=== PATIENT | female | born 1955 | race Caucasian/White ===

== ENCOUNTER 2020-01-12 11:56 | Outpatient (CLI) | payer MEDICARE, SELFPAY ==
--- NOTE | ~2020-01-12 | CT_ITS ---
CORRECTED REPORT ORDER CHANGE TITLE CHANGE 01/13/2020 [facility] – [place] EXAMINATION: CT LUNG SCREENING EXAM DATE: 01/12/2020 12:32 INDICATION: Personal history of nicotine dependence. TECHNIQUE: Spiral low dose CT of the chest without contrast. Axial, coronal and sagittal images were reviewed. The dose-length product (DLP) for this examination was 158.03 mGy-cm. The exposure was tailored according to patient size (auto mA exposure control), and iterative reconstruction (ASIR) was used as additional dose reduction technique. Comparison is made to prior examination from 11/23/2018. FINDINGS: There is moderate hyperinflation and mild emphysema. There is 4 mm right lower lobe nodule medially on image 60, noncalcified granuloma unchanged. No new or suspicious pulmonary nodules. Tracheobronchial tree is patent. There is no mediastinal, hilar or axillary lymphadenopathy. There are no pleural or pericardial effusions. There is no pneumothorax. Heart normal in size. There is mild coronary arterial calcification, arterial sclerosis. Surgical changes from right-sided mastectomy. Upper abdomen is unremarkable. There is mild thoracic spondylosis without osteoblastic or osteolytic lesions identified. IMPRESSION: Lung-RADS category 2, benign appearance or behavior (<1% chance of malignancy); recommend continued LDCT screening in 1 year. Reviewed, dictated and finalized at location B. MTDD
--- NOTE | ~2020-01-12 | MM_ITS ---
CORRECTED REPORT ORDER CHANGE TITLE CHANGE 01/12/2020 [facility] – [place] EXAMINATION: MM screening mammo LT WITH LORA HISTORY: Screening mammogram TECHNIQUE: Craniocaudal and mediolateral oblique 3-D tomosynthesis images were obtained and synthetic 2-D images were generated. CAD analysis was submitted and interpreted. COMPARISON: 11/23/2018, 10/29/2016, 10/24/2015 mammogram examinations BREAST PARENCHYMAL COMPOSITION: There is heterogeneously dense stroma, which may obscure small masses. FINDINGS: A small spiculated mass is suggested in the central left breast (craniocaudal Tomosynthesis image 30/60; MLO Tomosynthesis image 27/62). Diagnostic left mammogram and left breast ultrasound examination are recommended. Otherwise there is no evidence of suspicious mass, calcification, or architectural distortion to suggest malignancy. There has been no other suspicious interval change. IMPRESSION: 1. New small spiculated mass is suggested in the central left breast 2. Diagnostic left mammogram and left breast ultrasound examination are recommended. BI-RADS Category 0: Incomplete: Needs additional imaging evaluation. Reviewed, dictated and finalized at location A. MTDD IMPRESSION: 1. New small spiculated mass is suggested in the central left breast 2. Diagnostic left mammogram and left breast ultrasound examination are recomme nded. BI-RADS Category 0: Incomplete: Needs additional imaging evaluation.
== END 2020-01-12 11:57 | disposition home or self-care (01) ==
LOC: CHSIMG 12:01
PROVIDERS: PCP Internal Medicine; Visit Provider Internal Medicine
DX: Z12.31 Encounter for screening mammogram for malignant neoplasm of breast (principal); Z12.2 Encounter for screening for malignant neoplasm of respiratory organs; Z87.891 Personal history of nicotine dependence
CPT/HCPCS: 71250; 77063; 77067; G0297

== ENCOUNTER 2020-01-19 09:32 | Outpatient (CLI) | payer MEDICARE, SELFPAY ==
--- NOTE | ~2020-01-19 | MMUS_ITS ---
EXAMINATION: MM diagnostic amado LT w chanelle, US breast LT complete HISTORY: Possible new left breast mass TECHNIQUE: Additional 3-D tomosynthesis images of the left breast were performed and synthetic 2-D im ages were generated. CAD analysis was submitted and interpreted. High resolution left breast ultrasou nd was performed. COMPARISON: 11/23/2018 FINDINGS: MAMMOGRAPHIC FINDINGS: The breasts are heterogenously dense, which may obscure small masses. There are no suspicious masses, calcifications or architectural distortion in the left breast to suggest malignancy. ULTRASOUND: Left breast ultrasound: 2 mm cyst at 11:00, 4 cm from the nipple. No suspicious masses, calcification s or architectural distortion to suggest malignancy. IMPRESSION: 1. No mammographic or sonographic evidence for malignancy in the left breast. 2. Routine yearly screening mammogram and regular clinical breast examination are recommended. BI-RADS Category 2: Benign finding(s). Reviewed, dictated and finalized at location A. IMPRESSION: 1. No mammographic or sonographic evidence for malignancy in the left breast. 2. Routine yearly screening mammogram and regular clinical breast examination a re recommended. BI-RADS Category 2: Benign finding(s).
== END 2020-01-19 09:33 | disposition home or self-care (01) ==
PROVIDERS: PCP Internal Medicine; Visit Provider Internal Medicine
DX: R92.8 Other abnormal and inconclusive findings on diagnostic imaging of breast (principal)
CPT/HCPCS: 76641; 77061; 77065; G0279

== ENCOUNTER 2020-06-13 08:56 | Outpatient (CLI) | payer MEDICARE, SELFPAY ==
[2020-06-13 10:40] LABS: SARS-CoV-2 Ag Negative (Negative)
== END 2020-06-13 08:57 | disposition home or self-care (01) ==
LOC: CHSLAB 08:58
PROVIDERS: PCP Internal Medicine; Visit Provider Internal Medicine
DX: Z20.828 Contact with and (suspected) exposure to other viral communicable diseases (principal)
CPT/HCPCS: 87426

== ENCOUNTER 2020-06-27 10:39 | Outpatient (CLI) | payer MEDICARE, SELFPAY ==
--- NOTE | ~2020-06-27 | MR_ITS ---
EXAMINATION: MR brain/brain stem wo con DATE: 06/27/2020 11:51 INDICATION: Transient ischemic attack. Dizziness. Confusion. TECHNIQUE: Magnetic resonance imaging (MRI) of the brain and brainstem was performed without intraven ous contrast. Sequences included sagittal and axial T1-weighted FSE, axial diffusion-weighted FS EPI, axial T2*-weighted GRE, axial T2-weighted FLAIR Propeller, and axial T2-weighted Propeller. Apparent diffusion coefficient (ADC) maps were created. COMPARISON: Brain MRI 03/11/2017 FINDINGS: There are scattered areas of nonspecific increased T2-weighted signal intensity in the cere bral white matter and ligia. There is no intracranial hemorrhage, acute infarction, or abnormal intrac ranial mass lesion. The ventricles are normal in size. There is mild mucosal thickening in the parana aimee sinuses. The orbits are normal. The mastoid air cells are normal. IMPRESSION: 1. Stable mild nonspecific cerebral white matter disease and pontine disease, which likely represents chronic small vessel ischemic disease. Reviewed, dictated and finalized at location B. 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 Stable mild nonspecific cerebral white matter disease and pontine disease, w hich likely represents chronic small vessel ischemic disease.
== END 2020-06-27 10:40 | disposition home or self-care (01) ==
LOC: CHSIMG 10:41
PROVIDERS: PCP Internal Medicine; Visit Provider Internal Medicine
DX: G45.9 Transient cerebral ischemic attack, unspecified (principal); R42 Dizziness and giddiness
CPT/HCPCS: 70551

== ENCOUNTER 2020-06-28 09:34 | Outpatient (CLI) | payer MEDICARE, SELFPAY ==
--- NOTE | ~2020-06-28 | US_ITS ---
EXAMINATION: US carotid duplex BI DATE: 06/28/2020 11:43 INDICATION: Transient ischemic attack. TECHNIQUE: Grayscale, color Doppler, and pulsed Doppler images of the cervical carotid arteries were obtained. The degree of vessel stenosis is placed in one of the following categories: normal, <50%, 5 0-69%, >=70% but less than near-occlusion, near-occlusion, or total occlusion. Note that percent sten osis relative to normal distal artery lumen diameter is indirectly measured from velocity measurement s as described by Obdulio, et al. Radiology 2003; 229:340-346. COMPARISON: None. FINDINGS: RIGHT: The right common carotid artery (CCA) peak systolic velocity (PSV) is 64 cm/s. The right internal car otid artery (ICA) PSV is 103 cm/s. The right ICA end-diastolic velocity (EDV) is 27 cm/s. The right I CA/CCA PSV ratio is 1.6. Grayscale and color Doppler images yield an estimate of <50% diameter reduct ion from plaque in the ICA. There is antegrade flow in the right vertebral artery. LEFT: The left CCA PSV is 83 cm/s. The left ICA PSV is 115 cm/s. The left ICA EDV is 37 cm/s. The left ICA/ CCA PSV ratio is 1.4. Grayscale and color Doppler images yield an estimate of <50% diameter reduction from plaque in the ICA. There is antegrade flow in the left vertebral artery. IMPRESSION: 1. <50% stenosis in the right internal carotid artery. 2. <50% stenosis in the left internal carotid artery. Reviewed, dictated and finalized at location B. 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
== END 2020-06-28 09:35 | disposition home or self-care (01) ==
LOC: CHSIMG 09:35
PROVIDERS: PCP Internal Medicine; Visit Provider Internal Medicine
DX: G45.9 Transient cerebral ischemic attack, unspecified (principal); R42 Dizziness and giddiness
CPT/HCPCS: 93306; 93880

== ENCOUNTER 2020-07-30 07:49 | Outpatient (CLI) | payer MEDICARE, SELFPAY ==
--- NOTE | 2020-07-30 09:30 | EST_ITS ---
Patient Info Name: Beba Hernandez Age: 65 years : 1955 Gender: Female Ht: 63 in Wt: 180 lbs BSA: 1.94 m2 HR: 71 bpm BP: 159 / 98 mmHg Heart Rhythm: Sinus Rhythm Exam Date: 07/30/2020 9:12 AM Exam Location: [facility] Patient Status: Outpatient Admit Date: 07/30/2020 Staff Ordering Physician: Denice, Suly Chen APRN Attending Provider: Rayna, Suly Chen APRN Exercise Technologist: Charlotte Villalta CRT Exercise Physician: Emily Kuo CEP Exam Type: CA stress ruby w NM Study Info Indications AbnormalEKG - A pharmacological stress test was performed. History/Risk Factors Hypertension: Yes Dyslipidemia: Yes Congenital Heart Disease (CHD): No Peripheral Arterial Disease (PAD): No Myocardial Infarction (OR): No Chronic Lung Disease: Yes Obesity: Yes Renal Disease: No Coronary Artery Disease (CAD) No Congestive Heart Failure (CHF): No Cardiomyopathy/LV Systolic Dysfunction: No Date of Last Tobacco Use: 06/28/2020 Diabetes Mellitus: Yes Tobacco Use: Current - Every Day If Any Current, Tobacco Type: Cigarettes Cerebrovascular Disease: TIA Family History: Diabetes Mellitus, Coronary Artery Disease Deep Vein Thrombosis (DVT): None Dialysis: None History/Risk Factors HTN. DIabetes. Smoker. Lung Disease. Frailty Scale (CSHA): 2: Well Cardiac Arrest: No Summary 1. 1. Negative Lexiscan stress test for ischemic ST changes by ECG criteria. 2. 2. Baseline hypertension. 3. 3. Nuclear scan to follow and will be reported separately. Please correlate with it. Protocol: LEXISCAN Stress ECG Details Stage: REST Duration (min): 2 min : 49 sec HR (bpm): 71 SBP (mmHg): 159 DBP (mmHg): 96 Stage: REST Duration (min): 4 min : 45 sec HR (bpm): 70 SBP (mmHg): 159 DBP (mmHg): 96 Stage: STAGE 1 Duration (min): 0 min : 9 sec HR (bpm): 72 SBP (mmHg): 159 DBP (mmHg): 96 Stage: RECOVERY Duration (min): 0 min : 50 sec HR (bpm): 96 SBP (mmHg): 159 DBP (mmHg): 96 Stage: RECOVERY Duration (min): 1 min : 50 sec HR (bpm): 100 SBP (mmHg): 171 DBP (mmHg): 93 Stage: RECOVERY Duration (min): 2 min : 50 sec HR (bpm): 97 SBP (mmHg): 176 DBP (mmHg): 91 Stage: RECOVERY Duration (min): 3 min : 50 sec HR (bpm): 95 SBP (mmHg): 185 DBP (mmHg): 88 Stage: RECOVERY Duration (min): 4 min : 50 sec HR (bpm): 93 SBP (mmHg): 163 DBP (mmHg): 88 Stage: RECOVERY Duration (min): 5 min : 50 sec HR (bpm): 87 SBP (mmHg): 169 DBP (mmHg): 86 Stage: RECOVERY Duration (min): 6 min : 8 sec HR (bpm): 86 SBP (mmHg): 169 DBP (mmHg): 86 Rest HR: 70 bpm Peak HR: 101 bpm Rest Sys BP: 159 mmHg Peak Sys BP: 185 mmHg Max Pred HR: 153 bpm % Max Pred HR: 66 % Target HR: 130 bpm Max RPP: 18,685 bpm*mmHg Termination Reason: Completion of Protocol Cardiac Symptoms: Headache, Dyspnea Total Time: 0 min : 9 sec
== END 2020-07-30 07:50 | disposition home or self-care (01) ==
PROVIDERS: PCP Internal Medicine; Visit Provider Internal Medicine Cardiovascular Disease
DX: R94.31 Abnormal electrocardiogram [ECG] [EKG] (principal); I49.3 Ventricular premature depolarization; R06.02 Shortness of breath; R55 Syncope and collapse
CPT/HCPCS: 78452; 93017; A9502; J2785

== ENCOUNTER 2021-03-04 12:38 | Outpatient (CLI) | payer MEDICARE, SELFPAY ==
--- NOTE | ~2021-03-04 | CT_ITS ---
EXAMINATION: CT abdomen pelvis w con DATE: 03/04/2021 13:56 INDICATION: Generalized abdominal pain and diarrhea. Nausea and vomiting. TECHNIQUE: Computed tomography (CT) of the abdomen and pelvis was performed with 100 mL Omnipaque-350 intravenous contrast. Automated exposure control and iterative reconstruction technique were employe d. The dose-length product was 678.83 mGy-cm. COMPARISON: 03/19/2018 FINDINGS: Lung bases are clear. Heart size is normal. Lipomatous hypertrophy of the atrial septum. No pericardi al or pleural effusion. Unchanged 1 cm cyst in the left hepatic lobe and the left kidney. Couple smal l splenic calcific lesions consistent with old granulomatous disease. Gallbladder, pancreas, bilatera l adrenal glands and right kidney are normal. Normal appendix. Fluid throughout the otherwise normal small bowel and colon consistent with diarrhea. Decompressed bladder is unremarkable. The uterus is n ot identified and has likely been surgically resected. No free intraperitoneal gas or fluid. Ectatic abdominal aorta measuring up to 3.3 cm in maximal diameter. There is calcified atherosclerosis of the aorta and many of the other arteries. No pathologically enlarged abdominal or pelvic lymphadenopathy . Moderate thoracolumbar spondylosis. IMPRESSION: 1. 2 throughout normal appearing small bowel and colon consistent with diarrhea and would correlate c linically for gastroenteritis. Reviewed, dictated and finalized at location A. IMPRESSION: 1. 2 throughout normal appearing small bowel and colon consistent with diarrhea and would correlate clinically for gastroenteritis.
[2021-03-04 13:05] LABS: Basophils Absolute Auto 0.15 K/mm3 (0.00-0.10); Basophils Percent Auto 0.9 % (0.0-1.0); Eosinophils Absolute Auto 0.17 K/mm3 (0.02-0.50); Eosinophils Percent Auto 1.1 % (1.0-6.0); Hematocrit 45.5 % (35.0-42.0); Hemoglobin 15.7 g/dL (11.7-13.8); Immature Granulocyte Percent A 1.9 % (0.0-0.0); Lymphocytes Absolute Auto 3.05 K/mm3 (1.10-4.50); Lymphocytes Percent Auto 19.3 % (18.0-42.0); Mean Corpuscular HGB Conc 34.5 g/dL (32.0-36.0); Mean Corpuscular Hemoglobin 30.7 pg (27.0-31.0); Mean Corpuscular Volume 88.9 fL (78.0-102.0); Mean Platelet Volume 9.7 fl (9.2-11.8); Monocytes Absolute Auto 0.75 K/mm3 (0.10-0.90); Monocytes Percent Auto 4.7 % (2.0-11.0); Neutrophils Absolute Auto 11.4 K/mm3 (1.7-7.2); Neutrophils Percent Auto 72.1 % (50.0-70.0); Platelet Count Result 448 K/mm3 (150-420); Red Blood Count 5.12 M/mm3 (4.20-5.40); Red Cell Distribution Width 12.3 % (11.6-14.4); White Blood Count 15.8 K/mm3 (4.8-10.8)
[2021-03-04 13:28] LABS: Alanine Aminotransferase 32 U/L (14-59); Albumin Level 3.9 g/dL (3.4-5.0); Alkaline Phosphatase 91 U/L (46-116); Amylase 52 U/L (25-115); Anion Gap 15 mmol/L (8-16); Aspartate Amino Transferase 22 U/L (15-37); Bilirubin,Total 0.3 mg/dL (0.00-1.00); Blood Urea Nitrogen 13 mg/dL (7-18); Calcium 9.6 mg/dL (8.5-10.1); Carbon Dioxide 24 mmol/L (21-32); Chloride 102 mmol/L (98-108); Estimated Glomerular Filt Rate 57; Glucose 150 mg/dL (70-99); Lipase 135 U/L (73-393); Osmolality Calculated 295 mOsm/kg (285-295); Potassium 3.3 mmol/L (3.5-5.1); Sodium 141 mmol/L (136-145); Total Protein 8.3 g/dL (6.4-8.2)
[2021-03-09 20:22] LABS: Calprotectin, Stool <5 mcg/g
== END 2021-03-04 12:39 | disposition home or self-care (01) ==
PROVIDERS: PCP Internal Medicine; Visit Provider Internal Medicine
DX: K52.9 Noninfective gastroenteritis and colitis, unspecified (principal); R10.9 Unspecified abdominal pain
CPT/HCPCS: 36415; 74177; 80053; 82150; 83690; 83993; 85025; 87045; 87046; 87269; 87324; 87427; Q9967

== ENCOUNTER 2021-03-09 13:30 | Emergency (ER) | payer MEDICARE, SELFPAY ==
[2021-03-09 13:52] VITALS: BP 150/93; PULSE 94; RESP 20; TEMP 36.8; O2SAT 96
[2021-03-09 14:20] LABS: Appearance Urine Clear (Clear); Basophils Absolute Auto 0.12 K/mm3 (0.00-0.10); Basophils Percent Auto 0.9 % (0.0-1.0); Bilirubin Urine 1+ (Negative); Blood Urine 2+ (Negative); Eosinophils Absolute Auto 0.08 K/mm3 (0.02-0.50); Eosinophils Percent Auto 0.6 % (1.0-6.0); Glucose Urine UA Negative (Negative); Hematocrit 47.7 % (35.0-42.0); Hemoglobin 15.9 g/dL (11.7-13.8); Immature Granulocyte Absolute 0.08 K/mm3 (0.00-0.00); Immature Granulocyte Percent A 0.6 % (0.0-0.0); Ketones Urine Trace (Negative); Leukocyte Esterase Ur Negative (Negative); Lymphocytes Absolute Auto 2.45 K/mm3 (1.10-4.50); Lymphocytes Percent Auto 18.3 % (18.0-42.0); Mean Corpuscular HGB Conc 33.3 g/dL (32.0-36.0); Mean Corpuscular Hemoglobin 29.6 pg (27.0-31.0); Mean Corpuscular Volume 88.7 fL (78.0-102.0); Mean Platelet Volume 10.2 fl (9.2-11.8); Monocytes Absolute Auto 0.79 K/mm3 (0.10-0.90); Monocytes Percent Auto 5.9 % (2.0-11.0); Neutrophils Absolute Auto 9.9 K/mm3 (1.7-7.2); Neutrophils Percent Auto 73.7 % (50.0-70.0); Nitrate Urine Negative (Negative); Platelet Count Result 396 K/mm3 (150-420); Protein Urine 1+ (Negative); Red Blood Count 5.38 M/mm3 (4.20-5.40); Specific Grav Ur >= 1.030 (1.010-1.020); Urobilinogen Urine 0.2 mg/dL (0.2-1.0); White Blood Count 13.4 K/mm3 (4.8-10.8)
[2021-03-09] MEDS: ONDANSETRON INJ 4 MG/2 ML VIAL IV PUSH (14:22)
[2021-03-09] MEDS: SODIUM CHLORIDE 0.9% IV 2,000 ML 999 ML IV CONT (14:23)
[2021-03-09 14:26] LABS: Add Urine Microscopic? YES; Bacteria Urine Trace /hpf; Color Urine Dark Orange (Yellow); RBC Urine 0-2 /hpf (0-2); Squamous Epithelial Cell Urine Few /hpf (Few); WBC Urine 0-3 /hpf (0-3)
[2021-03-09 14:38] LABS: Alanine Aminotransferase 31 U/L (14-59); Albumin Level 4.1 g/dL (3.4-5.0); Alkaline Phosphatase 88 U/L (46-116); Anion Gap 18 mmol/L (8-16); Aspartate Amino Transferase 21 U/L (15-37); Bilirubin,Total 0.5 mg/dL (0.00-1.00); Blood Urea Nitrogen 49 mg/dL (7-18); Calcium 9.1 mg/dL (8.5-10.1); Carbon Dioxide 19 mmol/L (21-32); Chloride 100 mmol/L (98-108); Estimated CRCL calculation 35 ml/min; Estimated Glomerular Filt Rate 39; Glucose 143 mg/dL (70-99); Lipase 169 U/L (73-393); Osmolality Calculated 299 mOsm/kg (285-295); Potassium 3.7 mmol/L (3.5-5.1); Sodium 137 mmol/L (136-145); Troponin I 4.3 ng/L (0.00-60.4)
[2021-03-09 14:40] LABS: Lactic Acid Reflex 1.3 mmol/L (0.4-2.0)
--- NOTE | 2021-03-09 15:03 | ED.NAVMDI ---
HPI - Nausea/Vomiting/Diarrhea General Chief complaint: Nausea/Vomiting/Diarrhea Stated complaint: weak vomiting Source: patient History of Present Illness HPI Narrative: this is a 66-year-old female with some recent being diagnosed with diverticulitis and started on Flagyl along with Cipro by her primary care physician, had a CT scan of her abdomen performed approximately 3 to 4 days ago which was normal, also had blood work that was reviewed. Currently the patient has continued diarrhea with nausea with weakness. Currently no fever chills no flank pain no dysuria. MD elicited complaint: nausea, vomiting and diarrhea Onset (ago): day(s) Description of vomiting: watery Description of diarrhea: semi-solid Associated abdominal pain: Yes Location of pain: diffuse Severity: mild Quality: cramping Exacerbating factors: none Related Data Home Medications Medication Instructions Recorded Confirmed alprazolam 0.25 mg PO QID PRN 03/09/21 03/09/21 atorvastatin 10 mg PO DAILY 03/09/21 03/09/21 ciprofloxacin HCl 500 mg PO BID 03/09/21 03/09/21 fenofibrate micronized 67 mg PO DAILY 03/09/21 03/09/21 glimepiride 0.5 mg PO DAILY 03/09/21 03/09/21 losartan 100 mg PO DAILY 03/09/21 03/09/21 metronidazole 500 mg PO Q6H 03/09/21 03/09/21 omeprazole 40 mg PO DAILY 03/09/21 03/09/21 potassium chloride 20 meq PO DAILY 03/09/21 03/09/21 Allergies Allergy/AdvReac Type Severity Reaction Status Date / Time No Known Allergies Allergy Verified 03/09/21 14:23 Review of Systems Review of Systems: All systems reviewed & are unremarkable except as noted in HPI and below PMFSH Social History Social History Gender identity (if verbalized by the patient): Female Exam Const: General: no acute distress Orientation/consciousness: patient oriented x3 HENMT: Head: normal to inspection Eyes: Pupils: Equal, round and reactive pupils present EOM: EOMs intact bilaterally Neck: Neck: normal visual inspection and no lymphadenopathy Chest: Chest palpation & inspection: normal inspection of the chest Resp: Effort & Inspection: normal respiratory effort Auscultation: clear to auscultation bilaterally Cardio: Rate: regular rate GI: GI Palp: Yes Soft to palpation Percussion: Yes normal to percussion Urinary Catheter: Urinary Catheter: patent and draining Skin: General skin exam: normal color Rashes: no rashes Extrem: General: normal to inspection Psych: Appearance: grossly normal Mental Status: mental status grossly normal Affect: normal affect Course Course Emergency Course: Patient after reassessment has improved with IV fluids and with Zofran, reviewed finding some from her lab work and advised to take Zofran as prescribed continue her antibiotics and follow-up with her primary care physician within the next 2 to 3 days further evaluation. Vital Signs Vital signs: Vital Signs Temperature 36.8 C 03/09/21 13:52 Pulse Rate 94 03/09/21 13:52 Respiratory Rate 20 03/09/21 13:52 Blood Pressure 150/93 H 03/09/21 13:52 Pulse Oximetry 96 03/09/21 13:52 Temperature 36.8 C 03/09/21 13:52 Pulse Rate 94 03/09/21 13:52 Respiratory Rate 20 03/09/21 13:52 Blood Pressure 150/93 H 03/09/21 13:52 Pulse Oximetry 96 03/09/21 13:52 MDM - Nausea/Vomiting/Diarrhea Lab Data Result diagrams: 03/09/21 14:13 03/09/21 14:13 Labs: Lab Results 03/09/21 03/09/21 03/09/21 Range/Units 14:13 14:13 14:13 WBC 13.4 H (4.8-10.8) K/mm3 RBC 5.38 (4.20-5.40) M/mm3 Hgb 15.9 H (11.7-13.8) g/dL Hct 47.7 H (35.0-42.0) % MCV 88.7 (78.0-102.0) fL MCH 29.6 (27.0-31.0) pg MCHC 33.3 (32.0-36.0) g/dL RDW 13.0 (11.6-14.4) % Plt Count 396 (150-420) K/mm3 MPV 10.2 (9.2-11.8) fl Immature Gran % (Auto) 0.6 H (0.0-0.0) % Neut % (Auto) 73.7 H (50.0-70.0) % Lymph % (Auto) 18.3 (18.0-42.0) % [place] % (Auto) 5.9 (2.0-11.0) % Eos % (A
[2021-03-09 15:18] VITALS: BP 127/86; PULSE 94; RESP 20; TEMP 36.4; O2SAT 100
== END 2021-03-09 15:39 | disposition home or self-care (01) ==
PROVIDERS: Emergency Provider Emergency Medicine; PCP Internal Medicine
DX: K57.92 Diverticulitis of intestine, part unspecified, without perforation or abscess without bleeding (principal); R11.2 Nausea with vomiting, unspecified
CPT/HCPCS: 36415; 80053; 81001; 83605; 83690; 84484; 85025; 96361; 96374; 99283; 99284; J2405; J7030

== ENCOUNTER 2021-04-12 13:25 | Outpatient (CLI) | payer MEDICARE, SELFPAY ==
--- NOTE | ~2021-04-12 | MM_ITS ---
EXAMINATION: MM screening amado LT w chanelle HISTORY: Screening mammogram; status post right mastectomy for breast cancer TECHNIQUE: Craniocaudal and mediolateral oblique 3-D tomosynthesis images were obtained and synthetic 2-D images were generated. CAD analysis was submitted and interpreted. COMPARISON: 01/19/2020 diagnostic left mammogram and complete left breast ultrasound 01/12/2020 and 11/23/2018 left screening mammogram examinations BREAST PARENCHYMAL COMPOSITION: The breasts are heterogeneously dense, which may obscure small masses . FINDINGS: There is no evidence of suspicious mass, calcification, or architectural distortion to sugg est malignancy in either breast. There has been no suspicious interval change. IMPRESSION: 1. No mammographic evidence of malignancy. 2. Recommend routine screening mammography in one year. BI-RADS Category 1: Negative Reviewed, dictated and finalized at location A.
--- NOTE | ~2021-04-12 | CT_ITS ---
EXAMINATION: CT lung screening DATE: 04/12/2021 14:33 INDICATION: Personal history of tobacco dependence TECHNIQUE: Computed tomography (CT) of the chest was performed without intravenous contrast. The dose -length product was 113.08 mGy-cm. Automated exposure control and iterative reconstruction technique were employed. COMPARISON: CT dated 01/12/2020 and 11/23/2018 FINDINGS: No thoracic lymphadenopathy. There is atherosclerosis. Heart size is normal. No significant pleural or pericardial effusion. Mild emphysema. 4 mm right lower lobe nodule unchanged. There is left upper lobe atelectasis/scarring unchanged. There is a tiny subpleural nodule in the rig ht upper lobe measuring 1-2 mm, unchanged. A few additional small nodules are present measuring 2 mm or less. No endobronchial lesions. No pneumothorax. No focal parenchymal consolidation. Mild thoracic spondylosis. IMPRESSION: 1. Lung-RADS category 2: Benign appearance or behavior. Continue annual screening with noncontrast lo w-dose chest CT in 12 months. Reviewed, dictated and finalized at location A. IMPRESSION: 1. Lung-RADS category 2: Benign appearance or behavior. Continue annual screeni ng with noncontrast low-dose chest CT in 12 months.
--- NOTE | ~2021-04-12 | DEXA_ITS ---
Bone Density Report Name: Beba Hernandez Age: 66 Sex: Female Ethnicity: White Date of : 1955 Indication: postmenopausal; screening for osteoporosis; height loss; hysterectomy; Referring Provider: Pasquale Pro Study: Bone densitometry was performed. Exam Date: April 12, 2021 Accession number: [id number] Bone Density: Region BMD T-score Z-score Classification AP Spine(L1-L4) 0.862 -1.7 0.3 Osteopenia Femoral Neck (Left) 0.725 -1.1 0.6 Osteopenia Total Hip (Left) 0.763 -1.5 -0.1 Osteopenia Femoral Neck (Right) 0.745 -0.9 0.8 Normal Total Hip (Right) 0.800 -1.2 0.2 Osteopenia Femoral Neck Mean 0.735 -1.0 0.7 Normal Total Hip Mean 0.782 -1.3 0.1 Osteopenia World Health Organization criteria for BMD impression classify patients as: Normal (T-score at or above -1.0), Osteopenia (T-score between -1.0 and -2.5), or Osteoporosis (T-score at or below -2.5). 10-year Fracture Risk(1): Major Osteoporotic Fracture 7.2% Hip Fracture 1.0% Reported Risk Factors: [place] (), Neck BMD=0.725, BMI=47.8, smoking (1) FRAX(R) Version 3.08. Fracture probability calculated for an untreated patient. Fracture probability may be lower if the patient has received treatment. Previous Exams: Region Exam Age BMD T-score BMD Change BMD Change Date g/cm2 vs Baseline vs Previous AP Spine (L1-L4) 04/12/2021 66 0.862 -1.7 -0.133 (-13.3% -0.133 (-13.3% 11/30/2018 63 0.995 -0.5 Total Hip(Left) 04/12/2021 66 0.763 -1.5 -0.105 (-12.1% -0.105 (-12.1% 11/30/2018 63 0.868 -0.6 Total Hip(Right) 04/12/2021 66 0.800 -1.2 -0.040 (-4.8%) -0.040 (-4.8%) 11/30/2018 63 0.841 -0.8 *Denotes significance at 95% confidence level, LSC for AP Spine = 0.022 g/cm2, LSC for Total Hip = 0.027 g/cm2 # Denotes dissimilar scan types or analysis methods Clinical Information Provided by Patient: Smokes Has used the following medications: Vitamin D, Calcium Has the following medical conditions: Hysterectomy Patient maximum height was 66 Menopause Age: 48 No regular weight bearing exercise Drinks caffeinated beverages Onset of menses at age 7 Number of children 2 Impression: The patient has low bone mass, based on the Total Spine T-score. The patient has risk factors, including: smoking. No significant bone loss was observed. Discussion: BONE DENSITY IS LOW AT ONE OR MORE SKELETAL SITES. This patient's lowest
== END 2021-04-12 13:26 | disposition home or self-care (01) ==
LOC: CHSIMG 13:27
PROVIDERS: PCP Internal Medicine; Visit Provider Internal Medicine
DX: Z12.2 Encounter for screening for malignant neoplasm of respiratory organs (principal); Z87.891 Personal history of nicotine dependence; M81.0 Age-related osteoporosis without current pathological fracture; Z12.31 Encounter for screening mammogram for malignant neoplasm of breast
CPT/HCPCS: 71271; 77063; 77067; 77080

== ENCOUNTER 2022-01-31 14:13 | Emergency (ER) | payer MEDICARE, SELFPAY ==
[2022-01-31] VITALS (8 sets, daily range): BP systolic 101–138; BP diastolic 52–94; PULSE 64–98; RESP 14–19; TEMP 36.4–36.8; O2SAT 97–100
[2022-01-31 14:28] LABS: Glucose Point of Care 168 mg/dl (65-105)
--- NOTE | 2022-01-31 14:43 | ECG_ITS ---
Measurements Intervals [place] Rate: 77 P: 51 NE: 183 QRS: 38 QRSD: 143 T: -5 QT: 425 QTc: 482 Interpretive Statements SINUS RHYTHM FREQUENT VENTRICULAR PREMATURE COMPLEXES RIGHT BUNDLE BRANCH BLOCK ST-T WAVE ABNORMALITY IN INFERIOR LEADS- CONSIDER ISCHEMIA ABNORMAL ECG Electronically Signed On 01-31-2022 18:46:21 CDT by Camilo Foster D.O.
--- NOTE | 2022-01-31 14:44 | ED.GENADULT ---
HPI - General Adult General Chief complaint: Weakness Stated complaint: blurry vision,broke out in sweat,weak,dizzy History of Present Illness HPI narrative: Beba is a very pleasant 67F with a PMH of HTN, HLD presented to the ER after an episode of lightheadedness. For the past 2 days she has had countless episodes of watery diarrhea that resolved today so she went to work. At work she became lightheaded. She all of a sudden became lightheaded, flushed, and her limbs felt very heavy. There was no CP, SOB, vertigo and she never lost consciousness. 5 coworkers have covid. Related Data Home Medications Medication Instructions Recorded Confirmed alprazolam 0.25 mg tablet 0.25 mg PO QID PRN ANXIETY 03/09/21 01/31/22 atorvastatin 10 mg tablet 10 mg PO DAILY 03/09/21 01/31/22 ciprofloxacin HCl 500 mg tablet 500 mg PO BID 03/09/21 01/31/22 fenofibrate micronized 67 mg 67 mg PO DAILY 03/09/21 01/31/22 capsule glimepiride 1 mg tablet 0.5 mg PO DAILY 03/09/21 01/31/22 losartan 100 mg tablet 100 mg PO DAILY 03/09/21 01/31/22 metronidazole 500 mg tablet 500 mg PO Q6H 03/09/21 01/31/22 omeprazole 40 mg capsule,delayed 40 mg PO DAILY 03/09/21 01/31/22 release potassium chloride 20 mEq 20 meq PO DAILY 03/09/21 01/31/22 tablet,extended release(part/cryst) Allergies Allergy/AdvReac Type Severity Reaction Status Date / Time No Known Allergies Allergy Verified 01/31/22 14:43 Review of Systems Constitutional: Constitutional: Reports as per HPI Eyes: Comments: blurry vision during the incident ENT: Reports system reviewed and no additional complaints, except as documented Cardiovascular: Cardiovascular: Reports as per HPI Respiratory: Respiratory: Reports as per HPI Gastrointestinal: Gastrointestinal: Reports as per HPI Genitourinary: Genitourinary: Reports no additional female genitourinary complaints Musculoskeletal: Musculoskeletal: Reports no additional musculoskeletal complaints Integumentary/Breasts: Skin/Breast: Reports system reviewed and no additional complaints, except as docu Neurologic: Reports system reviewed and no additional complaints, except as documented Psychiatric: Psychiatric: Reports no additional psychiatric complaints Endocrine: Endocrine: Reports no additional endocrine complaints Hematologic/Lymphatic: Hematologic/Lymphatic: Reports no additional hematologic/lymphatic complaints Allergic/Immunologic: Allergic/Immunologic: Reports no additional allergic/immunologic complaints [facility] Social History Social History Gender identity (if verbalized by the patient): Female Exam Const: General: healthy appearing, no acute distress and alert HENMT: Head: normal to inspection Ears: external ears normal General nose exam: Normal external nose present Face and sinus: normal facial exam Mouth: Yes Normal oral and palatal mucosa present Eyes: Conjunctivae: conjunctivae normal Pupils: Equal, round and reactive pupils present Neck: Neck: normal visual inspection Chest: Chest palpation & inspection: normal inspection of the chest Resp: Effort & Inspection: normal respiratory effort Auscultation: clear to auscultation bilaterally Cardio: Rate: regular rate Rhythm: regular rhythm GI: Inspection: non-distended GI Palp: Yes Soft to palpation, No Tenderness to palpation present (GI) and No Guarding due to palpation present (GI) Auscultation: normal bowel sounds Skin: General skin exam: normal color Neuro: General: patient oriented x3 and moves all extremities Cranial nerves: Yes Nystagmus not present Other: CNII-XII intact as tested, normal finger to nose Extrem: General: normal to inspection Psych: Mental Status: mental status grossly normal Affect: normal affect Course Course Emergency Course: Labs showed an SEAN with a creatinine of 2.76. Ordered IV fluids. EKG showed NSR with a rate of 77, frequent PVC, normal axis, and no ST elevation After 2L of fluids the Cr
[2022-01-31 15:13] LABS: Basophils Absolute Auto 0.08 K/mm3 (0.00-0.10); Basophils Percent Auto 0.6 % (0.0-1.0); Eosinophils Absolute Auto 0.04 K/mm3 (0.02-0.50); Eosinophils Percent Auto 0.3 % (1.0-6.0); Hematocrit 44.1 % (35.0-42.0); Hemoglobin 14.6 g/dL (11.7-13.8); Immature Granulocyte Absolute 0.08 K/mm3 (0.00-0.00); Immature Granulocyte Percent A 0.6 % (0.0-0.0); Lymphocytes Absolute Auto 1.55 K/mm3 (1.10-4.50); Lymphocytes Percent Auto 12.3 % (18.0-42.0); Mean Corpuscular HGB Conc 33.1 g/dL (32.0-36.0); Mean Corpuscular Hemoglobin 29.9 pg (27.0-31.0); Mean Corpuscular Volume 90.4 fL (78.0-102.0); Mean Platelet Volume 11.1 fl (9.2-11.8); Monocytes Percent Auto 6.3 % (2.0-11.0); Neutrophils Absolute Auto 10.1 K/mm3 (1.7-7.2); Neutrophils Percent Auto 79.9 % (50.0-70.0); Platelet Count Result 264 K/mm3 (150-420); Red Blood Count 4.88 M/mm3 (4.20-5.40); White Blood Count 12.6 K/mm3 (4.8-10.8)
[2022-01-31 15:30] LABS: Alanine Aminotransferase 21 U/L (14-59); Albumin Level 3.9 g/dL (3.4-5.0); Alkaline Phosphatase 107 U/L (46-116); Anion Gap 13 mmol/L (8-16); Aspartate Amino Transferase 12 U/L (15-37); Bilirubin,Total 0.3 mg/dL (0.00-1.00); Blood Urea Nitrogen 59 mg/dL (7-18); Carbon Dioxide 22 mmol/L (21-32); Chloride 102 mmol/L (98-108); Estimated CRCL calculation 18 ml/min; Estimated Glomerular Filt Rate 17; Glucose 144 mg/dL (70-99); Osmolality Calculated 303 mOsm/kg (285-295); Potassium 3.4 mmol/L (3.5-5.1); Sodium 137 mmol/L (136-145); Total Protein 7.3 g/dL (6.4-8.2)
[2022-01-31 15:51] LABS: SARS-CoV-2 RNA PCR Negative (Negative)
[2022-01-31] MEDS: SODIUM CHLORIDE 0.9% IV 1,000 ML 999 ML IV CONT ×3 (16:30→18:16)
[2022-01-31 17:44] LABS: Anion Gap 9 mmol/L (8-16); Blood Urea Nitrogen 56 mg/dL (7-18); Calcium 7.8 mg/dL (8.5-10.1); Carbon Dioxide 23 mmol/L (21-32); Chloride 106 mmol/L (98-108); Estimated CRCL calculation 24 ml/min; Estimated Glomerular Filt Rate 24; Glucose 111 mg/dL (70-99); Osmolality Calculated 302 mOsm/kg (285-295); Potassium 3.5 mmol/L (3.5-5.1); Sodium 138 mmol/L (136-145)
== END 2022-01-31 19:28 | disposition home or self-care (01) ==
PROVIDERS: Emergency Provider Family Medicine; PCP Internal Medicine
DX: N17.9 Acute kidney failure, unspecified (principal); I10 Essential (primary) hypertension; E78.5 Hyperlipidemia, unspecified; Z20.822 Contact with and (suspected) exposure to COVID-19
CPT/HCPCS: 36415; 80048; 80053; 82948; 85025; 93005; 96360; 96361; 99283; C9803; J7030; U0003; U0005

== ENCOUNTER 2022-02-03 12:31 | Outpatient (CLI) | payer MEDICARE, SELFPAY ==
[2022-02-03 12:44] LABS: Basophils Absolute Auto 0.04 K/mm3 (0.00-0.10); Basophils Percent Auto 0.6 % (0.0-1.0); Eosinophils Absolute Auto 0.13 K/mm3 (0.02-0.50); Eosinophils Percent Auto 2.1 % (1.0-6.0); Hematocrit 39.3 % (35.0-42.0); Hemoglobin 12.8 g/dL (11.7-13.8); Immature Granulocyte Absolute 0.01 K/mm3 (0.00-0.00); Immature Granulocyte Percent A 0.2 % (0.0-0.0); Lymphocytes Absolute Auto 2.15 K/mm3 (1.10-4.50); Lymphocytes Percent Auto 34.6 % (18.0-42.0); Mean Corpuscular HGB Conc 32.6 g/dL (32.0-36.0); Mean Corpuscular Hemoglobin 30.1 pg (27.0-31.0); Mean Corpuscular Volume 92.5 fL (78.0-102.0); Mean Platelet Volume 10.8 fl (9.2-11.8); Monocytes Absolute Auto 0.28 K/mm3 (0.10-0.90); Monocytes Percent Auto 4.5 % (2.0-11.0); Neutrophils Absolute Auto 3.6 K/mm3 (1.7-7.2); Platelet Count Result 220 K/mm3 (150-420); Red Blood Count 4.25 M/mm3 (4.20-5.40); Red Cell Distribution Width 12.8 % (11.6-14.4); White Blood Count 6.2 K/mm3 (4.8-10.8)
[2022-02-03 13:20] LABS: Alanine Aminotransferase 28 U/L (14-59); Albumin Level 3.3 g/dL (3.4-5.0); Alkaline Phosphatase 104 U/L (46-116); Anion Gap 6 mmol/L (8-16); Aspartate Amino Transferase 13 U/L (15-37); Bilirubin,Total 0.3 mg/dL (0.00-1.00); Blood Urea Nitrogen 17 mg/dL (7-18); Calcium 8.8 mg/dL (8.5-10.1); Carbon Dioxide 28 mmol/L (21-32); Chloride 106 mmol/L (98-108); Estimated Glomerular Filt Rate > 60; Glucose 155 mg/dL (70-99); Osmolality Calculated 294 mOsm/kg (285-295); Sodium 140 mmol/L (136-145)
== END 2022-02-03 12:32 | disposition home or self-care (01) ==
LOC: CHSLAB 12:33
PROVIDERS: PCP Internal Medicine; Visit Provider Internal Medicine
DX: R19.7 Diarrhea, unspecified (principal)
CPT/HCPCS: 36415; 80053; 85025

== ENCOUNTER 2022-02-04 10:27 | Outpatient (NON) | payer MEDICARE, SELFPAY | END 2022-02-04 10:28 | disposition home or self-care (01) | LOC: CHSLAB 10:28 | PROVIDERS: PCP Internal Medicine; Visit Provider Internal Medicine | DX: R19.7 Diarrhea, unspecified (principal) | CPT/HCPCS: 87045; 87324; 87427 ==

== ENCOUNTER 2022-08-01 13:29 | Outpatient (CLI) | payer MEDICARE, SELFPAY ==
--- NOTE | ~2022-08-01 | CT_ITS ---
EXAMINATION: CT lung screening DATE: 08/01/2022 13:41 INDICATION: PERSONAL HX OF NICOTINE DEPENDENCE TECHNIQUE: Computed tomography (CT) of the chest was performed without intravenous contrast. Addition al 3D reconstructions utilizing coronal maximum intensity projection (MIP) were performed. Automated exposure control and iterative reconstruction technique were employed. The dose-length product was 10 4.99 mGy-cm. COMPARISON: 04/12/2021 FINDINGS: Mild emphysema. 4 mm right lower lobe nodule and 1-2 mm right upper lobe nodule, both unchanged since the prior study. 2 mm left upper lobe calcified nodule and calcified left hilar lymph node consisten t with old granulomatous disease. Unchanged 1-2 mm flat intrafissural lymph node along the left major fissure. No new or enlarging pulmonary nodules. No pneumonia, pulmonary edema or pleural effusion. H eart size is normal. Atherosclerotic coronary artery calcification. No pericardial effusion. Thoracic aorta is normal in caliber. No pathologically enlarged thoracic lymphadenopathy. Couple likely benig n subcentimeter coarsely calcified right thyroid nodules. Postoperative change of prior right mastect marcos. Splenic calcific lesion also consistent with old granulomatous disease. Mild thoracic dextrocurv ature with moderate spondylosis. IMPRESSION: 1. Lung-RADS category 2: Benign appearance or behavior. Continue annual screening with noncontrast lo w-dose chest CT in 12 months. Reviewed, dictated and finalized at location A. SON OPERATOR IMPRESSION: 1. Lung-RADS category 2: Benign appearance or behavior. Continue annual screeni ng with noncontrast low-dose chest CT in 12 months.
== END 2022-08-01 13:30 | disposition home or self-care (01) ==
LOC: CHSIMG 13:31
PROVIDERS: PCP Internal Medicine; Visit Provider Internal Medicine
DX: Z12.2 Encounter for screening for malignant neoplasm of respiratory organs (principal); Z87.891 Personal history of nicotine dependence
CPT/HCPCS: 71271

== ENCOUNTER 2022-08-21 22:16 | Emergency (ER) | payer MEDICARE, SELFPAY ==
--- NOTE | ~2022-08-21 | CT_ITS ---
Non-contrast CT scan of the Abdomen and Pelvis Clinical indication: Abdominal pain Technique: 5 mm axial scans were obtained through the abdomen and pelvis without intravenous or oral contrast. Dose reduction technique was used on this scan by utilizing automated exposure control and iterative reconstruction technique. The dose-length product (DLP) was 599.58 mGy-cm. COMPARISON: 03/04/2021 Findings: Images through the lung bases reveal no abnormalities. The liver, spleen, pancreas, gallbladder, kidneys, and adrenals appear normal. There is mild aneurysm al dilatation of the infrarenal abdominal aorta to 3.3 cm in diameter. Stomach and proximal duodenum are markedly distended, with abrupt tapering of the duodenal caliber wh ere it passes between the aorta and SMA. Probable scattered areas of small bowel wall thickening in t he abdomen. There are multiple small bubbles of pneumoperitoneum, predominantly in the left upper nii drant region. Images through the pelvis were performed. Urinary bladder unremarkable. Patient is post hysterectomy. Small amount of pelvic ascites present. Impression: Small amount of pneumoperitoneum, predominantly in the left upper quadrant. This is consistent with b owel perforation, though precise etiology/site is unclear. Correlate with any relevant history/sympto matology. Distended stomach and proximal duodenum, with abrupt tapering as the duodenum passes between the asce nding aorta. 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 Scattered areas of small bowel wall thickening, which suggests nonspecific infectious/inflammatory en teritis. Small amount of pelvic ascites. Infrarenal abdominal aortic aneurysm measures 3.3 cm in diameter. Reviewed, dictated and finalized at location . MAKER Impression: Small amount of pneumoperitoneum, predominantly in the left upper quadrant. Thi s is consistent with bowel perforation, though precise etiology/site is unclear . Correlate with any relevant history/symptomatology. Distended stomach and proximal duodenum, with abrupt tapering as the duodenum p asses between the ascending aorta. Findings raise the possibility of SMA syndro me. Scattered areas of small bowel wall thickening, which suggests nonspecific infe ctious/inflammatory enteritis. Small amount of pelvic ascites. Infrarenal abdominal aortic aneurysm measures 3.3 cm in diameter.
[2022-08-21 22:26] VITALS: BP 91/56; PULSE 105; RESP 18; TEMP 35.3; O2SAT 95
--- NOTE | 2022-08-21 22:35 | ECG_ITS ---
Measurements Intervals [place] Rate: 95 P: 55 DE: 162 QRS: 52 QRSD: 133 T: 48 QT: 408 QTc: 515 Interpretive Statements NORMAL SINUS RHYTHM RIGHT BUNDLE BRANCH BLOCK NONSPECIFIC ST AND T ABNORMALITY ABNORMAL ECG COMPARED TO ECG 01/31/2022 15:05:06 NO SIGNIFICANT CHANGES Electronically Signed On 08-22-2022 14:22:10 DIRECTOR by Bennett Barlow M.D.
--- NOTE | 2022-08-21 22:43 | ED.ABDPAIN ---
HPI - Abdominal Pain General Chief Complaint: Abdominal Pain Stated Complaint: stomach pain Time Seen by Provider: 08/21/22 22:29 Source: patient and family Mode of arrival: ambulatory Limitations: no limitations History of Present Illness HPI narrative: this 67-year-old female with history of diabetes hypertension has a history diverticulitis presents with severe pain that started earlier today it is diffuse with some earlier having episodes of nausea with currently having nausea with no vomiting, with episodes of diarrhea. The patient denies alcohol use has a history of tobacco use, denies chest pain, no shortness of breath no dysuria or hematuria no flank pain. Patient has a history of peptic ulcer disease with perforation surgery. Currently no headache no blurry vision no fever chills. MD elicited complaint: abdominal pain Pertinent past history: diverticulitis Onset (ago): hour(s) Pain Consistency: constant Location: diffuse Severity: severe Pain scale (0-10): 10 Quality: aching Related Data Home Medications Medication Instructions Recorded Confirmed alprazolam 0.25 mg tablet 0.25 mg PO QID PRN ANXIETY 03/09/21 08/21/22 atorvastatin 10 mg tablet 10 mg PO DAILY 03/09/21 08/21/22 ciprofloxacin HCl 500 mg tablet 500 mg PO BID 03/09/21 08/21/22 fenofibrate micronized 67 mg 67 mg PO DAILY 03/09/21 08/21/22 capsule glimepiride 1 mg tablet 0.5 mg PO DAILY 03/09/21 08/21/22 losartan 100 mg tablet 100 mg PO DAILY 03/09/21 08/21/22 metronidazole 500 mg tablet 500 mg PO Q6H 03/09/21 08/21/22 omeprazole 40 mg capsule,delayed 40 mg PO DAILY 03/09/21 08/21/22 release potassium chloride 20 mEq 20 meq PO DAILY 03/09/21 08/21/22 tablet,extended release(part/cryst) Allergies Allergy/AdvReac Type Severity Reaction Status Date / Time No Known Allergies Allergy Verified 08/21/22 22:28 Review of Systems Review of Systems: All systems reviewed & are unremarkable except as noted in HPI and below PMFSH Past Medical History Medical History Diabetes mellitus HTN (hypertension) Social History Social History Gender identity (if verbalized by the patient): Female Exam Const: General: no acute distress Nutritional Appearance: well nourished Orientation/consciousness: patient oriented x3 Limitations: no limitations HENMT: Head: normal to inspection Face/Nose/Sinus: Normal external nose present Face and sinus: normal facial exam Mouth: Yes Normal oral and palatal mucosa present Eyes: Conjunctivae: conjunctivae normal Pupils: Equal, round and reactive pupils present EOM: EOMs intact bilaterally Direct Ophthalmoscopy: no photophobia Neck: Neck: normal visual inspection Chest: Chest palpation & inspection: normal inspection of the chest Resp: Effort & Inspection: normal respiratory effort Auscultation: clear to auscultation bilaterally Cardio: Rate: regular rate Rhythm: regular rhythm GI: GI Palp: Yes Soft to palpation, Yes Tenderness to palpation present (GI) and Yes Guarding due to palpation present (GI) Auscultation: normal bowel sounds Urinary Catheter: Urinary Catheter: patent and draining Back/Spine/Pelvis: Back: no CVA tenderness Skin: General skin exam: normal color Rashes: no rashes Neuro: General: patient oriented x3 and moves all extremities Cranial nerves: Yes Nystagmus not present Speech: normal speech Gait exam (Neuro): Normal gait present Extrem: General: normal to inspection Psych: Mental Status: mental status grossly normal Affect: normal affect Course Course Emergency Course: patient currently has blood pressure of 91/56 and IV fluids were started with normal saline the patient received 4mg of IV morphine for pain and EKG and labs were performed as well as CT of abdomen with contrast reviewed which shows findings concerning for perforated duodenal ulcer with small
[2022-08-21] MEDS: SODIUM CHLORIDE 0.9% IV 1,000 ML 999 ML IV CONT ×2 (22:50→23:21)
[2022-08-21] MEDS: MORPHINE SULFATE (*CRX) 4 MG/ML INJ IV PUSH (22:51)
[2022-08-21] MEDS: ONDANSETRON INJ 4 MG/2 ML VIAL IV PUSH (22:52)
--- NOTE | 2022-08-21 22:57 | PC.NURSE ---
Lab at bedside
[2022-08-21 23:00] VITALS: PULSE 99; RESP 20; O2SAT 96
[2022-08-21 23:03] LABS: Hematocrit 46.2 % (35.0-42.0); Hemoglobin 15.1 g/dL (11.7-13.8); Mean Corpuscular HGB Conc 32.7 g/dL (32.0-36.0); Mean Corpuscular Hemoglobin 29.4 pg (27.0-31.0); Mean Corpuscular Volume 89.9 fL (78.0-102.0); Mean Platelet Volume 10.6 fl (9.2-11.8); Platelet Count Result 455 K/mm3 (150-420); Red Blood Count 5.14 M/mm3 (4.20-5.40); Red Cell Distribution Width 12.8 % (11.6-14.4)
[2022-08-21 23:12] LABS: White Blood Count 22.4 K/mm3 (4.8-10.8)
[2022-08-21 23:15] LABS: Band Neutrophils Percent 0 % (0-6); Basophils Percent Manual 0 % (0-1); Eosinophils Percent Manual 0 % (1-6); Lymphocytes Absolute Manual 2.91 K/mm3 (1.1-4.5); Lymphocytes Percent Manual 13 % (18-44); Monocytes Absolute Manual 0.67 K/mm3 (0.1-0.90); Monocytes Percent Manual 3 % (3-9); Neutrophils Absolute Manual 18.81 K/mm3 (1.7-7.2); Neutrophils Percent Manual 84 % (46-73); Platelet Estimate Adequate (Adequate)
[2022-08-21 23:18] VITALS: BP 88/74; PULSE 94; RESP 18; O2SAT 97
[2022-08-21 23:18] LABS: INR 1.1; Partial Thromboplastin Time 26.6 SEC (23.90-30.70); Prothrombin Time 12.1 Seconds (9.50-12.10)
[2022-08-21 23:25] LABS: Lactic Acid Reflex 3.5 mmol/L (0.4-2.0)
[2022-08-21 23:27] LABS: Alanine Aminotransferase 14 U/L (14-59); Albumin Level 3.8 g/dL (3.4-5.0); Alkaline Phosphatase 91 U/L (46-116); Anion Gap 15 mmol/L (8-16); Aspartate Amino Transferase 10 U/L (15-37); Bilirubin,Total 0.4 mg/dL (0.00-1.00); Blood Urea Nitrogen 53 mg/dL (7-18); Calcium 8.8 mg/dL (8.5-10.1); Carbon Dioxide 26 mmol/L (21-32); Chloride 96 mmol/L (98-108); Estimated CRCL calculation 19 ml/min; Estimated Glomerular Filt Rate 19; Glucose 240 mg/dL (70-99); Lipase 24 U/L (16-77); NT Pro B Type Natriuretic Pept 418 pg/mL (0-125); Osmolality Calculated 306 mOsm/kg (285-295); Potassium 3.2 mmol/L (3.5-5.1); Sodium 137 mmol/L (136-145); Total Protein 7.5 g/dL (6.4-8.2)
[2022-08-21 23:31] VITALS: BP 101/68; O2SAT 97
[2022-08-22] MEDS: MORPHINE SULFATE (*CRX) 2 MG/ML INJ IV PUSH (00:18)
[2022-08-22 00:19] VITALS: BP 118/76; PULSE 101; RESP 18; O2SAT 92
[2022-08-22 00:31] VITALS: BP 131/93; PULSE 102; RESP 18; O2SAT 92
[2022-08-22] MEDS: PANTOPRAZOLE SODIUM IV 40 MG VIAL 80 MG IV PUSH (00:43)
[2022-08-22 01:02] VITALS: BP 128/68; O2SAT 92
[2022-08-22] MEDS: metroNIDAZOLE 500 MG/ISO 100ML 500 MG/100 ML BAG 100 MG IVPB (01:20)
[2022-08-22] MEDS: HYDROmorphone HCL INJ (*CRX) 2 MG/ML VIAL 0.5 MG IV PUSH (01:21)
[2022-08-22 01:33] VITALS: BP 93/80; PULSE 105; RESP 18; O2SAT 92
[2022-08-22 01:45] VITALS: O2SAT 90
[2022-08-22 02:00] VITALS: BP 107/73; PULSE 104; RESP 18; TEMP 35.8; O2SAT 92
[2022-08-22 02:02] LABS: Reflex Lactic Acid Yes or No Add Lactic
== END 2022-08-22 02:12 | disposition short-term general hospital (02) ==
PROVIDERS: Emergency Provider Emergency Medicine; PCP Internal Medicine
DX: K26.5 Chronic or unspecified duodenal ulcer with perforation (principal); I10 Essential (primary) hypertension; E11.9 Type 2 diabetes mellitus without complications; Z79.2 Long term (current) use of antibiotics
CPT/HCPCS: 36415; 74176; 80053; 83605; 83690; 83880; 84484; 85025; 85610; 85730; 93005; 96361; 96365; 96367; 96375; 96376; 99285; C9113; J0696; J1170; J2270; J2405; J7030

== ENCOUNTER 2022-10-07 12:48 | Outpatient (CLI) | payer MEDICARE, SELFPAY ==
--- NOTE | ~2022-10-07 | CT_ITS ---
CT of the Abdomen and Pelvis: Indication: Postoperative for duodenal ulcer Technique: 2.5 mm axial scans were obtained through the abdomen and pelvis following intravenous adm inistration of 100 cc of Omnipaque 350. Dose reduction technique was used on this scan by utilizing a utomated exposure control and iterative reconstruction technique. The dose-length product (DLP) was 4 27.51 mGy-cm. COMPARISON: 08/21/2022 Findings: Scans through the lung bases are unremarkable. The liver, spleen, pancreas, gallbladder, adrenals and kidneys are within normal limits. There is ext ensive atherosclerotic calcification of the aorta. Infrarenal abdominal aorta is dilated to 3.3 cm in maximum diameter. No lymphadenopathy. No bowel obstruction or bowel wall thickening. There is no evidence to suggest acute appendicitis. Pr obable area of fat necrosis in the left upper quadrant mesentery (axial image 60). There is a small a bscess along the left upper abdomen, measuring approximately 2.2 x 1.4 x 3.7 cm in maximum extent (ax ial images 51-60). There is a fluid in the anterior subcutaneous soft tissues along the anterior midl ine wound, with fluid collection measuring up to 2.7 x 1.8 cm x 6.5 (axial image 54, sagittal image 8 3 for example). Images through the pelvis were performed. Urinary bladder unremarkable. Patient is post hysterectomy. No pelvic mass identified. Impression: Small abscess in the left upper quadrant, as detailed above. Small area of adjacent fat necrosis in the left upper quadrant mesentery. Fluid in the anterior subcutaneous soft tissues along the anterior midline wound measuring 2.7 x 1.8 x 6.5 cm. Correlate for additional abscess versus developing postoperative seroma. 3.3 cm infrarenal abdominal aortic aneurysm. Reviewed, dictated and finalized at location . Impression: Small abscess in the left upper quadrant, as detailed above. Small area of adjacent fat necrosis in the left upper quadrant mesentery. Fluid in the anterior subcutaneous soft tissues along the anterior midline woun d measuring 2.7 x 1.8 x 6.5 cm. Correlate for additional abscess versus develop ing postoperative seroma. 3.3 cm infrarenal abdominal aortic aneurysm.
[2022-10-07 13:13] LABS: Estimated Glomerular Filt Rate > 60
== END 2022-10-07 12:49 | disposition home or self-care (01) ==
LOC: CHSIMG 12:51
PROVIDERS: PCP Internal Medicine
DX: T81.49XA Infection following a procedure, other surgical site, initial encounter (principal); K65.4 Sclerosing mesenteritis; I71.43 Infrarenal abdominal aortic aneurysm, without rupture
CPT/HCPCS: 74177; Q9967

== ENCOUNTER 2022-11-20 13:53 | Outpatient (CLI) | payer MEDICARE, SELFPAY ==
--- NOTE | ~2022-11-20 | XR_ITS ---
EXAM: XR abdomen obstructive series DATE: 11/20/2022 14:32 HISTORY: nausea/vomiting/ abd pain . COMPARISON: CT abdomen pelvis 10/07/2022. FINDINGS: Clear lung bases. Normal bowel gas pattern. Hepatic enlargement. Atherosclerotic vascular calcifications. Surgical clip overlying the pelvic ring. Left mid abdominal bowel anastomosis. Degene rative lumbar disc disease. IMPRESSION: No radiographic evidence of obstruction or ileus. Hepatomegaly. Reviewed, dictated and finalized at location K.
[2022-11-20 14:19] LABS: Appearance Urine Clear (Clear); Bilirubin Urine Negative (Negative); Blood Urine Trace-Intact (Negative); Color Urine Light Yellow (Yellow); Glucose Urine UA Negative (Negative); Ketones Urine Trace (Negative); Leukocyte Esterase Ur 3+ (Negative); Nitrate Urine Negative (Negative); Protein Urine Trace (Negative); Urobilinogen Urine 0.2 mg/dL (0.2-1.0); pH Urine 5.5 (5.0-8.0)
[2022-11-20 14:25] LABS: Add Urine Microscopic? YES; RBC Urine 0-2 /hpf (0-2)
[2022-11-20 14:26] LABS: Bacteria Urine 1+ /hpf; Squamous Epithelial Cell Urine Few /hpf (Few); WBC Urine 16-20 /hpf (0-3)
[2022-11-20 14:46] LABS: Alanine Aminotransferase 20 U/L (14-59); Albumin Level 2.9 g/dL (3.4-5.0); Alkaline Phosphatase 86 U/L (46-116); Amylase 48 U/L (25-115); Anion Gap 10 mmol/L (8-16); Aspartate Amino Transferase 23 U/L (15-37); Bilirubin,Total 0.3 mg/dL (0.00-1.00); Blood Urea Nitrogen 47 mg/dL (7-18); Calcium 8.5 mg/dL (8.5-10.1); Carbon Dioxide 29 mmol/L (21-32); Chloride 99 mmol/L (98-108); Estimated Glomerular Filt Rate 32; Glucose 147 mg/dL (70-99); Lipase 61 U/L (16-77); Osmolality Calculated 301 mOsm/kg (285-295); Potassium 3.6 mmol/L (3.5-5.1); Sodium 138 mmol/L (136-145); Total Protein 6.3 g/dL (6.4-8.2)
[2022-11-20 16:01] LABS: Basophils Absolute Auto 0.12 K/mm3 (0.00-0.10); Basophils Percent Auto 0.7 % (0.0-1.0); Eosinophils Absolute Auto 0.19 K/mm3 (0.02-0.50); Eosinophils Percent Auto 1.2 % (1.0-6.0); Hematocrit 36.9 % (35.0-42.0); Hemoglobin 11.2 g/dL (11.7-13.8); Immature Granulocyte Absolute 0.28 K/mm3 (0.00-0.00); Immature Granulocyte Percent A 1.7 % (0.0-0.0); Lymphocytes Absolute Auto 3.47 K/mm3 (1.10-4.50); Lymphocytes Percent Auto 21.1 % (18.0-42.0); Mean Corpuscular HGB Conc 30.4 g/dL (32.0-36.0); Mean Corpuscular Hemoglobin 27.1 pg (27.0-31.0); Mean Corpuscular Volume 89.3 fL (78.0-102.0); Mean Platelet Volume 10.7 fl (9.2-11.8); Monocytes Absolute Auto 0.86 K/mm3 (0.10-0.90); Monocytes Percent Auto 5.2 % (2.0-11.0); Neutrophils Absolute Auto 11.5 K/mm3 (1.7-7.2); Neutrophils Percent Auto 70.1 % (50.0-70.0); Platelet Count Result 457 K/mm3 (150-420); Red Blood Count 4.13 M/mm3 (4.20-5.40); Red Cell Distribution Width 15.9 % (11.6-14.4); White Blood Count 16.4 K/mm3 (4.8-10.8)
== END 2022-11-20 13:54 | disposition home or self-care (01) ==
LOC: CHSIMG 13:56
PROVIDERS: PCP Internal Medicine; Visit Provider Internal Medicine
DX: R10.9 Unspecified abdominal pain (principal); R11.2 Nausea with vomiting, unspecified; R16.0 Hepatomegaly, not elsewhere classified
CPT/HCPCS: 36415; 74019; 80053; 81001; 82150; 83690; 85025; 87077; 87086; 87088; 87186

== ENCOUNTER 2022-11-20 17:06 | Observation (INO) | payer MEDICARE, SELFPAY ==
[2022-11-20] VITALS (8 sets, daily range): BP systolic 90–113; BP diastolic 49–78; PULSE 74–84; RESP 17–20; TEMP 36.6–36.9; O2SAT 96–98; BMI 26.3
--- NOTE | ~2022-11-20 | XR_ITS ---
EXAMINATION: XR chest 1V portable Exam Date/Time: 11/20/2022 17:48 CDT HISTORY: DYSPNEA W/ CHRONIC SOB; CURRENT SMOKER, HX COPD. Comparison: 03/18/2018. RESULT: Lines, tubes, and devices: None. Lungs and pleura: Mild diffuse reticulonodular opacities. No focal consolidation Cardiomediastinal silhouette: Stable. Other: No acute osseous or upper abdominal finding. IMPRESSION: Pulmonary opacities may represent bronchiolitis, as can be seen with atypical infection, asthma, aspi ration, and small airways disease. Reviewed, dictated and finalized at location K. IMPRESSION: Pulmonary opacities may represent bronchiolitis, as can be seen with atypical i nfection, asthma, aspiration, and small airways disease.
[2022-11-20 17:54] LABS: Lactic Acid Reflex 2.2 mmol/L (0.4-2.0)
[2022-11-20 17:56] LABS: NT Pro B Type Natriuretic Pept 629 pg/mL (0-125)
[2022-11-20 17:59] LABS: CRP 1.4 mg/dL (0.0-0.9)
[2022-11-20] MEDS: SODIUM CHLORIDE 0.9% IV 1,000 ML 999 ML IV CONT ×2 (18:01→18:03)
--- NOTE | 2022-11-20 18:09 | ED.WEAKNESS ---
HPI - Weakness General Chief complaint: Weakness Stated complaint: sent by dr salas Time Seen by Provider: 11/20/22 17:07 Source: patient and family Mode of arrival: ambulatory Limitations: no limitations History of Present Illness HPI Narrative: this is a 58-year-old female with a history of diabetes and hypertension was seen earlier today at her primary care doctor's office for increasing weakness and according to family member some mild confusion and primary performed blood work including a UA, urinalysis shows that there is 16 to 20 white blood cells with 3+ leukocytes, [place] [address] and presents to the emergency department her baseline creatinine is 0.6 and blood work performed by primary her creatinine is 1.59. The patient appears comfortable but states that she has been having some weakness for the last week or so with some no shortness of breath no chest pain no abdominal pain has been having episodes of diarrhea but currently no nausea or vomiting or diarrhea no abdominal pain no flank pain. The patient is afebrile, vitals are stable blood pressure was on the lower side with systolic of 90. Patient had a history of duodenal ulcer perforation and repair approximately 2 months ago otherwise is being treated for diabetes, hypertension hyperlipidemia. MD Complaint: generalized weakness Onset (ago): day(s) Duration: constant Location: generalized Severity: moderate Relieving factors: none Exacerbating factors: none Related Data Home Medications Medication Instructions Recorded Confirmed alprazolam 0.25 mg tablet 0.25 mg PO QID PRN ANXIETY 03/09/21 11/20/22 atorvastatin 10 mg tablet 10 mg PO DAILY 03/09/21 11/20/22 fenofibrate micronized 67 mg 67 mg PO DAILY 03/09/21 11/20/22 capsule glimepiride 1 mg tablet 1 mg PO DAILY 03/09/21 11/20/22 amlodipine 10 mg tablet 10 mg PO DAILY 11/20/22 11/20/22 aspirin 81 mg tablet,delayed 81 mg PO DAILY 11/20/22 11/20/22 release carvedilol 12.5 mg tablet 12.5 mg PO BID 11/20/22 11/20/22 cyanocobalamin (vitamin B-12) 2,500 mcg sublingual DAILY 11/20/22 11/20/22 2,500 mcg sublingual tablet ergocalciferol (vitamin D2) 1,250 1,250 mcg PO WEEKLY 11/20/22 11/20/22 mcg (50,000 unit) capsule (Vitamin D2) ferrous sulfate 325 mg (65 mg 325 mg PO TID 11/20/22 11/20/22 iron) tablet gabapentin 100 mg capsule 100 mg PO TID 11/20/22 11/20/22 ipratropium 0.5 mg-albuterol 3 mg 3 ml inhalation QID 11/20/22 11/20/22 (2.5 mg base)/3 mL nebulization soln pantoprazole 40 mg tablet,delayed 40 mg PO BID 11/20/22 11/20/22 release prochlorperazine maleate 10 mg 10 mg PO Q8H PRN Nausea 11/20/22 11/20/22 tablet Allergies Allergy/AdvReac Type Severity Reaction Status Date / Time No Known Allergies Allergy Verified 11/20/22 17:18 Review of Systems Review of Systems: All systems reviewed & are unremarkable except as noted in HPI and below PMFSH Past Medical History Medical History Diabetes mellitus HTN (hypertension) Social History Social History Gender identity (if verbalized by the patient): Female Exam Const: General: ill appearing Limitations: no limitations HENMT: Head: normal to inspection Face/Nose/Sinus: Normal external nose present Face and sinus: normal facial exam Eyes: Conjunctivae: conjunctivae normal EOM: EOMs intact bilaterally Neck: Neck: normal visual inspection Chest: Chest palpation & inspection: normal inspection of the chest Resp: Effort & Inspection: normal respiratory effort Auscultation: clear to auscultation bilaterally Cardio: Rate: regular rate Rhythm: regular rhythm GI: GI Palp: Yes Soft to palpation Auscultation: normal bowel sounds : General: Yes bladder normal to palpation Urinary Catheter: Urinary Catheter: patent and draining Back/Spine/Pelvis: Back: no CVA tenderness Skin: Gene
[2022-11-20] MEDS: SODIUM CHLORIDE 0.9% IV 1,000 ML 150 ML IV CONT (19:42)
[2022-11-20 20:10] LABS: Reflex Lactic Acid Yes or No Add Lactic
[2022-11-20] MEDS: GABAPENTIN 100 MG CAPSULE PO (20:22)
[2022-11-20] MEDS: PANTOPRAZOLE SODIUM IV 40 MG VIAL IV PUSH (20:23)
[2022-11-20] MEDS: IPRATROPIUM 0.5 MG/ALBUTEROL SULFATE 2.5 MG AMPUL.NEB 3 ML INHALATION (20:52)
--- NOTE | 2022-11-20 21:18 | PC.NURSE ---
Status update given to Raymond Bishop, SOCIAL SECURITY BENEFITS INTERVIEWER/Hospitalist.
[2022-11-20] MEDS: NICOTINE (*PBKC) 21 MG PATCH 1 PATCH TRANSDERM (23:52)
[2022-11-20 23:54] LABS: Glucose Point of Care 122 mg/dl (65-105)
[2022-11-21] VITALS (9 sets, daily range): BP systolic 101–114; BP diastolic 47–61; PULSE 63–92; RESP 14–22; TEMP 36.5–37; O2SAT 91–98
--- NOTE | 2022-11-21 01:00 | PC.NURSE ---
Pt ambulates per self steadily from bed to BSC to urinate and then back to bed, she is requesting food to eat, light snacks given per request. Call dumas at pt. side.
--- NOTE | 2022-11-21 01:30 | ADMGEN ---
This patient, Beba Hernandez, was admitted to 2nd Floor Room 226-2. Patient/family oriented to hospital policies and general routines including ID bracelet, bed and alarms, visiting hours, pain management, procedures, bathroom and other care routines, personal items, smoking policy, room service/diet, and visiting hours. Information on how to activate the Rapid Response Team has been discussed. Patient/Family are encouraged to report perceived risks to care and to ask questions if they do not understand what they are told or what they should do.
[2022-11-21] MEDS: SODIUM CHLORIDE 0.9% IV 1,000 ML 150 ML IV CONT (03:47)
--- NOTE | 2022-11-21 05:30 | PC.NURSE ---
Pt up and ambulated to BS s difficulty. She requests breakfast, advised pt breakfast is served around 8 am. Pt back to bed, watching TV, call dumas at side.
[2022-11-21 05:31] LABS: Hemoglobin 9.6 g/dL (11.7-13.8); Mean Corpuscular Hemoglobin 27.6 pg (27.0-31.0); Mean Corpuscular Volume 89.1 fL (78.0-102.0); Mean Platelet Volume 9.6 fl (9.2-11.8); Platelet Count Result 355 K/mm3 (150-420); Red Blood Count 3.48 M/mm3 (4.20-5.40); White Blood Count 15.2 K/mm3 (4.8-10.8)
[2022-11-21 05:53] LABS: Lactic Acid 1.5 mmol/L (0.4-2.0)
[2022-11-21 05:59] LABS: Alanine Aminotransferase 15 U/L (14-59); Albumin Level 2.2 g/dL (3.4-5.0); Alkaline Phosphatase 69 U/L (46-116); Anion Gap 9 mmol/L (8-16); Aspartate Amino Transferase 13 U/L (15-37); Bilirubin,Total 0.2 mg/dL (0.00-1.00); Blood Urea Nitrogen 35 mg/dL (7-18); Calcium 7.1 mg/dL (8.5-10.1); Carbon Dioxide 27 mmol/L (21-32); Chloride 107 mmol/L (98-108); Estimated CRCL calculation 34 ml/min; Estimated Glomerular Filt Rate 46; Glucose 72 mg/dL (70-99); Osmolality Calculated 303 mOsm/kg (285-295); Potassium 4.2 mmol/L (3.5-5.1); Sodium 143 mmol/L (136-145); Total Protein 5.6 g/dL (6.4-8.2)
[2022-11-21] MEDS: IPRATROPIUM 0.5 MG/ALBUTEROL SULFATE 2.5 MG AMPUL.NEB 3 ML INHALATION ×3 (06:15→18:45)
[2022-11-21 07:36] LABS: Glucose Point of Care 234 mg/dl (65-105)
[2022-11-21] MEDS: INSULIN HUMAN LISPRO (*BKC) 1,000 UNITS/10 ML VIAL SUB-Q (08:42)
[2022-11-21] MEDS: cefTRIAXone 2 GM/NS 100 ML 2 GM/100 ML BAG IVPB (08:43)
[2022-11-21] MEDS: ASPIRIN 81 MG ENTERIC TABLET PO (08:44)
[2022-11-21] MEDS: GABAPENTIN 100 MG CAPSULE PO ×3 (08:44→16:44)
[2022-11-21] MEDS: GLIMEPIRIDE 1 MG TABLET PO (08:44)
[2022-11-21] MEDS: FERROUS SULFATE 324 MG TABLET PO ×3 (08:44→16:44)
[2022-11-21] MEDS: ATORVASTATIN 10 MG TABLET PO (08:45)
[2022-11-21] MEDS: PANTOPRAZOLE SODIUM IV 40 MG VIAL IV PUSH ×2 (08:47→16:44)
[2022-11-21] MEDS: NICOTINE (*PBKC) 21 MG PATCH 1 PATCH TRANSDERM ×2 (08:47→20:14)
--- NOTE | 2022-11-21 09:58 | PM.IMHP ---
H&P: HPI History of Present Illness Date/Time: 11/21/22 09:58 Chief Complaint: confusion and weakness Review of Systems Review of Systems: All systems reviewed & are unremarkable except as noted in HPI and below PMFSH Past Medical History Medical History Diabetes mellitus HTN (hypertension) Social History Social History Smoking packs per day: 1 Smoking cigarettes per day: 20.0 Years smoked: 46 Smoking pack-years: 46.00 Smoking status: Current every day smoker Smokeless tobacco user: chewing tobacco Alcohol intake: never Substance use: never Lack of Transportation: No Lack of Food: Never True Current Housing: I Have Housing Concerned About Future Housing: No Difficulty Paying Gas/Electric Bills: No Difficulty Paying for Meds: No Currently Unemployed: No Education: Associate Degree Difficulty w/ Childcare or Family Care: No Gender identity (if verbalized by the patient): Female Spiritual care concerns: No Meds Home Medications and Allergies Home Medications Medication Instructions Recorded Confirmed Type alprazolam 0.25 mg tablet 0.25 mg PO QID PRN ANXIETY 03/09/21 11/20/22 History atorvastatin 10 mg tablet 10 mg PO DAILY 03/09/21 11/20/22 History fenofibrate micronized 67 mg 67 mg PO DAILY 03/09/21 11/20/22 History capsule glimepiride 1 mg tablet 1 mg PO DAILY 03/09/21 11/20/22 History amlodipine 10 mg tablet 10 mg PO DAILY 11/20/22 11/20/22 History aspirin 81 mg tablet,delayed 81 mg PO DAILY 11/20/22 11/20/22 History release carvedilol 12.5 mg tablet 12.5 mg PO BID 11/20/22 11/20/22 History cyanocobalamin (vitamin B-12) 2,500 mcg sublingual DAILY 11/20/22 11/20/22 History 2,500 mcg sublingual tablet ergocalciferol (vitamin D2) 1,250 1,250 mcg PO WEEKLY 11/20/22 11/20/22 History mcg (50,000 unit) capsule (Vitamin D2) ferrous sulfate 325 mg (65 mg 325 mg PO TID 11/20/22 11/20/22 History iron) tablet gabapentin 100 mg capsule 100 mg PO TID 11/20/22 11/20/22 History ipratropium 0.5 mg-albuterol 3 mg 3 ml inhalation QID 11/20/22 11/20/22 History (2.5 mg base)/3 mL nebulization soln pantoprazole 40 mg tablet,delayed 40 mg PO BID 11/20/22 11/20/22 History release prochlorperazine maleate 10 mg 10 mg PO Q8H PRN Nausea 11/20/22 11/20/22 History tablet Allergies Allergy/AdvReac Type Severity Reaction Status Date / Time No Known Allergies Allergy Verified 11/20/22 17:18 Vital Signs Vital Signs - 24 hr 11/20/22 18:06 11/20/22 19:22 11/20/22 19:59 Temperature 36.7 C 36.9 C 36.9 C Pulse Rate 84 81 81 Respiratory Rate 20 18 18 Blood Pressure 90/51 L 91/78 L 91/78 L Pulse Oximetry 98 97 97 Oxygen Delivery Room Air 11/20/22 20:52 11/20/22 21:03 11/20/22 23:41 Temperature 36.8 C Pulse Rate 80 80 74 Respiratory Rate 18 18 18 Blood Pressure 104/49 L Pulse Oximetry 97 96 96 Oxygen Delivery Room Air 11/20/22 20:15 11/20/22 20:30 11/21/22 06:17 Temperature 36.6 C Pulse Rate 80 80 82 Respiratory Rate 18 17 18 Blood Pressure 113/63 Pulse Oximetry 96 97 91 Oxygen Delivery Room Air Room Air 11/21/22 06:27 Temperature Pulse Rate 73 Respiratory Rate 20 Blood Pressure Pulse Oximetry Oxygen Delivery Exam Narrative: GENERAL: This is a well-nourished, well-developed patient, in no apparent distress. HEAD: normocephalic, atraumatic. EYES: PERRL. Sclera clear/white. Vision is grossly intact. EARS: External ears normal, auditory canals clear and without drainage, TMs normal without perforation. Hearing grossly intact. NOSE: External nose normal with no obvious nasal discharge, nares without redness, no rhinorrhea. THROAT: Mucous membranes moist, posterior pharynx clear. NECK: Neck supple, non-tender without lymphadenopathy, masses or thyromegaly. CARDIOVASCULAR: Regular rate and rhythm w
[2022-11-21 11:41] LABS: Glucose Point of Care 193 mg/dl (65-105)
--- NOTE | 2022-11-21 15:59 | PC.NURSE ---
Pt in bed and watching TV, she reports no s&s of discomfort, RR even and nonlabored, VSS, call dumas at pt side.
[2022-11-21 16:50] LABS: Glucose Point of Care 116 mg/dl (65-105)
[2022-11-21 20:18] LABS: Glucose Point of Care 174 mg/dl (65-105)
[2022-11-22] MEDS: IPRATROPIUM 0.5 MG/ALBUTEROL SULFATE 2.5 MG AMPUL.NEB 3 ML INHALATION ×2 (00:31→09:06)
[2022-11-22 00:33] VITALS: PULSE 92; RESP 14; O2SAT 98
[2022-11-22 00:40] VITALS: PULSE 90; RESP 15; O2SAT 98
[2022-11-22 05:34] LABS: Hematocrit 29.3 % (35.0-42.0); Hemoglobin 8.9 g/dL (11.7-13.8); Mean Corpuscular HGB Conc 30.4 g/dL (32.0-36.0); Mean Corpuscular Hemoglobin 27.2 pg (27.0-31.0); Mean Corpuscular Volume 89.6 fL (78.0-102.0); Mean Platelet Volume 9.7 fl (9.2-11.8); Platelet Count Result 297 K/mm3 (150-420); Red Blood Count 3.27 M/mm3 (4.20-5.40)
[2022-11-22 05:51] LABS: Alanine Aminotransferase 14 U/L (14-59); Albumin Level 1.9 g/dL (3.4-5.0); Alkaline Phosphatase 80 U/L (46-116); Anion Gap 10 mmol/L (8-16); Aspartate Amino Transferase 10 U/L (15-37); Bilirubin,Total 0.1 mg/dL (0.00-1.00); Blood Urea Nitrogen 18 mg/dL (7-18); Calcium 6.6 mg/dL (8.5-10.1); Carbon Dioxide 25 mmol/L (21-32); Chloride 111 mmol/L (98-108); Estimated CRCL calculation 47 ml/min; Estimated Glomerular Filt Rate > 60; Glucose 109 mg/dL (70-99); Osmolality Calculated 304 mOsm/kg (285-295); Potassium 3.6 mmol/L (3.5-5.1); Sodium 146 mmol/L (136-145); Total Protein 5.2 g/dL (6.4-8.2)
[2022-11-22 08:00] VITALS: BP 145/84; PULSE 97; RESP 16; TEMP 36.6; O2SAT 98
--- NOTE | 2022-11-22 08:09 | PM.DS ---
DS: Admitting Diagnosis Discharge Date 11/22/2022 Admitting Diagnosis uti and pna DS: Discharge Diagnosis Discharge Diagnosis (1) Acute dehydration: Code(s): E86.0 - Dehydration Status: Acute Assessment and Plan: resolved Secondary to dehydration and possibly an infection patient received IV fluid (2) Acute UTI: Code(s): N39.0 - Urinary tract infection, site not specified Status: Acute Assessment and Plan: > wbc's 22.4 >16.4.> 15.2>13.0 UA positive protein blood, leukocyte Estrace and bacteria urine culture pending received Rocephin as inpatient will discharge with cefdinir (3) Pneumonia: Qualifiers: Laterality: unspecified laterality Lung location: unspecified part of lung Pneumonia type: due to unspecified organism Qualified Code(s): J18.9 - Pneumonia, unspecified organism Code(s): J18.9 - Pneumonia, unspecified organism Status: Acute Assessment and Plan: chest x-ray indicate atypical infection received Rocephin as an patient will discharge with cefdinir blood culture pending patient afebrile WBCs trending down (4) HTN (hypertension): Code(s): I10 - Essential (primary) hypertension Status: Acute Assessment and Plan: blood pressure soft blood pressure medication on hold for now will resume when appropriate (5) Diabetes mellitus: Code(s): E11.9 - Type 2 diabetes mellitus without complications Status: Acute Assessment and Plan: continue home medication continue Accu-Chek with sliding scale and hypoglycemic protocol DS: Summary Hospital Course Reason for hospitalization: weakness Hospital Course: this is a 58-year-old female that presented to our emergency department after being referred by her primary care physician for increase weakness. Patient has a past medical history of diabetes hypertension. Patient is being admitted for possible pneumonia and UTI. patient lactic acid 2.2 CRP 1.4 BNP 629, WBC 22.4 hemoglobin 15.1, hematocrit 46.2, platelets 455, sodium 137, potassium 3.2, BNP 49 creatinine 1.35 will cause 143 UA positive for ketones protein blood and leukocyte Estrace. Patient being treated with Rocephin while inpatient white count trending down patient will discharge home with cefdinir for a treatment of a UTI in pneumonia. Patient agrees that she is ready for discharge she remains alert and orientated x4. The patient denies SOB, CP, palpitation, extremity numbness, lightheadedness, dizziness, constipation, diarrhea, chills, or fever. Time Spent with Patient Time attestation: Total time spent providing and/or coordinating discharge services: Exam Narrative: GENERAL: This is a well-nourished, well-developed patient, in no apparent distress. HEAD: normocephalic, atraumatic. EYES: PERRL. Sclera clear/white. Vision is grossly intact. EARS: External ears normal, auditory canals clear and without drainage, TMs normal without perforation. Hearing grossly intact. NOSE: External nose normal with no obvious nasal discharge, nares without redness, no rhinorrhea. THROAT: Mucous membranes moist, posterior pharynx clear. NECK: Neck supple, non-tender without lymphadenopathy, masses or thyromegaly. CARDIOVASCULAR: Regular rate and rhythm without murmurs, gallops, or rubs. RESPIRATORY: Clear to auscultation. Breath sounds equal bilaterally. No wheezes, rales, or rhonchi. GASTROINTESTINAL: Abdomen soft, non-tender, nondistended. Bowel sounds are active. No hepato-splenomegaly, or palpable masses. No guarding. SKIN: warm, intact with no suspicious lesions or rash, good texture and turgor. NEURO: awake, alert, and oriented to person, place and time. There were no obvious focal neurologic abnormalities. EXTREMITIES: Normal range of motion. No edema. No calf tenderness. DS: Data Data Completed and Pending Labs on day of discharge: Labs from last 24 hours 05/0
[2022-11-22 09:05] VITALS: O2SAT 98
[2022-11-22] MEDS: FERROUS SULFATE 324 MG TABLET PO (09:06)
[2022-11-22] MEDS: GABAPENTIN 100 MG CAPSULE PO (09:06)
[2022-11-22] MEDS: ASPIRIN 81 MG ENTERIC TABLET PO (09:06)
[2022-11-22] MEDS: GLIMEPIRIDE 1 MG TABLET PO (09:06)
[2022-11-22] MEDS: ATORVASTATIN 10 MG TABLET PO (09:06)
[2022-11-22] MEDS: PANTOPRAZOLE SODIUM IV 40 MG VIAL IV PUSH (09:10)
[2022-11-22 09:15] VITALS: O2SAT 100
--- NOTE | 2022-11-22 10:26 | PC.NURSE ---
Discharg instructions reviewed with patient. All questions answered. Pt sitting at bedside awaiting ride.
--- NOTE | 2022-11-24 11:47 | PC.NURSE ---
Pt states she received and understood her discharge instructions. Pt also states you all are very nice .
--- NOTE | 2022-11-25 11:05 | P.PNCROSS_ITS ---
Event Note Event Note Event Note: clindamycin 300 mg q.8 hours x7 days call to pharmacist left message with anno ent's to call to our hospital
--- NOTE | 2022-11-25 11:05 | PM.EVENT ---
Event Note Event Note Event Note: clindamycin 300 mg q.8 hours x7 days call to pharmacist left message with patient's to call to our hospital
== END 2022-11-22 10:50 | disposition home health service (06) ==
LOC: CHSED 19:17 → CHS2ND 19:32
PROVIDERS: Nurse Practitioner; Admitting Provider Internal Medicine; Emergency Provider Emergency Medicine; PCP Internal Medicine; Visit Provider Internal Medicine
DX: N39.0 Urinary tract infection, site not specified (principal); J18.9 Pneumonia, unspecified organism; E86.0 Dehydration; E11.9 Type 2 diabetes mellitus without complications; I10 Essential (primary) hypertension; F17.210 Nicotine dependence, cigarettes, uncomplicated; Z79.82 Long term (current) use of aspirin
CPT/HCPCS: 36415; 71045; 80053; 82948; 83605; 83880; 85027; 86140; 87040; 87147; 87186; 94640; 96361; 96365; 96366; 96367; 96375; 96376; 97161; 99285; A9270; C9113; G0378; J0456; J0696; J1815; J7030

== ENCOUNTER 2022-11-27 13:59 | Outpatient (CLI) | payer MEDICARE, SELFPAY ==
--- NOTE | ~2022-11-27 | US_ITS ---
EXAMINATION: US venous doppler [facility] DATE: 11/27/2022 14:32 INDICATION: Bilateral lower limb swelling TECHNIQUE: Grayscale ultrasound images without and with compression and Doppler ultrasound images of the bilateral lower extremity veins were obtained. COMPARISON: None. FINDINGS: The visualized portions of right common femoral vein, profunda (deep) femoral vein, femoral vein, pop liteal vein, posterior tibial veins, peroneal veins, gastrocnemius vein and greater saphenous vein ou tflow are patent. The visualized portions of left common femoral vein, profunda femoral vein, femoral vein, popliteal v ein, posterior tibial veins, peroneal veins, gastrocnemius vein and greater saphenous vein outflow ar e patent. IMPRESSION: 1. No deep venous thrombosis in either lower limb. Reviewed, dictated and finalized at location A.
== END 2022-11-27 14:00 | disposition home or self-care (01) ==
PROVIDERS: PCP Internal Medicine; Visit Provider Internal Medicine
DX: R60.0 Localized edema (principal)
CPT/HCPCS: 93970

== ENCOUNTER 2023-03-11 01:25 | Day surgery (SDC) | payer MEDICARE, SELFPAY ==
[2023-02-26 08:34] VITALS: BMI 27.6
--- NOTE | 2023-03-10 14:05 | WPDANESEPPF ---
Anes - Initial Pre Proc Eval Procedure: Operation Date: 03/11/23 09:30 Proposed Procedures p Esophagogastroduodenoscopy & Colonoscopy - Gilberto Bauer MD Date/Time: 03/10/23 14:05 Surgeon: Gilberto Bauer MD Pre Op Diagnosis: GERD,Diarrhea,Iron Deficiency Anemia Patient Data Age: 68 Gender: F Height: 1.63 m Weight: 73 kg Allergies Allergy/AdvReac Type Severity Reaction Status Date / Time No Known Allergies Allergy Verified 03/11/23 08:18 Home Medications Medication Instructions Recorded Confirmed Type atorvastatin 10 mg tablet 10 mg PO DAILY 03/09/21 03/11/23 History fenofibrate micronized 67 mg 67 mg PO DAILY 03/09/21 03/11/23 History capsule glimepiride 1 mg tablet 1 mg PO DAILY 03/09/21 03/11/23 History amlodipine 10 mg tablet 10 mg PO DAILY 11/20/22 03/11/23 History aspirin 81 mg tablet,delayed 81 mg PO DAILY 11/20/22 03/11/23 History release carvedilol 12.5 mg tablet 12.5 mg PO BID 11/20/22 03/11/23 History cyanocobalamin (vitamin B-12) 2,500 mcg sublingual DAILY 11/20/22 03/11/23 History 2,500 mcg sublingual tablet ergocalciferol (vitamin D2) 1,250 1,250 mcg PO WEEKLY 11/20/22 03/11/23 History mcg (50,000 unit) capsule (Vitamin D2) ferrous sulfate 325 mg (65 mg 325 mg PO TID 11/20/22 03/11/23 History iron) tablet gabapentin 100 mg capsule 100 mg PO TID 11/20/22 03/11/23 History ipratropium 0.5 mg-albuterol 3 mg 3 ml inhalation QID 11/20/22 03/11/23 History (2.5 mg base)/3 mL nebulization soln pantoprazole 40 mg tablet,delayed 40 mg PO BID 11/20/22 03/11/23 History release prochlorperazine maleate 10 mg 10 mg PO Q8H PRN Nausea 11/20/22 03/11/23 History tablet albuterol sulfate 90 mcg/actuation 2 puff inhalation QID PRN 11/22/22 03/11/23 Rx aerosol inhaler shortness of breath or wheezing #6.7 grams sulfasalazine 500 mg tablet 1 g PO TID 02/05/23 03/11/23 History Patient hx anesthesia problems: none Family hx anesthesia problems: none Results Review: All pre-operative results and documents have been reviewed as part of the pre-operative evaluation. PMFSH Past Medical History Medical History Breast cancer COPD (chronic obstructive pulmonary disease) Diabetes mellitus Diarrhea Fatty liver GERD (gastroesophageal reflux disease) HTN (hypertension) YRIS (iron deficiency anemia) Infrarenal abdominal aortic aneurysm (AAA) without rupture Tobacco use Surgical History Surgical History (Updated 02/05/23 @ 13:33 by Hilary Gonzalez CMA) Hx of hysterectomy Hx of mastectomy Hx of tubal ligation Family History Family History Father Hypertension Mother Hypertension Heart disease Social History Social History (Updated 02/05/23 @ 13:34 by Hilary Gonzalez CMA) Smoking packs per day: 1 Smoking cigarettes per day: 20.0 Years smoked: 40 Smoking pack-years: 40.00 Smoking status: Current every day smoker Tobacco type: cigarettes Smokeless tobacco user: chewing tobacco Alcohol intake: never Substance use: current Substance use type: marijuana Lack of Transportation: No Lack of Food: Never True Current Housing: I Have Housing Concerned About Future Housing: No Difficulty Paying Gas/Electric Bills: No Difficulty Paying for Meds: No Currently Unemployed: No Education: Associate Degree Difficulty w/ Childcare or Family Care: No Living arrangements: with family Gender identity (if verbalized by the patient): Female Spiritual care concerns: No Anes - Eval Final PreProcedure Day of Procedure 03/10/23 14:05 Patient weight: overweight Heart: regular rate and rhythm Lungs: clear to auscultation Airway: Mallampati scale class III Neurological: alert and oriented Last oral intake: >/= 8 hours ASA classification: III Emergent: no Anesthetic plan: proceed Anesthesia type and monitoring: general GIVS an
[2023-03-11 08:22] VITALS: BP 140/87; PULSE 96; RESP 16; TEMP 36.5; O2SAT 98; BMI 10.4
[2023-03-11] MEDS: LACTATED RINGERS 1,000 ML 150 ML IV CONT (08:37)
[2023-03-11 08:38] LABS: Glucose Point of Care 145 mg/dl (65-105)
--- NOTE | 2023-03-11 08:56 | PM.HPGS ---
History of Present Illness History of Present Illness Consent: Risks, benefits, and alternatives have been discussed and questions answered. Patient agrees to proceed with procedure. Chief complaint: GERD,Diarrhea,Iron Deficiency Anemia Narrative: Beba Hernandez is a 68 year old female with yris, had perforated duodenal ulcer that required surgery 08/2022 in [place], now on ppi, also had diarrhea but better since her primary started her empirically on sulfasalazine. Review of Systems Constitutional: Constitutional: Denies headache(s) and Denies weakness Eyes: Eyes: Denies blurry vision ENT: Reports Normal hearing present, Denies headache(s) and Denies neck pain Cardiovascular: Cardiovascular: Denies chest pain and Denies dyspnea Respiratory: Respiratory: Denies dyspnea Gastrointestinal: Gastrointestinal: Reports no additional gastrointestinal complaints Genitourinary: Genitourinary: Denies dysuria Musculoskeletal: Musculoskeletal: Denies neck pain Integumentary/Breasts: Skin/Breast: Denies dry skin Neurologic: Reports Normal hearing present, Denies headache(s) and Denies weakness Psychiatric: Psychiatric: Denies anxiety Endocrine: Endocrine: Denies change in body appearance Hematologic/Lymphatic: Hematologic/Lymphatic: Denies easy bleeding Allergic/Immunologic: Allergic/Immunologic: Denies urticaria PMFSH Past Medical History Medical History Breast cancer COPD (chronic obstructive pulmonary disease) Diabetes mellitus Diarrhea Fatty liver GERD (gastroesophageal reflux disease) HTN (hypertension) YRIS (iron deficiency anemia) Infrarenal abdominal aortic aneurysm (AAA) without rupture Tobacco use Surgical History Surgical History (Updated 02/05/23 @ 13:33 by Hilary Gonzalez CMA) Hx of hysterectomy Hx of mastectomy Hx of tubal ligation Family History Family History Father Hypertension Mother Hypertension Heart disease Social History Social History (Updated 02/05/23 @ 13:34 by Hilary Gonzalez CMA) Smoking packs per day: 1 Smoking cigarettes per day: 20.0 Years smoked: 40 Smoking pack-years: 40.00 Smoking status: Current every day smoker Tobacco type: cigarettes Smokeless tobacco user: chewing tobacco Alcohol intake: never Substance use: current Substance use type: marijuana Lack of Transportation: No Lack of Food: Never True Current Housing: I Have Housing Concerned About Future Housing: No Difficulty Paying Gas/Electric Bills: No Difficulty Paying for Meds: No Currently Unemployed: No Education: Associate Degree Difficulty w/ Childcare or Family Care: No Living arrangements: with family Gender identity (if verbalized by the patient): Female Spiritual care concerns: No Meds Home Medications and Allergies Home Medications Medication Instructions Recorded Confirmed Type atorvastatin 10 mg tablet 10 mg PO DAILY 03/09/21 03/11/23 History fenofibrate micronized 67 mg 67 mg PO DAILY 03/09/21 03/11/23 History capsule glimepiride 1 mg tablet 1 mg PO DAILY 03/09/21 03/11/23 History amlodipine 10 mg tablet 10 mg PO DAILY 11/20/22 03/11/23 History aspirin 81 mg tablet,delayed 81 mg PO DAILY 11/20/22 03/11/23 History release carvedilol 12.5 mg tablet 12.5 mg PO BID 11/20/22 03/11/23 History cyanocobalamin (vitamin B-12) 2,500 mcg sublingual DAILY 11/20/22 03/11/23 History 2,500 mcg sublingual tablet ergocalciferol (vitamin D2) 1,250 1,250 mcg PO WEEKLY 11/20/22 03/11/23 History mcg (50,000 unit) capsule (Vitamin D2) ferrous sulfate 325 mg (65 mg 325 mg PO TID 11/20/22 03/11/23 History iron) tablet gabapentin 100 mg capsule 100 mg PO TID 11/20/22 03/11/23 History ipratropium 0.5 mg-albuterol 3 mg 3 ml inhalation QID 11/20/22 03/11/23 History (2.5 mg base)/3 mL nebulization soln pantoprazole 40 mg tablet,delayed 40 mg PO BID 11/20/22
--- NOTE | 2023-03-11 09:15 | SUR.OPER ---
EGD: [id number] COLON: Start 917
[2023-03-11 09:38] VITALS: BP 114/92; PULSE 89; RESP 20; O2SAT 95
[2023-03-11 09:48] VITALS: BP 113/66; PULSE 83; RESP 19; O2SAT 97
[2023-03-11 09:58] VITALS: BP 131/77; PULSE 76; RESP 20; O2SAT 95
== END 2023-03-11 10:13 | disposition home or self-care (01) ==
PROVIDERS: PCP Internal Medicine; Visit Provider Internal Medicine Gastroenterology
PROC: 0DJ08ZZ Inspection of Upper Intestinal Tract, Via Natural or Artificial Opening Endoscopic (ICD-10-PCS; CPT 43235; principal; 2023-03-11 09:30)
DX: D50.9 Iron deficiency anemia, unspecified (principal); D12.5 Benign neoplasm of sigmoid colon; D12.8 Benign neoplasm of rectum; K63.5 Polyp of colon; R19.7 Diarrhea, unspecified; K64.8 Other hemorrhoids; K21.9 Gastro-esophageal reflux disease without esophagitis; Z87.11 Personal history of peptic ulcer disease; J44.9 Chronic obstructive pulmonary disease, unspecified; E11.9 Type 2 diabetes mellitus without complications; I10 Essential (primary) hypertension; I71.43 Infrarenal abdominal aortic aneurysm, without rupture; K76.0 Fatty (change of) liver, not elsewhere classified; Z85.3 Personal history of malignant neoplasm of breast; Z79.84 Long term (current) use of oral hypoglycemic drugs; Z79.82 Long term (current) use of aspirin; Z79.51 Long term (current) use of inhaled steroids; F17.210 Nicotine dependence, cigarettes, uncomplicated; F17.220 Nicotine dependence, chewing tobacco, uncomplicated; F12.90 Cannabis use, unspecified, uncomplicated
CPT/HCPCS: 45385; 45380; 43239; 82948; 88305; J2704; J7120

== ENCOUNTER 2023-10-13 13:05 | Outpatient (CLI) | payer MEDICARE, SELFPAY ==
--- NOTE | ~2023-10-13 | CT_ITS ---
EXAMINATION: CT lung screening DATE: 10/13/2023 14:14 INDICATION: History of nicotine dependence TECHNIQUE: Computed tomography (CT) of the chest was performed without intravenous contrast. The dose -length product was 84.74 mGy-cm. Automated exposure control and iterative reconstruction technique w ere employed. COMPARISON: CT dated 08/01/2019 FINDINGS: No significant pleural or pericardial effusion. No thoracic lymphadenopathy. Heart size nor mal. Upper abdomen is unremarkable. There is atherosclerosis of the aorta and coronary arteries. Ther e is emphysema. Stable small bilateral pulmonary nodules, largest in the right lower lobe measuring 4 mm. No new pulmonary nodules or masses. There are calcified granulomas in the left lung, consistent with chronic granulomatous disease. No endobronchial lesions. No focal airspace consolidation. IMPRESSION: 1. Lung-RADS category 2: Benign appearance or behavior. Continue annual screening with noncontrast lo w-dose chest CT in 12 months. Reviewed, dictated and finalized at location L. IMPRESSION: 1. Lung-RADS category 2: Benign appearance or behavior. Continue annual screeni ng with noncontrast low-dose chest CT in 12 months.
--- NOTE | ~2023-10-13 | DEXA_ITS ---
Bone Density Report Name: TNOY FITZGERALD Age: 68 Sex: Female Ethnicity: White Date of : 1955 Indication: postmenopausal; screening for osteoporosis; height loss; inflammatory bowel disease; cancer; hysterectomy; Referring Provider: PAOLA ANNA Study: Bone densitometry was performed. Exam Date: October 13, 2023 Accession number: [id number] Bone Density: Region BMD T-score Z-score Classification AP Spine(L1-L4) 0.839 -1.9 0.3 Osteopenia Femoral Neck (Left) 0.608 -2.2 -0.3 Osteopenia Total Hip (Left) 0.688 -2.1 -0.5 Osteopenia Femoral Neck (Right) 0.633 -1.9 -0.1 Osteopenia Total Hip (Right) 0.742 -1.6 -0.1 Osteopenia Femoral Neck Mean 0.621 -2.1 -0.2 Osteopenia Total Hip Mean 0.715 -1.9 -0.3 Osteopenia World Health Organization criteria for BMD impression classify patients as: Normal (T-score at or above -1.0), Osteopenia (T-score between -1.0 and -2.5), or Osteoporosis (T-score at or below -2.5). 10-year Fracture Risk(1): Major Osteoporotic Fracture 13% Hip Fracture 4.3% Reported Risk Factors: [place] (), Neck BMD=0.608, BMI=29.2, smoking (1) FRAX(R) Version 3.08. Fracture probability calculated for an untreated patient. Fracture probability may be lower if the patient has received treatment. Clinical Information Provided by Patient: Smokes Has used the following medications: Vitamin D Has the following medical conditions: Cancer, Inflammatory bowel diseases, Hysterectomy Patient maximum height was 66 Menopause Age: 48 No regular weight bearing exercise Drinks caffeinated beverages Onset of menses at age 7 Number of children 2 Impression: The patient has low bone mass, based on the Left Femoral Neck T-score. The patient has risk factors, including: smoking. Discussion: BONE DENSITY IS LOW AT ONE OR MORE SKELETAL SITES. This patient's lowest T-score is low at one or more skeletal sites. It meets the World Health Organization's (WHO) criteria for ?low bone mass? (T-score between -1.0 and -2.5). The patient's 10-year risk of fracture as calculated by FRAX is less than the threshold where pharmacological therapy is recommended by the National Osteoporosis Foundation (NOF). However, all treatment decisions require clinical judgment and consideration of individual patient factors, including patient preferences, comorbidities, previous drug use, risk factors not captured in the FRAX model (e.g., frailty, falls, vitamin D deficiency, increased bone turnover, interval significant decline in bone density) and possible under or overestimation of fracture risk by FRAX. The patient should follow a healthful lifestyle (good nutrition with adequate calcium and vitamin D, and appropriate weight-bearing exercise). Follow-Up: Consider repeating this study
--- NOTE | ~2023-10-13 | MM_ITS ---
EXAMINATION: MM screening amado LT w chanelle HISTORY: Screening mammogram status post left mastectomy for breast cancer TECHNIQUE: Craniocaudal and mediolateral oblique 3-D tomosynthesis images were obtained and synthetic 2-D images were generated. CAD analysis was submitted and interpreted. COMPARISON: 04/08/2021 left screening mammogram BREAST PARENCHYMAL COMPOSITION: The breasts are heterogeneously dense, which may obscure small masses . FINDINGS: There is no evidence of suspicious mass, calcification, or architectural distortion to sugg est malignancy in either breast. There has been no suspicious interval change. IMPRESSION: 1. Status post right mastectomy for breast cancer. No mammographic evidence of malignancy. 2. Recommend routine screening mammography in one year. BI-RADS Category 1: Negative Reviewed, dictated and finalized at location A.
--- NOTE | ~2023-10-13 | US_ITS ---
EXAMINATION: US carotid duplex BI DATE: 10/13/2023 14:08 INDICATION: Carotid stenosis TECHNIQUE: Grayscale, color Doppler, and pulsed Doppler images of the cervical carotid arteries were obtained. The degree of vessel stenosis is placed in one of the following categories: normal, <50%, 5 0-69%, >=70% but less than near-occlusion, near-occlusion, or total occlusion. Note that percent sten osis relative to normal distal artery lumen diameter is indirectly measured from velocity measurement s as described by Obdulio, et al. Radiology 2003; 229:340-346. Notes: Normal: Peak systolic velocity <125 centimeters/sec and no plaque <50%. Peak systolic velocity <125 ( EDV <40; ICA/CCA PSV ratio <2.0; used these factors only a tandem lesions or low cardiac output or co ntralateral disease) 50-69 %: PSV 125-230 (EDV 40-100; ratio 2-4) >= 70% but less than near occlusion: PSV greater than 230 (EDV > 100; ratio> 4.0) Near Occlusion: PSV that is variable; markedly narrowed lumen Occlusion: Absent flow on color/spectral Doppler and no lumen on doan scale. COMPARISON: None. FINDINGS: RIGHT: The right common carotid artery (CCA) peak systolic velocity (PSV) is 55 cm/s. The right internal car otid artery (ICA) PSV is 110 cm/s. The right ICA end-diastolic velocity (EDV) is 39 cm/s. The right I CA/CCA PSV ratio is 2.0. The external carotid artery (ECA) PSV is 110 cm/s. There is antegrade flow i n the right vertebral artery. LEFT: The left CCA PSV is 76 cm/s. The left ICA PSV is 118 cm/s. The left ICA EDV is 37 cm/s. The left ICA/ CCA PSV ratio is 1.5. The ECA PSV is 1:30 cm/s. There is antegrade flow in the left vertebral artery . IMPRESSION: 1. Less than 50% stenosis in the right internal carotid artery by sonographic criteria. 2. Less than 50% stenosis in the left internal carotid artery by sonographic criteria. Reviewed, dictated and finalized at location L. IMPRESSION: 1. Less than 50% stenosis in the right internal carotid artery by sonographic constantino pierre. 2. Less than 50% stenosis in the left internal carotid artery by sonographic ami jack.
== END 2023-10-13 13:06 | disposition home or self-care (01) ==
LOC: CHSIMG 13:08
PROVIDERS: PCP Internal Medicine; Visit Provider Internal Medicine
DX: Z12.31 Encounter for screening mammogram for malignant neoplasm of breast (principal); Z78.0 Asymptomatic menopausal state; I65.23 Occlusion and stenosis of bilateral carotid arteries; Z12.2 Encounter for screening for malignant neoplasm of respiratory organs; Z87.891 Personal history of nicotine dependence; M85.89 Other specified disorders of bone density and structure, multiple sites
CPT/HCPCS: 71271; 77063; 77067; 77080; 93880

== ENCOUNTER 2023-10-27 12:49 | Outpatient (CLI) | payer MEDICARE, SELFPAY ==
[2023-10-27 13:03] VITALS: BP 139/80; PULSE 60; RESP 16; TEMP 36.2; O2SAT 96
[2023-10-27] MEDS: ZOLEDRONIC ACID 5 MG/100 ML 100 ML 400 MG IVPB (13:25)
[2023-10-27 14:01] VITALS: BP 123/55; PULSE 62; RESP 16; TEMP 36.4; O2SAT 95
--- NOTE | 2023-10-27 14:03 | PC.NURSE ---
1300 Patient to floor ambulating without difficulty. 1400 Patient tolerated infusion well. Removed IV intact and patient ambulated to elevator without difficulty.
== END 2023-10-27 12:50 | disposition home or self-care (01) ==
PROVIDERS: PCP Internal Medicine; Visit Provider Internal Medicine
DX: M81.0 Age-related osteoporosis without current pathological fracture (principal)
CPT/HCPCS: 96365; J3489

== ENCOUNTER 2024-01-12 08:21 | Outpatient (CLI) | payer MEDICARE, SELFPAY ==
--- NOTE | ~2024-01-12 | US_ITS ---
EXAMINATION: US aorta DATE: 01/12/2024 08:49 INDICATION: Abdominal aortic aneurysm TECHNIQUE: Grayscale, color Doppler, and pulsed Doppler images of the aorta and common iliac arteries were obtained. COMPARISON: CT abdomen and pelvis dated 10/07/2022 FINDINGS: The proximal aorta measures 2.2 cm. Fusiform aneurysm in the mid aorta measuring up to 3.8 cm. The di stal aorta measures 2.3 cm. The right common iliac artery measures 1.1 cm. The left common iliac berenice ry measures 0.9 cm. IMPRESSION: 1. 3.8 cm fusiform aneurysm in the mid abdominal aorta. Reviewed, dictated and finalized at location B.
== END 2024-01-12 08:22 | disposition home or self-care (01) ==
LOC: CHSIMG 08:22
PROVIDERS: PCP Internal Medicine; Visit Provider Internal Medicine
DX: I71.40 Abdominal aortic aneurysm, without rupture, unspecified (principal)
CPT/HCPCS: 76775

== ENCOUNTER 2025-02-15 07:22 | Outpatient (CLI) | payer MEDICARE, SELFPAY ==
--- OUTSIDE RECORDS SUMMARY | 2025-02-15 07:27 | XMS_ITS | Encounter Summary ---
Author Organization [facility] Address [address] [place] [id number] Care Team Providers Care Whitewasher Name Role Phone Pasquale Pro MD Primary Care Provider [phone] Roland Tatum MD Unavailable [phone] Suly Galdamez APRN, NP-C Unavailable Encounter Details Date Type Department Care Team (Late st Contact Info) Description 09/22/2022 Hospital Follow-up Call [facility] Surgical [address] [place] [address] Christopher Farnsworth MD [address] [address] Social History Tobacco Use Types Packs/Day Years Used Date Smoking Tobacco: Every Day Cigarettes Smokeless Tobacco: Never Alcohol Use Standard Drinks/Week Comments No 0 (1 standard drink = 0.6 oz pur e alcohol) Humiliation, Afraid, Rape, and Kick questionnair e Answer Date Recorded Within the last year, have y ou been afraid of your partner or ex-partner? No 08/22/2022 Within the last year, have y ou been humiliated or emotionally abused in other ways by your partner or ex-partner? No Within the last year, have y ou been kicked, hit, slapped, or otherwise physically hurt by your partner or ex-partner? No 08/22/2022 Within the last year, have y ou been raped or forced to have any kind of sexual activity by your partner or ex-partner? No 08/22/2022 Social Connection and Isolat ion Panel [NHANES] Answer Date Recorded In a typical week, how many times do you talk on the phone with family, friends, or neighbors? More than three times a week 08/22/2022 How often do you get togethe r with friends or relatives? More than three times a week 08/22/2022 How often do you attend chur ch or bahai services? More than 4 times per year 08/22/2022 Do you belong to any clubs o r organizations such as yarsanism groups, unions, fraternal or athletic groups, or school groups? Yes 08/22/2022 How often do you attend meet ings of the clubs or organizations you belong to? More than 4 times per year 08/22/2022 Are you , , di vorced, , never , or living with a partner? 08/22/2022 AUDIT-C Answer Date Recorded Q1: How often do you have a drink containing alcohol? Never 08/22/2022 Q2: How many drinks containi ng alcohol do you have on a typical day when you are drinking? Patient does not drink Q3: How often do you have si x or more drinks on one occasion? Never 08/22/2022 Overall Financial Resource Strain (CARDIA) Answe r Date Recorded How hard is it for you to pa y for the very basics like food, housing, medical care, and heating? Not hard at all 08/22/2022 [facility] - Occupational Stress Questionnaire Answer Date Recorded Do you feel stress - tense, restless, nervous, or anxious, or unable to sleep at night because your mind is troubled all the time - these days? Not at all 08/22/2022 Hunger Vital Sign Answer Date Recorded Within the past 12 months, y ou worried that your food would run out before you got the money to buy more. Never true 08/22/19 23 Within the past 12 months, t he food you bought just didn't last and you didn't have money to get more. Never true 08/22/2022 PRAPARE - Transportation Answer Date Re corded In the past 12 months, has l ack of transportation kept you from medical appointments or from getting medications? No 09/2022 In the past 12 months, has l ack of transportation kept you from meetings, work, or from getting things needed for daily living? No 08/22/2022 Housing Stability Vital Sign Answer Terence e Recorded In the last 12 months, was t here a time when you were not able to pay the mortgage or rent on time? No 08/22/2022 In the last 12 months, how many places have you lived? 1 08/22/2022 In the last 12 months, was t here a time when you did not have a steady place to sleep or slept in a nursing home (including now)? No 08/22/2022 Comments No Sex and Gender Information Value Date Recorded Sex Assigned at Not on file Legal Sex Female 6:07 PM CDT Gender Identity Not on file Sexual Orientation Not on file Occupation Industry Job Start Date Job End Date Not on file Not on file Not on file Not on file COVID-19 Exposure Response Date Recorded In the last 10 days, have yo u been in contact with someone who was confirmed or suspected to have Coronavirus/COVID-19? No / Unsure 09/22/2022 1:55 PM DUMPSTER OPERATOR documented as of this encounter Functional Status * RETIRED Are you deaf or do you have serious difficulty hearing Answer Date of Assessment Author Status No 08/22/2022 3:00 AM DUMPSTER OPERATOR Acti ve * RETIRED Are you blind or do you have serious difficulty seeing, even when wearing glasses? Answer Date of Assessment Author Status No 08/22/2022 3:00 AM DUMPSTER OPERATOR Activ e * Do you have serious difficulty walking or climbing stairs? Answer Date of Assessment Author Status No 08/22/2022 3:00 AM DUMPSTER OPERATOR Sampson Hartmann RN Active * Do you have difficulty dressing or bathing? Answer Date of Assessment Author Status No 08/22/2022 3:00 AM DUMPSTER OPERATOR Sampson Hartmann RN Active * Because of a physical, mental, or emotional condition, do you have difficulty doing errands alone such as visiting a doctor's office or shopping? Answer Date of Assessment Author Status No 08/22/2022 3:00 AM Sampson Mccabe RN Active documented as of this encounter Mental Status * Because of a physical, mental, or emotional condition, do you have serious difficulty concentrating, remembering, or making decisions? Answer Entry Date Author Status No 08/22/2022 3:00 AM Sampson Mccabe RN Active documented in this encounter Plan of Treatment Not on file documented as of this encounter Goals Goal Patient Goal Type Associated Problems Recent Progress Patient-Stated? Author Safety Patient/family will have appropriate support at home upon discharge Lifestyle No Alda Hernandez RN documented as of this encounter Visit Diagnoses Diagnosis Postoperative wound infection- Primary Other postoperative infection documented in this encounter Care Teams Whitewasher Relationship Specialty Start Date End Date Pasquale Pro MD [address] [place] [phone] PCP - General INTERNAL MEDICINE 03/19/18 Roland Tatum MD [address] [place] [address] Consulting Physician CARDIOVASCULAR DISEASE 06/22/20 Suly Galdamez APRN, SEWER REPAIRER-C [address] [place] [address] [address] [place] [address] NURSE PRACTITIONER 06/22/20 documented as of this encounter
--- OUTSIDE RECORDS SUMMARY | 2025-02-15 07:27 | XMS_ITS | Clinical Summary ---
Author Organization [facility] Address [address] [place] [address] Care Team Providers Care Rn Production Name Role Phone Pasquale Pro MD Primary Care Provider [phone] Roland Tatum MD Unavailable [phone] Sluy Galdamez APRN, NP-C Unavailable Allergies Active Allergy Reactions Criticality Noted Date Comments Hydrocodone Vomiting 03/19/2018 Metoprolol Hives 03/19/2018 Medications ALPRAZolam 0.25 MG tabletIndications:A nxiety Take 1 tablet (0.25 mg total) by mouth every 6 (six) hours as needed for Anxiety. Indications: Feeling Anxious 02/13/20 18 Active fenofibrate micronized 67 MG Cap capsuleIndications: Hyperlipidemia Take 1 capsule (67 mg total) by mouth daily. Indications: High Amount of Fats in the Blood 09/25/19 23 Active atorvastatin 10 MG tabletIndications:H yperlipidemia Take 1 tablet (10 mg total) by mouth daily. Indications: High Amount of Fats in the Blood 06/21/20 20 Active glimepiride 1 MG tabletIndications:D iabetes Mellitus Take 1 tablet (1 mg total) by mouth daily. Indications: Diabetes 06/21/20 Active prochlorperazine 10 MG tabletIndications:N ausea Take 1 tablet (10 mg total) by mouth 3 (three) times daily as needed. Indications: Nausea 06/21/20 Active aspirin EC (ECOTRIN) 81 MG tabletIndications:A spirin Therapy Take 1 tablet (81 mg total) by mouth daily. Indications: Treatment with Aspirin 09/25/19 Active Multiple Vitamins-Minerals (CENTRUM ADULTS OR)Indications:supp lement Take 1 tablet by mouth daily. Indications: supplement 09/25/19 Active amLODIPine (NORVASC) 10 MG tabletIndications:H ypertension Take 1 tablet (10 mg total) by mouth daily. 30 tablet 3 09/09/19 Active gabapentin (NEURONTIN) 100 MG capsuleIndications: Neuropathic Pain Take 1 capsule (100 mg total) by mouth 3 (three) times daily. 270 capsule 09/08/19 Active carvedilol (COREG) 12.5 MG tabletIndications:H ypertension Take 1 tablet (12.5 mg total) by mouth 2 (two) times daily. 60 tablet 3 09/08/19 Active pantoprazole EC (PROTONIX) 40 MG tabletIndications:N onerosive Gastroesophagel Reflux Disease Take 1 tablet (40 mg total) by mouth 2 (two) times daily before meals. 30 tablet 3 09/08/19 Active ferrous sulfate, 65 mg elemental, 325 (65 FE) MG tabletIndications:I calli Deficiency Take 1 tablet (325 mg total) by mouth 3 (three) times daily with meals. Indications: Iron Deficiency off bottle 2 10/07/19 Active sulfaSALAzine (AZULFIDINE) 500 MG tabletIndications:D iarrhea Take 1,000 mg by mouth 3 (three) times daily. Indications: Diarrhea 12/12/19 Active vitamin D3, cholecalciferol, 1.25 mg capsuleIndications: supplement Take 1.25 mg by mouth once a week. Indications: supplement 12/26/19 Active Active Problems Problem Noted Date Diagnosed Date SEAN (acute kidney injury) 12/02/2022 Respiratory failure with hypoxia ([facility]) 09/01/2022 Acute blood loss anemia ([facility]) 09/01/2022 Small bowel perforation ([facility]) 2022 Abnormal EKG 07/09/2020 PVC's (premature ventricular contractions) 07/09 Hypertension 07/09/2020 Hyperlipidemia 07/09/2020 Current smoker 07/09/2020 Diabetes ([facility]) 03/24/2018 Acute duodenal ulcer with perforation ([facility]) 03/19/2018 Resolved Problems Problem Noted Date Diagnosed Date Resolved Date Acute respiratory failure wi th hypoxia ([facility]) 03/24/2018 04/05/2018 Hypernatremia 03/24/2018 04/05/2018 Family History Medical History Relation Comments Heart Attack Mother Coronary artery disease Sister Relation Status Comments Father Mother (Age 74) Sister Alive Social History Tobacco Use Types Packs/Day Years Used Date Smoking Tobacco: Every Day Cigarettes Smokeless Tobacco: Never Tobacco Cessation:Ready to Q uit: Not Asked; Counseling Given: Not Answered Alcohol Use Standard Drinks/Week Comments No 0 (1 standard drink = 0.6 oz pur e alcohol) OASIS D0700: Social Isolation Answer Da te Recorded Frequency of experiencing loneliness or isolatio n Never 01/01/2023 OASIS A1250: Transportation Answer Date Recorded Lack of Transportation (Medical) No 01/01/2023 Lack of Transportation (Non-Medical) No 01/01/2023 Patient Unable or Declines to Respond No 01/01/2023 OASIS B1300: Health Literacy Answer Terence e Recorded Frequency of needing help to read materials from doctor or pharmacy Never 01/01/2023 Humiliation, Afraid, Rape, and Kick questionnair e Answer Date Recorded Within the last year, have y ou been afraid of your partner or ex-partner? No 12/02/2022 Within the last year, have y ou been humiliated or emotionally abused in other ways by your partner or ex-partner? No Within the last year, have y ou been kicked, hit, slapped, or otherwise physically hurt by your partner or ex-partner? No 12/02/2022 Within the last year, have y ou been raped or forced to have any kind of sexual activity by your partner or ex-partner? No 12/02/2022 Social Connection and Isolat ion Panel [NHANES] Answer Date Recorded In a typical week, how many times do you talk on the phone with family, friends, or neighbors? More than three times a week 12/02/2022 How often do you get togethe r with friends or relatives? More than three times a week 12/02/2022 How often do you attend chur ch or restorationism services? More than 4 times per year 12/02/2022 Do you belong to any clubs o r organizations such as spiritism groups, unions, fraternal or athletic groups, or school groups? Yes 12/02/2022 How often do you attend meet ings of the clubs or organizations you belong to? More than 4 times per year 12/02/2022 Are you , , di vorced, , never , or living with a partner? 12/02/2022 AUDIT-C Answer Date Recorded Q1: How often do you have a drink containing alcohol? Never 12/02/2022 Q2: How many drinks containi ng alcohol do you have on a typical day when you are drinking? Patient does not drink Q3: How often do you have si x or more drinks on one occasion? Never 12/02/2022 Overall Financial Resource Strain (CARDIA) Answe r Date Recorded How hard is it for you to pa y for the very basics like food, housing, medical care, and heating? Not hard at all 12/02/2022 [facility] - Occupational Stress Questionnaire Answer Date Recorded Do you feel stress - tense, restless, nervous, or anxious, or unable to sleep at night because your mind is troubled all the time - these days? Not at all 12/02/2022 Hunger Vital Sign Answer Date Recorded Within the past 12 months, y ou worried that your food would run out before you got the money to buy more. Never true 12/03/19 23 Within the past 12 months, t he food you bought just didn't last and you didn't have money to get more. Never true 12/02/2022 PRAPARE - Transportation Answer Date Re corded In the past 12 months, has l ack of transportation kept you from medical appointments or from getting medications? No 11/17 In the past 12 months, has l ack of transportation kept you from meetings, work, or from getting things needed for daily living? No 12/02/2022 Housing Stability Vital Sign Answer Terence e Recorded In the last 12 months, was t here a time when you were not able to pay the mortgage or rent on time? No 12/02/2022 In the last 12 months, how many places have you lived? 1 12/02/2022 In the last 12 months, was t here a time when you did not have a steady place to sleep or slept in a fci (including now)? No 12/02/2022 Comments No Sex and Gender Information Value Date Recorded Sex Assigned at Not on file Legal Sex Female 6:07 PM CDT Gender Identity Not on file Sexual Orientation Not on file Occupation Industry Job Start Date Job End Date Not on file Not on file Not on file Not on file Last Filed Vital Signs Vital Sign Reading Time Taken Comments Blood Pressure 161/87 01/01/2023 2:56 PM CDT Pulse 80 01/01/2023 2:56 PM CDT Temperature 37 C (98.6 F) 01/01/2023 2:56 PM CDT Respiratory Rate 18 01/01/2023 2:56 PM CDT Oxygen Saturation 96% 01/01/2023 2:56 PM CDT Inhaled Oxygen Concentration - - Weight 70.3 kg (154 lb 15.7 oz) 12/03/2022 5:00 AM CDT Height 157.5 cm (5' 2) 12/02/2022 1:05 AM CDT Body Mass Index 28.35 12/02/2022 1:05 AM CDT Plan of Treatment Health Maintenance Due Date Last Done Comments Colorectal Cancer Screening Colonoscopy (10 Years) 1953 Kidney Health Evaluation 1953 Lipid Panel 1953 Diabetes: Retinopathy Eye Exam 1971 Hepatitis C 1971 DTaP, Tdap and Td Vaccines ( 1 - Tdap) 01/24/1972 Mammogram Screening 1993 Zoster Vaccines (1 of 2) 2003 Annual Medicare Wellness Visit 2018 Dexa Scan (General) 2018 Pneumococcal Vaccine: 50+ Years (3 of 3 - PCV20 or PCV21) 09/10/2022 09/10/2017, 05/24/2014 Hemoglobin A1C 06/04/2023 12/02/2022, 08/22/2022 COVID-19 Vaccine (3 - 2023-2 5 season) 2024 12/21/2020, 11/27/2020 RSV Immunization or 60+ Years (1 - 1-dose 75+ series) 01/24/2028 Meningococcal B Vaccine Aged Out No l onger eligible based on patient's age to complete this topic Meningococcal Vaccine Aged Out No esau lai eligible based on patient's age to complete this topic RSV Immunizations Under 20 Months Aged Out No longer eligible b ased on patient's age to complete this topic Goals Goal Patient Goal Type Associated Problems Recent Progress Patient-Stated? Author Safety Patient/family will have appropriate support at home upon discharge Lifestyle No Alda Hernandez, GAEL Safety Patient/family will have appropriate support at home upon discharge Lifestyle No Isabella Malhotra RN Medical Devices Implanted Type [employer] Director Device Identifier Shelf Expiration Date Model / Serial / Lot Iol Tecnis Simplicity Dcb00 - [id number] Implanted:Qty: 1 on 04/09/2022 by Tamera Lawson MD at [facility] Lens Right: Eye [employer] 08/12/2024 DCB00 / / [id number] [employer]ol [employer] Simplicity Dcb00 - [id number] Implanted:Qty: 1 on 06/04/2022 by Tamera Lawson MD at [facility] Lens Left: Eye [employer] 05/05/2025 DCB00 / / [id number] Procedures Procedure Name Priority Date/Time Associated Diagnosis Comments HEMOGLOBIN, GLYCOSYLATED Routine 12/02/2022 2:30 AM CDT from Last 3 Months or Most Recently Relevant to Health Maintenance Results * (ABNORMAL) HEMOGLOBIN, GLYCOSYLATED (12/02/2022 2:30 AM CDT) HGB A1C 5.7(H) <5.7 % 12/02/2022 3:58 AM CDT [facility] ESTIMATED AVG GLUCOSE 117(H) 74 - 114 MG/DL 12/02/2022 3:58 AM CDT [facility] 12/02/2022 2:30 AM CDT Dyan Mccabe MD LABORATORY Final Result [facility] [address] [place] [address], [id number] from Last 3 Months or Most Recently Relevant to Health Maintenance Insurance [facility] MEDICAID Advance Directives Documents on File Type Date Recorded 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 Power of Fountain Waitress/Waiter 07/09/2020 * Full Code (Latest Code Status on File) Date Activated Date Inactivated Comments 12/26/2022 4:14 PM * Full Code Date Activated Date Inactivated Comments 12/02/2022 1:54 AM 12/05/2022 6:06 PM * Full Code Date Activated Date Inactivated Comments 11/30/2022 8:08 PM 12/01/2022 4:54 PM * Full Code Date Activated Date Inactivated Comments 09/24/2022 10:24 AM 11/30/2022 8:08 PM * Full Code Date Activated Date Inactivated Comments 08/22/2022 5:50 AM 09/08/2022 6:25 PM Care Teams Rn Production Relationship Specialty Start Date End Date Pasquale Pro MD [address] [place] [phone] PCP - General INTERNAL MEDICINE 03/19/18 Roland Tatum MD [address] [place] [phone] Consulting Physician CARDIOVASCULAR DISEASE 06/22/20 Suly Galdamez APRN, MANAGER BUSINESS INFORMATION-C [address] [facility] [address] [place] [phone] NURSE PRACTITIONER 06/22/20
[2025-02-15 07:38] LABS: Hematocrit 51.0 % (35.0-42.0); Hemoglobin 17.4 g/dL (11.7-13.8); Immature Granulocyte Percent A 0.6 % (0.0-0.0); Lymphocytes Absolute Auto 2.59 K/mm3 (1.10-4.50); Mean Corpuscular HGB Conc 34.1 g/dL (32-36); Mean Corpuscular Hemoglobin 30.9 pg (27.0-31.0); Mean Corpuscular Volume 90.6 fL (78.0-102.0); Nucleated Red Blood Cells Absolute Auto 0.00 K/mm3 (0.00-0.00); Nucleated Red Blood Cells Perc 0.0 % (0-0.0); Platelet Count Result 363 K/mm3 (150-420); Red Blood Count 5.63 M/mm3 (4.20-5.40); White Blood Count 17.7 K/mm3 (4.8-10.8)
[2025-02-15 07:52] LABS: Alanine Aminotransferase 21 U/L (6-35); Albumin Level 4.5 g/dL (3.5-5.1); Alkaline Phosphatase 62 U/L (38-126); Amylase 57 U/L (30-110); Anion Gap 18 mmol/L (4-12); Aspartate Amino Transferase 29 U/L (14-36); Bilirubin,Total 0.8 mg/dL (0.2-1.3); Blood Urea Nitrogen 99 mg/dL (7-17); Calcium 7.5 mg/dL (8.4-10.2); Carbon Dioxide 19 mmol/L (22-30); Chloride 93 mmol/L (98-107); Estimated Glomerular Filt Rate 10; Glucose 182 mg/dL (65-110); Lipase 71 U/L (23-300); Osmolality Calculated 305 mOsm/kg (285-295); Potassium 3.8 mmol/L (3.4-5.0); Sodium 130 mmol/L (137-145); Total Protein 7.6 g/dL (6.3-8.2)
== END 2025-02-15 07:23 | disposition home or self-care (01) ==
LOC: CHSLAB 07:24
PROVIDERS: PCP Internal Medicine; Visit Provider Internal Medicine
DX: R11.10 Vomiting, unspecified (principal); R19.7 Diarrhea, unspecified
CPT/HCPCS: 36415; 80053; 82150; 83605; 83690; 85025

== ENCOUNTER 2025-02-15 08:40 | Observation (INO) | payer MEDICARE, SELFPAY ==
[2025-02-15 08:43] VITALS: BP 133/69; PULSE 110; RESP 16; TEMP 36.6; O2SAT 94
--- NOTE | 2025-02-15 08:48 | ED_ITS ---
HPI - Nausea/Vomiting/Diarrhea General Chief complaint: Nausea/Vomiting/Diarrhea Stated complaint: Dr. guzman pt./diarrhea Time Seen by Provider: 02/15/25 08:47 Source: patient Mode of arrival: ambulatory Limitations: no limitations History of Present Illness HPI Narrative: 70-year-old female , smoker with a history of diabetes mellitus, COPD, AAA, GERD, chronic diarrhea is unremarkable biopsies, tubular adenomatous polyps, history of GI bleeding status post surgery for perforated duodenal ulcer, presents to the ED with a 5 day history of -- nausea with multiple episodes of vomiting. She had 2 episodes of vomiting this morning. -- watery stools. She had 2 episodes of diarrhea this morning. No blood or mucus noted. She has intermittent episodes of chronic diarrhea. -- Noted to have hemoconcentration with acute renal failure with a BUN/creatinine of 99/4.5 and metabolic acidosis with a bicarbonate of 19. The patient was sent from Dr. Pro's office for further management. -- Elevated blood sugars of 182. No fever or chills. No abdominal pain MD elicited complaint: nausea, vomiting and diarrhea Pertinent past history: abdominal surgery Onset (ago): day(s) ( 5 days) Description of vomiting: watery Description of diarrhea: watery Associated nausea: No Associated abdominal pain: No Location of pain: none Exacerbating factors: none Relieving factors: none Associated symptoms: denies other symptoms Related Data Home Medications ?Medication ?Instructions ?Recorded ?Confirmed ?Last Taken ?Type atorvastatin 10 mg tablet 10 mg PO DAILY 03/09/21 10/27/23 03/10/23 09:00 History fenofibrate micronized 67 mg 67 mg PO DAILY 03/09/21 10/27/23 03/10/23 09:00 History capsule glimepiride 1 mg tablet 1 mg PO DAILY 03/09/21 10/27/23 03/10/23 09:00 History amlodipine 10 mg tablet 10 mg PO DAILY 11/20/22 10/27/23 03/10/23 09:00 History aspirin 81 mg tablet,delayed 81 mg PO DAILY 11/20/22 10/27/23 03/10/23 09:00 History release carvedilol 12.5 mg tablet 12.5 mg PO BID 11/20/22 10/27/23 03/10/23 18:00 History gabapentin 100 mg capsule 100 mg PO TID 11/20/22 10/27/23 Unknown History pantoprazole 40 mg tablet,delayed 40 mg PO BID 11/20/22 10/27/23 03/10/23 18:00 History release sulfasalazine 500 mg tablet 1 g PO TID 02/05/23 10/27/23 Unknown History Allergies Allergy/AdvReac Type Severity Reaction Status Date / Time No Known Allergies Allergy Verified 03/11/23 08:18 Review of Systems Review of Systems: All systems reviewed & are unremarkable except as noted in HPI and below Constitutional: Constitutional: Reports as per HPI and Reports no additional constitutional complaints Eyes: Eyes: Reports as per HPI and Reports no additional eye complaints ENT: Reports system reviewed and no additional complaints, except as documented and Reports as per HPI Cardiovascular: Cardiovascular: Reports as per HPI and Reports no additional cardiovascular complaints Respiratory: Respiratory: Reports as per HPI and Reports no additional respiratory complaints Gastrointestinal: Gastrointestinal: Reports as per HPI, Reports no additional gastrointestinal complaints, Reports diarrhea, Reports nausea and Reports vomiting Genitourinary: Genitourinary: Reports no additional female genitourinary complaints and Reports as per HPI Musculoskeletal: Musculoskeletal: Reports no additional musculoskeletal complaints and Reports as per HPI Integumentary/Breasts: Skin/Breast: Reports system reviewed and no additional complaints, except as docu and Reports as per HPI Neurologic: Reports system reviewed and no additional complaints, except as documented and Reports as per HPI Psychiatric: Psychiatric: Reports no additional psychiatric complaints and Reports as per HPI Endocrine: Endocrine: Reports no additional endocrine complaints and Reports as per HPI Hematologic/Lymphatic: Hematologic/Lymphatic: Reports no additional hematologic/lymphatic complaints and Reports as per HPI Allergic/Immunologic: Allergic/Immunologic: Reports no additional allergic/immunologic complaints and Reports as per HPI [facility] Past Medical History Medical History Infrarenal abdominal aortic aneurysm (AAA) without rupture COPD (chronic obstructive pulmonary disease) Tobacco use Breast cancer Fatty liver GERD (gastroesophageal reflux disease) Diarrhea YRIS (iron deficiency anemia) HTN (hypertension) Diabetes mellitus Surgical History Surgical History Hx of tubal ligation Hx of hysterectomy Hx of mastectomy Family History Family History Father Hypertension Mother Hypertension Heart disease Social History Social History Smoking packs per day: 1 Smoking cigarettes per day: 20.0 Years smoked: 40 Smoking pack-years: 40.00 Smoking status: Current every day smoker Tobacco type: cigarettes Smokeless tobacco user: chewing tobacco Alcohol intake: never Substance use: current Substance use type: marijuana Lack of Transportation: No Lack of Food: Never True Current Housing: I Have Housing Concerned About Future Housing: No Difficulty Paying Gas/Electric Bills: No Difficulty Paying for Meds: No Currently Unemployed: No Education: Associate Degree Difficulty w/ Childcare or Family Care: No Living arrangements: with family Gender identity (if verbalized by the patient): Female Spiritual care concerns: No Exam Narrative: pulse 110. Blood pressure 133/67. Afebrile Const: General: no acute distress Orientation/consciousness: patient oriented x3 Limitations: no limitations HENMT: Head: normal to inspection Ears: external ears normal Face/Nose/Sinus: Normal external nose present Face and sinus: normal facial exam Mouth: Yes dry mucous membranes Throat: posterior oropharynx normal Eyes: Conjunctivae: conjunctivae normal Cornea: corneas normal Pupils: Equal, round and reactive pupils present EOM: EOMs intact bilaterally Direct Ophthalmoscopy: no photophobia Neck: Neck: normal visual inspection, no lymphadenopathy and no meningeal signs Chest: Chest palpation & inspection: normal inspection of the chest Resp: Effort & Inspection: normal respiratory effort Auscultation: diminished lung sounds Cardio: Rate: regular rate Rhythm: regular rhythm GI: GI Palp: Yes Soft to palpation Auscultation: normal bowel sounds Other: no tenderness/rigidity /rebound : General: Yes no CVA tenderness Back/Spine/Pelvis: Back: no CVA tenderness Skin: General skin exam: normal color Rashes: no rashes Wounds: no wounds Neuro: General: patient oriented x3, moves all extremities, no meningeal signs, no focal motor deficits and CN's II-XI intact bilaterally Speech: normal speech Extrem: General: normal to inspection and no clubbing, cyanosis or edema Psych: Mental Status: mental status grossly normal Affect: normal affect Course Course Emergency Course: gastroenteritis dehydration acute renal failure-- appears prerenal secondary to massive fluid losses from vomiting and diarrhea. Discussed with hospitalist Lore who is willing to admit the patient. Vital Signs Vital signs: Vital Signs Temperature 36.6 C 02/15/25 08:43 Pulse Rate 110 H 02/15/25 08:43 Respiratory Rate 16 02/15/25 08:43 Blood Pressure 133/69 02/15/25 08:43 Pulse Oximetry 94 02/15/25 08:43 Oxygen Delivery Room Air 02/15/25 08:43 Temperature 36.6 C 02/15/25 08:43 Pulse Rate 110 H 02/15/25 08:43 Respiratory Rate 16 02/15/25 08:43 Blood Pressure 133/69 02/15/25 08:43 Pulse Oximetry 94 02/15/25 08:43 Oxygen Delivery Room Air 02/15/25 08:43 MDM - Nausea/Vomiting/Diarrhea MDM Narrative Medical decision making narrative: Gastroenteritis acute renal failure Differential Diagnosis Differential diagnosis: Likely gastroenteritis Medical Records Attestation: I reviewed the patient's medical records. Lab Data Attestation: I reviewed the patient's lab results. Discharge Plan Discharge Clinical Impression: Acute dehydration, Gastroenteritis Acute renal failure Qualifiers: Acute renal failure type: unspecified Qualified Code(s): N17.9 - Acute kidney failure, unspecified Patient Disposition: [facility] Condition: Stable Additional Instructions: will admit the patient for further management Patient Language: Citizen Of [place] Prescriptions: No Action atorvastatin 10 mg tablet 10 mg PO DAILY fenofibrate micronized 67 mg capsule 67 mg PO DAILY glimepiride 1 mg tablet 1 mg PO DAILY carvedilol 12.5 mg tablet 12.5 mg PO BID aspirin 81 mg Tablet,Delayed Release (Dr/Ec) 81 mg PO DAILY amlodipine 10 mg tablet 10 mg PO DAILY pantoprazole 40 mg tablet,delayed release (DR/EC) 40 mg PO BID gabapentin 100 mg capsule 100 mg PO TID albuterol sulfate 90 mcg/actuation HFA aerosol inhaler 2 puff inhalation QID PRN (Reason: shortness of breath or wheezing) Qty: 6.7 0RF sulfasalazine 500 mg tablet 1 g PO TID Rx Instructions: give with food (meal/snack) Follow-up/Referrals: Pasquale Pro MD [Primary Care Provider] - Time of Disposition: 09:19
--- OUTSIDE RECORDS SUMMARY | 2025-02-15 08:52 | XMS_ITS | Clinical Summary ---
Author Organization [facility] Address [address] [place] [address] Care Team Providers Care Glaucoma Specialist Name Role Phone Pasquale Pro MD Primary Care Provider [phone] Roland Tatum MD Unavailable [phone] Suly Galdamez APRN, NP-C Unavailable Allergies Active Allergy [...] kidney injury) 12/02/2022 Respiratory failure with hypoxia ([facility]/ C) 09/01/2022 Acute blood loss anemia (ABLA) 09/01/2022 Small bowel perforation ([facility]) 2022 Abnormal EKG 07/09/2020 PVC's (premature ventricular contractions) 07/09 Hypertension 07/09/2020 Hyperlipidemia 07/09/2020 Current smoker 07/09/2020 Diabetes ([facility]) 03/24/2018 Acute duodenal ulcer with perforation ([facility]) 03/19/2018 Resolved Problems Problem Noted Date Diagnosed Date Resolved Date Acute respiratory failure wi th hypoxia ([facility]) 03/24/2018 04/05/2018 Hypernatremia 03/24/2018 04/05/2018 Family History [...] often do you attend chur ch or christianity services? More than 4 times per year 12/02/2022 Do you belong to any clubs o r organizations such as adventism groups, unions, fraternal or athletic groups, or [...] and heating? Not hard at all 12/02/2022 [facility] - [...] place to sleep or slept in a detention (including now)? No 12/02/2022 Comments No Sex [...] Malhotra RN Medical Devices Implanted Type Area Instructor Industrial Design Device Identifier Shelf Expiration Date Model / Serial / Lot Iol Tecnis Simplicity Dcb00 - [id number] Implanted:Qty: 1 on 04/09/2022 by Tamera Lawson MD at [facility] Lens Right: Eye [employer] 08/12/2024 DCB00 / / [id number] Iol Tecnis Simplicity Dcb00 - [id number] Implanted:Qty: 1 on 06/04/2022 by Tamera Lawson MD at [facility] Lens Left: Eye [employer] 05/05/2025 DCB00 / / [id number] Procedures Procedure Name Priority Date/Time Associated Diagnosis Comments HEMOGLOBIN, GLYCOSYLATED Routine 12/02/2022 2:30 AM CDT from Last 3 Months or Most Recently Relevant to Health Maintenance Results * (ABNORMAL) HEMOGLOBIN, GLYCOSYLATED (12/02/2022 2:30 AM CDT) HGB A1C 5.7(H) <5.7 % 12/02/2022 3:58 AM CDT [facility] ESTIMATED AVG GLUCOSE 117(H) 74 - 114 MG/DL 12/02/2022 3:58 AM CDT [facility] 12/02/2022 2:30 AM CDT Dyan Mccabe MD LABORATORY Final Result [facility] [address] [place] [address], [id number] from Last 3 Months or Most Recently Relevant to Health Maintenance Insurance [facility] [place] [address] MEDICAID Advance Directives Documents on File Type Date Recorded Patient Agronomy Research Manager Expl anation Power of Ip Litigation Associate 07/09/2020 * Full Code (Latest Code Status [...] 5:50 AM 09/08/2022 6:25 PM Care Teams Glaucoma Specialist Relationship Specialty Start Date End Date Pasquale Pro MD [address] [place] [phone] PCP - General INTERNAL MEDICINE 03/19/18 Roland Tatum MD [address] [place] [phone] Consulting Physician CARDIOVASCULAR DISEASE 06/22/20 Suly Galdamez APRN, CLOSED CIRCUIT SCREEN WATCHER-C [address] [facility] [address] [place] [phone] NURSE PRACTITIONER 06/22/20
--- OUTSIDE RECORDS SUMMARY | 2025-02-15 08:52 | XMS_ITS | Encounter Summary ---
Author Organization [facility] Address [address] [place] [address] Care Team Providers Care Inventory Planner Name Role Phone Pasquale Pro MD Primary Care Provider [phone] Roland Tatum MD Unavailable [phone] Suly Galdamez APRN, NP-C Unavailable [phone] Encounter Details Date Type Department Care Team (Late st Contact Info) Description 09/22/2022 Hospital Follow-up Call [facility] [address] [place] [address] Christopher Farnsworth MD [address] [address] Social History Tobacco Use Types [...] often do you attend chur ch or restoration services? More than 4 times per year 08/22/2022 Do you belong to any clubs o r organizations such as latter-day groups, unions, fraternal or athletic groups, or [...] and heating? Not hard at all 08/22/2022 [facility] - Occupational Stress [...] place to sleep or slept in a retirement (including now)? No 08/22/2022 Comments No Sex [...] Coronavirus/COVID-19? No / Unsure 09/22/2022 1:55 PM CENTER HUMAN RESOURCES MANAGER documented as of this encounter Functional Status * RETIRED Are you deaf or do you have serious difficulty hearing Answer Date of Assessment Author Status No 08/22/2022 3:00 AM CENTER HUMAN RESOURCES MANAGER Acti ve * RETIRED Are you blind or do you have serious difficulty seeing, even when wearing glasses? Answer Date of Assessment Author Status No 08/22/2022 3:00 AM CENTER HUMAN RESOURCES MANAGER Activ e * Do you have serious difficulty walking or climbing stairs? Answer Date of Assessment Author Status No 08/22/2022 3:00 AM CENTER HUMAN RESOURCES MANAGER Sampson Hartmann RN Active * Do you have difficulty dressing or bathing? Answer Date of Assessment Author Status No 08/22/2022 3:00 AM CENTER HUMAN RESOURCES MANAGER Sampson Hartmann RN Active * Because of [...] infection documented in this encounter Care Teams Inventory Planner Relationship Specialty Start Date End Date Pasquale Pro MD [address] [place] [phone] PCP - General INTERNAL MEDICINE 03/19/18 Roland Tatum MD [address] [place] [address] Consulting Physician CARDIOVASCULAR DISEASE 06/22/20 Suly Galdamez APRN, WELDING MANAGER-C [address] [place] [address] [address] [place] [address] NURSE PRACTITIONER 06/22/20 documented as of this encounter
--- OUTSIDE RECORDS SUMMARY | 2025-02-15 09:29 | XMS_ITS | Encounter Summary ---
Author Organization [facility] Address [address] [place] [address] Care Team Providers Care Conduit Helper Name Role Phone Pasquale Pro MD Primary Care Provider [phone] Roland Tatum MD Unavailable [phone] Suly Galdamez APRN, NP-C Unavailable [phone] Encounter Details Date Type Department Care Team (Late st Contact Info) Description 09/22/2022 Hospital Follow-up Call [facility] [address] [place] [address] Christopher Farnsworth MD [address] [address] Social History Tobacco Use Types [...] often do you attend chur ch or mu-ism services? More than 4 times per year 08/22/2022 Do you belong to any clubs o r organizations such as quaker groups, unions, fraternal or athletic groups, or [...] and heating? Not hard at all 08/22/2022 [facility] - Occupational [...] place to sleep or slept in a senior living (including now)? No 08/22/2022 Comments No Sex [...] Coronavirus/COVID-19? No / Unsure 09/22/2022 1:55 PM FACILITIES OPERATIONS TECHNICIAN documented as of this encounter Functional Status * RETIRED Are you deaf or do you have serious difficulty hearing Answer Date of Assessment Author Status No 08/22/2022 3:00 AM FACILITIES OPERATIONS TECHNICIAN Acti ve * RETIRED Are you blind or do you have serious difficulty seeing, even when wearing glasses? Answer Date of Assessment Author Status No 08/22/2022 3:00 AM FACILITIES OPERATIONS TECHNICIAN Activ e * Do you have serious difficulty walking or climbing stairs? Answer Date of Assessment Author Status No 08/22/2022 3:00 AM FACILITIES OPERATIONS TECHNICIAN Sampson Hartmann RN Active * Do you have difficulty dressing or bathing? Answer Date of Assessment Author Status No 08/22/2022 3:00 AM FACILITIES OPERATIONS TECHNICIAN Sampson Hartmann RN Active * Because of [...] infection documented in this encounter Care Teams Conduit Helper Relationship Specialty Start Date End Date Pasquale Pro MD [address] [place] [phone] PCP - General INTERNAL MEDICINE 03/19/18 Roland Tatum MD [address] [place] [address] Consulting Physician CARDIOVASCULAR DISEASE 06/22/20 Suly Galdamez APRN, QUARRY PLANT CRUSHER OPERATOR-C [address] [place] [address] [address] [place] [address] NURSE PRACTITIONER 06/22/20 documented as of this encounter
--- OUTSIDE RECORDS SUMMARY | 2025-02-15 09:29 | XMS_ITS | Clinical Summary ---
Author Organization [facility] Address [address] [place] [address] Care Team Providers Care Concrete Block Plant Supervisor Name Role Phone Pasquale Pro MD Primary Care Provider [phone] Roland Tatum MD Unavailable [phone] Suly Galdamez APRN, NP-C Unavailable Allergies Active [...] kidney injury) 12/02/2022 Respiratory failure with hypoxia ([facility]) 09/01/2022 Acute blood loss anemia (ABLA) 09/01/2022 Small bowel perforation ([facility]) 2022 Abnormal EKG 07/09/2020 PVC's (premature ventricular contractions) 07/09 Hypertension 07/09/2020 Hyperlipidemia 07/09/2020 Current smoker 07/09/2020 Diabetes ([facility]) 03/24/2018 Acute duodenal ulcer with perforation ([facility]) 03/19/2018 Resolved Problems Problem Noted Date Diagnosed Date Resolved Date Acute respiratory failure wi th hypoxia ([facility]) 03/24/2018 04/05/2018 Hypernatremia 03/24/2018 04/05/2018 Family [...] often do you attend chur ch or pentecostal services? More than 4 times per year 12/02/2022 Do you belong to any clubs o r organizations such as restorationist groups, unions, fraternal or athletic groups, or [...] and heating? Not hard at all 12/02/2022 [facility] Occupat ional [facility] - [...] place to sleep or slept in a snf (including now)? No 12/02/2022 Comments No Sex [...] Malhotra RN Medical Devices Implanted Type Area Shredded Filler Cutter Operator Device Identifier Shelf Expiration Date Model / Serial / Lot Iol Tecnis Simplicity Dcb00 - [id number] Implanted:Qty: 1 on 04/09/2022 by Tamera Lawson MD at [facility] Lens Right: Eye [employer] 08/12/2024 DCB00 / / [id number] Iol Tecnis Simplicity Dcb00 - [id number] Implanted:Qty: 1 on 06/04/2022 by Tamera Lawson MD at [facility] Lens Left: Eye [employer] 05/05/2025 DCB00 / / [id number] Procedures Procedure Name Priority Date/Time Associated Diagnosis Comments HEMOGLOBIN, GLYCOSYLATED Routine 12/02/2022 2:30 AM CDT from Last 3 Months or Most Recently Relevant to Health Maintenance Results * (ABNORMAL) HEMOGLOBIN, GLYCOSYLATED (12/02/2022 2:30 AM CDT) HGB A1C 5.7(H) <5.7 % 12/02/2022 3:58 AM CDT [facility] ESTIMATED AVG GLUCOSE 117(H) 74 - 114 MG/DL 12/02/2022 3:58 AM CDT [facility] 12/02/2022 2:30 AM CDT Dyan Mccabe MD LABORATORY Final Result [facility] [address] [place] [address], [id number] from Last 3 Months or Most Recently Relevant to Health Maintenance Insurance [facility] MEDICAID Advance Directives Documents on File Type Date Recorded Patient Register Repairer Expl anation Power of Sports Apparel Internship 07/09/2020 * Full Code (Latest Code Status [...] 5:50 AM 09/08/2022 6:25 PM Care Teams Concrete Block Plant Supervisor Relationship Specialty Start Date End Date Pasquale Pro MD [address] [place] [phone] PCP - General INTERNAL MEDICINE 03/19/18 Roland Tatum MD [address] [place] [phone] Consulting Physician CARDIOVASCULAR DISEASE 06/22/20 Suly Galdamez APRN, DISBURSING AGENT-C [address] [facility] [address] [place] [phone] NURSE PRACTITIONER 06/22/20
[2025-02-15 09:33] LABS: Add Urine Microscopic? YES; Appearance Urine Clear (Clear); Glucose Urine UA Negative (Negative); Leukocyte Esterase Ur 1+ LEU/UL (Negative); Nitrate Urine Negative (Negative); Specific Grav Ur >= 1.030 (1.010-1.020)
[2025-02-15] MEDS: SODIUM CHLORIDE 0.9% IV 1,000 ML 999 ML IV CONT (09:50)
[2025-02-15 10:22] VITALS: BP 123/74; PULSE 98; RESP 18; O2SAT 95
--- NOTE | 2025-02-15 10:28 | PC.NURSE ---
1017 call from ibrahima charge nurse 2nd floor, states room 208 is now clean, pt can transfer to floor. asked if any question regarding pt admission . ed paul will call if any questions.
[2025-02-15 10:35] VITALS: BMI 26.8
--- NOTE | 2025-02-15 10:40 | PC.NURSE ---
update report to ed wise rn.
[2025-02-15 10:41] VITALS: PULSE 78; RESP 20; O2SAT 97
--- NOTE | 2025-02-15 10:55 | P.HP_ITS ---
H&P: HPI History of Present Illness Date/Time: 02/15/25 10:55 Chief Complaint: N/V/D/ Abnormal labs Narrative: Patient is a 70-year-old female who was sent to the emergency department by her primary care physician after abnormal labs of hemoglobin 17.4, leukocytosis 17.7, hyponatremic at 1:30 a.m., creatinine of 4.5/ BUN 99. patient reported for the last 5 days prior to her follow-up with her primary she has had nausea vomiting and diarrhea and unable to tolerate any oral intake. Patient denied any abdominal pain, chest pain, shortness a breath fever chills, blood in stool reports she is has previous episodes like this in the past. patient reports past medical history of diabetes, AAA, GERD, and duodenal ulcerations with perforation. In the ED: labs reviewed in the emergency department showing severe dehydration, hemo concentration, metabolic acidosis, leukocytosis 17.7, and acute kidney injury Cr 4.5/BUN 99. patient was admitted to the medical unit for aggressive IV fluids, antiemetics ordered C diff and stool cultures. Review of Systems Review of Systems: All systems reviewed & are unremarkable except as noted in HPI and below PMFSH Past Medical History Medical History Infrarenal abdominal aortic aneurysm (AAA) without rupture COPD (chronic obstructive pulmonary disease) Tobacco use Breast cancer Fatty liver GERD (gastroesophageal reflux disease) Diarrhea YRIS (iron deficiency anemia) HTN (hypertension) Diabetes mellitus Surgical History Surgical History Hx of tubal ligation Hx of hysterectomy Hx of mastectomy Family History Family History Father Hypertension Mother Hypertension Heart disease Social History Social History Smoking packs per day: 1 Smoking cigarettes per day: 20.0 Years smoked: 40 Smoking pack-years: 40.00 Smoking status: Current every day smoker Tobacco type: cigarettes Smokeless tobacco user: chewing tobacco Alcohol intake: never Substance use: current Substance use type: marijuana Lack of Transportation: No Lack of Food: Never True Current Housing: I Have Housing Concerned About Future Housing: No Difficulty Paying Gas/Electric Bills: No Difficulty Paying for Meds: No Currently Unemployed: No Education: Associate Degree Difficulty w/ Childcare or Family Care: No Living arrangements: with family Gender identity (if verbalized by the patient): Female Spiritual care concerns: No Meds Home Medications and Allergies Home Medications ?Medication ?Instructions ?Recorded ?Confirmed ?Type atorvastatin 10 mg tablet 10 mg PO DAILY 03/09/21 02/15/25 History fenofibrate micronized 67 mg 67 mg PO DAILY 03/09/21 02/15/25 History capsule glimepiride 1 mg tablet 1 mg PO DAILY 03/09/21 02/15/25 History amlodipine 10 mg tablet 10 mg PO DAILY 11/20/22 02/15/25 History aspirin 81 mg tablet,delayed 81 mg PO DAILY 11/20/22 02/15/25 History release carvedilol 12.5 mg tablet 12.5 mg PO BID 11/20/22 02/15/25 History gabapentin 100 mg capsule 100 mg PO TID 11/20/22 02/15/25 History pantoprazole 40 mg tablet,delayed 40 mg PO BID 11/20/22 02/15/25 History release albuterol sulfate 90 mcg/actuation 2 puff inhalation QID PRN 11/22/22 02/15/25 Rx aerosol inhaler shortness of breath or wheezing #6.7 grams sulfasalazine 500 mg tablet 1 g PO TID 02/05/23 02/15/25 History carvedilol 25 mg tablet 12.5 mg PO Q12H 02/15/25 02/15/25 History ergocalciferol (vitamin D2) 1,250 1,250 mcg PO WEEKLY 02/15/25 02/15/25 History mcg (50,000 unit) capsule (Vitamin D2) losartan 100 mg tablet 100 mg PO DAILY 02/15/25 02/15/25 History Allergies Allergy/AdvReac Type Severity Reaction Status Date / Time hydrocodone Allergy Intermediate Hives Verified 02/15/25 11:09 Vital Signs Vital Signs - 24 hr 02/15/25 08:43 02/15/25 10:22 Temperature 97.9 F Pulse Rate 110 H 98 Respiratory Rate 16 18 Blood Pressure 133/69 123/74 Pulse Oximetry 94 95 Oxygen Delivery Room Air Room Air Exam Const: General: comfortable and no acute distress HENMT: Face/Nose/Sinus: Normal nares present Mouth: Yes dry mucous membranes Eyes: General: appearance normal, both eyes and all related structures Sclera: sclerae normal Pupils: Equal, round and reactive pupils present Neck: Neck: supple and no JVD Resp: Effort & Inspection: normal respiratory effort Auscultation: clear to auscultation bilaterally Cardio: Rate: regular rate Rhythm: regular rhythm GI: GI Palp: Yes Soft to palpation Auscultation: normal bowel sounds : General: Yes bladder normal to palpation Skin: General skin exam: normal color and no rashes or lesions noted Wounds: no wounds Neuro: General: gait normal Speech: normal speech Motor exam (neuro): 5/5 motor strength present throughout Sensory Exam: normal sensation Extrem: General: normal to inspection Psych: Mental Status: mental status grossly normal Affect: normal affect H&P: Results Labs Labs: Urine 02/15/25 Range/Units 09:19 Urine Color Yellow (Yellow) Urine Appearance Clear (Clear) Urine pH 5.5 (5.0-8.0) Ur Specific [place] >= 1.030 H (1.010-1.020) Urine Protein 1+ H (Negative) Urine Glucose (UA) Negative (Negative) Assessment and Plan Assessment and plan (1) Acute renal failure: Qualifiers: Acute renal failure type: unspecified Qualified Code(s): N17.9 - Acute kidney failure, unspecified Code(s): N17.9 - Acute kidney failure, unspecified Status: Acute Assessment and Plan: acute kidney injury creatinine 4.5 BUN 99 patient has had severe nausea vomiting diarrhea for the last 5 days likely secondary to dehydration * Aggressive IV hydration. * Avoid nephrotoxic drugs. * Monitor antihypertensive drug therapy. * Avoid NSAIDs. * Trend renal function * Monitor electrolytes especially potassium. (2) Gastroenteritis: Code(s): K52.9 - Noninfective gastroenteritis and colitis, unspecified Status: Acute Assessment and Plan: patient with 5 days nausea vomiting diarrhea reports previous history * antiemetics * IV fluids * advance diet as tolerated * monitor electrolytes * continue patient's sulfasalazine * continued PPI BID (3) Diarrhea: Code(s): R19.7 - Diarrhea, unspecified Status: Acute Assessment and Plan: * C diff pending * stool culture pending (4) Acute dehydration: Code(s): E86.0 - Dehydration Status: Acute Assessment and Plan: severe dehydration secondary to N/ V/D patient hemoconcentrated hemoglobin 17.7 usually anemic * aggressive IV fluids * encourage oral intake and p.o. hydration (5) GERD (gastroesophageal reflux disease): Code(s): K21.9 - Gastro-esophageal reflux disease without esophagitis Status: Acute Assessment and Plan: * Added PPI BID (6) Acute UTI: Code(s): N39.0 - Urinary tract infection, site not specified Status: Acute Assessment and Plan: UA with suspicion of UTI * IV Rocephin pending culture and sensitivities (7) Tobacco use: Code(s): Z72.0 - Tobacco use Status: Acute Assessment and Plan: * nicotine patch p.r.n. * remove patch at night * encouraged smoking cessation (8) Diabetes mellitus: Code(s): E11.9 - Type 2 diabetes mellitus without complications Status: Acute Assessment and Plan: * holding patient's glimepiride * low-dose SSI * diabetic diet * Accu-Cheks a.c. HS * hypoglycemic protocol (9) HTN (hypertension): Code(s): I10 - Essential (primary) hypertension Status: Acute Assessment and Plan: * continued amlodipine and carvedilol Plan Code status: Full code per patient DVT prophylaxis: Lovenox Stress ulcer prophylaxis: Protonix 40 BID PT/OT notes: ambulatory Disposition: patient was admitted to the medical unit under observation for further evaluation of acute kidney injury secondary to N/ V/D stool cultures pending will continue with aggressive IV hydration and trend renal function. UA suspicious for urinary tract infection will continue with IV Rocephin pending cultures patient is ambulatory on own plan for discharge home when medically stable. Quality VTE Prophylaxis VTE prophylaxis: pharmacologic ordered -Patient's previous records reviewed on admission -ER notes reviewed in detail on admission -discussed all findings and current treatment plan with patient/Family/POA -Consultations reviewed for recommendations -Patient's disposition for safe discharge discussed with corrections caseworker Dictation performed by [employer] direct speech recognition software, therefore dye operator variants and typographical errors may occur. Hospitalist MIPS Advance Care Plan I have confirmed that the patient's Advanced Care Plan is present, code status is documented, or surrogate decision maker is listed in patient medical record.: Yes Medication Reconciliation I have utilized all available resources to obtain, update and review the patients current medications (includes all prescriptions, OTC, herbals, cannabis, and nutritional supplements).: Yes The patient is not eligible for med reconciliation; the patient is in a emergent medical situation where delaying treatment would jeopardize the patients health.: No
[2025-02-15 11:11] VITALS: BP 146/64; PULSE 78; RESP 18; TEMP 36.1; O2SAT 97
--- NOTE | 2025-02-15 11:53 | ADMGEN ---
1030 This patient, Beba Hernandez, was admitted to 2nd Floor Room 208-2. here for loose stools and unable to keep anything down for the last 5 days. Patient/family oriented to hospital policies and general routines including ID bracelet, bed and alarms, visiting hours, pain management, procedures, bathroom and other care routines, personal items, smoking policy, room service/diet, and visiting hours. Information on how to activate the Rapid Response Team has been discussed. Patient/Family are encouraged to report perceived risks to care and to ask questions if they do not understand what they are told or what they should do.
[2025-02-15] MEDS: SODIUM CHLORIDE 0.9% IV 1,000 ML 125 ML IV CONT ×2 (12:15→20:54)
[2025-02-15] MEDS: cefTRIAXone 1 GM in SODIUM CHLORIDE 0.9% IV 50 ML 100 ML IVPB (12:15)
[2025-02-15 12:45] LABS: Toxigenic C. Diff POSITIVE (NEGATIVE)
[2025-02-15 14:00] VITALS: BP 136/74; PULSE 86; RESP 20; TEMP 36.6; O2SAT 97
[2025-02-15] MEDS: NICOTINE (*PBKC) 21 MG PATCH 1 PATCH TRANSDERM (14:05)
[2025-02-15 17:04] VITALS: PULSE 89
[2025-02-15] MEDS: GABAPENTIN 100 MG CAPSULE PO (17:04)
[2025-02-15] MEDS: VANCOMYCIN HCL 125 MG ORAL CAPSULE PO (17:05)
[2025-02-15] MEDS: PANTOPRAZOLE 40 MG TABLET PO (17:05)
[2025-02-16] VITALS: BP 107/61; PULSE 74; RESP 16; TEMP 36.2; O2SAT 92
[2025-02-16] MEDS: VANCOMYCIN HCL 125 MG ORAL CAPSULE PO ×3 (00:18→12:59)
[2025-02-16] MEDS: ONDANSETRON INJ 4 MG/2 ML VIAL IV PUSH (05:09)
[2025-02-16] MEDS: SODIUM CHLORIDE 0.9% IV 1,000 ML 125 ML IV CONT (05:10)
[2025-02-16 05:24] LABS: Hematocrit 38.2 % (35.0-42.0); Hemoglobin 12.6 g/dL (11.7-13.8); Immature Granulocyte Percent A 0.6 % (0.0-0.0); Lymphocytes Absolute Auto 2.33 K/mm3 (1.10-4.50); Mean Corpuscular HGB Conc 33.0 g/dL (32-36); Mean Corpuscular Hemoglobin 30.8 pg (27.0-31.0); Mean Corpuscular Volume 93.4 fL (78.0-102.0); Nucleated Red Blood Cells Absolute Auto 0.00 K/mm3 (0.00-0.00); Nucleated Red Blood Cells Perc 0.0 % (0-0.0); Platelet Count Result 233 K/mm3 (150-420); Red Blood Count 4.09 M/mm3 (4.20-5.40); White Blood Count 9.9 K/mm3 (4.8-10.8)
[2025-02-16 05:34] LABS: Alanine Aminotransferase 13 U/L (6-35); Albumin Level 3.2 g/dL (3.5-5.1); Alkaline Phosphatase 37 U/L (38-126); Anion Gap 8 mmol/L (4-12); Aspartate Amino Transferase 24 U/L (14-36); Bilirubin,Total 0.5 mg/dL (0.2-1.3); Blood Urea Nitrogen 76 mg/dL (7-17); Calcium 6.0 mg/dL (8.4-10.2); Carbon Dioxide 20 mmol/L (22-30); Chloride 103 mmol/L (98-107); Estimated CRCL calculation 25 ml/min; Estimated Glomerular Filt Rate 31; Glucose 98 mg/dL (65-110); Magnesium 1.0 mg/dL (1.6-2.3); Osmolality Calculated 294 mOsm/kg (285-295); Potassium 3.5 mmol/L (3.4-5.0); Sodium 131 mmol/L (137-145); Total Protein 5.4 g/dL (6.3-8.2)
[2025-02-16] MEDS: MAGNESIUM SULF 4 GM/WATER100ML 4 GM/100 ML BAG IVPB (09:05)
[2025-02-16] MEDS: POTASSIUM CHLORIDE 20 MEQ ER TABLET 40 MEQ PO (09:20)
[2025-02-16] MEDS: GABAPENTIN 100 MG CAPSULE PO ×2 (09:21→12:59)
[2025-02-16 09:22] VITALS: PULSE 59
[2025-02-16] MEDS: ATORVASTATIN 10 MG TABLET PO (09:22)
[2025-02-16] MEDS: PANTOPRAZOLE 40 MG TABLET PO (09:22)
[2025-02-16] MEDS: ASPIRIN 81 MG ENTERIC TABLET PO (09:22)
[2025-02-16] MEDS: NICOTINE (*PBKC) 21 MG PATCH 1 PATCH TRANSDERM (09:23)
--- NOTE | 2025-02-16 09:56 | P.DS_ITS ---
DS: Admitting Diagnosis Discharge Date 02/16/2025 Admitting Diagnosis acute renal failure/N/V/D/ gastroenteritis/ dehydration/ UTI DS: Discharge Diagnosis Discharge Diagnosis (1) Acute renal failure: Qualifiers: Acute renal failure type: unspecified Qualified Code(s): N17.9 - Acute kidney failure, unspecified Code(s): N17.9 - Acute kidney failure, unspecified Status: Acute (2) Gastroenteritis: Code(s): K52.9 - Noninfective gastroenteritis and colitis, unspecified Status: Acute (3) Diarrhea: Code(s): R19.7 - Diarrhea, unspecified Status: Acute (4) Acute dehydration: Code(s): E86.0 - Dehydration Status: Acute (5) GERD (gastroesophageal reflux disease): Code(s): K21.9 - Gastro-esophageal reflux disease without esophagitis Status: Acute (6) Acute UTI: Code(s): N39.0 - Urinary tract infection, site not specified Status: Acute (7) Tobacco use: Code(s): Z72.0 - Tobacco use Status: Acute (8) Diabetes mellitus: Code(s): E11.9 - Type 2 diabetes mellitus without complications Status: Acute (9) HTN (hypertension): Code(s): I10 - Essential (primary) hypertension Status: Acute (10) C. difficile colitis: Code(s): A04.72 - Enterocolitis due to Clostridium difficile, not specified as recurrent Status: Acute DS: Summary Hospital Course Reason for hospitalization: c-diff/acute renal failure/N/V/D/ gastroenteritis/ dehydration/ UTI Hospital Course: Admission: Patient was a 70-year-old female who was sent to the emergency department by her primary care physician after abnormal labs of hemoglobin 17.4, leukocytosis 17.7, hyponatremic at 1:30 a.m., creatinine of 4.5/ BUN 99. patient reported for the last 5 days prior to her follow-up with her primary she has had nausea vomiting and diarrhea and unable to tolerate any oral intake. Patient denied any abdominal pain, chest pain, shortness a breath fever chills, blood in stool reports she is has previous episodes like this in the past. patient reports past medical history of diabetes, AAA, GERD, and duodenal ulcerations with perforation. In the ED: labs reviewed in the emergency department showing severe dehydration, hemo concentration, metabolic acidosis, leukocytosis 17.7, and acute kidney injury Cr 4.5/BUN 99. patient was admitted to the medical unit for aggressive IV fluids, antiemetics ordered C diff and stool cultures. Hospital Course: patient was admitted to the medical unit and initiated on aggressive IV fluid hydration. I did order C diff sample and stool cultures which came back positive for C diff infection initiated patient on oral vancomycin. patient reported overall improvement all symptoms denied any further diarrhea overnight and was able to tolerate oral intake without nausea or vomiting. Patient had renal recovery with IV fluids and returning back to her baseline. Follow up labs in the a.m. did show a magnesium of 1.0 at which time she was transfused 4 g of magnesium I also gave 40 mEq of potassium. patient at this time stable for discharge requesting to return home with no complaints. Patient was discharged home on oral vancomycin x9 more days instructed not to use Imodium during the infectious process she was also advised to seek medical attention if symptoms worsen or she develops abdominal pain with fever or chills. Patient remained afebrile overnight and leukocytosis resolved back to 9.9. patient ambulatory on own and discharged home can follow up with primary care physician in 2 weeks. Status at Discharge Functional status at discharge: independent ambulation Overall status at discharge: patient is back to baseline Time Spent with Patient Time attestation: Total time spent providing and/or coordinating discharge services: Time spent: Greater than 30 minutes Exam Const: General: comfortable and no acute distress HENMT: Face/Nose/Sinus: Normal nares present Mouth: Yes dry mucous membranes Eyes: General: appearance normal, both eyes and all related structures Sclera: sclerae normal Pupils: Equal, round and reactive pupils present Neck: Neck: supple and no JVD Resp: Effort & Inspection: normal respiratory effort Auscultation: clear to auscultation bilaterally Cardio: Rate: regular rate Rhythm: regular rhythm GI: Auscultation: normal bowel sounds Skin: General skin exam: normal color and no rashes or lesions noted Wounds: no wounds Neuro: General: gait normal Motor exam (neuro): 5/5 motor strength present throughout Sensory Exam: normal sensation Extrem: General: normal to inspection Psych: Mental Status: mental status grossly normal Affect: normal affect DS: Data Data Completed and Pending Labs on day of discharge: Labs from last 24 hours 02/16/25 02/15/2525 05:16 20:50 17:04 WBC 9.9 RBC 4.09 L Hgb 12.6 Hct 38.2 MCV 93.4 MCH 30.8 MCHC 33.0 RDW 12.0 Plt Count 233 MPV 10.6 Immature Gran % (Auto) 0.6 H Neut % (Auto) 67.4 Lymph % (Auto) 23.5 [place] % (Auto) 7.8 Eos % (Auto) 0.3 L Baso % (Auto) 0.4 Lymph # (Auto) 2.33 [place] # (Auto) 0.77 Eos # (Auto) 0.03 Baso # (Auto) 0.04 Abs Immat Gran (auto) 0.06 H Absolute Neuts (auto) 6.67 Absolute Nucleated RBC 0.00 Nucleated RBC % 0.0 Sodium 131 L Potassium 3.5 Chloride 103 Carbon Dioxide 20 L Anion Gap 8 BUN 76 H D Creatinine 1.62 H Estim Creat Clear Calc 25 Estimated GFR 31 L Glucose 98 POC Capillary Glucose 127 H 128 H Calculated Osmolality 294 Calcium 6.0 L Magnesium 1.0 L Total Bilirubin 0.5 AST 24 ALT 13 Alkaline Phosphatase 37 L Total Protein 5.4 L Albumin 3.2 L C. difficile (PCR) 02/15/25 02/15/25 12:20 11:50 WBC RBC Hgb Hct MCV MCH MCHC RDW Plt Count MPV Immature Gran % (Auto) Neut % (Auto) Lymph % (Auto) [place] % (Auto) Eos % (Auto) Baso % (Auto) Lymph # (Auto) [place] # (Auto) Eos # (Auto) Baso # (Auto) Abs Immat Gran (auto) Absolute Neuts (auto) Absolute Nucleated RBC Nucleated RBC % Sodium Potassium Chloride Carbon Dioxide Anion Gap BUN Creatinine Estim Creat Clear Calc Estimated GFR Glucose POC Capillary Glucose 115 H Calculated Osmolality Calcium Magnesium Total Bilirubin AST ALT Alkaline Phosphatase Total Protein Albumin C. difficile (PCR) Positive A* Discharge Plan Discharge Attending physician on discharge: Pardeep Draper Consulting providers: Lore Collazo Discharging Clinician: Lore Collazo Anticipated Discharge Date/Time: 02/16/25 09:49 Patient Disposition: Home Activity: may shower Diet: as tolerated Discharge Instructions: 1). C-diff infection Colitis * I have prescribed oral vancomycin please take as indicated incomplete even if feeling better * Encourage hydration * do not use Imodium * if symptoms worsen you have absent bowel movements or gas, abdominal pain, fever, chills or overall feeling sick please seek medical attention * do not share toilets disinfect with bleach * follow-up with primary care physician in 1-2 weeks How can you care for yourself at home? ? Keep track of any new symptoms or changes in your symptoms. ? Rest until you feel better. ? Be safe with medicines. Take your medicines exactly as prescribed. Call your doctor if you think you are having a problem with your medicine. ? Do not drive after taking a prescription pain medicine. ? Ensure to follow-up with primary care physician as indicated and provide updated medication list provided to you at discharge. When should you call for help? Call 911 anytime you think you may need emergency care. For example, call if: ? You passed out (lost consciousness). Call your doctor now or seek immediate medical care if: ? You have new symptoms like fever, difficulty breathing, Chest pain, vomiting, or rash. ? You have new or different pain. ? You are confused and are having trouble thinking clearly. ? Your symptoms are getting worse. Watch closely for changes in your health, and be sure to contact your doctor if: ? You do not get better as expected. Patient Instructions: Antibiotic Form, Vancomycin (By mouth), Dehydration (DC), Fall Prevention for Older Adults (DC), C. Diff (Clostridioides Difficile) Infection (DC), C. Diff (Clostridioides Difficile) Infection (GEN) Patient Language: Panamanian Stand Alone Forms: General Discharge Information Follow-up/Referrals: Pasquale Pro MD [Primary Care Provider] - 2 weeks Discharge Medications: New vancomycin 125 mg Capsule 125 mg PO Q6HR Qty: 36 0RF Continued atorvastatin 10 mg tablet 10 mg PO DAILY fenofibrate micronized 67 mg capsule 67 mg PO DAILY glimepiride 1 mg tablet 1 mg PO DAILY carvedilol 12.5 mg tablet 12.5 mg PO BID aspirin 81 mg Tablet,Delayed Release (Dr/Ec) 81 mg PO DAILY amlodipine 10 mg tablet 10 mg PO DAILY pantoprazole 40 mg tablet,delayed release (DR/EC) 40 mg PO BID gabapentin 100 mg capsule 100 mg PO TID albuterol sulfate 90 mcg/actuation HFA aerosol inhaler 2 puff inhalation QID PRN (Reason: shortness of breath or wheezing) Qty: 6.7 0RF ergocalciferol (vitamin D2) [Vitamin D2] 1,250 mcg (50,000 unit) capsule 1,250 mcg PO WEEKLY losartan 100 mg tablet 100 mg PO DAILY sulfasalazine 500 mg tablet 1 g PO TID Rx Instructions: give with food (meal/snack) Discontinued carvedilol 25 mg tablet 12.5 mg PO Q12H Date of admission: 02/15/25 09:19 Primary Care Provider: Pasquale Pro Admitting Provider: Pardeep Draper Attending physician on admission: Pardeep Draper Condition: Stable Quality VTE Prophylaxis VTE prophylaxis: pharmacologic ordered -Patient's previous records reviewed on admission -ER notes reviewed in detail on admission -discussed all findings and current treatment plan with patient/Family/POA -Consultations reviewed for recommendations -Patient's disposition for safe discharge discussed with medical case manager Dictation performed by [employer] direct speech recognition software, therefore fire marshal refinery variants and typographical errors may occur. Hospitalist MIPS Heart Failure (Exclusion) Patient has history of Heart Transplant or Left Ventricular Assistive Device?: No IF YES, STOP HERE Heart Failure (Qualifier) Patient has current or prior documentation of LVEF less than or equal to 40%, or mod/servere depressed LVSF?: No IF NO, STOP HERE
[2025-02-16] MEDS: cefTRIAXone 1 GM in SODIUM CHLORIDE 0.9% IV 50 ML 100 ML IVPB (13:00)
--- NOTE | 2025-02-16 14:15 | PC.NURSE ---
Discharge isntructions reviewed with pt. All questions answered. Pt transported in wheelchair and assisted by family into private vehicle.
--- NOTE | 2025-02-20 09:22 | PC.NURSE ---
Discharge call back made, spoke with Beba at this time. Beba stated, I don't have any question on discharge instruction or education journalists and other writers asks Was you informed of side effects of medications or did the nurse ask if you had any question about side effect. Beba informs, yes she asked and I did not need any information on that at that time. She also informs she will be calling Dr Lua office for a hospital discharge appointment.
== END 2025-02-16 14:15 | disposition home or self-care (01) ==
LOC: CHSED 09:17 → CHS2ND 09:39
PROVIDERS: Nurse Practitioner Family; Admitting Provider Internal Medicine; Emergency Provider Internal Medicine Critical Care Medicine; PCP Internal Medicine; Visit Provider Internal Medicine
DX: N17.9 Acute kidney failure, unspecified (principal); K52.9 Noninfective gastroenteritis and colitis, unspecified; E86.0 Dehydration; N39.0 Urinary tract infection, site not specified; A04.72 Enterocolitis due to Clostridium difficile, not specified as recurrent; E11.9 Type 2 diabetes mellitus without complications; J44.9 Chronic obstructive pulmonary disease, unspecified; K21.9 Gastro-esophageal reflux disease without esophagitis; Z85.3 Personal history of malignant neoplasm of breast; I10 Essential (primary) hypertension; F17.210 Nicotine dependence, cigarettes, uncomplicated; Z90.10 Acquired absence of unspecified breast and nipple; Z90.710 Acquired absence of both cervix and uterus
CPT/HCPCS: 36415; 80053; 81001; 82948; 83735; 85025; 87045; 87046; 87086; 87427; 87493; 96361; 96374; 99285; A9270; G0378; J0696; J2405; J3475; J7030

== ENCOUNTER 2025-02-22 15:13 | Emergency (ER) | payer MEDICARE, SELFPAY ==
[2025-02-22 15:14] VITALS: BP 115/74; PULSE 50; RESP 16; TEMP 36.6; O2SAT 95
--- NOTE | 2025-02-22 15:15 | ED.NAVMDI ---
HPI - Nausea/Vomiting/Diarrhea General Chief complaint: Nausea/Vomiting/Diarrhea Stated complaint: diarrhea Time Seen by Provider: 02/22/25 15:15 Source: patient Mode of arrival: ambulatory Limitations: no limitations History of Present Illness HPI Narrative: 70-year-old female, smoker with a history of diabetes mellitus, COPD, AAA, GERD, chronic diarrhea, history of GI bleed/bleeding duodenal ulcer presented to the ED on 02/15/2025 for gastroenteritis. Stool tested positive for C diff. The patient was also noted to have acute renal failure with a BUN/creatinine of 99/ 4.5. The patient was started on vancomycin and discharged home on 02/16/2025. On discharge her BUN/ creatinine was noted to be 76/1.6. the patient's diarrhea improved. The patient presents with a 1 day history of -- ongoing loose stools. She has had 6-7 loose stools. No blood or mucus. The patient has a history of chronic diarrhea. -- Ongoing vomiting. She has 5 episodes of vomiting. No fever or chills. No abdominal pain. She has been making fair amount of urine. MD elicited complaint: nausea, vomiting and diarrhea Pertinent past history: anorexia Onset (ago): day(s) Description of vomiting: watery Description of diarrhea: watery Associated nausea: Yes Associated abdominal pain: No Location of pain: none Exacerbating factors: none Relieving factors: none Associated symptoms: denies other symptoms, loss of appetite and nausea/vomiting Treatment prior to arrival: other ( Oral vancomycin) Related Data Home Medications ?Medication ?Instructions ?Recorded ?Confirmed ?Last Taken ?Type atorvastatin 10 mg tablet 10 mg PO DAILY 03/09/21 02/15/25 03/10/23 09:00 History fenofibrate micronized 67 mg 67 mg PO DAILY 03/09/21 02/15/25 03/10/23 09:00 History capsule glimepiride 1 mg tablet 1 mg PO DAILY 03/09/21 02/15/25 03/10/23 09:00 History amlodipine 10 mg tablet 10 mg PO DAILY 11/20/22 02/15/25 03/10/23 09:00 History aspirin 81 mg tablet,delayed 81 mg PO DAILY 11/20/22 02/15/25 03/10/23 09:00 History release carvedilol 12.5 mg tablet 12.5 mg PO BID 11/20/22 02/15/25 03/10/23 18:00 History gabapentin 100 mg capsule 100 mg PO TID 11/20/22 02/15/25 Unknown History pantoprazole 40 mg tablet,delayed 40 mg PO BID 11/20/22 02/15/25 03/10/23 18:00 History release sulfasalazine 500 mg tablet 1 g PO TID 02/05/23 02/15/25 Unknown History ergocalciferol (vitamin D2) 1,250 1,250 mcg PO WEEKLY 02/15/25 02/15/25 02/10/25 06:06 History mcg (50,000 unit) capsule (Vitamin D2) losartan 100 mg tablet 100 mg PO DAILY 02/15/25 02/15/25 Unknown History Allergies Allergy/AdvReac Type Severity Reaction Status Date / Time hydrocodone Allergy Intermediate Vomiting Verified 02/22/25 15:25 Review of Systems Review of Systems: All systems reviewed & are unremarkable except as noted in HPI and below Constitutional: Constitutional: Reports as per HPI, Reports no additional constitutional complaints and Reports weakness Eyes: Eyes: Reports as per HPI and Reports no additional eye complaints ENT: Reports system reviewed and no additional complaints, except as documented and Reports as per HPI Cardiovascular: Cardiovascular: Reports as per HPI and Reports no additional cardiovascular complaints Respiratory: Respiratory: Reports as per HPI and Reports no additional respiratory complaints Gastrointestinal: Gastrointestinal: Reports as per HPI, Reports no additional gastrointestinal complaints, Reports diarrhea, Reports nausea and Reports vomiting Genitourinary: Genitourinary: Reports no additional female genitourinary complaints Musculoskeletal: Musculoskeletal: Reports no additional musculoskeletal complaints and Reports as per HPI Integumentary/Breasts: Skin/Breast: Reports system reviewed and no additional complaints, except as docu and Reports as per HPI Neurologic: Reports system reviewed and no additional complaints, except as documented and Reports as per HPI Psychiatric: Psychiatric: Reports no additional psychiatric complaints and Reports as per HPI Endocrine: Endocrine: Reports no additional endocrine complaints and Reports as per HPI Hematologic/Lymphatic: Hematologic/Lymphatic: Reports no additional hematologic/lymphatic complaints and Reports as per HPI Allergic/Immunologic: Allergic/Immunologic: Reports no additional allergic/immunologic complaints and Reports as per HPI [facility]LY [facility], [facility] Past Medical History Medical History Infrarenal abdominal aortic aneurysm (AAA) without rupture COPD (chronic obstructive pulmonary disease) Tobacco use Breast cancer Fatty liver GERD (gastroesophageal reflux disease) Diarrhea YRIS (iron deficiency anemia) HTN (hypertension) Diabetes mellitus Surgical History Surgical History Hx of tubal ligation Hx of hysterectomy Hx of mastectomy Family History Family History Father Hypertension Mother Hypertension Heart disease Social History Social History Smoking packs per day: 1 Smoking cigarettes per day: 20.0 Years smoked: 40 Smoking pack-years: 40.00 Smoking status: Current every day smoker Tobacco type: cigarettes and e-cigarettes/vaping Smokeless tobacco user: chewing tobacco Second hand tobacco smoke exposure: Yes Alcohol intake: never Substance use: current Substance use type: marijuana Lack of Transportation: No Lack of Food: Never True Current Housing: I Have Housing Concerned About Future Housing: No Difficulty Paying Gas/Electric Bills: No Difficulty Paying for Meds: No Currently Unemployed: No Education: Bachelor's Degree Difficulty w/ Childcare or Family Care: No Living arrangements: with family Gender identity (if verbalized by the patient): Female Spiritual care concerns: No Exam Narrative: blood pressure is 115/74. Pulse rate of 50. Const: General: no acute distress Orientation/consciousness: patient oriented x3 HENMT: Head: normal to inspection Ears: external ears normal Face/Nose/Sinus: Normal external nose present Face and sinus: normal facial exam Mouth: Yes Normal oral and palatal mucosa present Throat: posterior oropharynx normal Eyes: Conjunctivae: conjunctivae normal Cornea: corneas normal Pupils: Equal, round and reactive pupils present EOM: EOMs intact bilaterally Direct Ophthalmoscopy: no photophobia Neck: Neck: normal visual inspection, no lymphadenopathy and no meningeal signs Chest: Chest palpation & inspection: normal inspection of the chest Resp: Effort & Inspection: normal respiratory effort Auscultation: rhonchi and diminished lung sounds Cardio: Rate: bradycardic Rhythm: regular rhythm GI: GI Palp: Yes Soft to palpation Auscultation: normal bowel sounds Other: No tenderness/ rigidity / rebound. : General: Yes no CVA tenderness Back/Spine/Pelvis: Back: no CVA tenderness Skin: General skin exam: normal color Rashes: no rashes Wounds: no wounds Neuro: General: patient oriented x3, moves all extremities, no meningeal signs, no focal motor deficits and CN's II-XI intact bilaterally Cranial nerves: Yes Nystagmus not present Speech: normal speech Extrem: General: normal to inspection and no clubbing, cyanosis or edema Psych: Mental Status: mental status grossly normal Affect: normal affect Attitude: cooperative Course Course Emergency Course: C diff colitis-- patient is on oral vancomycin. Advised her to follow up with the primary care physician to see for dose can be tapered. UTI-- patient is on amoxicillin. She has completed her course of antibiotics. The patient does not have any urinary symptoms nausea and vomiting-- Will give p.r.n. Zofran renal insufficiency-- renal insufficiency has resolved. Her current BUN / creatinine is noted to be 16/0,74 Vital Signs Vital signs: Vital Signs Temperature 36.6 C 02/22/25 15:14 Pulse Rate 50 L 02/22/25 15:14 Respiratory Rate 16 02/22/25 15:14 Blood Pressure 115/74 02/22/25 15:14 Pulse Oximetry 95 02/22/25 15:14 Oxygen Delivery Room Air 02/22/25 15:14 Temperature 36.6 C 02/22/25 15:14 Pulse Rate 50 L 02/22/25 15:14 Respiratory Rate 16 02/22/25 15:14 Blood Pressure 115/74 02/22/25 15:14 Pulse Oximetry 95 02/22/25 15:14 Oxygen Delivery Room Air 02/22/25 15:14 MDM - Nausea/Vomiting/Diarrhea MDM Narrative Medical decision making narrative: gastroenteritis C diff colitis Differential Diagnosis Differential diagnosis: Likely traveler's diarrhea Medical Records Attestation: I reviewed the patient's medical records. Lab Data Attestation: I reviewed the patient's lab results. 02/22/25 16:38 02/22/25 16:38 Labs: Lab Results 02/22/25 Range/Units 16:38 WBC 14.3 H (4.8-10.8) K/mm3 RBC 4.60 (4.20-5.40) M/mm3 Hgb 14.2 H (11.7-13.8) g/dL Hct 44.6 H (35.0-42.0) % MCV 97.0 (78.0-102.0) fL MCH 30.9 (27.0-31.0) pg MCHC 31.8 L (32-36) g/dL RDW 12.1 (11.6-14.4) % Plt Count 370 (150-420) K/mm3 MPV 9.9 (9.2-11.8) fl Immature Gran % (Auto) 0.8 H (0.0-0.0) % Neut % (Auto) 71.4 H (50.0-70.0) % Lymph % (Auto) 20.3 (18.0-42.0) % [place] % (Auto) 5.5 (2.0-11.0) % Eos % (Auto) 1.2 (1.0-6.0) % Baso % (Auto) 0.8 (0.0-1.0) % Lymph # (Auto) 2.89 (1.10-4.50) K/mm3 [place] # (Auto) 0.79 (0.10-0.90) K/mm3 Eos # (Auto) 0.17 (0.02-0.50) K/mm3 Baso # (Auto) 0.11 H (0.00-0.10) K/mm3 Abs Immat Gran (auto) 0.12 H (0.00-0.00) K/mm3 Absolute Neuts (auto) 10.19 H (1.70-7.20) K/mm3 Absolute Nucleated RBC 0.00 (0.00-0.00) K/mm3 Nucleated RBC % 0.0 (0-0.0) % Sodium 142 (137-145) mmol/L Potassium 4.1 (3.4-5.0) mmol/L Chloride 105 (98-107) mmol/L Carbon Dioxide 30 (22-30) mmol/L Anion Gap 7 (4-12) mmol/L BUN 16 D (7-17) mg/dL Creatinine 0.74 (0.7-1.0) mg/dL Estim Creat Clear Calc 51 ml/min Estimated GFR > 60 (59 - ) Glucose 110 (65-110) mg/dL Calculated Osmolality 296 H (285-295) mOsm/kg Lactic Acid 0.9 (0.4-2.0) mmol/L Calcium 9.7 (8.4-10.2) mg/dL Magnesium 1.0 L (1.6-2.3) mg/dL Total Bilirubin 0.3 (0.2-1.3) mg/dL AST 23 (14-36) U/L ALT 16 (6-35) U/L Alkaline Phosphatase 62 (38-126) U/L Total Protein 7.1 (6.3-8.2) g/dL Albumin 4.1 (3.5-5.1) g/dL Discharge Plan Discharge Clinical Impression: Clostridium difficile infection, Gastroenteritis Patient Disposition: Home Condition: Stable Instructions: Antibiotic Form, Gastroenteritis (ED), C. Diff (Clostridioides Difficile) Infection (ED) Additional Instructions: advised to stop Protonix till C diff has resolved. Patient Language: Georgian Prescriptions: New ondansetron HCl 4 mg tablet 4 mg PO Q8H PRN (Reason: nausea and vomiting) 3 Days Qty: 20 0RF No Action atorvastatin 10 mg tablet 10 mg PO DAILY fenofibrate micronized 67 mg capsule 67 mg PO DAILY glimepiride 1 mg tablet 1 mg PO DAILY carvedilol 12.5 mg tablet 12.5 mg PO BID aspirin 81 mg Tablet,Delayed Release (Dr/Ec) 81 mg PO DAILY amlodipine 10 mg tablet 10 mg PO DAILY pantoprazole 40 mg tablet,delayed release (DR/EC) 40 mg PO BID gabapentin 100 mg capsule 100 mg PO TID albuterol sulfate 90 mcg/actuation HFA aerosol inhaler 2 puff inhalation QID PRN (Reason: shortness of breath or wheezing) Qty: 6.7 0RF ergocalciferol (vitamin D2) [Vitamin D2] 1,250 mcg (50,000 unit) capsule 1,250 mcg PO WEEKLY losartan 100 mg tablet 100 mg PO DAILY vancomycin 125 mg Capsule 125 mg PO Q6HR Qty: 36 0RF amoxicillin-pot clavulanate 875-125 mg tablet 1 tablet PO Q12H Qty: 6 0RF sulfasalazine 500 mg tablet 1 g PO TID Rx Instructions: give with food (meal/snack) Follow-up/Referrals: Pasquale Pro MD [Primary Care Provider] - Time of Disposition: 17:35
--- OUTSIDE RECORDS SUMMARY | 2025-02-22 15:19 | XMS_ITS | Clinical Summary ---
Author Organization [facility] Address [address] [place] [address] Care Team Providers Care Risk Management Professional Name Role Phone Pasquale Pro MD Primary Care Provider [phone] Roland Tatum MD Unavailable [phone] Suly Galdamez APRN, NP-C Unavailable [phone] Allergies Active Allergy Reactions Criticality Noted Date [...] total) by mouth daily. Indications: Diabetes 06/21/20 20 Active prochlorperazine 10 MG tabletIndications:N ausea Take [...] kidney injury) 12/02/2022 Respiratory failure with hypoxia ([facility]/ C) 09/01/2022 Acute blood loss anemia (ABLA) 09/01/2022 Small bowel perforation ([facility]) 2022 Abnormal EKG 07/09/2020 PVC's (premature ventricular contractions) 07/09 Hypertension 07/09/2020 Hyperlipidemia 07/09/2020 Current smoker 07/09/2020 Diabetes ([facility]) 03/24/2018 Acute duodenal ulcer with perforation ([facility]) 03/19/2018 Resolved Problems Problem Noted Date Diagnosed Date Resolved Date Acute respiratory failure wi th hypoxia ([facility]) 03/24/2018 04/05/2018 Hypernatremia 03/24/2018 04/05/2018 [...] often do you attend chur ch or anglican services? More than 4 times per year 12/02/2022 Do you belong to any clubs o r organizations such as orthodox groups, unions, fraternal or athletic groups, or [...] and heating? Not hard at all 12/02/2022 [facility] of Occupat ional Health - Occupational [...] place to sleep or slept in a alf (including now)? No 12/02/2022 Comments No Sex [...] Malhotra RN Medical Devices Implanted Type Area Pig Farmer Device Identifier Shelf Expiration Date Model / Serial / Lot Iol Tecnis Simplicity Dcb00 - [id number] Implanted:Qty: 1 on 04/09/2022 by Tamera Lawson MD at [facility] Lens Right: Eye [employer] 08/12/2024 DCB00 / / [id number] Iol Tecnis Simplicity Dcb00 - [id number] Implanted:Qty: 1 on 06/04/2022 by Tamera Lawson MD at [facility] Lens Left: Eye [employer] 05/05/2025 DCB00 / / [id number] Procedures Procedure Name Priority Date/Time Associated Diagnosis Comments HEMOGLOBIN, GLYCOSYLATED Routine 12/02/2022 2:30 AM CDT from Last 3 Months or Most Recently Relevant to Health Maintenance Results * (ABNORMAL) HEMOGLOBIN, GLYCOSYLATED (12/02/2022 2:30 AM CDT) HGB A1C 5.7(H) <5.7 % 12/02/2022 3:58 AM CDT [facility] ESTIMATED AVG GLUCOSE 117(H) 74 - 114 MG/DL 12/02/2022 3:58 AM CDT [facility] 12/02/2022 2:30 AM CDT Dyan Mccabe MD LABORATORY Final Result [facility] [address] [place] [address], [id number] from Last 3 Months or Most Recently Relevant to Health Maintenance Insurance [facility] MEDICAID Advance Directives Documents on File Type Date Recorded Patient Lead Front End Developer Expl anation Power of Instrument Repairer 07/09/2020 * Full Code (Latest Code Status [...] 5:50 AM 09/08/2022 6:25 PM Care Teams Risk Management Professional Relationship Specialty Start Date End Date Pasquale Pro MD [address] [place] [phone] PCP - General INTERNAL MEDICINE 03/19/18 Roland Tatum MD [address] [place] [phone] Consulting Physician CARDIOVASCULAR DISEASE 06/22/20 Suly Galdamez APRN, WALL WASHER-C 9 [facility] [address] [place] [phone] NURSE PRACTITIONER 06/22/20
--- OUTSIDE RECORDS SUMMARY | 2025-02-22 15:19 | XMS_ITS | Encounter Summary ---
Author Organization [facility] Address [address] [place] [address] Care Team Providers Care Stretching Press Operator Name Role Phone Pasquale Pro MD Primary Care Provider [phone] Roland Tatum MD Unavailable [phone] Suly Galdamez APRN, NP-C Unavailable Encounter Details Date Type Department Care Team (Late st Contact Info) Description 09/22/2022 Hospital Follow-up Call [facility] Surgical [address] [place] [address] Christopher Farnsworth MD [address] [address] Social History Tobacco Use Types [...] often do you attend chur ch or gnosticism services? More than 4 times per year 08/22/2022 Do you belong to any clubs o r organizations such as rastafari groups, unions, fraternal or athletic groups, or [...] and heating? Not hard at all 08/22/2022 [facility] of Occupat ional Health - Occupational Stress [...] place to sleep or slept in a chcf (including now)? No 08/22/2022 Comments No Sex [...] Coronavirus/COVID-19? No / Unsure 09/22/2022 1:55 PM SHOE PACKER documented as of this encounter Functional Status * RETIRED Are you deaf or do you have serious difficulty hearing Answer Date of Assessment Author Status No 08/22/2022 3:00 AM SHOE PACKER Acti ve * RETIRED Are you blind or do you have serious difficulty seeing, even when wearing glasses? Answer Date of Assessment Author Status No 08/22/2022 3:00 AM SHOE PACKER Activ e * Do you have serious difficulty walking or climbing stairs? Answer Date of Assessment Author Status No 08/22/2022 3:00 AM SHOE PACKER Sampson Hartmann RN Active * Do you have difficulty dressing or bathing? Answer Date of Assessment Author Status No 08/22/2022 3:00 AM SHOE PACKER Sampson Hartmann RN Active * Because of [...] infection documented in this encounter Care Teams Stretching Press Operator Relationship Specialty Start Date End Date Pasquale Pro MD [address] [place] [phone] PCP - General INTERNAL MEDICINE 03/19/18 Roland Tatum MD [address] [place] [address] Consulting Physician CARDIOVASCULAR DISEASE 06/22/20 Suly Galdamez APRN, PUBLIC RELATIONS COORDINATOR-C [address] [place] [address] [address] [place] [address] NURSE PRACTITIONER 06/22/20 documented as of this encounter
--- OUTSIDE RECORDS SUMMARY | 2025-02-22 15:39 | XMS_ITS | Clinical Summary ---
Author Organization [facility] Address [address] [place] [address] Care Team Providers Care Kaiako Kura [place] Maori Name Role Phone Pasquale Pro MD Primary Care Provider [phone] Roland Tatum MD Unavailable [phone] Suly Galdamez APRN, NP-C Unavailable Allergies Active [...] kidney injury) 12/02/2022 Respiratory failure with hypoxia ([facility] C) 09/01/2022 Acute blood loss anemia (ABLA) 09/01/2022 Small bowel perforation ([facility] 2022 Abnormal EKG 07/09/2020 PVC's (premature ventricular contractions) 07/09 Hypertension 07/09/2020 Hyperlipidemia 07/09/2020 Current smoker 07/09/2020 Diabetes ([facility]) 03/24/2018 Acute duodenal ulcer with perforation ([facility]) 03/19/2018 Resolved Problems Problem Noted Date Diagnosed Date Resolved Date Acute respiratory failure wi th hypoxia ([facility]) 03/24/2018 04/05/2018 Hypernatremia 03/24/2018 04/05/2018 Family [...] often do you attend chur ch or sabianist services? More than 4 times per year 12/02/2022 Do you belong to any clubs o r organizations such as jain groups, unions, fraternal or athletic groups, or [...] and heating? Not hard at all 12/02/2022 [facility] of Occupat ional Health - [...] place to sleep or slept in a jail (including now)? No 12/02/2022 Comments No Sex [...] Malhotra RN Medical Devices Implanted Type Area Communication Equipment Repairer Device Identifier Shelf Expiration Date Model / Serial / Lot Iol Tecnis Simplicity Dcb00 - [id number] Implanted:Qty: 1 on 04/09/2022 by Tamera Lawson MD at [facility] Lens Right: Eye [employer] 08/12/2024 DCB00 / / [id number] Iol Tecnis Simplicity Dcb00 - [id number] Implanted:Qty: 1 on 06/04/2022 by Tamera Lawson MD at [facility] Lens Left: Eye [employer] 05/05/2025 DCB00 / / [id number] Procedures Procedure Name Priority Date/Time Associated Diagnosis Comments HEMOGLOBIN, GLYCOSYLATED Routine 12/02/2022 2:30 AM CDT from Last 3 Months or Most Recently Relevant to Health Maintenance Results * (ABNORMAL) HEMOGLOBIN, GLYCOSYLATED (12/02/2022 2:30 AM CDT) HGB A1C 5.7(H) <5.7 % 12/02/2022 3:58 AM CDT [facility] ESTIMATED AVG GLUCOSE 117(H) 74 - 114 MG/DL 12/02/2022 3:58 AM CDT [facility] 12/02/2022 2:30 AM CDT Dyan Mccabe MD LABORATORY Final Result [facility] [address] [place] [address], [id number] from Last 3 Months or Most Recently Relevant to Health Maintenance Insurance [facility] MEDICAID Advance Directives Documents on File Type Date Recorded Patient Compliance Review Officer Expl anation Power of Steamer Operator 07/09/2020 * Full Code (Latest Code Status [...] 5:50 AM 09/08/2022 6:25 PM Care Teams Kaiako Kura [place] Maori Relationship Specialty Start Date End Date Pasquale Pro MD [address] [place] [phone] PCP - General INTERNAL MEDICINE 03/19/18 Roland Tatum MD [address] [place] [phone] Consulting Physician CARDIOVASCULAR DISEASE 06/22/20 Suly Galdamez APRN, HAIR BALER-C [address] [facility] [address] [place] [phone] NURSE PRACTITIONER 06/22/20
--- OUTSIDE RECORDS SUMMARY | 2025-02-22 15:39 | XMS_ITS | Encounter Summary ---
Author Organization [facility] Address [address] [place] [address] Care Team Providers Care Family Preservation Worker Name Role Phone Pasquale Pro MD Primary Care Provider [phone] Roland Tatum MD Unavailable [phone] Suly Galdamez APRN, NP-C Unavailable Encounter Details Date Type Department Care Team (Late st Contact Info) Description 09/22/2022 Hospital Follow-up Call [facility] Surgical [address] [place] [address] Christopher Farnsworth MD [address] [address] Social History Tobacco Use Types [...] often do you attend chur ch or confucianist services? More than 4 times per year [...] and heating? Not hard at all 08/22/2022 [facility] of Occupat ional Health - Occupational [...] place to sleep or slept in a half-way (including now)? No 08/22/2022 Comments No Sex [...] Coronavirus/COVID-19? No / Unsure 09/22/2022 1:55 PM DIRECT CARE STAFFER documented as of this encounter Functional Status * RETIRED Are you deaf or do you have serious difficulty hearing Answer Date of Assessment Author Status No 08/22/2022 3:00 AM DIRECT CARE STAFFER Acti ve * RETIRED Are you blind or do you have serious difficulty seeing, even when wearing glasses? Answer Date of Assessment Author Status No 08/22/2022 3:00 AM DIRECT CARE STAFFER Activ e * Do you have serious difficulty walking or climbing stairs? Answer Date of Assessment Author Status No 08/22/2022 3:00 AM DIRECT CARE STAFFER Sampson Hartmann RN Active * Do you have difficulty dressing or bathing? Answer Date of Assessment Author Status No 08/22/2022 3:00 AM DIRECT CARE STAFFER Sampson Hartmann RN Active * Because of [...] infection documented in this encounter Care Teams Family Preservation Worker Relationship Specialty Start Date End Date Pasquael Pro MD [address] [place] [phone] PCP - General INTERNAL MEDICINE 03/19/18 Roland Tatum MD [address] [place] [address] Consulting Physician CARDIOVASCULAR DISEASE 06/22/20 Suly Galdamez APRN, LADIES SUIT OPERATOR-C [address] [place] [address] [address] [place] [address] NURSE PRACTITIONER 06/22/20 documented as of this encounter
[2025-02-22] MEDS: LACTATED RINGERS 1,000 ML 999 ML IV CONT (15:42)
[2025-02-22] MEDS: ONDANSETRON INJ 4 MG/2 ML VIAL IV PUSH (15:43)
[2025-02-22] MEDS: SODIUM CHLORIDE 0.9% IV 1,000 ML 999 ML IV CONT (16:27)
[2025-02-22 16:43] LABS: Hematocrit 44.6 % (35.0-42.0); Hemoglobin 14.2 g/dL (11.7-13.8); Immature Granulocyte Percent A 0.8 % (0.0-0.0); Lymphocytes Absolute Auto 2.89 K/mm3 (1.10-4.50); Mean Corpuscular HGB Conc 31.8 g/dL (32-36); Mean Corpuscular Hemoglobin 30.9 pg (27.0-31.0); Mean Corpuscular Volume 97.0 fL (78.0-102.0); Nucleated Red Blood Cells Absolute Auto 0.00 K/mm3 (0.00-0.00); Nucleated Red Blood Cells Perc 0.0 % (0-0.0); Platelet Count Result 370 K/mm3 (150-420); Red Blood Count 4.60 M/mm3 (4.20-5.40); White Blood Count 14.3 K/mm3 (4.8-10.8)
[2025-02-22 16:56] LABS: Alanine Aminotransferase 16 U/L (6-35); Albumin Level 4.1 g/dL (3.5-5.1); Alkaline Phosphatase 62 U/L (38-126); Anion Gap 7 mmol/L (4-12); Aspartate Amino Transferase 23 U/L (14-36); Bilirubin,Total 0.3 mg/dL (0.2-1.3); Blood Urea Nitrogen 16 mg/dL (7-17); Calcium 9.7 mg/dL (8.4-10.2); Carbon Dioxide 30 mmol/L (22-30); Chloride 105 mmol/L (98-107); Estimated CRCL calculation 51 ml/min; Estimated Glomerular Filt Rate > 60; Glucose 110 mg/dL (65-110); Magnesium 1.0 mg/dL (1.6-2.3); Osmolality Calculated 296 mOsm/kg (285-295); Potassium 4.1 mmol/L (3.4-5.0); Sodium 142 mmol/L (137-145); Total Protein 7.1 g/dL (6.3-8.2)
[2025-02-22 17:49] VITALS: BP 157/88; PULSE 77; RESP 20; TEMP 36.7; O2SAT 96
== END 2025-02-22 17:52 | disposition home or self-care (01) ==
PROVIDERS: Emergency Provider Internal Medicine Critical Care Medicine; PCP Internal Medicine
DX: A04.72 Enterocolitis due to Clostridium difficile, not specified as recurrent (principal); E11.9 Type 2 diabetes mellitus without complications; J44.9 Chronic obstructive pulmonary disease, unspecified; I10 Essential (primary) hypertension; F17.210 Nicotine dependence, cigarettes, uncomplicated; Z85.3 Personal history of malignant neoplasm of breast
CPT/HCPCS: 36415; 80053; 83605; 83735; 85025; 96361; 96374; 99284; J2405; J7030; J7120

== ENCOUNTER 2025-02-28 07:27 | Emergency (ER) | payer MEDICARE, SELFPAY ==
[2025-02-28] VITALS (49 sets, daily range): BP systolic 74–154; BP diastolic 46–103; PULSE 62–101; RESP 13–27; TEMP 36.4; O2SAT 87–97
--- NOTE | ~2025-02-28 | CT_ITS ---
EXAMINATION: CT abdomen pelvis wo con DATE: 02/28/2025 08:49 INDICATION: Abdominal pain. History of C. Difficile infection. TECHNIQUE: Computed tomography (CT) of the abdomen and pelvis was performed without intravenous contr ast. The dose-length product was 424.69 mGy-cm. Automated exposure control and iterative reconstructi on technique were employed. COMPARISON: CT dated 10/07/2022. FINDINGS: Lung bases unremarkable. Heart size normal. No significant pleural or pericardial effusion. There is gastric distention with air-fluid levels. There is transition to normal caliber small bowel in the stomach third segment of the duodenum adjacent to the aorta. There is a 3.5 cm infrarenal abd ominal aortic aneurysm. Spleen is atrophic. Pancreas, adrenal glands and kidneys are unremarkable. Ga llbladder is present. There remainder of the small bowel and colon are relatively decompressed. There is atherosclerosis of the aorta. No lymphadenopathy. No free air or free fluid. Moderate lumbar spon dylosis. IMPRESSION: 1. Dilated stomach and duodenum with transition in the third segment of the duodenum, consistent with obstruction, possibly secondary to adhesions. 2: Infrarenal abdominal aortic aneurysm measuring 3.5 cm. Reviewed, dictated and finalized at location A. IMPRESSION: 1. Dilated stomach and duodenum with transition in the third segment of the duo denum, consistent with obstruction, possibly secondary to adhesions. 2: Infrarenal abdominal aortic aneurysm measuring 3.5 cm.
--- NOTE | ~2025-02-28 | XR_ITS ---
EXAMINATION: XR chest 1V portable 02/28/2025 08:49 INDICATION: Hypoxia PROCEDURE: AP portable chest COMPARISON: Comparison to multiple prior studies sequentially, with oldest reviewed study dated 09/30. FINDINGS: The lungs are clear. The cardiomediastinal silhouette is within normal limits. There are no pleural effusions. There is no pneumothorax suspected. IMPRESSION: 1: NO ACUTE CARDIOPULMONARY DISEASE. Reviewed, dictated and finalized at location A.
--- NOTE | ~2025-02-28 | XR_ITS ---
Exam: Abdomen 1V HISTORY: NG TUBE PLACEMENT COMPARISON: None. TECHNIQUE: Supine images of the lower chest and upper abdomen FINDINGS: Nasogastric tube tip projects over the proximal to mid esophagus. The nasogastric tube extends to the gastroesophageal junction prior to extending cranially, and proje cting over the terrence. Withdrawal of greater than 14 cm is recommended prior to advancement. IMPRESSION: The genu of the nasogastric tube is at the level of the gastroesophageal junction with its tip projec ting over the level of the terrence. Reviewed, dictated and finalized at location A. IMPRESSION: The genu of the nasogastric tube is at the level of the gastroesophageal juncti on with its tip projecting over the level of the terrence.
--- OUTSIDE RECORDS SUMMARY | 2025-02-28 07:41 | XMS_ITS | Encounter Summary ---
Author Organization [facility] Address [address] [place] [address] Care Team Providers Care Plant Nursery Worker Name Role Phone Pasquale Pro MD Primary Care Provider [phone] Roland Tatum MD Unavailable [phone] Suly Galdamez APRN, NP-C Unavailable [phone] Encounter Details Date Type Department Care Team (Late st Contact Info) Description 09/22/2022 Hospital Follow-up Call [facility] Surgical [address] [place] [address] Christopher Farnsworth MD [address] [address] Social History Tobacco Use Types [...] often do you attend chur ch or moravian services? More than 4 times per year 08/22/2022 Do you belong to any clubs o r organizations such as hoahaoism groups, unions, fraternal or athletic groups, or [...] and heating? Not hard at all 08/22/2022 [facility] of Occupat ional Health - Occupational Stress [...] place to sleep or slept in a fpc (including now)? No 08/22/2022 Comments No Sex [...] Coronavirus/COVID-19? No / Unsure 09/22/2022 1:55 PM DYE TUB OPERATOR documented as of this encounter Functional Status * RETIRED Are you deaf or do you have serious difficulty hearing Answer Date of Assessment Author Status No 08/22/2022 3:00 AM DYE TUB OPERATOR Acti ve * RETIRED Are you blind or do you have serious difficulty seeing, even when wearing glasses? Answer Date of Assessment Author Status No 08/22/2022 3:00 AM DYE TUB OPERATOR Activ e * Do you have serious difficulty walking or climbing stairs? Answer Date of Assessment Author Status No 08/22/2022 3:00 AM DYE TUB OPERATOR Sampson Hartmann RN Active * Do you have difficulty dressing or bathing? Answer Date of Assessment Author Status No 08/22/2022 3:00 AM DYE TUB OPERATOR Sampson Hartmann RN Active * Because [...] infection documented in this encounter Care Teams Plant Nursery Worker Relationship Specialty Start Date End Date Pasquale Pro MD [address] [place] [phone] PCP - General INTERNAL MEDICINE 03/19/18 Roland Tatum MD [address] [place] [address] Consulting Physician CARDIOVASCULAR DISEASE 06/22/20 Suly Galdamez APRN, HOME HEALTH SPECIALIST-C [address] [place] [address] [address] [place] [address] NURSE PRACTITIONER 06/22/20 documented as of this encounter
--- OUTSIDE RECORDS SUMMARY | 2025-02-28 07:41 | XMS_ITS | Clinical Summary ---
Author Organization [facility] Address [facility] [place] [address] Care Team Providers Care Biologics Specialist Name Role Phone Pasquale Pro MD Primary Care Provider [phone] Roland Tatum MD Unavailable [phone] Suly Galdamez APRN, NP-C Unavailable Allergies Active [...] injury) 12/02/2022 Respiratory failure with hypoxia ([facility]/ C) 09/01/2022 Acute blood loss anemia (ABLA) 09/01/2022 Small bowel perforation ([facility]) 2022 Abnormal EKG 07/09/2020 PVC's (premature ventricular contractions) 07/09 Hypertension 07/09/2020 Hyperlipidemia 07/09/2020 Current smoker 07/09/2020 Diabetes ([facility]) 03/24/2018 Acute duodenal ulcer with perforation ([facility]) 03/19/2018 Resolved Problems Problem Noted Date Diagnosed Date Resolved Date Acute respiratory failure wi th hypoxia ([facility]) 03/24/2018 [...] often do you attend chur ch or sabianism services? More than 4 times per year 12/02/2022 Do you belong to any clubs o r organizations such as alevism groups, unions, fraternal or athletic groups, or [...] and heating? Not hard at all 12/02/2022 [facility] of Occupat ional Health - Occupational Stress [...] place to sleep or slept in a halfway (including now)? No 12/02/2022 Comments No Sex [...] Malhotra RN Medical Devices Implanted Type Area Entertainer & Comic Device Identifier Shelf Expiration Date Model / Serial / Lot Iol Tecnis Simplicity Dcb00 - [id number] Implanted:Qty: 1 on 04/09/2022 by Tamera Lawson MD at [facility] Lens Right: Eye [employer] 08/12/2024 DCB00 / / [id number] Iol Tecnis Simplicity Dcb00 - [id number] Implanted:Qty: 1 on 06/04/2022 by Tamera Lawson MD at [facility] Lens Left: Eye [employer] 05/05/2025 DCB00 / / [id number] Procedures Procedure Name Priority Date/Time Associated Diagnosis Comments HEMOGLOBIN, GLYCOSYLATED Routine 12/02/2022 2:30 AM CDT from Last 3 Months or Most Recently Relevant to Health Maintenance Results * (ABNORMAL) HEMOGLOBIN, GLYCOSYLATED (12/02/2022 2:30 AM CDT) HGB A1C 5.7(H) <5.7 % 12/02/2022 3:58 AM CDT [facility] ESTIMATED AVG GLUCOSE 117(H) 74 - 114 MG/DL 12/02/2022 3:58 AM CDT [facility] 12/02/2022 2:30 AM CDT Dyan Mccabe MD LABORATORY Final Result [facility] [address] [place] [address], [id number] from Last 3 Months or Most Recently Relevant to Health Maintenance Insurance [facility] MEDICAID Advance Directives Documents on File Type Date Recorded Patient Sound Engineering Technician Expl anation Power of Flash Oven Operator 07/09/2020 * Full Code (Latest Code [...] 5:50 AM 09/08/2022 6:25 PM Care Teams Biologics Specialist Relationship Specialty Start Date End Date Pasquale Pro MD [address] [place] [phone] PCP - General INTERNAL MEDICINE 03/19/18 Roland Tatum MD [address] [place] [phone] Consulting Physician CARDIOVASCULAR DISEASE 06/22/20 Suly Galdamez APRN, SENIOR INVESTMENT ANALYST-C [address] [facility] [address] [place] [phone] NURSE PRACTITIONER 06/22/20
--- NOTE | 2025-02-28 07:52 | PC.NURSE ---
Pt SPO2 is 87% on RA. Placed placed on 2L NC per verbal order by MD Hemalatha.
--- NOTE | 2025-02-28 07:52 | ED_ITS ---
HPI - Nausea/Vomiting/Diarrhea General Chief complaint: Nausea/Vomiting/Diarrhea Stated complaint: vomiting and diarrhea Time Seen by Provider: 02/28/25 07:52 Source: patient Mode of arrival: ambulatory Limitations: no limitations History of Present Illness HPI Narrative: Patient is a 70-year-old female with C diff colitis found 2 weeks ago and was admitted to the hospital for treatment. Patient is here with similar symptoms but more so having nausea and vomiting and continued diarrhea after finishing vancomycin 2 days ago. Patient has been in the hospital ER twice over this past 2 weeks. She was admitted once. no chest pain or shortness of breath. patient had prior GI surgery. MD elicited complaint: nausea, vomiting and diarrhea Pertinent past history: other ( C diff colitis this month , hypertension, hyper lipids) Onset (ago): week(s) ( 2) Description of vomiting: watery Description of diarrhea: watery Associated nausea: Yes Associated abdominal pain: Yes Location of pain: diffuse Radiation: does not radiate Pain consistency: intermittent Severity: mild Pain scale (0-10): 1 Quality: cramping Exacerbating factors: none Relieving factors: none Context: other ( patient has a history of C diff and treatment with vancomycin which ended 2 days ago and now having nausea vomiting with dehydration) Associated symptoms: loss of appetite, malaise, nausea/vomiting, weakness and decreased urine output Treatment prior to arrival: none Related Data Home Medications ?Medication ?Instructions ?Recorded ?Confirmed ?Last Taken ?Type atorvastatin 10 mg tablet 10 mg PO DAILY 03/09/21 02/28/25 03/10/23 09:00 History fenofibrate micronized 67 mg 67 mg PO DAILY 03/09/21 02/28/25 03/10/23 09:00 History capsule glimepiride 1 mg tablet 1 mg PO DAILY 03/09/21 02/28/25 03/10/23 09:00 History amlodipine 10 mg tablet 10 mg PO DAILY 11/20/22 02/28/25 03/10/23 09:00 History aspirin 81 mg tablet,delayed 81 mg PO DAILY 11/20/22 02/28/25 03/10/23 09:00 History release carvedilol 12.5 mg tablet 12.5 mg PO BID 11/20/22 02/28/25 03/10/23 18:00 History gabapentin 100 mg capsule 100 mg PO TID 11/20/22 02/28/25 Unknown History pantoprazole 40 mg tablet,delayed 40 mg PO BID 11/20/22 02/28/25 03/10/23 18:00 History release sulfasalazine 500 mg tablet 1 g PO TID 02/05/23 02/28/25 Unknown History ergocalciferol (vitamin D2) 1,250 1,250 mcg PO WEEKLY 02/15/25 02/28/25 02/10/25 06:06 History mcg (50,000 unit) capsule (Vitamin D2) losartan 100 mg tablet 100 mg PO DAILY 02/15/25 02/28/25 Unknown History Allergies Allergy/AdvReac Type Severity Reaction Status Date / Time hydrocodone Allergy Intermediate Vomiting Verified 02/28/25 07:42 Review of Systems 2 Review of Systems: All systems reviewed & are unremarkable except as noted in HPI and below Constitutional: Constitutional: Reports no additional constitutional complaints Eyes: Eyes: Reports no additional eye complaints ENT: Reports system reviewed and no additional complaints, except as documented Cardiovascular: Cardiovascular: Reports no additional cardiovascular complaints Respiratory: Respiratory: Reports no additional respiratory complaints Gastrointestinal: Gastrointestinal: Reports no additional gastrointestinal complaints Genitourinary: Genitourinary: Reports no additional female genitourinary complaints Musculoskeletal: Musculoskeletal: Reports no additional musculoskeletal complaints Integumentary/Breasts: Skin/Breast: Reports system reviewed and no additional complaints, except as docu Neurologic: Reports system reviewed and no additional complaints, except as documented Psychiatric: Psychiatric: Reports no additional psychiatric complaints Endocrine: Endocrine: Reports no additional endocrine complaints Hematologic/Lymphatic: Hematologic/Lymphatic: Reports no additional hematologic/lymphatic complaints Allergic/Immunologic: Allergic/Immunologic: Reports no additional allergic/immunologic complaints PMFSH Past Medical History Medical History Infrarenal abdominal aortic aneurysm (AAA) without rupture COPD (chronic obstructive pulmonary disease) Tobacco use Breast cancer Fatty liver GERD (gastroesophageal reflux disease) Diarrhea YRIS (iron deficiency anemia) HTN (hypertension) Diabetes mellitus Surgical History Surgical History Hx of tubal ligation Hx of hysterectomy Hx of mastectomy Family History Family History Father Hypertension Mother Hypertension Heart disease Social History Social History Smoking packs per day: 1 Smoking cigarettes per day: 20.0 Years smoked: 40 Smoking pack-years: 40.00 Smoking status: Current every day smoker Tobacco type: cigarettes and e-cigarettes/vaping Smokeless tobacco user: chewing tobacco Second hand tobacco smoke exposure: Yes Alcohol intake: never Substance use: current Substance use type: marijuana Lack of Transportation: No Lack of Food: Never True Current Housing: I Have Housing Concerned About Future Housing: No Difficulty Paying Gas/Electric Bills: No Difficulty Paying for Meds: No Currently Unemployed: No Education: Bachelor's Degree Difficulty w/ Childcare or Family Care: No Living arrangements: with family Gender identity (if verbalized by the patient): Female Spiritual care concerns: No Exam 2 Const: General: no acute distress and ill appearing Nutritional Appearance: well nourished Orientation/consciousness: patient oriented x3 Limitations: no limitations HENMT: Head: normal to inspection Ears: external ears normal F willow/Nose/Sinus: Normal external nose present Eyes: Conjunctivae: conjunctivae normal Cornea: corneas normal Pupils: E qual, round and reactive pupils present Neck: Neck: normal visual inspection Chest: Chest palpation & inspection: normal inspection of the chest Resp: Effort & Inspection: normal respiratory effort and not labored A uscultation: clear to auscultation bilaterally and no crackles Cardio: Rate: regular rate Rhythm: regular rhythm Heart sounds: no murmurs GI: Inspection: non-distended GI Palp: Yes Soft to palpation, Yes Tenderness to palpation present (GI) ( diffuse), No Guarding due to palpation present (GI), No Rigid due to palpation, No Hernia present, No Palpable mass present and No Rebound tenderness present Auscultation: normal bowel sounds and Hypoactive bowel sounds present : General: Yes bladder normal to palpation Back/Spine/Pelvis: Back: no CVA tenderness Skin: General skin exam: normal color Rashes: no rashes Wounds: no wounds Neuro: General: patient oriented x3, moves all extremities and no meningeal signs Cranial nerves: Yes Nystagmus not present Speech: normal speech Extrem: General: normal to inspection Psych: Mental Status: mental status grossly normal Affect: normal affect Attitude: cooperative Course Vital Signs Vital signs: Vital Signs Temperature 36.4 C L 02/28/25 07:27 Pulse Rate 101 H 02/28/25 07:27 Respiratory Rate 18 02/28/25 07:27 Blood Pressure 74/46 L 02/28/25 07:27 Pulse Oximetry 92 02/28/25 07:27 Oxygen Delivery Room Air 02/28/25 07:27 Temperature 36.4 C L 02/28/25 07:27 Pulse Rate 101 H 02/28/25 07:27 Respiratory Rate 18 02/28/25 07:27 Blood Pressure 74/46 L 02/28/25 07:27 Pulse Oximetry 87 L 02/28/25 08:04 Oxygen Delivery Room Air 02/28/25 08:04 MDM - Nausea/Vomiting/Diarrhea MDM Narrative Medical decision making narrative: patient is 70-year-old female with C diff 2 weeks ago and having recurrent symptoms to include nausea and vomiting. We will do a GI workup at this time. Contact precautions. IV fluids. Start vancomycin p.o.. Likely admit to this facility for treatment. She did get somewhat hypotensive and we are giving her IV fluids for dehydration. Further she became hypoxic for unclear reasoning and she is on nasal cannula oxygen at this time. We will get a chest x-ray. Patient's workup shows a bowel obstruction. We will transfer for her for higher level medical care. Lab Data Attestation: I reviewed the patient's lab results. 02/28/25 08:35 02/28/25 08:35 Labs: Lab Results 02/28/25 Range/Units 08:35 WBC 19.0 H (4.8-10.8) K/mm3 RBC 5.61 H (4.20-5.40) M/mm3 Hgb 17.4 H (11.7-13.8) g/dL Hct 52.3 H (35.0-42.0) % MCV 93.2 (78.0-102.0) fL MCH 31.0 (27.0-31.0) pg MCHC 33.3 (32-36) g/dL RDW 12.3 (11.6-14.4) % Plt Count 481 H (150-420) K/mm3 MPV 10.0 (9.2-11.8) fl Immature Gran % (Auto) 0.7 H (0.0-0.0) % Neut % (Auto) 87.6 H (50.0-70.0) % Lymph % (Auto) 8.5 L (18.0-42.0) % [place] % (Auto) 2.8 (2.0-11.0) % Eos % (Auto) 0.0 L (1.0-6.0) % Baso % (Auto) 0.4 (0.0-1.0) % Lymph # (Auto) 1.62 (1.10-4.50) K/mm3 [place] # (Auto) 0.54 (0.10-0.90) K/mm3 Eos # (Auto) 0.00 L (0.02-0.50) K/mm3 Baso # (Auto) 0.08 (0.00-0.10) K/mm3 Abs Immat Gran (auto) 0.13 H (0.00-0.00) K/mm3 Absolute Neuts (auto) 16.61 H (1.70-7.20) K/mm3 Absolute Nucleated RBC 0.00 (0.00-0.00) K/mm3 Nucleated RBC % 0.0 (0-0.0) % PT 12.0 (9.50-12.1) Seconds INR 1.1 APTT 25.3 (23.9-30.70) Sec Sodium 141 (137-145) mmol/L Potassium 3.8 (3.4-5.0) mmol/L Chloride 93 L (98-107) mmol/L Carbon Dioxide 29 (22-30) mmol/L Anion Gap 19 H (4-12) mmol/L BUN 30 H D (7-17) mg/dL Creatinine 3.49 H (0.7-1.0) mg/dL Estim Creat Clear Calc 11 ml/min Estimated GFR 13 L (59 - ) Glucose 255 H (65-110) mg/dL Calculated Osmolality 307 H (285-295) mOsm/kg Lactic Acid 3.1 H (0.4-2.0) mmol/L Calcium 10.8 H (8.4-10.2) mg/dL Magnesium 1.0 L (1.6-2.3) mg/dL Total Bilirubin 0.6 (0.2-1.3) mg/dL AST 30 (14-36) U/L ALT 25 (6-35) U/L Alkaline Phosphatase 77 (38-126) U/L Troponin I < 0.012 (0.000-0.034) ng/mL C-Reactive Protein 1.0 (<1.0) mg/dL Total Protein 9.4 H (6.3-8.2) g/dL Albumin 5.3 H (3.5-5.1) g/dL Imaging Data Attestation: I personally reviewed and interpreted this imaging study as follows: Radiologist's impression: chest x-ray is negative for acute process CT scan of the abdomen and pelvis shows IMPRESSION: 1. Dilated stomach and duodenum with transition in the third segment of the duodenum, consistent with obstruction, possibly secondary to adhesions. 2: Infrarenal abdominal aortic aneurysm measuring 3.5 cm. ECG Data EKG #1: Attestation: I personally reviewed and interpreted this ECG as follows: ECG completion date: 02/28/25 ECG completion time: 08:24 EKG Interpretation: normal rate, sinus rhythm, PVCs, non-specific ST changes, normal QRS, widened QRS, RBBB, normal QT and NL axis Discharge Plan Discharge Clinical Impression: SBO (small bowel obstruction), C. difficile diarrhea, Dehydration, SEAN (acute kidney injury), Hypomagnesemia, Hypoxia Hypotension Qualifiers: Hypotension type: orthostatic hypotension Qualified Code(s): I95.1 - Orthostatic hypotension Patient Disposition: Acute Care Hospital Condition: Stable Patient Language: Mohawk Prescriptions: No Action atorvastatin 10 mg tablet 10 mg PO DAILY fenofibrate micronized 67 mg capsule 67 mg PO DAILY glimepiride 1 mg tablet 1 mg PO DAILY carvedilol 12.5 mg tablet 12.5 mg PO BID aspirin 81 mg Tablet,Delayed Release (Dr/Ec) 81 mg PO DAILY amlodipine 10 mg tablet 10 mg PO DAILY pantoprazole 40 mg tablet,delayed release (DR/EC) 40 mg PO BID gabapentin 100 mg capsule 100 mg PO TID albuterol sulfate 90 mcg/actuation HFA aerosol inhaler 2 puff inhalation QID PRN (Reason: shortness of breath or wheezing) Qty: 6.7 0RF ergocalciferol (vitamin D2) [Vitamin D2] 1,250 mcg (50,000 unit) capsule 1,250 mcg PO WEEKLY losartan 100 mg tablet 100 mg PO DAILY ondansetron HCl 4 mg tablet 4 mg PO Q8H PRN (Reason: nausea and vomiting) 3 Days Qty: 20 0RF sulfasalazine 500 mg tablet 1 g PO TID Rx Instructions: give with food (meal/snack) Follow-up/Referrals: Pasquale Pro MD [Primary Care Provider] - Time of Disposition: 09:23
--- NOTE | 2025-02-28 08:04 | ECG_ITS ---
Test Date: 2025-02-28 08:07:45 Measurements Intervals [place] Rate: 94 P: 60 DE: 156 QRS: 54 QRSD: 134 T: 36 QT: 446 QTc: 559 Interpretive Statements SINUS RHYTHM WITH VENTRICULAR TRIGEMINY POSSIBLE LEFT ATRIAL ENLARGEMENT RIGHT BUNDLE BRANCH BLOCK ST-T WAVE ABNORMALITY IN ANTEROLAT/INF LEADS- CONSIDER ISCHEMIA BASELINE ARTIFACT- II, III, AVF, V1-V3 ABNORMAL ECG No previous ECG available for comparison Electronically Signed On 02-28-2025 09:40:58 CDT by Camilo Foster D.O.
--- OUTSIDE RECORDS SUMMARY | 2025-02-28 08:17 | XMS_ITS | Encounter Summary ---
Author Organization [facility] Address [address] [place] [address] Care Team Providers Care Piped Pocket Machine Operator Name Role Phone Pasquale Pro MD Primary Care Provider [phone] Roland Tatum MD Unavailable [phone] Suly Galdamez APRN, NP-C Unavailable Encounter Details Date Type Department Care Team (Late st Contact Info) Description 09/22/2022 Hospital Follow-up Call [facility] [address] [place] [address] Christopher Farnsworth MD [address] [address] Social History Tobacco Use Types [...] often do you attend chur ch or hindu services? More than 4 times per year 08/22/2022 Do you belong to any clubs o r organizations such as faith groups, unions, fraternal or athletic groups, or [...] and heating? Not hard at all 08/22/2022 [facility] of Occupat ional Health - Occupational [...] place to sleep or slept in a residential (including now)? No 08/22/2022 Comments No Sex [...] Coronavirus/COVID-19? No / Unsure 09/22/2022 1:55 PM HEEL SHAVER documented as of this encounter Functional Status * RETIRED Are you deaf or do you have serious difficulty hearing Answer Date of Assessment Author Status No 08/22/2022 3:00 AM HEEL SHAVER Acti ve * RETIRED Are you blind or do you have serious difficulty seeing, even when wearing glasses? Answer Date of Assessment Author Status No 08/22/2022 3:00 AM HEEL SHAVER Activ e * Do you have serious difficulty walking or climbing stairs? Answer Date of Assessment Author Status No 08/22/2022 3:00 AM HEEL SHAVER Sampson Hartmann RN Active * Do you have difficulty dressing or bathing? Answer Date of Assessment Author Status No 08/22/2022 3:00 AM HEEL SHAVER Sampson Hartmann RN Active * Because of [...] infection documented in this encounter Care Teams Piped Pocket Machine Operator Relationship Specialty Start Date End Date Pasquale Pro MD [address] [place] [phone] PCP - General INTERNAL MEDICINE 03/19/18 Roland Tatum MD [address] [place] [address] Consulting Physician CARDIOVASCULAR DISEASE 06/22/20 Suly Galdamez APRN, ALUMINUM SIDING APPLICATOR-C [address] [place] [address] [address] [place] [address] NURSE PRACTITIONER 06/22/20 documented as of this encounter
--- OUTSIDE RECORDS SUMMARY | 2025-02-28 08:18 | XMS_ITS | Clinical Summary ---
Author Organization [facility] Address [facility] [place] [address] Care Team Providers Care Field Advisor Name Role Phone Pasquale Pro MD Primary Care Provider [phone] Roland Tatum MD Unavailable [phone] Suly Galdamez APRN, NP-C Unavailable [phone] Allergies Active Allergy Reactions Criticality Noted Date [...] kidney injury) 12/02/2022 Respiratory failure with hypoxia ([facility]) 09/01/2022 Acute blood loss anemia (ABLA) 09/01/2022 Small bowel perforation ([facility]) 2022 Abnormal EKG 07/09/2020 PVC's (premature ventricular contractions) 07/09 Hypertension 07/09/2020 Hyperlipidemia 07/09/2020 Current smoker 07/09/2020 Diabetes ([facility]) 03/24/2018 Acute duodenal ulcer with perforation ([facility]) 03/19/2018 Resolved Problems Problem Noted Date Diagnosed Date Resolved Date Acute respiratory failure wi th hypoxia ([facility]) 03/24/2018 04/05/2018 Hypernatremia 03/24/2018 04/05/2018 Family [...] any clubs o r organizations such as religious groups, unions, fraternal or athletic groups, or [...] and heating? Not hard at all 12/02/2022 [facility] of Occupat ional Health - Occupational [...] place to sleep or slept in a care home (including now)? No 12/02/2022 Comments No Sex [...] Malhotra RN Medical Devices Implanted Type Area Trimmer Sorter Device Identifier Shelf Expiration Date Model / Serial / Lot Iol Tecnis Simplicity Dcb00 - [id number] Implanted:Qty: 1 on 04/09/2022 by Tamera Lawson MD at [facility] Lens Right: Eye [employer] 08/12/2024 DCB00 / / [id number] Iol Tecnis Simplicity Dcb00 - [id number] Implanted:Qty: 1 on 06/04/2022 by Tamera Lawson MD at [facility] Lens Left: Eye [employer] 05/05/2025 DCB00 / / [id number] Procedures Procedure Name Priority Date/Time Associated Diagnosis Comments HEMOGLOBIN, GLYCOSYLATED Routine 12/02/2022 2:30 AM CDT from Last 3 Months or Most Recently Relevant to Health Maintenance Results * (ABNORMAL) HEMOGLOBIN, GLYCOSYLATED (12/02/2022 2:30 AM CDT) HGB A1C 5.7(H) <5.7 % 12/02/2022 3:58 AM CDT [facility] ESTIMATED AVG GLUCOSE 117(H) 74 - 114 MG/DL 12/02/2022 3:58 AM CDT [facility] 12/02/2022 2:30 AM CDT yDan Mccabe MD LABORATORY Final Result [facility] [address] [place] [address], [id number] from Last 3 Months or Most Recently Relevant to Health Maintenance Insurance [facility] MEDICAID Advance Directives Documents on File Type Date Recorded Patient Abnormal Psychology Teacher Expl anation Power of Gas Main Fitter Helper 07/09/2020 * Full Code (Latest Code Status [...] 5:50 AM 09/08/2022 6:25 PM Care Teams Field Advisor Relationship Specialty Start Date End Date Pasquale Pro MD [address] [place] [phone] PCP - General INTERNAL MEDICINE 03/19/18 Roland Tatum MD [address] [place] [phone] Consulting Physician CARDIOVASCULAR DISEASE 06/22/20 Suly Galdamez APRN, BOBBIN DOFFER-C [address] [facility] [address] [place] [phone] NURSE PRACTITIONER 06/22/20
--- NOTE | 2025-02-28 08:20 | PC.NURSE ---
Episode of N/V at bedside. MD Hemalatha made aware.
[2025-02-28] MEDS: ONDANSETRON INJ 4 MG/2 ML VIAL IV PUSH (08:25)
--- NOTE | 2025-02-28 08:30 | PC.NURSE ---
Pt to CT scanner with radiology transport.
[2025-02-28 08:43] LABS: Hematocrit 52.3 % (35.0-42.0); Hemoglobin 17.4 g/dL (11.7-13.8); Immature Granulocyte Percent A 0.7 % (0.0-0.0); Lymphocytes Absolute Auto 1.62 K/mm3 (1.10-4.50); Mean Corpuscular HGB Conc 33.3 g/dL (32-36); Mean Corpuscular Hemoglobin 31.0 pg (27.0-31.0); Mean Corpuscular Volume 93.2 fL (78.0-102.0); Nucleated Red Blood Cells Absolute Auto 0.00 K/mm3 (0.00-0.00); Nucleated Red Blood Cells Perc 0.0 % (0-0.0); Platelet Count Result 481 K/mm3 (150-420); Red Blood Count 5.61 M/mm3 (4.20-5.40); White Blood Count 19.0 K/mm3 (4.8-10.8)
--- NOTE | 2025-02-28 08:52 | PC.NURSE ---
Pt continuing to have episodes of N/V. MD Hemalatha made aware. RN unable to administer PO antibiotics at this time. New orders from MD Emmanuel.
[2025-02-28] MEDS: SODIUM CHLORIDE 0.9% IV 1,000 ML 999 ML IV CONT (08:57)
[2025-02-28] MEDS: PROCHLORPERAZINE EDISYLATE 10 MG/2 ML VIAL IV PUSH (08:57)
[2025-02-28 08:58] LABS: Alanine Aminotransferase 25 U/L (6-35); Albumin Level 5.3 g/dL (3.5-5.1); Alkaline Phosphatase 77 U/L (38-126); Anion Gap 19 mmol/L (4-12); Aspartate Amino Transferase 30 U/L (14-36); Bilirubin,Total 0.6 mg/dL (0.2-1.3); Blood Urea Nitrogen 30 mg/dL (7-17); CRP 1.0 mg/dL (<1.0); Calcium 10.8 mg/dL (8.4-10.2); Carbon Dioxide 29 mmol/L (22-30); Chloride 93 mmol/L (98-107); Estimated CRCL calculation 11 ml/min; Estimated Glomerular Filt Rate 13; Glucose 255 mg/dL (65-110); INR 1.1; Magnesium 1.0 mg/dL (1.6-2.3); Osmolality Calculated 307 mOsm/kg (285-295); Partial Thromboplastin Time 25.3 Sec (23.9-30.70); Potassium 3.8 mmol/L (3.4-5.0); Prothrombin Time 12.0 Seconds (9.50-12.1); Sodium 141 mmol/L (137-145); Total Protein 9.4 g/dL (6.3-8.2)
--- NOTE | 2025-02-28 09:05 | PC.NURSE ---
RN made aware of pt bowel obstruction. MD Hemalatha places pt on NPO status.
[2025-02-28 09:07] LABS: Troponin I < 0.012 ng/mL (0.000-0.034)
[2025-02-28] MEDS: MAGNESIUM SULF 2 GM/WATER 50ML 2 GM/50 ML BAG IVPB (09:23)
[2025-02-28] MEDS: SODIUM CHLORIDE 0.9% IV 1,000 ML 150 ML IV CONT (09:58)
[2025-02-28] MEDS: metroNIDAZOLE 500 MG/ISO 100ML 500 MG/100 ML BAG 100 MG IVPB (10:00)
[2025-02-28] MEDS: LIDOCAINE 2% GEL UROJET 10 ML PKG 5 ML MUCOUS MEM (16:20)
--- NOTE | 2025-02-28 16:28 | PC.NURSE ---
GAEL Beaver attempted NG placement x 2 without success. GAEL Toney attempted NG placement x 2 without success. MD Hemalatha at bedside.
--- NOTE | 2025-03-03 12:39 | PC.NURSE ---
BLOOD CULTURE PRELIMINARY NO GROWTH IN 24 HOURS
--- NOTE | 2025-03-04 13:39 | PC.NURSE ---
Preliminary blood culture report; no growth in 48 hours.
--- NOTE | 2025-03-07 13:13 | PC.NURSE ---
final blood cultures x2 reviewed. no growth in 5 days. no change in plan of care
== END 2025-02-28 17:58 | disposition short-term general hospital (02) ==
PROVIDERS: Emergency Provider Emergency Medicine; PCP Internal Medicine
DX: K56.609 Unspecified intestinal obstruction, unspecified as to partial versus complete obstruction (principal); A04.72 Enterocolitis due to Clostridium difficile, not specified as recurrent; E86.0 Dehydration; N17.9 Acute kidney failure, unspecified; E83.42 Hypomagnesemia; I95.1 Orthostatic hypotension; R09.02 Hypoxemia; I10 Essential (primary) hypertension; J44.9 Chronic obstructive pulmonary disease, unspecified; E11.9 Type 2 diabetes mellitus without complications; F17.210 Nicotine dependence, cigarettes, uncomplicated; Z79.82 Long term (current) use of aspirin; Z85.3 Personal history of malignant neoplasm of breast; Z79.899 Other long term (current) drug therapy
CPT/HCPCS: 36415; 71045; 74176; 80053; 83605; 83735; 84484; 85025; 85610; 85730; 86140; 93005; 96365; 96367; 96375; 99285; J0780; J1836; J2405; J3475; J7030

== ENCOUNTER 2025-03-07 09:10 | Outpatient (CLI) | payer MEDICARE, SELFPAY ==
--- OUTSIDE RECORDS SUMMARY | 2025-03-07 09:32 | XMS_ITS | Clinical Summary ---
Author Organization [facility] Address [address] [place] [address] Phone Care Team Providers Care Clinical Statistics Manager Name Role Phone Pasquale Pro MD Primary Care Provider Allergies Active Allergy Reactions Criticality Noted Date Comments Hydrocodone Vomiting 02/28/2025 Medications atorvastatin (LIPITOR) 10 MG Tablet Take 10 mg by mouth daily. Active fenofibrate (LIPOFEN) 50 MG Capsule Take 67 mg by mouth daily. Active glimepiride (AMARYL) 1 MG Tablet Take 1 mg by mouth daily. Active carvedilol (COREG) 12.5 MG Tablet Take 12.5 mg by mouth 2 times daily. Active aspirin EC 81 MG Tablet Delayed Response Take 81 mg by mouth daily. Active amLODIPine (NORVASC) 10 MG Tablet Take 10 mg by mouth daily. Active pantoprazole (PROTONIX) 40 MG Tablet Delayed Response Take 40 mg by mouth 2 times daily. Active gabapentin (NEURONTIN) 100 MG Capsule Take 100 mg by mouth 3 times daily. Active albuterol 108 (90 Base) MCG/ACT Aerosol Solution take 2 Puffs by inhalation 4 times daily as needed for Wheezing. Active ergocalciferol (VITAMIN D) 12260 UNIT Capsule Take 50,000 Units by mouth once a week. Active losartan (COZAAR) 100 MG Tablet Take 100 mg by mouth daily. Active ondansetron (ZOFRAN) 4 MG Tablet Take 4 mg by mouth every 8 hours as needed for Nausea - 1st line. Active sulfaSALAzine (AZULFIDINE) 500 MG Tablet Take 1,000 mg by mouth 3 times daily. Give with food Active AQT-Xvcc-EaDrkg -MgHydr-Simeth (First-Mouthwas h BLM) Suspension 5 mL by Swish & Spit route 3 times daily (before meals). 237 mL Active fluconazole (DIFLUCAN) 200 MG TabletIndicatio ns:ENT Infection Take 1 Tablet by mouth every 48 hours for 6 days. Indications: Infection of Ears, Nose or Throat 3 Tablet 5 03/09/20 Active Active Problems Problem Noted Date Diagnosed Date Oral thrush 03/01/2025 Small bowel obstruction 02/28/2025 Acute kidney injury 02/28/2025 Hypotension 02/28/2025 Dehydration 02/28/2025 Prolonged Q-T interval on ECG 02/28/2025 Elevated lactic acid level 02/28/2025 Hypomagnesemia 02/28/2025 Type 2 diabetes mellitus 02/28/2025 Hypertension 02/28/2025 Hyperlipidemia 02/28/2025 GERD (gastroesophageal reflux disease) COPD (chronic obstructive pulmonary disease) 06/2025 Tobacco dependence 02/28/2025 Encounters Date Type Department Care Team Description 02/28/2025 7:02 PM CDT - 03/02/2025 4:15 PM CDT Hospital Encounter [facility] [address] [phone] Gino Mendoza MD Small bowel obstruction (HCC) Discharge Disposition: Discharged to home or Selfcare 02/28/2025 Travel from Last 3 Months Family History Medical History Relation Name Comments Hypertension Father Heart Disease Mother Hypertension Mother Relation Name Status Comments Father Mother Social History Tobacco Use Types Packs/Day Years Used Date Smoking Tobacco: Every Day Cigarettes 1.2 92.6 Started: 1972 Smokeless Tobacco: Never Alcohol Use Standard Drinks/Week Comments Never 0 (1 standard drink = 0.6 oz pur e alcohol) Hunger Vital Sign Answer Date Recorded Within the past 12 months, y ou worried that your food would run out before you got the money to buy more. Patient declined Within the past 12 months, t he food you bought just didn't last and you didn't have money to get more. Patient declined 06/2025 PRAPARE - Transportation Answer Date Re corded In the past 12 months, has l ack of transportation kept you from medical appointments or from getting medications? Patient declined 02/28/2025 In the past 12 months, has l ack of transportation kept you from meetings, work, or from getting things needed for daily living? Patient declined 02/28/2025 Housing Stability Vital Sign Answer Terence e Recorded In the last 12 months, was t here a time when you were not able to pay the mortgage or rent on time? Patient declined 02/29/20 25 In the past 12 months, how m any times have you moved where you were living? 0 02/28/2025 At any time in the past 12 m [facility], were you homeless or living in a residential (including now)? Patient declined 02/28/2025 [facility] Utilities Answer Date Recorded In the past 12 months has th e electric, gas, oil, or water company threatened to shut off services in your home? Patient declined 02/28/2025 Sexually Active Control Partners Comments Not Currently Comments No Sex and Gender Information Value Date Recorded Sex Assigned at Not on file Legal Sex Female 2:18 PM CDT Gender Identity Not on file Sexual Orientation Not on file Last Filed Vital Signs Vital Sign Reading Time Taken Comments Blood Pressure 141/86 03/02/2025 1:50 PM CDT Pulse 64 03/02/2025 1:50 PM CDT Temperature 36.3 C (97.4 F) 03/02/2025 1:50 PM CDT Respiratory Rate 18 03/02/2025 1:50 PM CDT Oxygen Saturation 95% 03/02/2025 1:50 PM CDT Inhaled Oxygen Concentration - - Weight 72.5 kg (159 lb 12.8 oz) 02/28/2025 7:09 PM CDT Height 162.6 cm (5' 4) 02/28/2025 7:09 PM CDT Body Mass Index 27.43 02/28/2025 7:09 PM CDT Plan of Treatment Health Maintenance Due Date Last Done Comments DEXA Bone Density 1955 Diabetes: Eye Exam 1955 Diabetes: Foot Exam 1955 Hepatitis C Virus (HCV) Screening 1955 TdaP Immunization 1955 Cologuard 1998 Colonoscopy 1998 Colorectal Cancer Screening 1998 Immunochemical Fecal Occult Blood 1998 Lung Cancer Screening 2003 Zoster Immunization (1 of 2) 2003 Respiratory Syncytial Virus (RSV) Immunization (Adult) (1 - Risk 60-74 years 1-dose series) 2013 SARS-COV-2 Immunization ( season) 2024 12/21/2020, 11/27/2020 Influenza Immunization (#1) 2025 092 10/2023, 05/27/2023, 04/29/2022, Additional history exists Diabetes: Hemoglobin A1c 08/31/2025 02/28/2025, 11/17 Diabetes: Nephropathy Screening 02/28/2026 02/28/2025 Pneumococcal Immunization (50+ years) Completed 05/27/2023, 09/10/2017, 05/24/2014 Hepatitis B Immunization Aged Out No longer eligible based on patient's age to complete this topic Human Papillomavirus (HPV) Immunization Aged Out No longer eligible based on patient's age to complete this topic Meningococcal Immunization (ACWY) Aged Out No longer eligible based on patient's age to complete this topic Rotavirus Immunization Aged Out No lo nger eligible based on patient's age to complete this topic Procedures Procedure Name Priority Date/Time Associated Diagnosis Comments POCT GLUCOSE Routine 03/02/2025 11:[address] REFERENCE IMAGES FOR IMAGE IMPORT Routine 03/02/2025 7:30 AM CDT XR REFERENCE IMAGES FOR IMAGE IMPORT Routine 03/02/2025 7:27 AM CDT XR REFERENCE IMAGES FOR IMAGE IMPORT Routine 03/02/2025 7:25 AM CDT POCT GLUCOSE Routine 03/02/2025 7:20 AM CDT CBC WITH AUTO DIFFERENTIAL Routine 03/02/2025 6:28 AM CDT COMPLETE BLOOD COUNT (CBC) WITH DIFF Routine 03/02/2025 6:28 AM CDT BASIC METABOLIC PANEL W/ CALCIUM TOTAL Routine 03/02/2025 6:28 AM CDT RHYTHM STRIP 03/02/2025 12:00 AM CDT RHYTHM STRIP 03/02/2025 12:00 AM CDT POCT GLUCOSE Routine 03/01/2025 8:18 PM CDT POCT GLUCOSE Routine 03/01/2025 5:52 PM CDT POCT GLUCOSE Routine 03/01/2025 4:07 PM CDT POCT GLUCOSE Routine 03/01/2025 12:22 PM CDT CBC WITH AUTO DIFFERENTIAL Routine 03/01/2025 7:47 AM CDT TROPONIN I, HIGH SENSITIVITY (HSTRP) Routine 03/01/2025 7:47 AM CDT COMPLETE BLOOD COUNT (CBC) WITH DIFF Routine 03/01/2025 7:47 AM CDT BASIC METABOLIC PANEL W/ CALCIUM TOTAL Routine 03/01/2025 7:47 AM CDT POCT GLUCOSE Routine 03/01/2025 6:04 AM CDT RHYTHM STRIP 03/01/2025 12:00 AM CDT RHYTHM STRIP 03/01/2025 12:00 AM CDT RHYTHM STRIP 03/01/2025 12:00 AM CDT POCT GLUCOSE Routine 02/28/2025 11:44 PM CDT EKG 12 LEAD Routine 02/28/2025 10:13 PM CDT LACTIC ACID (LACTATE) Routine 02/28/2025 9:47 PM CDT CBC WITH AUTO DIFFERENTIAL Routine 02/28/2025 8:02 PM CDT HEMOGLOBIN A1C W/ ESTIMATED GLUCOSE Routine 02/28/2025 8:02 PM CDT COMPLETE BLOOD COUNT (CBC) WITH DIFF Routine 02/28/2025 8:02 PM CDT TROPONIN I, HIGH SENSITIVITY (HSTRP) Routine 02/28/2025 8:01 PM CDT PHOSPHORUS (PO4) Routine 02/28/2025 8:01 PM CDT MAGNESIUM (MG) Routine 02/28/2025 8:01 PM CDT CMP (COMPREHENSIVE METABOLIC PANEL) Routine 02/28/2025 8:01 PM CDT RHYTHM STRIP 02/28/2025 12:00 AM CDT EKG SCAN 02/28/2025 12:00 AM CDT EKG SCAN 02/28/2025 12:00 AM CDT from Last 3 Months Results * (ABNORMAL) POCT GLUCOSE (03/02/2025 11:15 AM CDT) Only the most recent of8 resultswithin the time period is included. [facility] GLUCOSE,BEDSID E POCT 123(H) 70 - 99 mg/dL 03/02/2025 11:16 AM CDT [facility] Comment:RN Notified Blood 03/02/2025 11:1 5 AM CDT 03/02/2025 11:16 AM CDT us None Provider POINT OF CARE TESTING Final Resu lt [facility] [address] [place] [address] * CT REFERENCE IMAGES FOR IMAGE IMPORT (03/02/2025 7:30 AM CDT) us Not On File Provider IMG CT ORDERABLES Final Res ult * XR REFERENCE IMAGES FOR IMAGE IMPORT (03/02/2025 7:27 AM CDT) Only the most recent of2 resultswithin the time period is included. us Not On File Provider IMG DIAGNOSTIC ORDERABLES F inal Result * (ABNORMAL) CBC WITH AUTO DIFFERENTIAL (03/02/2025 6:28 AM CDT) Only the most recent of3 resultswithin the time period is included. WBC 9.25 4.00 - 12.00 10(3)/mcL 03/02/2025 6:51 AM CDT [facility] RBC 3.63(L) 3.80 - 5.30 10(6)/mcL 03/02/2025 6:51 AM CDT [facility] HEMOGLOBIN (HGB) 11.3(L) 12.0 - 15.8 g/dL 03/02/2025 6:51 AM CDT [facility] HEMATOCRIT (HCT) 36.0 36.0 - 47.0 % 03/02/2025 6:51 AM CDT [facility] MCV 99.2(H) 82.0 - 96.0 fL 03/02/2025 6:51 AM CDT [facility] MCH 31.1 26.0 - 34.0 pg 03/02/2025 6:51 AM CDT [facility] MCHC 31.4 31.0 - 36.0 g/dL 03/02/2025 6:51 AM CDT [facility] PLATELET COUNT 243 140 - 440 10(3)/mcL 03/02/2025 6:51 AM CDT [facility] RDW 12.2 11.8 - 15.5 % 03/02/2025 6:51 AM CDT [facility] MPV 10.2 9.7 - 12.4 fL 03/02/2025 6:51 AM CDT [facility] NEUTROPHILS 71.2 47.0 - 73.0 % 03/02/2025 6:51 AM CDT [facility] LYMPHOCYTES 20.8 18.0 - 42.0 % 03/02/2025 6:51 AM CDT [facility] MONOCYTES 5.9 4.0 - 12.0 % 03/02/2025 6:51 AM CDT [facility] EOSINOPHILS 1.0 0.0 - 5.0 % 03/02/2025 6:51 AM CDT [facility] BASOPHILS 0.8 0.0 - 1.0 % 03/02/2025 6:51 AM CDT [facility] IMMATURE GRANULOCYTE 0.3 0.0 - 0.4 % 03/02/2025 6:51 AM CDT [facility] Comment:Immature Granulocyte s includes Metamyelocytes, Myelocytes, and Promyelocytes. ABSOLUTE NEUTROPHILS 6.59 1.60 - 7.70 10(3)/mcL 03/02/2025 6:51 AM CDT [facility] ABSOLUTE LYMPHOCYTES 1.92 1.30 - 3.20 10(3)/mcL 03/02/2025 6:51 AM CDT [facility] ABSOLUTE MONOCYTES 0.55 0.20 - 1.00 10(3)/[facility] 03/02/2025 6:51 AM CDT [facility] ABSOLUTE EOSINOPHIL 0.09 0.00 - 0.40 10(3)/[facility] 03/02/2025 6:51 AM CDT [facility] ABSOLUTE BASOPHILS 0.07 0.00 - 0.10 10(3)/mcL 03/02/2025 6:51 AM CDT [facility] ABSOLUTE IMMATURE GRANULOCYTE 0.03 0.00 - 0.03 10 (3) mcL. 03/02/2025 6:51 AM CDT [facility] NRBC PER 100 WBC 0 03/02/20 6:51 AM CDT [facility] Blood Venipuncture / Unknown 03/02/2025 6:28 AM CDT 03/02/2025 6:43 AM CDT us Ramandeep Núñez BUSINESS PROJECT ANALYST, RED CROSS EXECUTIVE DIRECTOR HEMATOLOGY ORDERABLES Final Result [facility] [address] [place] [address] * (ABNORMAL) BASIC METABOLIC PANEL W/ CALCIUM TOTAL (03/02/2025 6:28 AM CDT) Only the most recent of2 resultswithin the time period is included. SODIUM 137 136 - 145 mmol/L 03/02/2025 7:26 AM CDT [facility] POTASSIUM 3.8 3.5 - 5.1 mmol/L 03/02/2025 7:26 AM CDT [facility] CHLORIDE 106 98 - 107 mmol/L 03/02/2025 7:26 AM T [facility] CO2, VENOUS 24 22 - 30 mmol/L 03/02/2025 7:26 AM T [facility] ANION GAP 10.8 <18.0 mmol/L 03/02/2025 7:26 AM CDT [facility] GLUCOSE 114(H) 70 - 99 mg/dL 03/02/2025 7:26 AM CDT [facility] BUN 30(H) 10 - 20 mg/dL 03/02/2025 7:26 AM T [facility] CREATININE, BLOOD 0.93 0.60 - 1.00 mg/dL 03/02/2025 7:26 AM T [facility] BUN/CREATININE RATIO 32(H) 12 - 20 ratio 03/02/2025 7:26 AM T [facility] CALCIUM 7.7(L) 8.7 - 10.5 mg/dL 03/02/2025 7:26 AM T [facility] GFR, ESTIMATED >60 >=60 03/02/2025 7:26 AM [facility] Comment: Creatinine Clearance is the preferred criteria for selecting drug dose adjustments in renally impaired patients. The GFR is provided as additional pertinent clinical information. GFR is reported in mL/min/1.73 sq m. Calculation based on the Chronic Kidney Disease Epidemiology Collaboration (CKD- EPI) equation refit without adjustment for race. GFR, EST. >60 >=60 025 7:26 AM CDT [facility] GFR, EST. NONAFRICAN 59(L) >=60 03/02/2025 7:26 AM CDT [facility] Blood Venipuncture / Unknown 03/02/2025 6:28 AM CDT 03/02/2025 6:43 AM CDT Ramandepe Eaton Niya BUSINESS PROJECT ANALYST, RED CROSS EXECUTIVE DIRECTOR CHEMISTRY ORDERABLES Final Result Performing Organization Address City/[facility] Co de Phone Number [facility] [address] [place] [address] * RHYTHM STRIP (03/02/2025 12:00 AM CDT) Only the most recent of6 resultswithin the time period is included. 03/02/2025 Provider Scan IMG ECG ORDERABLES Final Result Performing Organization Address [facility] de Phone Number RESULTING AGENCY * (ABNORMAL) TROPONIN I, HIGH SENSITIVITY (HSTRP) (03/01/2025 7:47 AM CDT) Only the most recent of2 resultswithin the time period is included. TROPONIN I, HIGH SENSITIVITY- [facility] 22(H) <=14 ng/L 03/01/2025 8:52 AM CDT [facility] Comment: High-sensitivity troponin I results are reported in ng/L making the result appear to be 1,000 times higher than the contemporary troponin I value which is reported in ng/ml. Results from [facility]. Blood Venipuncture / Unknown 03/01/2025 7:47 AM CDT 03/01/2025 7:52 AM CDT Ramandeep Eaton Niya LOWRY, RED CROSS EXECUTIVE DIRECTOR CHEMISTRY ORDERABLES Final Result Performing Organization Address [facility] Co de Phone Number [facility] [address] [place] [address] * EKG 12 LEAD (02/28/2025 10:13 PM CDT) Ventricular Rate 60 BPM EXTERNAL EKG Atrial Rate 60 BPM EXTERNAL EKG P-R Interval 182 ms EXTERNAL EKG QRS Duration 126 ms EXTERNAL EKG Q-T Duration 496 ms EXTERNAL EKG QTC CALCULATION 496 ms EXTERNAL EKG P [place] 69 degrees EXTERNAL EKG R [place] 46 degrees EXTERNAL EKG T [place] -38 degrees EXTERNAL EKG 02/28/2025 10:1 3 PM CDT Impressions EXTERNAL EKG - 03/02/2025 11:44 AM CDT Normal sinus rhythm Right bundle branch block T wave abnormality, consider inferior ischemia Abnormal ECG No previous ECGs available Confirmed by ODALYS NAZARIO ([id number]) on 03/02/2025 11:44:07 AM Narrative Procedure Note Odalys Nazario MD - 03/02/2025 IMPRESSION: Normal sinus rhythm Right bundle branch block T wave abnormality, consider inferior ischemia Abnormal ECG No previous ECGs available Confirmed by ODALYS NAZARIO ([id number]) on 03/02/2025 11:44:07 AM us Ramandeep Núñez APRN, CNP IMG ECG ORDERABLES Fi nal Result EXTERNAL EKG * LACTIC ACID (LACTATE) (02/28/2025 9:47 PM CDT) LACTIC ACID 1.1 0.7 - 2.0 mmol/L 02/28/2025 10:06 PM CDT [facility] Blood Venipuncture / Unknown 02/28/2025 9:47 PM CDT 02/28/2025 9:47 PM CDT Ramandeep Núñez APRN, CNP CHEMISTRY ORDERABLES Final Result Performing Organization Address City/[facility]/ZIP Co de Phone Number [facility] [address] [place] [address] * HEMOGLOBIN A1C W/ ESTIMATED GLUCOSE (02/28/2025 8:02 PM CDT) HGB-A1C 5.7 4.0 - 6.0 % 02/28/2025 8:19 PM CDT [facility] Est Average Glucose 116.9 mg/dL 02/28/2025 8:19 PM CDT [facility] Blood Venipuncture / Unknown 02/28/2025 8:02 PM CDT 02/28/2025 8:02 PM CDT Narrative [facility] - 02/28/2025 8:19 PM CDT HEMOGLOBIN A1C: DIABETIC PATIENTS: WELL-CONTROLLED: 6.2 - 7.0 INTERMEDIATE WELL-CONTROLLED: 7.0 - 9.0 POORLY-CONTROLLED: >9.0 Specimens containing greater than 5% of Hemoglobin F may result in lower than expected % HbA1C results. Ramandeep Núñez APRN, CNP CHEMISTRY ORDERABLES Final Result Performing Organization Address City/[facility]/ZIP Co de Phone Number [facility] [address] [place] [address] * (ABNORMAL) PHOSPHORUS (PO4) (02/28/2025 8:01 PM CDT) [facility] PHOSPHORUS 5.1(H) 2.5 - 4.5 mg/dL 02/28/2025 8:21 PM CDT [facility] Blood Venipuncture / Unknown 02/28/2025 8:01 PM CDT 02/28/2025 8:01 PM CDT Ramandeep Núñez APRN, CNP CHEMISTRY ORDERABLES Final Result [facility] [address] [place] [address] * MAGNESIUM (MG) (02/28/2025 8:01 PM CDT) MAGNESIUM 1.6 1.6 - 2.6 mg/dL 02/28/2025 8:21 PM CDT [facility] Blood Venipuncture / Unknown 02/28/2025 8:01 PM CDT 02/28/2025 8:01 PM CDT us Ramandeep Eaton Niya BUSINESS PROJECT ANALYST, RED CROSS EXECUTIVE DIRECTOR CHEMISTRY ORDERABLES Final Result [facility] [address] [place] [address] * (ABNORMAL) CMP (COMPREHENSIVE METABOLIC PANEL) (02/28/2025 8:01 PM CDT) SODIUM 143 136 - 145 mmol/L 02/28/2025 8:21 PM CDT [facility] POTASSIUM 3.7 3.5 - 5.1 mmol/L 02/28/2025 8:21 PM CDT [facility] CHLORIDE 100 98 - 107 mmol/L 02/28/2025 8:21 PM CDT [facility] CO2, VENOUS 26 22 - 30 mmol/L 02/28/2025 8:21 PM CDT [facility] ANION GAP 20.7(H) <18.0 mmol/L 02/28/2025 8:21 PM CDT [facility] GLUCOSE 115(H) 70 - 99 mg/dL 02/28/2025 8:21 PM CDT [facility] BUN 36(H) 10 - 20 mg/dL 02/28/2025 8:21 PM CDT [facility] CREATININE, BLOOD 3.31(H) 0.60 - 1.00 mg/dL 02/28/2025 8:21 PM CDT [facility] BUN/CREATININE RATIO 11(L) 12 - 20 ratio 02/28/2025 8:21 PM CDT [facility] TOTAL PROTEIN 7.1 6.0 - 8.0 g/dL 02/28/2025 8:21 PM CDT [facility] ALBUMIN 4.1 3.5 - 5.0 g/dL 02/28/2025 8:21 PM CDT [facility] A/G RATIO 1.4 1.0 - 2.2 02/28/2025 8:21 PM CDT [facility] CALCIUM 8.4(L) 8.7 - 10.5 mg/dL 02/28/2025 8:21 PM CDT [facility] T BILI 0.3 0.2 - 1.2 mg/dL 02/28/2025 8:21 PM CDT [facility] SGOT (AST) 18 <43 U/L 02/28/2025 8:21 PM CDT [facility] SGPT (ALT) 13 <56 U/L 02/28/2025 8:21 PM CDT [facility] ALKALINE PHOSPHATASE 54 40 - 150 U/L 02/28/2025 8:21 PM CDT [facility] GFR, ESTIMATED 14(L) >=60 02/28/2025 8:21 PM CDT [facility] Comment: Creatinine Clearance is the preferred criteria for selecting drug dose adjustments in renally impaired patients. The GFR is provided as additional pertinent clinical information. GFR is reported in mL/min/1.73 sq m. Calculation based on the Chronic Kidney Disease Epidemiology Collaboration (CKD- EPI) equation refit without adjustment for race. GFR, EST. 17(L) >=60 025 8:21 PM CDT [facility] GFR, EST. NONAFRICAN 14(L) >=60 02/28/2025 8:21 PM CDT [facility] Blood Venipuncture / Unknown 02/28/2025 8:01 PM CDT 02/28/2025 8:01 PM CDT us Ramandeep Núñez APRN, MARINA CHEMISTRY ORDERABLES Final Result [facility] [address] [place] [address] * EKG SCAN (02/28/2025 12:00 AM CDT) Only the most recent of2 resultswithin the time period is included. 02/28/2025 us Provider Scan IMG ECG ORDERABLES Final Result RESULTING AGENCY from Last 3 Months Insurance MEDICARE C INXPO Advance Directives * Full Code (Latest Code Status on File) Date Activated Date Inactivated Comments 02/28/2025 9:30 PM CPR-Full Treat ment: FULL ARREST: Attempt Resuscitation/CPR wit intubation and mechanical ventilation. PRE-ARREST: Use entire range of life support measures to stabilize the patient. Care Teams Clinical Statistics Manager Relationship Specialty Start Date End Date Pasquale Pro MD [address] [place] [address] PCP - General Internal Medicine 03/02/25
--- OUTSIDE RECORDS SUMMARY | 2025-03-07 09:32 | XMS_ITS ---
Author Organization [facility] Address [address] [place] [address] Phone Care Team Providers Care Digital Account Coordinator Name Role Phone Pasquale Pro MD Primary Care Provider [phone] [facility] Remote Patient Monitoring Status:Identified (Enrolling) Start date:03/06/2025 Enrollment reason:Identified using referral data Related social drivers of health:Tobacco Use, Depression, Physical Activity, Food Insecurity, Transportation Needs, Housing Stability, Utilities Continued Care and Services Coordination
[2025-03-07 09:37] LABS: Hematocrit 40.6 % (35.0-42.0); Hemoglobin 13.2 g/dL (11.7-13.8); Immature Granulocyte Percent A 0.5 % (0.0-0.0); Lymphocytes Absolute Auto 2.61 K/mm3 (1.10-4.50); Mean Corpuscular HGB Conc 32.5 g/dL (32-36); Mean Corpuscular Hemoglobin 31.1 pg (27.0-31.0); Mean Corpuscular Volume 95.5 fL (78.0-102.0); Nucleated Red Blood Cells Absolute Auto 0.00 K/mm3 (0.00-0.00); Nucleated Red Blood Cells Perc 0.0 % (0-0.0); Platelet Count Result 317 K/mm3 (150-420); Red Blood Count 4.25 M/mm3 (4.20-5.40); White Blood Count 8.4 K/mm3 (4.8-10.8)
[2025-03-07 10:34] LABS: Alanine Aminotransferase 15 U/L (6-35); Albumin Level 3.7 g/dL (3.5-5.1); Alkaline Phosphatase 57 U/L (38-126); Anion Gap 7 mmol/L (4-12); Aspartate Amino Transferase 20 U/L (14-36); Bilirubin,Total 0.5 mg/dL (0.2-1.3); Blood Urea Nitrogen 14 mg/dL (7-17); Calcium 9.6 mg/dL (8.4-10.2); Carbon Dioxide 27 mmol/L (22-30); Chloride 106 mmol/L (98-107); Estimated Glomerular Filt Rate > 60; Glucose 96 mg/dL (65-110); Magnesium 1.0 mg/dL (1.6-2.3); Osmolality Calculated 290 mOsm/kg (285-295); Potassium 4.1 mmol/L (3.4-5.0); Sodium 140 mmol/L (137-145); Total Protein 6.1 g/dL (6.3-8.2)
[2025-03-08 09:14] LABS: CRP < 0.5 mg/dL (<1.0)
== END 2025-03-07 09:11 | disposition home or self-care (01) ==
LOC: CHSLAB 09:12
PROVIDERS: PCP Internal Medicine; Visit Provider Internal Medicine
DX: K50.90 Crohn's disease, unspecified, without complications (principal); K52.89 Other specified noninfective gastroenteritis and colitis
CPT/HCPCS: 36415; 80053; 83605; 83735; 85025; 85652; 86140

== ENCOUNTER 2025-03-09 10:59 | Outpatient (CLI) | payer MEDICARE, SELFPAY ==
--- OUTSIDE RECORDS SUMMARY | 2025-03-09 11:45 | XMS_ITS | Clinical Summary ---
Author Organization [facility] Address [address] [place] [address] Phone Care Team Providers Care Groundman Name Role Phone Pasquale Pro MD Primary Care Provider [phone] Allergies Active Allergy Reactions Criticality Noted Date [...] needed for Wheezing. Active ergocalciferol (VITAMIN D) 43639 UNIT Capsule Take 50,000 Units by mouth once a week. Active losartan (COZAAR) 100 MG Tablet Take 100 mg by mouth daily. Active ondansetron (ZOFRAN) 4 MG Tablet Take 4 mg by mouth every 8 hours as needed for Nausea - 1st line. Active sulfaSALAzine (AZULFIDINE) 500 MG Tablet Take 1,000 mg by mouth 3 times daily. Give with food Active SQH-Gwoi-JoGuyh -MgHydr-Simeth (First-Mouthwas h BLM) Suspension 5 mL [...] 4:15 PM CDT Hospital Encounter [facility] [address] [phone] Gino Mendoza MD Small bowel obstruction (HCC) [...] any time in the past [facility], were you homeless or living in a fpc (including now)? Patient declined [facility]/28/[facility] Utilities Answer Date Recorded In the [...] Last 3 Months Results * (ABNORMAL) POCT Glucose (03/02/2025 11:15 AM CDT) Only the most recent of8 resultswithin the time period is included. [facility] GLUCOSE,BEDSID E POCT 123(H) 70 - 99 mg/dL 03/02/2025 11:16 AM CDT [facility] Comment:RN Notified Blood 03/02/2025 11:1 5 AM CDT 03/02/2025 11:16 AM CDT us None Provider POINT OF CARE TESTING Final Resu lt [facility] [address] [place] [address] * CT REFERENCE IMAGES FOR IMAGE IMPORT (03/02/2025 7:30 AM CDT) us Not On File Provider IMG CT ORDERABLES Final Res ult * XR REFERENCE IMAGES FOR IMAGE IMPORT (03/02/2025 7:27 AM CDT) Only the most recent of2 resultswithin the time period is included. us Not On File Provider IMG DIAGNOSTIC ORDERABLES F inal Result * (ABNORMAL) CBC with Auto Differential (03/02/2025 6:28 AM CDT) Only the most recent of3 resultswithin the time period is included. WBC 9.25 4.00 - 12.00 10(3)/mcL 03/02/2025 6:51 AM CDT [facility] RBC 3.63(L) 3.80 - 5.30 10(6)/mcL 03/02/2025 6:51 AM CDT [facility] HEMOGLOBIN (HGB) 11.3(L) 12.0 - 15.8 g/dL 03/02/2025 6:51 AM CDT [facility] HEMATOCRIT (HCT) 36.0 36.0 - 47.0 % 03/02/2025 6:51 AM CDT [facility] MCV 99.2(H) 82.0 - 96.0 fL 03/02/2025 6:51 AM CDT [facility] MCH 31.1 26.0 - 34.0 pg 03/02/2025 6:51 AM CDT [facility] MCHC 31.4 31.0 - 36.0 g/dL 03/02/2025 6:51 AM CDT [facility] PLATELET COUNT 243 140 - 440 10(3)/mcL 03/02/2025 6:51 AM CDT [facility] RDW 12.2 11.8 - 15.5 % 03/02/2025 6:51 AM CDT [facility] MPV 10.2 9.7 - 12.4 fL 03/02/2025 6:51 AM CDT [facility] NEUTROPHILS 71.2 47.0 - 73.0 % 03/02/2025 6:51 AM CDT [facility] LYMPHOCYTES 20.8 18.0 - 42.0 % 03/02/2025 6:51 AM CDT [facility] MONOCYTES 5.9 4.0 - 12.0 % 03/02/2025 6:51 AM CDT [facility] EOSINOPHILS 1.0 0.0 - 5.0 % 03/02/2025 6:51 AM CDT [facility] BASOPHILS 0.8 0.0 - 1.0 % 03/02/2025 6:51 AM CDT [facility] IMMATURE GRANULOCYTE 0.3 0.0 - 0.4 % 03/02/2025 6:51 AM CDT [facility] Comment:Immature Granulocyte s includes Metamyelocytes, Myelocytes, and Promyelocytes. ABSOLUTE NEUTROPHILS 6.59 1.60 - 7.70 10(3)/mcL 03/02/2025 6:51 AM CDT [facility] ABSOLUTE LYMPHOCYTES 1.92 1.30 - 3.20 10(3)/mcL 03/02/2025 6:51 AM CDT [facility] ABSOLUTE MONOCYTES 0.55 0.20 - 1.00 10(3)/[facility] 03/02/2025 6:51 AM CDT [facility] ABSOLUTE EOSINOPHIL 0.09 0.00 - 0.40 10(3)/[facility] 03/02/2025 6:51 AM CDT [facility] ABSOLUTE BASOPHILS 0.07 0.00 - 0.10 10(3)/mcL 03/02/2025 6:51 AM CDT [facility] ABSOLUTE IMMATURE GRANULOCYTE 0.03 0.00 - 0.03 10 (3) mcL. 03/02/2025 6:51 AM CDT [facility] NRBC PER 100 WBC 0 03/02/20 6:51 AM CDT [facility] Blood Venipuncture / Unknown 03/02/2025 6:28 AM CDT 03/02/2025 6:43 AM CDT us Ramandeep Núñez SEAT COVERER, RETAIL DEPARTMENT MANAGER HEMATOLOGY ORDERABLES Final Result [facility] [address] [place] [address] * (ABNORMAL) BMP with Ca, Total (03/02/2025 6:28 AM CDT) Only the most recent of2 resultswithin the time period is included. SODIUM 137 136 - 145 mmol/L 03/02/2025 7:26 AM CDT [facility] POTASSIUM 3.8 3.5 - 5.1 mmol/L 03/02/2025 7:26 AM CDT [facility] CHLORIDE 106 98 - 107 mmol/L 03/02/2025 7:26 AM T [facility] CO2, VENOUS 24 22 - 30 mmol/L 03/02/2025 7:26 AM CDT [facility] ANION GAP 10.8 <18.0 mmol/L 03/02/2025 7:26 AM CDT [facility] GLUCOSE 114(H) 70 - 99 mg/dL 03/02/2025 7:26 AM CDT [facility] BUN 30(H) 10 - 20 mg/dL 03/02/2025 7:26 AM T [facility] CREATININE, BLOOD 0.93 0.60 - 1.00 mg/dL 03/02/2025 7:26 AM T [facility] BUN/CREATININE RATIO 32(H) 12 - 20 ratio 03/02/2025 7:26 AM T [facility] CALCIUM 7.7(L) 8.7 - 10.5 mg/dL 03/02/2025 7:26 AM T [facility] GFR, ESTIMATED >60 >=60 03/02/2025 7:26 AM [facility] Comment: Creatinine Clearance is the preferred criteria for selecting drug dose adjustments in renally impaired patients. The GFR is provided as additional pertinent clinical information. GFR is reported in mL/min/1.73 sq m. Calculation based on the Chronic Kidney Disease Epidemiology Collaboration (CKD- EPI) equation refit without adjustment for race. GFR, EST. >60 >=60 025 7:26 AM CDT [facility] GFR, EST. NONAFRICAN 59(L) >=60 03/02/2025 7:26 AM CDT [facility] Blood Venipuncture / Unknown 03/02/2025 6:28 AM CDT 03/02/2025 6:43 AM CDT Ramandeep Eaton Niya LOWRY, RETAIL DEPARTMENT MANAGER CHEMISTRY ORDERABLES Final Result Performing Organization Address City/[facility] Co de Phone Number [facility] [address] [place] [address] * RHYTHM STRIP (03/02/2025 12:00 AM CDT) Only the most recent of6 resultswithin the time period is included. 03/02/2025 Provider Scan IMG ECG ORDERABLES Final Result Performing Organization Address [facility] de Phone Number RESULTING AGENCY * (ABNORMAL) TROPONIN I, HIGH SENSITIVITY (HSTRP) (03/01/2025 7:47 AM CDT) Only the most recent of2 resultswithin the time period is included. TROPONIN I, HIGH SENSITIVITY- RECIO 22(H) <=14 ng/L 03/01/2025 8:52 AM CDT [facility] Comment: High-sensitivity troponin I results are reported in ng/L making the result appear to be 1,000 times higher than the contemporary troponin I value which is reported in ng/ml. Results from Recio. Blood Venipuncture / Unknown 03/01/2025 7:47 AM CDT 03/01/2025 7:52 AM CDT Ramandeep Eaton Niya LOWRY, RETAIL DEPARTMENT MANAGER CHEMISTRY ORDERABLES Final Result Performing Organization Address [facility] de Phone Number [facility] [address] [place] [address] * EKG 12 LEAD (02/28/2025 10:13 PM CDT) Ventricular Rate 60 BPM EXTERNAL EKG Atrial Rate 60 BPM EXTERNAL EKG P-R Interval 182 ms EXTERNAL EKG QRS Duration 126 ms EXTERNAL EKG Q-T Duration 496 ms EXTERNAL EKG QTC CALCULATION 496 ms EXTERNAL EKG P [place] 69 degrees EXTERNAL EKG R [place] 46 degrees EXTERNAL EKG T [place] -38 degrees EXTERNAL EKG 02/28/2025 10:1 3 PM CDT Impressions EXTERNAL EKG - 03/02/2025 11:44 AM CDT Normal sinus rhythm Right bundle branch block T wave abnormality, consider inferior ischemia Abnormal ECG No previous ECGs available Confirmed by ODALYS NAZARIO ([id number]) on 03/02/2025 11:44:07 AM Narrative Procedure Note Odalys Nazario MD - 03/02/2025 IMPRESSION: Normal sinus rhythm Right bundle branch block T wave abnormality, consider inferior ischemia Abnormal ECG No previous ECGs available Confirmed by ODALYS NAZARIO ([id number]) on 03/02/2025 11:44:07 AM Ramandeep Núñez APRN, CNP IMG ECG ORDERABLES Fi nal Result EXTERNAL EKG * Lactic Acid (Lactate) (02/28/2025 9:47 PM CDT) LACTIC ACID 1.1 0.7 - 2.0 mmol/L 02/28/2025 10:06 PM CDT [facility] Blood Venipuncture / Unknown 02/28/2025 9:47 PM CDT 02/28/2025 9:47 PM CDT Ramandeep Núñez APRN, CNP CHEMISTRY ORDERABLES Final Result Performing Organization Address City/[facility]/ZIP Co de Phone Number [facility] [address] [place] [address] * Hemoglobin A1C w/ Estimated Glucose (02/28/2025 8:02 PM CDT) HGB-A1C 5.7 4.0 - 6.0 % 02/28/2025 8:19 PM CDT [facility] Est Average Glucose 116.9 mg/dL 02/28/2025 8:19 PM CDT [facility] Blood Venipuncture / Unknown 02/28/2025 8:02 PM CDT 02/28/2025 8:02 PM CDT Narrative [facility] - 02/28/2025 8:19 PM CDT HEMOGLOBIN A1C: DIABETIC PATIENTS: WELL-CONTROLLED: 6.2 - 7.0 INTERMEDIATE WELL-CONTROLLED: 7.0 - 9.0 POORLY-CONTROLLED: >9.0 Specimens containing greater than 5% of Hemoglobin F may result in lower than expected % HbA1C results. Ramandeep Núñez APRN, CNP CHEMISTRY ORDERABLES Final Result Performing Organization Address City/[facility]/ZIP Co de Phone Number [facility] [address] [place] [address] * (ABNORMAL) PHOSPHORUS (PO4) (02/28/2025 8:01 PM CDT) Pathologist [facility] PHOSPHORUS 5.1(H) 2.5 - 4.5 mg/dL 02/28/2025 8:21 PM CDT [facility] Blood Venipuncture / Unknown 02/28/2025 8:01 PM CDT 02/28/2025 8:01 PM CDT Ramandeep Núñez APRN, RETAIL DEPARTMENT MANAGER CHEMISTRY ORDERABLES Final Result [facility] [address] [place] [address] * MAGNESIUM (MG) (02/28/2025 8:01 PM CDT) MAGNESIUM 1.6 1.6 - 2.6 mg/dL 02/28/2025 8:21 PM CDT [facility] Blood Venipuncture / Unknown 02/28/2025 8:01 PM CDT 02/28/2025 8:01 PM CDT us Ramandeep Eaton Niya SEAT COVERER, RETAIL DEPARTMENT MANAGER CHEMISTRY ORDERABLES Final Result [facility] [address] [place] [address] * (ABNORMAL) CMP (Comprehensive Metabolic Panel) (02/28/2025 8:01 PM CDT) SODIUM 143 136 - 145 mmol/L 02/28/2025 8:21 PM CDT [facility] POTASSIUM 3.7 3.5 - 5.1 mmol/L 02/28/2025 8:21 PM CDT [facility] CHLORIDE 100 98 - 107 mmol/L 02/28/2025 8:21 PM CDT [facility] CO2, VENOUS 26 22 - 30 mmol/L 02/28/2025 8:21 PM CDT [facility] ANION GAP 20.7(H) <18.0 mmol/L 02/28/2025 8:21 PM CDT [facility] GLUCOSE 115(H) 70 - 99 mg/dL 02/28/2025 8:21 PM CDT [facility] BUN 36(H) 10 - 20 mg/dL 02/28/2025 8:21 PM CDT [facility] CREATININE, BLOOD 3.31(H) 0.60 - 1.00 mg/dL 02/28/2025 8:21 PM CDT [facility] BUN/CREATININE RATIO 11(L) 12 - 20 ratio 02/28/2025 8:21 PM CDT [facility] TOTAL PROTEIN 7.1 6.0 - 8.0 g/dL 02/28/2025 8:21 PM CDT [facility] ALBUMIN 4.1 3.5 - 5.0 g/dL 02/28/2025 8:21 PM CDT [facility] A/G RATIO 1.4 1.0 - 2.2 02/28/2025 8:21 PM CDT [facility] CALCIUM 8.4(L) 8.7 - 10.5 mg/dL 02/28/2025 8:21 PM CDT [facility] T BILI 0.3 0.2 - 1.2 mg/dL 02/28/2025 8:21 PM CDT [facility] SGOT (AST) 18 <43 U/L 02/28/2025 8:21 PM CDT [facility] SGPT (ALT) 13 <56 U/L 02/28/2025 8:21 PM CDT [facility] ALKALINE PHOSPHATASE 54 40 - 150 U/L 02/28/2025 8:21 PM CDT [facility] GFR, ESTIMATED 14(L) >=60 02/28/2025 8:21 PM CDT [facility] Comment: Creatinine Clearance is the preferred criteria for selecting drug dose adjustments in renally impaired patients. The GFR is provided as additional pertinent clinical information. GFR is reported in mL/min/1.73 sq m. Calculation based on the Chronic Kidney Disease Epidemiology Collaboration (CKD- EPI) equation refit without adjustment for race. GFR, EST. 17(L) >=60 025 8:21 PM CDT [facility] GFR, EST. NONAFRICAN 14(L) >=60 02/28/2025 8:21 PM CDT [facility] Blood Venipuncture / Unknown 02/28/2025 8:01 PM CDT 02/28/2025 8:01 PM CDT us Ramandeep Núñez APRN, MARINA CHEMISTRY ORDERABLES Final Result [facility] [address] [place] [address] * EKG SCAN (02/28/2025 12:00 AM CDT) Only the most recent of2 resultswithin the time period is included. 02/28/2025 us Provider Scan IMG ECG ORDERABLES Final Result RESULTING AGENCY from Last 3 Months Insurance MEDICARE C TDX Advance Directives * Full Code (Latest Code Status on File) Date Activated Date Inactivated Comments 02/28/2025 9:30 PM CPR-Full Treat ment: FULL ARREST: Attempt Resuscitation/CPR wit intubation and mechanical ventilation. PRE-ARREST: Use entire range of life support measures to stabilize the patient. Care Teams Groundman Relationship Specialty Start Date End Date Pasquale Pro MD [address] [place] [address] PCP - General Internal Medicine 03/02/25
--- OUTSIDE RECORDS SUMMARY | 2025-03-09 11:45 | XMS_ITS | Clinical Summary ---
Author Organization [facility] Address [address] [place] [address] Care Team Providers Care Drafter Refrigeration Name Role Phone Pasquale Pro MD Primary Care Provider [phone] Roland Tatum MD Unavailable [phone] Suly Galdamez APRN MEDICAL ART THERAPISTDannyC Unavailable Allergies Active Allergy Reactions Criticality Noted [...] kidney injury) 12/02/2022 Respiratory failure with hypoxia ([facility] C) 09/01/2022 Acute blood loss anemia ([facility]) 09/01/2022 Small bowel perforation ([facility]) 2022 Abnormal EKG 07/09/2020 PVC's (premature ventricular contractions) 07/09 Hypertension 07/09/2020 Hyperlipidemia 07/09/2020 Current smoker 07/09/2020 Diabetes ([facility]) 03/24/2018 Acute duodenal ulcer with perforation ([facility]) 03/19/2018 Resolved Problems Problem Noted Date Diagnosed Date Resolved Date Acute respiratory failure wi th hypoxia ([facility]) 03/24/2018 04/05/2018 Hypernatremia 03/24/2018 04/05/2018 Family [...] often do you attend chur ch or mormonism services? More than 4 times per year 12/02/2022 Do you belong to any clubs o r organizations such as anabaptist groups, unions, fraternal or athletic groups, or [...] and heating? Not hard at all 12/02/2022 [facility] [...] place to sleep or slept in a mcfp (including now)? No 12/02/2022 Comments No Sex [...] Malhotra RN Medical Devices Implanted Type Area Assistant Chief Train Dispatcher Device Identifier Shelf Expiration Date Model / Serial / Lot Iol Tecnis Simplicity Dcb00 - [id number] Implanted:Qty: 1 on 04/09/2022 by Tamera Lawson MD at [facility] Lens Right: Eye [employer] 08/12/2024 DCB00 / / [id number] Iol [employer] Simplicity Dcb00 - [id number] Implanted:Qty: 1 on 06/04/2022 by Tamera Lawson MD at [facility] Lens Left: Eye [employer] 05/05/2025 DCB00 / / [id number] Procedures Procedure Name Priority Date/Time Associated Diagnosis Comments HEMOGLOBIN, GLYCOSYLATED Routine 12/02/2022 2:30 AM CDT from Last 3 Months or Most Recently Relevant to Health Maintenance Results * (ABNORMAL) HEMOGLOBIN, GLYCOSYLATED (12/02/2022 2:30 AM CDT) HGB A1C 5.7(H) <5.7 % 12/02/2022 3:58 AM CDT [facility] ESTIMATED AVG GLUCOSE 117(H) 74 - 114 MG/DL 12/02/2022 3:58 AM CDT [facility] 12/02/2022 2:30 AM CDT Dyan Mccabe MD LABORATORY Final Result [facility] [address] [place] [address], [id number] from Last 3 Months or Most Recently Relevant to Health Maintenance Insurance [facility] MEDICAID Advance Directives Documents on File Type Date Recorded Patient Tin Assorter Expl anation Power of Grease Machine Worker 07/09/2020 * Full Code (Latest Code Status [...] 5:50 AM 09/08/2022 6:25 PM Care Teams Drafter Refrigeration Relationship Specialty Start Date End Date Pasquale Pro MD [address] [place] [phone] PCP - General INTERNAL MEDICINE 03/19/18 Roland Tatum MD [address] [place] [phone] Consulting Physician CARDIOVASCULAR DISEASE 06/22/20 Suly Galdamez APRN, MEDICAL ART THERAPIST-C [facility] [address] [place] [phone] NURSE PRACTITIONER 06/22/20
--- OUTSIDE RECORDS SUMMARY | 2025-03-09 11:45 | XMS_ITS | Encounter Summary ---
Author Organization [facility] Address [address] [place] [address] Care Team Providers Care Muleser Name Role Phone Pasquale Pro MD Primary Care Provider [phone] Roland Tatum MD Unavailable [phone] Suly Galdamez APRN, NP-C Unavailable Encounter Details Date Type Department Care Team (Late st Contact Info) Description 09/22/2022 Hospital Follow-up Call [facility] [address] [place] [address] Christopher Farnsworth MD [address] [phone] Social History Tobacco Use Types [...] often do you attend chur ch or anabaptism services? More than 4 times per year 08/22/2022 Do you belong to any clubs o r organizations such as uatsdin groups, unions, fraternal or athletic groups, or [...] and heating? Not hard at all 08/22/2022 [facility] - Occupational Stress [...] place to sleep or slept in a longterm (including now)? No 08/22/2022 Comments No Sex [...] Coronavirus/COVID-19? No / Unsure 09/22/2022 1:55 PM FUR DRY CLEANER HAND documented as of this encounter Functional Status * RETIRED Are you deaf or do you have serious difficulty hearing Answer Date of Assessment Author Status No 08/22/2022 3:00 AM FUR DRY CLEANER HAND Activ e * RETIRED Are you blind or do you have serious difficulty seeing, even when wearing glasses? Answer Date of Assessment Author Status No 08/22/2022 3:00 AM FUR DRY CLEANER HAND Activ e * Do you have serious difficulty walking or climbing stairs? Answer Date of Assessment Author Status No 08/22/2022 3:00 AM FUR DRY CLEANER HAND Sampson Hartmann RN Active * Do you have difficulty dressing or bathing? Answer Date of Assessment Author Status No 08/22/2022 3:00 AM Sampson Mccabe RN Active * Because of a physical, [...] infection documented in this encounter Care Teams Muleser Relationship Specialty Start Date End Date Pasquale Pro MD [address] [place] [phone] PCP - General INTERNAL MEDICINE 03/19/18 Roland Tatum MD [address] [place] [phone] Consulting Physician CARDIOVASCULAR DISEASE 06/22/20 Suly Galdamez APRN, INSTRUMENTATION MANAGER-C [address] [place] [address] [address] [place] [address] NURSE PRACTITIONER 06/22/20 documented as of this encounter
--- OUTSIDE RECORDS SUMMARY | 2025-03-09 11:45 | XMS_ITS ---
Author Organization [facility] Address [address] [place] [address] Phone Care Team Providers Care Paintings Conservator Name Role Phone Pasquale Pro MD Primary Care Provider [phone] [facility] Remote Patient Monitoring Status:Identified (Enrolling) Start date:03/06/2025 Enrollment reason:Identified using referral data Related social drivers of health:Tobacco Use, Depression, Physical Activity, Food Insecurity, Transportation Needs, Housing Stability, Utilities Continued Care and Services Coordination
[2025-03-09 12:12] LABS: Toxigenic C. Diff POSITIVE (NEGATIVE)
[2025-03-11 23:07] LABS: Calprotectin, Fecal 169 ug/g (0-120)
== END 2025-03-09 11:00 | disposition home or self-care (01) ==
PROVIDERS: PCP Internal Medicine; Visit Provider Internal Medicine
DX: K50.90 Crohn's disease, unspecified, without complications (principal)
CPT/HCPCS: 83993; 87493

== ENCOUNTER 2025-04-04 16:53 | Emergency (ER) | payer MEDICARE, SELFPAY ==
[2025-04-04] VITALS (42 sets, daily range): BP systolic 66–118; BP diastolic 32–94; PULSE 54–95; RESP 13–25; TEMP 36.3; O2SAT 89–100
--- NOTE | ~2025-04-04 | CT_ITS ---
CT ABDOMEN AND PELVIS WITHOUT CONTRAST Clinical History: gi bleed Comparison: CT 02/28/2025 Technique: Unenhanced axial images lung bases to symphysis pubis Coronal, sagittal reformats CT images acquired with automatic exposure control for dose reduction DLP: 746 mGy-cm Findings: Without intravenous contrast, sensitivity for detecting visceral parenchymal abnormalities decreased. Lung bases: Clear. Visualized heart and pericardium: Unremarkable. Liver: Small cyst segment 4A. Gallbladder: Unremarkable. Spleen: Unremarkable. Pancreas: Unremarkable. Adrenal glands: Unremarkable. Kidneys: Right kidney- No hydronephrosis. No renal stones. Left kidney- No hydronephrosis. No renal stones. Distal esophagus/stomach: Diffuse gastric wall thickening. Small bowel loops: Normal caliber and wall thickness. Suture line left upper quadrant. Colon: Normal caliber and wall thickness. Normal RLQ appendix. Nodes: No enlarged nodes. Peritoneum: No ascites. No free intraperitoneal air. Urinary bladder: Kennedy catheter. Uterus: Removed. Adnexa: No masses. Bones: No acute bony abnormality. Soft tissues: Unremarkable. Unopacified abdominal aorta: Fusiform infrarenal AAA, 3.5 cm. Aortoiliac atherosclerotic disease. IMPRESSION: 1. Diffuse gastric wall thickening and/or gastritis. Consider endoscopy. 2. SMA syndrome not excluded. 3. 3.5 cm infrarenal AAA. Recommend surveillance in 3 years. 4. Evaluation for GI bleed cannot be performed without intravenous contrast. Reviewed, dictated and finalized at location .
[2025-04-04] MEDS: SODIUM CHLORIDE 0.9% IV 1,000 ML 999 ML IV CONT ×2 (16:55→17:25)
--- OUTSIDE RECORDS SUMMARY | 2025-04-04 16:58 | XMS_ITS | Clinical Summary ---
Author Organization [facility] Address [facility] [place] [address] Care Team Providers Care Manager Of Internal Name Role Phone Pasquale Pro MD Primary Care Provider [phone] Roland Tatum MD Unavailable [phone] Suly Galdamez APRN, NP-C Unavailable Allergies Active [...] kidney injury) 12/02/2022 Respiratory failure with hypoxia ([facility]) 09/01/2022 Acute blood loss anemia ([facility]) 09/01/2022 Small bowel perforation ([facility]) 2022 Abnormal EKG 07/09/2020 PVC's (premature ventricular contractions) 07/09 Hypertension 07/09/2020 Hyperlipidemia 07/09/2020 Current smoker 07/09/2020 Diabetes ([facility]) 03/24/2018 Acute duodenal ulcer with perforation ([facility]) 03/19/2018 Resolved Problems Problem Noted Date Diagnosed Date Resolved Date Acute respiratory failure wi th hypoxia ([facility]) 03/24/2018 04/05/2018 Hypernatremia 03/24/2018 04/05/2018 Family History [...] any clubs o r organizations such as episcopalian groups, unions, fraternal or athletic groups, or [...] and heating? Not hard at all 12/02/2022 [facility] - Occupational [...] 06/04/2023 12/02/2022, 08/22/2022 COVID-19 Vaccine (3 - 2024-2 6 season) 2025 12/21/2020, 11/27/2020 RSV Immunization or 60+ Years [...] Malhotra RN Medical Devices Implanted Type Area Supervisor Coremaker Device Identifier Shelf Expiration Date Model / Serial / Lot Iol Tecnis Simplicity Dcb00 - [id number] Implanted:Qty: 1 on 04/09/2022 by Tamera Lawson MD at [facility] Lens Right: Eye [employer] 08/12/2024 DCB00 / / [id number] Iol [employer]ecnis Simplicity Dcb00 - [id number] Implanted:Qty: 1 on 06/04/2022 by Tamera Lawson MD at [facility] Lens Left: Eye [employer] 05/05/2025 DCB00 / / [id number] Procedures Procedure Name Priority Date/Time Associated Diagnosis Comments HEMOGLOBIN, GLYCOSYLATED Routine 12/02/2022 2:30 AM CDT from Last 3 Months or Most Recently Relevant to Health Maintenance Results * (ABNORMAL) HEMOGLOBIN, GLYCOSYLATED (12/02/2022 2:30 AM CDT) HGB A1C 5.7(H) <5.7 % 12/02/2022 3:58 AM CDT [facility] ESTIMATED AVG GLUCOSE 117(H) 74 - 114 MG/DL 12/02/2022 3:58 AM CDT [facility] 12/02/2022 2:30 AM CDT Dyan Mccabe MD LABORATORY Final Result [facility] [address] [place] [address], [id number] from Last 3 Months or Most Recently Relevant to Health Maintenance Insurance [facility] MEDICAID Advance Directives Documents on File Type Date Recorded Patient Compliance Review Specialist Expl anation Power of Tubing Machine Tender 07/09/2020 * Full Code (Latest Code Status [...] 5:50 AM 09/08/2022 6:25 PM Care Teams Manager Of Internal Relationship Specialty Start Date End Date Pasquale Pro MD [address] [place] [phone] PCP - General INTERNAL MEDICINE 03/19/18 Roland Tatum MD [address] [place] [phone] Consulting Physician CARDIOVASCULAR DISEASE 06/22/20 Suly Galdamez APRN, ROTARY PLANER SET UP OPERATOR-C [address] [facility] [address] [place] [phone] NURSE PRACTITIONER 06/22/20
--- OUTSIDE RECORDS SUMMARY | 2025-04-04 16:58 | XMS_ITS | Clinical Summary ---
Author Organization [facility] Address [address] [place] [address] Phone Care Team Providers Care Transactional Paralegal Name Role Phone Pasquale Pro MD Primary Care Provider [phone] Allergies Active Allergy Reactions Criticality Noted Date [...] needed for Wheezing. Active ergocalciferol (VITAMIN D) 95322 UNIT Capsule Take 50,000 Units by mouth once a week. Active losartan (COZAAR) 100 MG Tablet Take 100 mg by mouth daily. Active ondansetron (ZOFRAN) 4 MG Tablet Take 4 mg by mouth every 8 hours as needed for Nausea - 1st line. Active sulfaSALAzine (AZULFIDINE) 500 MG Tablet Take 1,000 mg by mouth 3 times daily. Give with food Active RZI-Woov-KjEraj -MgHydr-Simeth (First-Mouthwas h BLM) Suspension 5 mL by Swish & Spit route 3 times daily (before meals). 237 mL Active fluconazole (DIFLUCAN) 200 MG TabletIndicatio ns:ENT Infection Take 1 Tablet by mouth every 48 hours for 6 days. Indications: Infection of Ears, Nose or Throat 3 Tablet 5 03/09/20 Active Problems Problem Noted Date Diagnosed Date [...] 4:15 PM CDT Hospital Encounter [facility] [address] [phone] Gino Mendoza MD Small bowel obstruction (HCC) Discharge Disposition: Discharged to home or Selfcare 02/28/2025 Travel from Last 3 Months Family History Medical History Relation Name Comments Hypertension Father Heart Disease Mother Hypertension Mother Relation Name Status Comments Father Mother Social History Tobacco Use Types Packs/Day Years Used Date Smoking Tobacco: Every Day Cigarettes 1.2 92.7 Started: 1972 Smokeless Tobacco: Never Alcohol Use [...] any time in the past 12 m [facility], were you homeless or living in a senior living (including now)? Patient declined 02/28/2025 [facility] Utilities Answer Date Recorded In the past [...] - Risk 60-74 years 1-dose series) 2013 Influenza Immunization (#1) 2025 09/2 10/2023, 05/27/2023, 04/29/2022, Additional history exists SARS-COV-2 Immunization ( season) 2025 12/21/2020, 11/27/2020 Diabetes: Hemoglobin A1c 08/31/2025 02/28/2025, 11/17 Diabetes: [...] of8 resultswithin the time period is included. [facility] Signature GLUCOSE,BEDSID E POCT 123(H) 70 - 99 mg/dL 03/02/2025 11:16 AM CDT [facility] Comment:RN Notified Blood 03/02/2025 11:1 5 AM CDT 03/02/2025 11:16 AM CDT us None Provider POINT OF CARE TESTING Final Resu lt [facility] [address] [place] [address] * CT REFERENCE IMAGES FOR IMAGE IMPORT [...] - 12.00 10(3)/mcL 03/02/2025 6:51 AM CDT [facility] RBC 3.63(L) 3.80 - 5.30 10(6)/mcL 03/02/2025 6:51 AM CDT [facility] HEMOGLOBIN (HGB) 11.3(L) 12.0 - 15.8 g/dL 03/02/2025 6:51 AM CDT [facility] HEMATOCRIT (HCT) 36.0 36.0 - 47.0 % 03/02/2025 6:51 AM CDT [facility] MCV 99.2(H) 82.0 - 96.0 fL 03/02/2025 6:51 AM CDT [facility] MCH 31.1 26.0 - 34.0 pg 03/02/2025 6:51 AM CDT [facility] MCHC 31.4 31.0 - 36.0 g/dL 03/02/2025 6:51 AM CDT [facility] PLATELET COUNT 243 140 - 440 10(3)/mcL 03/02/2025 6:51 AM CDT [facility] RDW 12.2 11.8 - 15.5 % 03/02/2025 6:51 AM CDT [facility] MPV 10.2 9.7 - 12.4 fL 03/02/2025 6:51 AM CDT [facility] NEUTROPHILS 71.2 47.0 - 73.0 % 03/02/2025 6:51 AM CDT [facility] LYMPHOCYTES 20.8 18.0 - 42.0 % 03/02/2025 6:51 AM CDT [facility] MONOCYTES 5.9 4.0 - 12.0 % 03/02/2025 6:51 AM CDT [facility] EOSINOPHILS 1.0 0.0 - 5.0 % 03/02/2025 6:51 AM CDT [facility] BASOPHILS 0.8 0.0 - 1.0 % 03/02/2025 6:51 AM CDT [facility] IMMATURE GRANULOCYTE 0.3 0.0 - 0.4 % 03/02/2025 6:51 AM CDT [facility] Comment:Immature Granulocyte s includes Metamyelocytes, Myelocytes, and Promyelocytes. ABSOLUTE NEUTROPHILS 6.59 1.60 - 7.70 10(3)/mcL 03/02/2025 6:51 AM CDT [facility] ABSOLUTE LYMPHOCYTES 1.92 1.30 - 3.20 10(3)/mcL 03/02/2025 6:51 AM CDT [facility] ABSOLUTE MONOCYTES 0.55 0.20 - 1.00 10(3)/[facility] 03/02/2025 6:51 AM CDT [facility] ABSOLUTE EOSINOPHIL 0.09 0.00 - 0.40 10(3)/mcL 03/02/2025 6:51 AM CDT [facility] ABSOLUTE BASOPHILS 0.07 0.00 - 0.10 10(3)/mcL 03/02/2025 6:51 AM CDT [facility] ABSOLUTE IMMATURE GRANULOCYTE 0.03 0.00 - 0.03 10 (3) mcL. 03/02/2025 6:51 AM CDT [facility] NRBC PER 100 WBC 0 03/02/20 6:51 AM CDT [facility] Blood Venipuncture / Unknown 03/02/2025 6:28 AM CDT 03/02/2025 6:43 AM CDT us Ramandeep Núñez FLUE TILE PRESS OPERATOR, DOCKET CLERK HEMATOLOGY ORDERABLES Final Result [facility] [address] [place] [address] * (ABNORMAL) BMP with Ca, Total (03/02/2025 6:28 AM CDT) Only the most recent of2 resultswithin the time period is included. SODIUM 137 136 - 145 mmol/L 03/02/2025 7:26 AM CDT [facility] POTASSIUM 3.8 3.5 - 5.1 mmol/L 03/02/2025 7:26 AM CDT [facility] CHLORIDE 106 98 - 107 mmol/L 03/02/2025 7:26 AM T [facility] CO2, VENOUS 24 22 - 30 mmol/L 03/02/2025 7:26 AM T [facility] ANION GAP 10.8 <18.0 mmol/L 03/02/2025 7:26 AM CDT [facility] GLUCOSE 114(H) 70 - 99 mg/dL 03/02/2025 7:26 AM CDT [facility] BUN 30(H) 10 - 20 mg/dL 03/02/2025 7:26 AM T [facility] CREATININE, BLOOD 0.93 0.60 - 1.00 mg/dL 03/02/2025 7:26 AM T [facility] BUN/CREATININE RATIO 32(H) 12 - 20 ratio 03/02/2025 7:26 AM T [facility] CALCIUM 7.7(L) 8.7 - 10.5 mg/dL 03/02/2025 7:26 AM CDT [facility] GFR, ESTIMATED >60 >=60 03/02/2025 7:26 AM [facility] Comment: Creatinine Clearance is the preferred criteria for selecting drug dose adjustments in renally impaired patients. The GFR is provided as additional pertinent clinical information. GFR is reported in mL/min/1.73 sq m. Calculation based on the Chronic Kidney Disease Epidemiology Collaboration (CKD- EPI) equation refit without adjustment for race. GFR, EST. >60 >=60 025 7:26 AM CDT [facility] GFR, EST. NONAFRICAN 59(L) >=60 03/02/2025 7:26 AM CDT [facility] Blood Venipuncture / Unknown 03/02/2025 6:28 AM CDT 03/02/2025 6:43 AM CDT Raamndeep Eaton Niya LOWRY, DOCKET CLERK CHEMISTRY ORDERABLES Final Result Performing Organization Address City/[facility] Co de Phone Number [facility] [address] [place] [address] * RHYTHM STRIP (03/02/2025 12:00 AM CDT) Only the most recent of6 resultswithin the time period is included. 03/02/2025 Provider Scan IMG ECG ORDERABLES Final Result Performing Organization Address [facility] de Phone Number RESULTING AGENCY * (ABNORMAL) TROPONIN I, HIGH SENSITIVITY (HSTRP) (03/01/2025 7:47 AM CDT) Only the most recent of2 resultswithin the time period is included. TROPONIN I, HIGH SENSITIVITY- RECIO 22(H) <=14 ng/L 03/01/2025 8:52 AM CDT [facility] Comment: High-sensitivity troponin I results are reported in ng/L making the result appear to be 1,000 times higher than the contemporary troponin I value which is reported in ng/ml. Results from Recio. Blood Venipuncture / Unknown 03/01/2025 7:47 AM CDT 03/01/2025 7:52 AM CDT Ramandeep Eaton Niya LOWRY, DOCKET CLERK CHEMISTRY ORDERABLES Final Result Performing Organization Address [facility] Co de Phone Number [facility] [address] [place] [address] * EKG 12 LEAD (02/28/2025 10:13 PM CDT) Ventricular Rate 60 BPM EXTERNAL EKG Atrial Rate 60 BPM EXTERNAL EKG P-R Interval 182 ms EXTERNAL EKG QRS Duration 126 ms EXTERNAL EKG Q-T Duration 496 ms EXTERNAL EKG QTC CALCULATION 496 ms EXTERNAL EKG P [place] 69 degrees EXTERNAL EKG R [place] 46 degrees EXTERNAL EKG T [place] -38 degrees EXTERNAL EKG 02/28/2025 10:1 3 PM CDT Impressions EXTERNAL EKG - 03/02/2025 11:44 AM CDT Normal sinus rhythm Right bundle branch block T wave abnormality, consider inferior ischemia Abnormal ECG No previous ECGs available Confirmed by ODALYS NAZARIO ([id number]) on 03/02/2025 11:44:07 AM Narrative Procedure Note Odalys Nazario MD - 03/02/2025 IMPRESSION: Normal sinus rhythm Right bundle branch block T wave abnormality, consider inferior ischemia Abnormal ECG No previous ECGs available Confirmed by ODALYS NAZARIO ([id number]) on 03/02/2025 11:44:07 AM us Ramandeep Núñez APRN, CNP IMG ECG ORDERABLES Fi nal Result Performing Organization Address City/[facility]/ZIP Co de Phone Number EXTERNAL EKG * Lactic Acid (Lactate) (02/28/2025 9:47 PM CDT) LACTIC ACID 1.1 0.7 - 2.0 mmol/L 02/28/2025 10:06 PM CDT [facility] Blood Venipuncture / Unknown 02/28/2025 9:47 PM CDT 02/28/2025 9:47 PM CDT us Ramandeep Núñez APRN, CNP CHEMISTRY ORDERABLES Final Result Performing Organization Address City/[facility]/ZIP Co de Phone Number [facility] [address] [place] [address] * Hemoglobin A1C w/ Estimated Glucose (02/28/2025 8:02 PM CDT) HGB-A1C 5.7 4.0 - 6.0 % 02/28/2025 8:19 PM CDT [facility] Est Average Glucose 116.9 mg/dL 02/28/2025 8:19 PM CDT [facility] Blood Venipuncture / Unknown 02/28/2025 8:02 PM CDT 02/28/2025 8:02 PM CDT Narrative [facility] - 02/28/2025 8:19 PM CDT HEMOGLOBIN A1C: DIABETIC PATIENTS: WELL-CONTROLLED: 6.2 - 7.0 INTERMEDIATE WELL-CONTROLLED: 7.0 - 9.0 POORLY-CONTROLLED: >9.0 Specimens containing greater than 5% of Hemoglobin F may result in lower than expected % HbA1C results. Ramandeep Núñez APRN, CNP CHEMISTRY ORDERABLES Final Result Performing Organization Address City/[facility]/ZIP Co de Phone Number [facility] [address] [place] [address] * (ABNORMAL) PHOSPHORUS (PO4) (02/28/2025 8:01 PM CDT) Pathologist [facility] PHOSPHORUS 5.1(H) 2.5 - 4.5 mg/dL 02/28/2025 8:21 PM CDT [facility] Blood Venipuncture / Unknown 02/28/2025 8:01 PM CDT 02/28/2025 8:01 PM CDT Ramandeep Núñez APRN, CNP CHEMISTRY ORDERABLES Final Result [facility] [address] [place] [address] * MAGNESIUM (MG) (02/28/2025 8:01 PM CDT) MAGNESIUM 1.6 1.6 - 2.6 mg/dL 02/28/2025 8:21 PM [address] [facility] Blood Venipuncture / Unknown 02/28/2025 8:01 PM CDT 02/28/2025 8:01 PM CDT us Ramandeep Eaton Niya FLUE TILE PRESS OPERATOR, DOCKET CLERK CHEMISTRY ORDERABLES Final Result [facility] [address] [place] [address] * (ABNORMAL) CMP (Comprehensive Metabolic Panel) (02/28/2025 8:01 PM CDT) SODIUM 143 136 - 145 mmol/L 02/28/2025 8:21 PM [address] [facility] POTASSIUM 3.7 3.5 - 5.1 mmol/L 02/28/2025 8:21 PM CD[address] [facility] CHLORIDE 100 98 - 107 mmol/L 02/28/2025 8:21 PM CD[address] [facility] CO2, VENOUS 26 22 - 30 mmol/L 02/28/2025 8:21 PM CD[address] [facility] ANION GAP 20.7(H) <18.0 mmol/L 02/28/2025 8:21 PM CDT [facility] GLUCOSE 115(H) 70 - 99 mg/dL 02/28/2025 8:21 PM CDT [facility] BUN 36(H) 10 - 20 mg/dL 02/28/2025 8:21 PM CD[address] [facility] CREATININE, BLOOD 3.31(H) 0.60 - 1.00 mg/dL 02/28/2025 8:21 PM CD[address] [facility] BUN/CREATININE RATIO 11(L) 12 - 20 ratio 02/28/2025 8:21 PM CD[address] [facility] TOTAL PROTEIN 7.1 6.0 - 8.0 g/dL 02/28/2025 8:21 PM [address] [facility] ALBUMIN 4.1 3.5 - 5.0 g/dL 02/28/2025 8:21 PM CDT [facility] A/G RATIO 1.4 1.0 - 2.2 02/28/2025 8:21 PM CDT [facility] CALCIUM 8.4(L) 8.7 - 10.5 mg/dL 02/28/2025 8:21 PM CDT [facility] T BILI 0.3 0.2 - 1.2 mg/dL 02/28/2025 8:21 PM CDT [facility] SGOT (AST) 18 <43 U/L 02/28/2025 8:21 PM CD[address] [facility] SGPT (ALT) 13 <56 U/L 02/28/2025 8:21 PM CDT [facility] ALKALINE PHOSPHATASE 54 40 - 150 U/L 02/28/2025 8:21 PM [address] [facility] GFR, ESTIMATED 14(L) >=60 02/28/2025 8:21 PM [address] [facility] Comment: Creatinine Clearance is the preferred criteria for selecting drug dose adjustments in renally impaired patients. The GFR is provided as additional pertinent clinical information. GFR is reported in mL/min/1.73 sq m. Calculation based on the Chronic Kidney Disease Epidemiology Collaboration (CKD- EPI) equation refit without adjustment for race. GFR, EST. 17(L) >=60 025 8:21 PM [address] [facility] GFR, EST. NONAFRICAN 14(L) >=60 02/28/2025 8:21 PM [address] [facility] Blood Venipuncture / Unknown 02/28/2025 8:01 PM CDT 02/28/2025 8:01 PM CDT us Ramandeep Núñez FLUE TILE PRESS OPERATOR, DOCKET CLERK CHEMISTRY ORDERABLES Final Result [facility] [address] [place] [address] * EKG SCAN (02/28/2025 12:00 AM CDT) Only the most recent of2 resultswithin the time period is included. 02/28/2025 us Provider Scan IMG ECG ORDERABLES Final Result RESULTING AGENCY from Last 3 Months Insurance MEDICARE C [employer] Advance Directives * Full Code (Latest Code Status on File) Date Activated Date Inactivated Comments 02/28/2025 9:30 PM CPR-Full Treat ment: FULL ARREST: Attempt Resuscitation/CPR wit intubation and mechanical ventilation. PRE-ARREST: Use entire range of life support measures to stabilize the patient. Care Teams Transactional Paralegal Relationship Specialty Start Date End Date Pasquale Pro MD [address] [place] [address] PCP - General Internal Medicine 03/02/25
--- OUTSIDE RECORDS SUMMARY | 2025-04-04 16:58 | XMS_ITS | Encounter Summary ---
Author Organization [facility] Address [address] [place] [address] Care Team Providers Care Brick Grader Name Role Phone Pasquale Pro MD Primary Care Provider [phone] Roland Tatum MD Unavailable [phone] Suly Galdamez APRN, NP-C Unavailable [phone] Encounter Details Date Type Department Care Team (Late st Contact Info) Description 09/22/2022 Hospital Follow-up Call [facility] [address] [place] [address] Christopher Farnsworth MD [address] [phone] Social History Tobacco Use Types [...] any clubs o r organizations such as shinto groups, unions, fraternal or athletic groups, or [...] and heating? Not hard at all 08/22/2022 [facility] [...] place to sleep or slept in a intermediate (including now)? No 08/22/2022 Comments No Sex [...] Coronavirus/COVID-19? No / Unsure 09/22/2022 1:55 PM COSMETIC SALES CONSULTANT documented as of this encounter Functional Status * RETIRED Are you deaf or do you have serious difficulty hearing Answer Date of Assessment Author Status No 08/22/2022 3:00 AM COSMETIC SALES CONSULTANT Activ e * RETIRED Are you blind or do you have serious difficulty seeing, even when wearing glasses? Answer Date of Assessment Author Status No 08/22/2022 3:00 AM COSMETIC SALES CONSULTANT Activ e * Do you have serious difficulty walking or climbing stairs? Answer Date of Assessment Author Status No 08/22/2022 3:00 AM COSMETIC SALES CONSULTANT Sampson Hartmann RN Active * Do you [...] infection documented in this encounter Care Teams Brick Grader Relationship Specialty Start Date End Date Pasquale Pro MD [address] [place] [phone] PCP - General INTERNAL MEDICINE 03/19/18 Roland Tatum MD [address] [place] [phone] Consulting Physician CARDIOVASCULAR DISEASE 06/22/20 Suly Galdamez APRN, CLAY PROCESSING FACTORY WORKER-C [address] [place] [address] [address] [place] [address] NURSE PRACTITIONER 06/22/20 documented as of this encounter
--- NOTE | 2025-04-04 17:01 | ECG_ITS ---
Test Date: 2025-04-04 17:43:49 Measurements Intervals [place] Rate: 66 P: 82 CO: 181 QRS: 67 QRSD: 130 T: 51 QT: 492 QTc: 517 Interpretive Statements SINUS RHYTHM RIGHT BUNDLE BRANCH BLOCK [120+ ms QRS DURATION, UPRIGHT V1, 40+ ms S IN I/aVL/V4/V5/V6] MODERATE ST AND T-WAVE ABNORMALITY, CONSIDER ANTEROLATERAL ISCHEMIA [-0.1+ mV T-WAVE IN I/aVL/V5/V6] MODERATE ST AND T-WAVE ABNORMALITY, CONSIDER INFERIOR ISCHEMIA [-0.1+ mV T-WAVE IN II/aVF] ABNORMAL ECG Compared to ECG 02/28/2025 08:07:45 Ventricular premature complex(es) no longer present T-wave abnormality still present Possible ischemia still present Electronically Signed On 04-04-2025 18:15:09 CDT by Rambo Gonzales M.D.
--- NOTE | 2025-04-04 17:03 | ED.GIBLEED ---
HPI - GI Bleed General Chief complaint: Syncope Stated complaint: low b/p GI bleed Time Seen by Provider: 04/04/25 17:01 Source: patient and EMS Mode of arrival: EMS Limitations: no limitations History of Present Illness HPI Narrative: Patient is a 70-year-old female with diarrhea for the past 4 days. She got lightheaded and dizzy and near passed out prior to arrival. Patient has C diff positive and is slowly weaning off of her vancomycin p.o.. No nausea vomiting. She called EMS and they found her to be hypotensive and brought her to the ER. Initially there was a concern about dark stool suggesting blood by EMS. MD complaint: melena (Possibly) Onset (ago): day(s) (4) Pain Consistency: constant Severity: moderate Relieving factors: none Exacerbating factors: eating (Patient said she ate split ham pea soup and this started 4 days ago) Context: other (C diff currently, diabetes 2, hypertension, hyperlipidemia) Associated symptoms: denies other symptoms Treatments Prior to Arrival: none (IV fluids via EMS) Related Data Home Medications ?Medication ?Instructions ?Recorded ?Confirmed ?Last Taken ?Type atorvastatin 10 mg tablet 10 mg PO DAILY 03/09/21 02/28/25 03/10/23 09:00 History fenofibrate micronized 67 mg 67 mg PO DAILY 03/09/21 02/28/25 03/10/23 09:00 History capsule glimepiride 1 mg tablet 1 mg PO DAILY 03/09/21 02/28/25 03/10/23 09:00 History amlodipine 10 mg tablet 10 mg PO DAILY 11/20/22 02/28/25 03/10/23 09:00 History aspirin 81 mg tablet,delayed 81 mg PO DAILY 11/20/22 02/28/25 03/10/23 09:00 History release carvedilol 12.5 mg tablet 12.5 mg PO BID 11/20/22 02/28/25 03/10/23 18:00 History gabapentin 100 mg capsule 100 mg PO TID 11/20/22 02/28/25 Unknown History pantoprazole 40 mg tablet,delayed 40 mg PO BID 11/20/22 02/28/25 03/10/23 18:00 History release sulfasalazine 500 mg tablet 1 g PO TID 02/05/23 02/28/25 Unknown History ergocalciferol (vitamin D2) 1,250 1,250 mcg PO WEEKLY 02/15/25 02/28/25 02/10/25 06:06 History mcg (50,000 unit) capsule (Vitamin D2) losartan 100 mg tablet 100 mg PO DAILY 02/15/25 02/28/25 Unknown History Allergies Allergy/AdvReac Type Severity Reaction Status Date / Time hydrocodone Allergy Intermediate Vomiting Verified 02/28/25 07:42 Review of Systems Review of Systems: All systems reviewed & are unremarkable except as noted in HPI and below Constitutional: Constitutional: Reports no additional constitutional complaints Eyes: Eyes: Reports no additional eye complaints ENT: Reports system reviewed and no additional complaints, except as documented Cardiovascular: Cardiovascular: Reports no additional cardiovascular complaints Respiratory: Respiratory: Reports no additional respiratory complaints Gastrointestinal: Gastrointestinal: Reports no additional gastrointestinal complaints Genitourinary: Genitourinary: Reports no additional female genitourinary complaints Musculoskeletal: Musculoskeletal: Reports no additional musculoskeletal complaints Integumentary/Breasts: Skin/Breast: Reports system reviewed and no additional complaints, except as docu Neurologic: Reports system reviewed and no additional complaints, except as documented Psychiatric: Psychiatric: Reports no additional psychiatric complaints Endocrine: Endocrine: Reports no additional endocrine complaints Hematologic/Lymphatic: Hematologic/Lymphatic: Reports no additional hematologic/lymphatic complaints Allergic/Immunologic: Allergic/Immunologic: Reports no additional allergic/immunologic complaints PMFSH Past Medical History Medical History Infrarenal abdominal aortic aneurysm (AAA) without rupture COPD (chronic obstructive pulmonary disease) Tobacco use Breast cancer Fatty liver GERD (gastroesophageal reflux disease) Diarrhea YRIS (iron deficiency anemia) HTN (hypertension) Diabetes mellitus Surgical History Surgical History Hx of tubal ligation Hx of hysterectomy Hx of mastectomy Family History Family History Father Hypertension Mother Hypertension Heart disease Social History Social History Smoking packs per day: 1 Smoking cigarettes per day: 20.0 Years smoked: 40 Smoking pack-years: 40.00 Smoking status: Current every day smoker Tobacco type: cigarettes and e-cigarettes/vaping Smokeless tobacco user: chewing tobacco Second hand tobacco smoke exposure: Yes Alcohol intake: never Substance use: current Substance use type: marijuana Lack of Transportation: No Lack of Food: Never True Current Housing: I Have Housing Concerned About Future Housing: No Difficulty Paying Gas/Electric Bills: No Difficulty Paying for Meds: No Currently Unemployed: No Education: Bachelor's Degree Difficulty w/ Childcare or Family Care: No Living arrangements: with family Gender identity (if verbalized by the patient): Female Spiritual care concerns: No Exam Const: General: ill appearing Nutritional Appearance: well nourished Orientation/consciousness: patient oriented x3 Limitations: other limitations (Clinical scenario) HENMT: Head: normal to inspection Ears: external ears normal Face/Nose/Sinus: Normal external nose present Eyes: Conjunctivae: conjunctivae normal Pupils: Equal, round and reactive pupils present EOM: EOMs intact bilaterally Neck: Neck: normal visual inspection Chest: Chest palpation & inspection: normal inspection of the chest Resp: Effort & Inspection: normal respiratory effort and not labored Auscultation: clear to auscultation bilaterally and no crackles Cardio: Rate: regular rate Rhythm: regular rhythm Heart sounds: no murmurs GI: Inspection: non-distended GI Palp: Yes Soft to palpation and No Tenderness to palpation present (GI) Auscultation: normal bowel sounds : General: Yes bladder normal to palpation Back/Spine/Pelvis: Back: no CVA tenderness Skin: General skin exam: normal color Rashes: no rashes Wounds: no wounds Neuro: General: patient oriented x3, moves all extremities, no meningeal signs, no focal motor deficits and CN's II-XI intact bilaterally Extrem: General: normal to inspection Psych: Mental Status: mental status grossly normal Course Vital Signs Vital signs: Vital Signs Temperature 36.3 C L 04/04/25 16:53 Pulse Rate 74 04/04/25 16:53 Respiratory Rate 18 04/04/25 16:53 Blood Pressure 66/32 L 04/04/25 16:53 Pulse Oximetry 89 L 04/04/25 16:53 Oxygen Delivery Room Air 04/04/25 16:53 Temperature 36.3 C L 04/04/25 16:53 Pulse Rate 58 L 04/04/25 20:15 Respiratory Rate 15 04/04/25 20:15 Blood Pressure 98/53 L 04/04/25 20:15 Pulse Oximetry 99 04/04/25 20:15 Oxygen Delivery Room Air 04/04/25 16:53 Oxygen Flow Rate 2 04/04/25 17:31 Procedures Central Line Placement Left Femoral: Central Line Date: 04/04/25 Central Line Time: 19:08 Discussed w/ the patient/family/POA,the placement of a central venous catheter, including its clinical necessity/indication & associated potential risks, benifits and alternatives.: Yes The patient/family/POA understand(s) and acknowledge(s) the need to proceed with central venous catheter insertion as an important element of the patient's clinical management.: Yes Performed Emergently - Given emergent patient condition, temporal constraints may have precluded informed consent.: Yes Time Out Performed: Yes Patient Placed on Monitor/Pulse Ox: Yes Max. Sterile Barrier Technique: Caps, large sterile sheet and hand hygiene Central Line Prep: 2% chlorhexidine scrub and sterile drapes applied Technique: seldinger Local Anesthetic: lidocaine 1% Amount of anesthesia used (mL): 5 Ultrasound Used for Placement: No Central Line Lumen Inserted: triple Post Procedure: sutured in place, good blood return, all ports aspirated, flushed, capped and sterile dressing applied Patient Tolerated Procedure: well and no complications Complications: none MDM - GI Bleed MDM Narrative Medical decision making narrative: Patient is a 70-year-old female with hypotension and near syncopal episode secondary to diarrhea. She may have a GI bleed or she may have recurrent C diff. we will get ACLS protocol going at this time and repaired the hypotension. Further we will do labs. She will transfer for higher level medical care. Lab Data Attestation: I reviewed the patient's lab results. 04/04/25 19:46 04/04/25 17:01 Labs: Lab Results 04/04/25 04/04/25 04/04/25 Range/Units 17:01 17:02 17:05 WBC 14.9 H (4.8-10.8) K/mm3 RBC 5.51 H (4.20-5.40) M/mm3 Hgb 16.9 H (11.7-13.8) g/dL Hct 50.0 H (35.0-42.0) % MCV 90.7 (78.0-102.0) fL MCH 30.7 (27.0-31.0) pg MCHC 33.8 (32-36) g/dL RDW 12.3 (11.6-14.4) % Plt Count 394 (150-420) K/mm3 MPV 10.4 (9.2-11.8) fl Immature Gran % (Auto) 0.5 H (0.0-0.0) % Neut % (Auto) 77.4 H (50.0-70.0) % Lymph % (Auto) 15.4 L (18.0-42.0) % [place] % (Auto) 6.2 (2.0-11.0) % Eos % (Auto) 0.1 L (1.0-6.0) % Baso % (Auto) 0.4 (0.0-1.0) % Lymph # (Auto) 2.30 (1.10-4.50) K/mm3 [place] # (Auto) 0.92 H (0.10-0.90) K/mm3 Eos # (Auto) 0.01 L (0.02-0.50) K/mm3 Baso # (Auto) 0.06 (0.00-0.10) K/mm3 Abs Immat Gran (auto) 0.08 H (0.00-0.00) K/mm3 Absolute Neuts (auto) 11.53 H (1.70-7.20) K/mm3 Absolute Nucleated RBC 0.00 (0.00-0.00) K/mm3 Nucleated RBC % 0.0 (0-0.0) % PT 12.1 (9.50-12.1) Seconds INR 1.1 APTT 27.5 (23.9-30.70) Sec Sodium 131 L (137-145) mmol/L Potassium 5.0 (3.4-5.0) mmol/L Chloride 83 L (98-107) mmol/L Carbon Dioxide 18 L (22-30) mmol/L Anion Gap 30 H (4-12) mmol/L BUN 91 H D (7-17) mg/dL Creatinine 7.38 H (0.7-1.0) mg/dL Estim Creat Clear Calc 6 ml/min Estimated GFR 5 L (59 - ) Glucose 169 H (65-110) mg/dL Calculated Osmolality 304 H (285-295) mOsm/kg Lactic Acid 3.9 H (0.4-2.0) mmol/L Calcium 8.7 (8.4-10.2) mg/dL Total Bilirubin 0.9 (0.2-1.3) mg/dL AST 35 (14-36) U/L ALT 22 (6-35) U/L Alkaline Phosphatase 59 (38-126) U/L Troponin I 0.048 H* (0.000-0.034) ng/mL Total Protein 9.6 H (6.3-8.2) g/dL Albumin 4.9 (3.5-5.1) g/dL Urine Color (Yellow) Urine Appearance (Clear) Urine pH (5.0-8.0) Ur Specific [place] (1.010-1.020) Urine Protein (Negative) Urine Glucose (UA) (Negative) Urine Ketones (Negative) Ur Blood (Man) (Negative) Urine Nitrate (Negative) Urine Bilirubin (Negative) Urine Urobilinogen (0.2-1.0) mg/dL Leukocyte Esterase Rfl (Negative) FLORENCIO/UL Urine RBC (0-2) /hpf Urine WBC (0-3) /hpf Ur Squamous Epith Cells (Few) /hpf Urine Bacteria (None) /hpf Hyaline Casts (None) /lpf Stool Occult Blood (Negative) Blood Type O Negative Antibody Screen Negative Crossmatch See Detail 04/04/25 04/04/25 Range/Units 18:12 19:46 WBC (4.8-10.8) K/mm3 RBC (4.20-5.40) M/mm3 Hgb 14.0 H (11.7-13.8) g/dL Hct 41.7 (35.0-42.0) % MCV (78.0-102.0) fL MCH (27.0-31.0) pg MCHC (32-36) g/dL RDW (11.6-14.4) % Plt Count (150-420) K/mm3 MPV (9.2-11.8) fl Immature Gran % (Auto) (0.0-0.0) % Neut % (Auto) (50.0-70.0) % Lymph % (Auto) (18.0-42.0) % [place] % (Auto) (2.0-11.0) % Eos % (Auto) (1.0-6.0) % Baso % (Auto) (0.0-1.0) % Lymph # (Auto) (1.10-4.50) K/mm3 [place] # (Auto) (0.10-0.90) K/mm3 Eos # (Auto) (0.02-0.50) K/mm3 Baso # (Auto) (0.00-0.10) K/mm3 Abs Immat Gran (auto) (0.00-0.00) K/mm3 Absolute Neuts (auto) (1.70-7.20) K/mm3 Absolute Nucleated RBC (0.00-0.00) K/mm3 Nucleated RBC % (0-0.0) % PT (9.50-12.1) Seconds INR APTT (23.9-30.70) Sec Sodium (137-145) mmol/L Potassium (3.4-5.0) mmol/L Chloride (98-107) mmol/L Carbon Dioxide (22-30) mmol/L Anion Gap (4-12) mmol/L BUN (7-17) mg/dL Creatinine (0.7-1.0) mg/dL Estim Creat Clear Calc ml/min Estimated GFR (59 - ) Glucose (65-110) mg/dL Calculated Osmolality (285-295) mOsm/kg Lactic Acid 2.2 H (0.4-2.0) mmol/L Calcium (8.4-10.2) mg/dL Total Bilirubin (0.2-1.3) mg/dL AST (14-36) U/L ALT (6-35) U/L Alkaline Phosphatase (38-126) U/L Troponin I (0.000-0.034) ng/mL Total Protein (6.3-8.2) g/dL Albumin (3.5-5.1) g/dL Urine Color Yellow (Yellow) Urine Appearance Cloudy A (Clear) Urine pH 5.0 (5.0-8.0) Ur Specific [place] >= 1.030 H (1.010-1.020) Urine Protein 2+ H (Negative) Urine Glucose (UA) Trace H (Negative) Urine Ketones Trace H (Negative) Ur Blood (Man) 1+ H (Negative) Urine Nitrate Negative (Negative) Urine Bilirubin 2+ H (Negative) Urine Urobilinogen 0.2 (0.2-1.0) mg/dL Leukocyte Esterase Rfl Trace H (Negative) FLORENCIO/UL Urine RBC 0-2 (0-2) /hpf Urine WBC 16-20 H (0-3) /hpf Ur Squamous Epith Cells Few (Few) /hpf Urine Bacteria 1+ H (None) /hpf Hyaline Casts Present (None) /lpf Stool Occult Blood Positive A (Negative) Blood Type Antibody Screen Crossmatch Imaging Data Attestation: I personally reviewed and interpreted this imaging study as follows: Radiologist's impression: CT scan of the abdomen and pelvis without contrast due to renal function shows IMPRESSION: 1. Diffuse gastric wall thickening and/or gastritis. Consider endoscopy. 2. SMA syndrome not excluded. 3. 3.5 cm infrarenal AAA. Recommend surveillance in 3 years. 4. Evaluation for GI bleed cannot be performed without intravenous contrast. ECG Data EKG #1: Attestation: I personally reviewed and interpreted this ECG as follows: ECG completion date: 04/04/25 ECG completion time: 18:37 EKG Interpretation: normal rate, no ectopy, non-specific ST changes, normal QRS, RBBB, normal QT and NL axis Critical Care Time Critical Care Time Critical Care Time: Yes Total Critical Care Time: 60 Discharge Plan Discharge Clinical Impression: GI (gastrointestinal bleed), Acute hypotension, SEAN (acute kidney injury), Acute UTI, Elevated troponin Patient Disposition: Acute Care Hospital Condition: Serious Patient Language: Palestinian Prescriptions: No Action atorvastatin 10 mg tablet 10 mg PO DAILY fenofibrate micronized 67 mg capsule 67 mg PO DAILY glimepiride 1 mg tablet 1 mg PO DAILY carvedilol 12.5 mg tablet 12.5 mg PO BID aspirin 81 mg Tablet,Delayed Release (Dr/Ec) 81 mg PO DAILY amlodipine 10 mg tablet 10 mg PO DAILY pantoprazole 40 mg tablet,delayed release (DR/EC) 40 mg PO BID gabapentin 100 mg capsule 100 mg PO TID albuterol sulfate 90 mcg/actuation HFA aerosol inhaler 2 puff inhalation QID PRN (Reason: shortness of breath or wheezing) Qty: 6.7 0RF ergocalciferol (vitamin D2) [Vitamin D2] 1,250 mcg (50,000 unit) capsule 1,250 mcg PO WEEKLY losartan 100 mg tablet 100 mg PO DAILY ondansetron HCl 4 mg tablet 4 mg PO Q8H PRN (Reason: nausea and vomiting) 3 Days Qty: 20 0RF sulfasalazine 500 mg tablet 1 g PO TID Rx Instructions: give with food (meal/snack) Follow-up/Referrals: UNKNOWN,DOCTOR [Non-Staff] Time of Disposition: 20:37
[2025-04-04 17:09] LABS: Hematocrit 50.0 % (35.0-42.0); Hemoglobin 16.9 g/dL (11.7-13.8); Immature Granulocyte Percent A 0.5 % (0.0-0.0); Lymphocytes Absolute Auto 2.30 K/mm3 (1.10-4.50); Mean Corpuscular HGB Conc 33.8 g/dL (32-36); Mean Corpuscular Hemoglobin 30.7 pg (27.0-31.0); Mean Corpuscular Volume 90.7 fL (78.0-102.0); Nucleated Red Blood Cells Absolute Auto 0.00 K/mm3 (0.00-0.00); Nucleated Red Blood Cells Perc 0.0 % (0-0.0); Platelet Count Result 394 K/mm3 (150-420); Red Blood Count 5.51 M/mm3 (4.20-5.40); White Blood Count 14.9 K/mm3 (4.8-10.8)
[2025-04-04] MEDS: NOREPINEPHRINE 8 MG/D5W 250 ML 8 MG/250 ML BAG 9.38 MG IV CONT (17:17)
[2025-04-04 17:18] LABS: Alanine Aminotransferase 22 U/L (6-35); Albumin Level 4.9 g/dL (3.5-5.1); Alkaline Phosphatase 59 U/L (38-126); Anion Gap 30 mmol/L (4-12); Aspartate Amino Transferase 35 U/L (14-36); Bilirubin,Total 0.9 mg/dL (0.2-1.3); Blood Urea Nitrogen 91 mg/dL (7-17); Calcium 8.7 mg/dL (8.4-10.2); Carbon Dioxide 18 mmol/L (22-30); Chloride 83 mmol/L (98-107); Glucose 169 mg/dL (65-110); Osmolality Calculated 304 mOsm/kg (285-295); Potassium 5.0 mmol/L (3.4-5.0); Sodium 131 mmol/L (137-145); Total Protein 9.6 g/dL (6.3-8.2)
[2025-04-04 17:18] LABS: INR 1.1; Partial Thromboplastin Time 27.5 Sec (23.9-30.70); Prothrombin Time 12.1 Seconds (9.50-12.1)
[2025-04-04 17:32] LABS: Troponin I 0.048 ng/mL (0.000-0.034)
[2025-04-04 17:37] LABS: Estimated CRCL calculation 6 ml/min; Estimated Glomerular Filt Rate 5
--- OUTSIDE RECORDS SUMMARY | 2025-04-04 17:43 | XMS_ITS | Clinical Summary ---
Author Organization [facility] Address [facility] [place] [address] Care Team Providers Care Inspector Metal Can Name Role Phone Pasquale Pro MD Primary Care Provider [phone] Roland Tatum MD Unavailable [phone] Suly Galdamez APRN, NP-C Unavailable Allergies Active [...] kidney injury) 12/02/2022 Respiratory failure with hypoxia ([facility]/ C) 09/01/2022 Acute blood loss anemia ([facility]) 09/01/2022 Small bowel perforation ([facility]) 2022 Abnormal EKG 07/09/2020 PVC's (premature ventricular contractions) 07/09 Hypertension 07/09/2020 Hyperlipidemia 07/09/2020 Current smoker 07/09/2020 Diabetes ([facility]) 03/24/2018 Acute duodenal ulcer with perforation ([facility]) 03/19/2018 Resolved Problems Problem Noted Date Diagnosed Date Resolved Date Acute respiratory failure wi th hypoxia ([facility]) 03/24/2018 04/05/2018 Hypernatremia 03/24/2018 04/05/2018 Family [...] often do you attend chur ch or amish services? More than 4 times per year 12/02/2022 Do you belong to any clubs o r organizations such as gnosticist groups, unions, fraternal or athletic groups, or [...] and heating? Not hard at all 12/02/2022 [facility] - Occupational [...] in a nursing home (including now)? No 12/02/2022 Comments No [...] Malhotra RN Medical Devices Implanted Type Area Senior Recruitment Consultant Device Identifier Shelf Expiration Date Model / Serial / Lot Iol [employer]ecnis Simplicity Dcb00 - [id number] Implanted:Qty: 1 on 04/09/2022 by Tamera Lawson MD at [facility] Lens Right: Eye [employer] 08/12/2024 DCB00 / / [id number] Iol [employer] Simplicity Dcb00 - [id number] Implanted:Qty: 1 on 06/04/2022 by Tamera Lawson MD at [facility] Lens Left: Eye [employer] 05/05/2025 DCB00 / / [id number] Procedures Procedure Name Priority Date/Time Associated Diagnosis Comments HEMOGLOBIN, GLYCOSYLATED Routine 12/02/2022 2:30 AM CDT from Last 3 Months or Most Recently Relevant to Health Maintenance Results * (ABNORMAL) HEMOGLOBIN, GLYCOSYLATED (12/02/2022 2:30 AM CDT) HGB A1C 5.7(H) <5.7 % 12/02/2022 3:58 AM CDT [facility] ESTIMATED AVG GLUCOSE 117(H) 74 - 114 MG/DL 12/02/2022 3:58 AM CDT [facility] 12/02/2022 2:30 AM CDT Dyan Mccabe MD LABORATORY Final Result [facility] [address] [place] [address], [id number] from Last 3 Months or Most Recently Relevant to Health Maintenance Insurance [facility] MEDICAID Advance Directives Documents on File Type Date Recorded Patient Script Coordinator Expl anation Power of Microgrinder Operator 07/09/2020 * Full Code (Latest Code [...] 5:50 AM 09/08/2022 6:25 PM Care Teams Inspector Metal Can Relationship Specialty Start Date End Date Pasquale Pro MD [address] [place] [id number] PCP - General INTERNAL MEDICINE 03/19/18 Roland Tatum MD [address] [place] [phone] Consulting Physician CARDIOVASCULAR DISEASE 06/22/20 Suly Galdamez APRN, AIR CARGO AGENT-C [address] [facility] [address] [place] [phone] NURSE PRACTITIONER 06/22/20
--- OUTSIDE RECORDS SUMMARY | 2025-04-04 17:43 | XMS_ITS | Clinical Summary ---
Author Organization [facility] Address [address] [place] [address] Phone Care Team Providers Care Requisition Approver Name Role Phone Pasquale Pro MD Primary Care Provider [phone] Allergies Active Allergy Reactions Criticality Noted Date [...] needed for Wheezing. Active ergocalciferol (VITAMIN D) 68738 UNIT Capsule Take 50,000 Units by mouth once a week. Active losartan (COZAAR) 100 MG Tablet Take 100 mg by mouth daily. Active ondansetron (ZOFRAN) 4 MG Tablet Take 4 mg by mouth every 8 hours as needed for Nausea - 1st line. Active sulfaSALAzine (AZULFIDINE) 500 MG Tablet Take 1,000 mg by mouth 3 times daily. Give with food Active IVT-Ghlq-HnSenw -MgHydr-Simeth (First-Mouthwas h BLM) Suspension 5 mL [...] 4:15 PM CDT Hospital Encounter [facility] [address] [id number] Gino Mendoza MD Small bowel obstruction (HCC) [...] any time in the past 12 m [facility], were you homeless or living in a residential (including now)? Patient declined 02/28/2025 [facility] Utilities Answer Date Recorded In the [...] of8 resultswithin the time period is included. [facility] Signature GLUCOSE,BEDSID E POCT 123(H) 70 - 99 mg/dL 03/02/2025 11:16 AM CDT [facility] Comment:RN Notified Blood 03/02/2025 11:1 5 AM CDT 03/02/2025 11:16 AM CDT us None Provider POINT OF CARE TESTING Final Resu lt [facility] [place] [address] * CT REFERENCE IMAGES FOR IMAGE IMPORT [...] - 12.00 10(3)/mcL 03/02/2025 6:51 AM CDT [facility] RBC 3.63(L) 3.80 - 5.30 10(6)/mcL 03/02/2025 6:51 AM CDT [facility] HEMOGLOBIN (HGB) 11.3(L) 12.0 - 15.8 g/dL 03/02/2025 6:51 AM CDT [facility] HEMATOCRIT (HCT) 36.0 36.0 - 47.0 % 03/02/2025 6:51 AM CDT [facility] MCV 99.2(H) 82.0 - 96.0 fL 03/02/2025 6:51 AM CDT [facility] MCH 31.1 26.0 - 34.0 pg 03/02/2025 6:51 AM CDT [facility] MCHC 31.4 31.0 - 36.0 g/dL 03/02/2025 6:51 AM CDT [facility] PLATELET COUNT 243 140 - 440 10(3)/mcL 03/02/2025 6:51 AM CDT [facility] RDW 12.2 11.8 - 15.5 % 03/02/2025 6:51 AM CDT [facility] MPV 10.2 9.7 - 12.4 fL 03/02/2025 6:51 AM CDT [facility] NEUTROPHILS 71.2 47.0 - 73.0 % 03/02/2025 6:51 AM CDT [facility] LYMPHOCYTES 20.8 18.0 - 42.0 % 03/02/2025 6:[address] [facility] MONOCYTES 5.9 4.0 - 12.0 % 03/02/2025 6:[address] [facility] EOSINOPHILS 1.0 0.0 - 5.0 % 03/02/2025 6:[address] [facility] BASOPHILS 0.8 0.0 - 1.0 % 03/02/2025 6:[address] [facility] IMMATURE GRANULOCYTE 0.3 0.0 - 0.4 % 03/02/2025 6:51 AM CDT [facility] Comment:Immature Granulocyte s includes Metamyelocytes, Myelocytes, and Promyelocytes. ABSOLUTE NEUTROPHILS 6.59 1.60 - 7.70 10(3)/mcL 03/02/2025 6:[address] [facility] ABSOLUTE LYMPHOCYTES 1.92 1.30 - 3.20 10(3)/mcL 03/02/2025 6:[address] [facility] ABSOLUTE MONOCYTES 0.55 0.20 - 1.00 10(3)/[facility] 03/02/2025 6:[address] [facility] ABSOLUTE EOSINOPHIL 0.09 0.00 - 0.40 10(3)/mcL 03/02/2025 6:[address] [facility] ABSOLUTE BASOPHILS 0.07 0.00 - 0.10 10(3)/mcL 03/02/2025 6:[address] [facility] ABSOLUTE IMMATURE GRANULOCYTE 0.03 0.00 - 0.03 10 (3) mcL. 03/02/2025 6:[address] [facility] NRBC PER 100 WBC 0 03/02/20 6:[address] [facility] Blood Venipuncture / Unknown 03/02/2025 6:28 AM CDT 03/02/2025 6:43 AM CDT us Ramandeep Núñez [employer] SUPERVISOR, LEATHER STITCHER HEMATOLOGY ORDERABLES Final Result [facility] [address] [place] [address] * (ABNORMAL) BMP with Ca, Total (03/02/2025 6:28 AM CDT) Only the most recent of2 resultswithin the time period is included. SODIUM 137 136 - 145 mmol/L 03/02/2025 7:[address] [facility] POTASSIUM 3.8 3.5 - 5.1 mmol/L 03/02/2025 7:[address] [facility] CHLORIDE 106 98 - 107 mmol/L 03/02/2025 7:[address] [facility] CO2, VENOUS 24 22 - 30 mmol/L 03/02/2025 7:[address] [facility] ANION GAP 10.8 <18.0 mmol/L 03/02/2025 7:[address] [facility] GLUCOSE 114(H) 70 - 99 mg/dL 03/02/2025 7:[address] [facility] BUN 30(H) 10 - 20 mg/dL 03/02/2025 7:[address] [facility] CREATININE, BLOOD 0.93 0.60 - 1.00 mg/dL 03/02/2025 7:[address] [facility] BUN/CREATININE RATIO 32(H) 12 - 20 ratio 03/02/2025 7:[address] [facility] CALCIUM 7.7(L) 8.7 - 10.5 mg/dL 03/02/2025 7:[address] [facility] GFR, ESTIMATED >60 >=60 03/02/2025 7:26 AM [facility] Comment: Creatinine Clearance is the preferred criteria for selecting drug dose adjustments in renally impaired patients. The GFR is provided as additional pertinent clinical information. GFR is reported in mL/min/1.73 sq m. Calculation based on the Chronic Kidney Disease Epidemiology Collaboration (CKD- EPI) equation refit without adjustment for race. GFR, EST. >60 >=60 025 7:26 AM CDT [facility] GFR, EST. NONAFRICAN 59(L) >=60 03/02/2025 7:26 AM CDT [facility] Blood Venipuncture / Unknown 03/02/2025 6:28 AM CDT 03/02/2025 6:43 AM CDT Ramandeep Eaton Niya LOWRY, LEATHER STITCHER CHEMISTRY ORDERABLES Final Result Performing Organization Address City/[facility] Co de Phone Number [facility] [place] [address] * RHYTHM STRIP (03/02/2025 12:00 AM CDT) Only the most recent of6 resultswithin the time period is included. 03/02/2025 Provider Scan IMG ECG ORDERABLES Final Result Performing Organization Address [facility] de Phone Number RESULTING AGENCY * (ABNORMAL) TROPONIN I, HIGH SENSITIVITY (HSTRP) (03/01/2025 7:47 AM CDT) Only the most recent of2 resultswithin the time period is included. TROPONIN I, HIGH SENSITIVITY- REC[facility] 22(H) <=14 ng/L 03/01/2025 8:52 AM CDT [facility] Comment: High-sensitivity troponin I results are reported in ng/L making the result appear to be 1,000 times higher than the contemporary troponin I value which is reported in ng/ml. Results from Recio. Blood Venipuncture / Unknown 03/01/2025 7:47 AM CDT 03/01/2025 7:52 AM CDT Ramandeep Eaton Niya LOWRY, LEATHER STITCHER CHEMISTRY ORDERABLES Final Result Performing Organization Address [facility] Co de Phone Number [facility] [address] [place] [address] * EKG 12 LEAD (02/28/2025 10:13 PM CDT) Ventricular Rate 60 BPM EXTERNAL EKG Atrial Rate 60 BPM EXTERNAL EKG P-R Interval 182 ms EXTERNAL EKG QRS Duration 126 ms EXTERNAL EKG Q-T Duration 496 ms EXTERNAL EKG QTC CALCULATION 496 ms EXTERNAL EKG P Heath 69 degrees EXTERNAL EKG R Heath 46 degrees EXTERNAL EKG T Heath -38 degrees EXTERNAL EKG 02/28/2025 10:1 3 PM CDT Impressions EXTERNAL EKG - 03/02/2025 11:44 AM CDT Normal sinus rhythm Right bundle branch block T wave abnormality, consider inferior ischemia Abnormal ECG No previous ECGs available Confirmed by ODALYS NAZARIO ([id number]) on 03/02/2025 11:44:07 AM Narrative Procedure Note Odalys Nazario MD - 03/02/2025 IMPRESSION: Normal sinus rhythm Right bundle branch block T wave abnormality, consider inferior ischemia Abnormal ECG No previous ECGs available Confirmed by ODALYS NAZARIO ([id number]) on 03/02/2025 11:44:07 AM us Ramandeep Núñez APRN, CNP IMG ECG ORDERABLES Fi nal Result Performing Organization Address City/[facility]/ZIP Co de Phone Number EXTERNAL EKG * Lactic Acid (Lactate) (02/28/2025 9:47 PM CDT) LACTIC ACID 1.1 0.7 - 2.0 mmol/L 02/28/2025 10:06 PM CDT [facility] Blood Venipuncture / Unknown 02/28/2025 9:47 PM CDT 02/28/2025 9:47 PM CDT us Ramandeep Núñez APRN, CNP CHEMISTRY ORDERABLES Final Result Performing Organization Address [facility]/ZIP Co de Phone Number [facility] [address] [place] [address] * Hemoglobin A1C w/ Estimated Glucose (02/28/2025 8:02 PM CDT) HGB-A1C 5.7 4.0 - 6.0 % 02/28/2025 8:19 PM CDT [facility] Est Average Glucose 116.9 mg/dL 02/28/2025 8:19 PM CDT [facility] Blood Venipuncture / Unknown 02/28/2025 8:02 PM CDT 02/28/2025 8:02 PM CDT Narrative [facility] - 02/28/2025 8:19 PM CDT HEMOGLOBIN A1C: DIABETIC PATIENTS: WELL-CONTROLLED: 6.2 - 7.0 INTERMEDIATE WELL-CONTROLLED: 7.0 - 9.0 POORLY-CONTROLLED: >9.0 Specimens containing greater than 5% of Hemoglobin F may result in lower than expected % HbA1C results. Ramandeep Núñez APRN, CNP CHEMISTRY ORDERABLES Final Result Performing Organization Address City/[facility]/ZIP Co de Phone Number [facility] [address] [place] [address] * (ABNORMAL) PHOSPHORUS (PO4) (02/28/2025 8:01 PM CDT) Pathologist [facility] PHOSPHORUS 5.1(H) 2.5 - 4.5 mg/dL 02/28/2025 8:21 PM CDT [facility] Blood Venipuncture / Unknown 02/28/2025 8:01 PM CDT 02/28/2025 8:01 PM CDT Ramandeep Núñez APRN, CNP CHEMISTRY ORDERABLES Final Result [facility] [address] [place] [address] * MAGNESIUM (MG) (02/28/2025 8:01 PM CDT) MAGNESIUM 1.6 1.6 - 2.6 mg/dL 02/28/2025 8:[address] [facility] Blood Venipuncture / Unknown 02/28/2025 8:01 PM CDT 02/28/2025 8:01 PM CDT us Ramandeep Eaton Niya [employer]ELTING SUPERVISOR, LEATHER STITCHER CHEMISTRY ORDERABLES Final Result [facility] [address] [place] [address] * (ABNORMAL) CMP (Comprehensive Metabolic Panel) (02/28/2025 8:01 PM CDT) SODIUM 143 136 - 145 mmol/L 02/28/2025 8:[address] [facility] POTASSIUM 3.7 3.5 - 5.1 mmol/L 02/28/2025 8:[address] [facility] CHLORIDE 100 98 - 107 mmol/L 02/28/2025 8:[address] [facility] CO2, VENOUS 26 22 - 30 mmol/L 02/28/2025 8:[address] [facility] ANION GAP 20.7(H) <18.0 mmol/L 02/28/2025 8:[address] [facility] GLUCOSE 115(H) 70 - 99 mg/dL 02/28/2025 8:[address] [facility] BUN 36(H) 10 - 20 mg/dL 02/28/2025 8:[address] [facility] CREATININE, BLOOD 3.31(H) 0.60 - 1.00 mg/dL 02/28/2025 8:[address] [facility] BUN/CREATININE RATIO 11(L) 12 - 20 ratio 02/28/2025 8:[address] [facility] TOTAL PROTEIN 7.1 6.0 - 8.0 g/dL 02/28/2025 8:[address] [facility] ALBUMIN 4.1 3.5 - 5.0 g/dL 02/28/2025 8:21 PM CDT [facility] A/G RATIO 1.4 1.0 - 2.2 02/28/2025 8:21 PM CDT [facility] CALCIUM 8.4(L) 8.7 - 10.5 mg/dL 02/28/2025 8:21 PM CDT [facility] T BILI 0.3 0.2 - 1.2 mg/dL 02/28/2025 8:21 PM CDT [facility] SGOT (AST) 18 <43 U/L 02/28/2025 8:[address] [facility] SGPT (ALT) 13 <56 U/L 02/28/2025 8:21 PM CDT [facility] ALKALINE PHOSPHATASE 54 40 - 150 U/L 02/28/2025 8:[address] [facility] GFR, ESTIMATED 14(L) >=60 02/28/2025 8:[address] [facility] Comment: Creatinine Clearance is the preferred criteria for selecting drug dose adjustments in renally impaired patients. The GFR is provided as additional pertinent clinical information. GFR is reported in mL/min/1.73 sq m. Calculation based on the Chronic Kidney Disease Epidemiology Collaboration (CKD- EPI) equation refit without adjustment for race. GFR, EST. 17(L) >=60 025 8:[address] [facility] GFR, EST. NONAFRICAN 14(L) >=60 02/28/2025 8:[address] [facility] Blood Venipuncture / Unknown 02/28/2025 8:01 PM CDT 02/28/2025 8:01 PM CDT us Ramandeep Núñez [employer] SUPERVISOR, LEATHER STITCHER CHEMISTRY ORDERABLES Final Result [facility] [address] [place] [address] * EKG SCAN (02/28/2025 12:00 AM CDT) Only the most recent of2 resultswithin the time period is included. 02/28/2025 us Provider Scan IMG ECG ORDERABLES Final Result RESULTING AGENCY from Last 3 Months Insurance MEDICARE C [place] Advance Directives * Full Code (Latest Code Status on File) Date Activated Date Inactivated Comments 02/28/2025 9:30 PM CPR-Full Treat ment: FULL ARREST: Attempt Resuscitation/CPR wit intubation and mechanical ventilation. PRE-ARREST: Use entire range of life support measures to stabilize the patient. Care Teams Requisition Approver Relationship Specialty Start Date End Date Pasquale Pro MD [address] [place] [address] PCP - General Internal Medicine 03/02/25
--- NOTE | 2025-04-04 17:50 | PC.NURSE ---
EKG was delayed due to ERP placing central line and per ERP orders central line was priority.
[2025-04-04 18:29] LABS: Add Urine Microscopic? YES; Glucose Urine UA Trace (Negative); Leukocyte Esterase Ur Trace LEU/UL (Negative); Nitrate Urine Negative (Negative); Specific Grav Ur >= 1.030 (1.010-1.020)
[2025-04-04] MEDS: SODIUM CHLORIDE 0.9% IV 1,000 ML 200 ML IV CONT (18:29)
[2025-04-04 18:37] LABS: Appearance Urine Cloudy (Clear)
[2025-04-04] MEDS: PANTOPRAZOLE SODIUM IV 40 MG VIAL 80 MG IV PUSH (18:45)
--- NOTE | 2025-04-04 19:30 | PC.NURSE ---
Pt taken to CAT scan accompanied by this RN. No difficulties. Pt returned to her room.
[2025-04-04 19:52] LABS: Hematocrit 41.7 % (35.0-42.0); Hemoglobin 14.0 g/dL (11.7-13.8)
--- NOTE | 2025-04-04 20:31 | PC.NURSE ---
Please call sister, Shelbi Metcalf, with transfer information. Please text her if she doesn't answer. Her mailbox is full. , Bennett Hernandez, , doesn't hear his phone most of the time and you can't leave a message.
--- NOTE | 2025-04-04 20:52 | PC.NURSE ---
Blood not given. Blood returned to Gerry in lab
[2025-04-04] MEDS: levoFLOXacin 500 MG/D5W 100 ML 500 MG/100 ML BAG 100 MG IVPB (21:03)
--- NOTE | 2025-04-04 23:42 | PC.NURSE ---
Moved pt into a floor bed for comfort. Pt on waitlist at [facility], [facility], and [facility].
[2025-04-05] VITALS (19 sets, daily range): BP systolic 81–120; BP diastolic 37–59; PULSE 47–75; RESP 13–18; O2SAT 89–99
[2025-04-05] MEDS: SODIUM CHLORIDE 0.9% IV 1,000 ML 200 ML IV CONT (04:43)
[2025-04-05] MEDS: metroNIDAZOLE 500 MG/ISO 100ML 500 MG/100 ML BAG 100 MG IVPB (04:43)
[2025-04-05] MEDS: NOREPINEPHRINE 8 MG/D5W 250 ML 8 MG/250 ML BAG 23.44 MG IV CONT (04:49)
[2025-04-05] MEDS: VANCOMYCIN HCL 125 MG ORAL CAPSULE 250 MG PO (05:33)
--- NOTE | 2025-04-05 05:45 | PC.NURSE ---
Sister, hSelbi, notified that pt was transferred to [facility].
[2025-04-05 05:46] LABS: Hematocrit 39.3 % (35.0-42.0); Hemoglobin 13.3 g/dL (11.7-13.8); Immature Granulocyte Percent A 0.5 % (0.0-0.0); Lymphocytes Absolute Auto 3.21 K/mm3 (1.10-4.50); Mean Corpuscular HGB Conc 33.8 g/dL (32-36); Mean Corpuscular Hemoglobin 31.0 pg (27.0-31.0); Mean Corpuscular Volume 91.6 fL (78.0-102.0); Nucleated Red Blood Cells Absolute Auto 0.00 K/mm3 (0.00-0.00); Nucleated Red Blood Cells Perc 0.0 % (0-0.0); Platelet Count Result 310 K/mm3 (150-420); Red Blood Count 4.29 M/mm3 (4.20-5.40); White Blood Count 12.8 K/mm3 (4.8-10.8)
--- NOTE | 2025-04-05 05:58 | PC.NURSE ---
[facility]e and [facility] notified to remove pt from wait lists.
[2025-04-05 05:59] LABS: Alanine Aminotransferase 12 U/L (6-35); Albumin Level 3.4 g/dL (3.5-5.1); Alkaline Phosphatase 54 U/L (38-126); Anion Gap 15 mmol/L (4-12); Aspartate Amino Transferase 23 U/L (14-36); Bilirubin,Total 0.5 mg/dL (0.2-1.3); Blood Urea Nitrogen 81 mg/dL (7-17); Calcium 7.7 mg/dL (8.4-10.2); Carbon Dioxide 21 mmol/L (22-30); Chloride 96 mmol/L (98-107); Estimated CRCL calculation 7 ml/min; Estimated Glomerular Filt Rate 7; Glucose 102 mg/dL (65-110); Osmolality Calculated 298 mOsm/kg (285-295); Potassium 3.8 mmol/L (3.4-5.0); Sodium 132 mmol/L (137-145); Total Protein 5.9 g/dL (6.3-8.2)
--- NOTE | 2025-04-07 12:58 | PC.NURSE ---
PRELIMINARY BLOOD CULTURE REPORT; NO GROWTH AT THIS TIME.
--- NOTE | 2025-04-08 13:34 | PC.NURSE ---
blood culture reviewed, no growth. preliminary
--- NOTE | 2025-04-08 13:35 | PC.NURSE ---
urine culture reviewed, preliminary gram negative bacilli, awaiting final.
--- NOTE | 2025-04-09 17:18 | PC.NURSE ---
BLOOD PRELIMINARY, NO GROWTH
--- NOTE | 2025-04-09 17:34 | PC.NURSE ---
SPOKE WITH PT, STATES SHE SIGNED OUT AMA FROM [facility]. COMPLETED ANTIBIOTICS FOR C-DIFF AND UTI. DENIES NEED FOR ANTIBIOTICS AT THIS TIME. WANTS REPORT SENT TO DR SHANKAR OFFICE SHE HAS APPT THERE TOMORROW AND HE WILL TAKE CARE OF IT. EXPLAINED TO PT , ER DOCTOR CAN REVIEW AND ORDER ABT NEEDED. PT CONTINUED TO DECLINE. STATED UTI AND C-DIFF TESTS AT [facility] WERE NEGATIVE. EXPLAINED THAT THIS IS THE CULTURE RESULTS AND NOT RAPID RESULTS. PT DECLINED. CALL TO BIANKA IN LAB, WILL SEND RESULTS OF URINE CULTURE TO DR ANNA OFFICE REQUESTED PER PT.
--- NOTE | 2025-04-12 14:03 | PC.NURSE ---
final blood cultures x2 reviewed. no growth in 5 days. only 1 aerobic culture bottle received
== END 2025-04-05 05:55 | disposition short-term general hospital (02) ==
PROVIDERS: Emergency Provider Emergency Medicine; PCP Internal Medicine
DX: K92.2 Gastrointestinal hemorrhage, unspecified (principal); I95.9 Hypotension, unspecified; N17.9 Acute kidney failure, unspecified; N39.0 Urinary tract infection, site not specified; R79.89 Other specified abnormal findings of blood chemistry; E11.9 Type 2 diabetes mellitus without complications; I10 Essential (primary) hypertension; E78.5 Hyperlipidemia, unspecified; J44.9 Chronic obstructive pulmonary disease, unspecified; F17.210 Nicotine dependence, cigarettes, uncomplicated; Z85.3 Personal history of malignant neoplasm of breast
CPT/HCPCS: 36415; 36430; 36556; 74176; 80053; 81001; 82272; 83605; 84484; 85014; 85018; 85025; 85610; 85730; 86850; 86900; 86901; 86920; 87040; 87086; 87186; 93005; 96365; 96366; 96367; 96375; 99285; A9270; C1751; J1836; J1956; J2470; J7030; P9016

== ENCOUNTER 2025-04-11 05:23 | Emergency (ER) | payer MEDICARE, SELFPAY ==
[2025-04-11] VITALS (21 sets, daily range): BP systolic 94–140; BP diastolic 51–91; PULSE 76–110; RESP 16–25; TEMP 36.1; O2SAT 86–97
--- NOTE | 2025-04-11 | CONSULT_PTH ---
PATIENT: Beba Hernandez LOC: [facility] U#:[id number] AGE/SX: 70/F ROOM: RE04/11/[address]: Letha Bryson MD : [id number] BED: DIS: 04/11/2025 SPEC #: [id number] RECD: 04/11/25 08:03 STATUS: JACOBO REQ #: [id number] JAVIER: 04/11/25 00:[address]: Letha Bryson DEPT: [facility] Consult RECD BY: Meaghan Payne MLT, ([facility]) ENTERED: 04/11/25 08:04 SP TYPE: Consult OTHR DR: Pasquale Pro MD Tissues: A - Peripheral Smear Procedures: Hematology Consult
--- NOTE | ~2025-04-11 | XR_ITS ---
Examination: XR chest 1V portable Clinical History: vomiting Comparison: 02/28/2025 Technique: Portable AP Findings: Heart size normal. Lungs clear. No acute bony abnormality. IMPRESSION: 1. No acute cardiopulmonary findings given portable technique. Reviewed, dictated and finalized at location R.
--- NOTE | ~2025-04-11 | CT_ITS ---
CT ABDOMEN AND PELVIS WITHOUT CONTRAST Clinical History: ABDOMINAL PAIN, VOMITING Comparison: CT abdomen and pelvis without contrast 04/04/2025 Technique: Unenhanced axial images lung bases to symphysis pubis Coronal, sagittal reformats CT images acquired with automatic exposure control for dose reduction DLP: 353 mGy-cm Findings: Without intravenous contrast, sensitivity for detecting visceral parenchymal abnormalities decreased. Lung bases: Clear. Visualized heart and pericardium: Unremarkable. Liver: Small cyst segment 4A. Gallbladder: Unremarkable. Spleen: Unremarkable. Pancreas: Unremarkable. Adrenal glands: Unremarkable. Kidneys: Right kidney- No hydronephrosis. No renal stones. Left kidney- No hydronephrosis. No renal stones. Distal esophagus/stomach: Stomach distended. Small bowel loops: Proximal duodenal distention with severe attenuation between SMA and aorta. Left upper quadrant. Colon: Normal caliber and wall thickness. Normal RLQ appendix. Nodes: No enlarged nodes. Peritoneum: No ascites. No free intraperitoneal air. Urinary bladder: Unremarkable. Uterus: Removed. Adnexa: No masses. Bones: No acute bony abnormality. Soft tissues: Unremarkable. Unopacified abdominal aorta: 3.5 cm infrarenal AAA. Atherosclerotic disease. IMPRESSION: 1. Consistent with SMA syndrome. Namely, gastroduodenal obstruction from narrowed space between SMA and aorta. Reviewed, dictated and finalized at location R. IMPRESSION: 1. Consistent with SMA syndrome. Namely, gastroduodenal obstruction from narro wed space between SMA and aorta.
--- OUTSIDE RECORDS SUMMARY | 2025-04-11 05:32 | XMS_ITS | Clinical Summary ---
Author Organization [facility] Address [address] [place] [id number] Care Team Providers [employer] Architect Name Role Phone Pasquale Pro MD Primary Care Provider [phone] Roland Tatum MD Unavailable [phone] Suly Galdamez APRN, NP-C Unavailable Allergies Active Allergy Reactions Criticality Noted Date Comments Hydrocodone Vomiting 03/19/2018 Metoprolol Hives 03/19/2018 Medications fenofibrate micronized 67 MG Cap capsuleIndications: Hyperlipidemia Take 1 capsule (67 mg total) by mouth daily. Indications: High Amount of Fats in the Blood 09/25/19 Active atorvastatin 10 MG tabletIndications:H yperlipidemia Take 1 tablet (10 mg total) by mouth daily. Indications: High Amount of Fats in the Blood 06/21/20 20 Active glimepiride 1 MG tabletIndications:D iabetes Mellitus Take 1 tablet (1 mg total) by mouth daily. Indications: Diabetes 06/21/20 Active aspirin EC (ECOTRIN) 81 MG [...] (three) times daily. 270 capsule 09/08/19 Active sulfaSALAzine (AZULFIDINE) 500 MG tabletIndications:D iarrhea Take 2 tablets (1,000 mg total) by mouth 4 (four) times daily. Indications: Diarrhea 12/12/19 Active vitamin D3, cholecalciferol, 1.25 mg capsuleIndications: supplement Take 1 capsule (1.25 mg total) by mouth once a week. Indications: supplement 12/26/19 Active carvedilol (COREG) 25 MG tablet Take 1 tablet (25 mg total) by mouth 2 (two) times daily. 02/14/20 Active losartan (COZAAR) 100 MG tablet Take 1 tablet (100 mg total) by mouth daily. Active ondansetron (ZOFRAN) 4 MG tablet Take 1 tablet (4 mg total) by mouth every 8 (eight) hours as needed for Nausea. Active vancomycin (VANCOCIN) 125 MG capsule Take 1 capsule (125 mg total) by mouth every other day. 03/10/20 Active pantoprazole EC (PROTONIX) 40 MG tablet Take 1 tablet (40 mg total) by mouth 2 (two) times daily. Active ALPRAZolam 0.25 MG tabletIndications:A nxiety Take 1 tablet (0.25 mg total) by mouth every 6 (six) hours as needed for Anxiety. Indications: Feeling Anxious 02/13/20 18 025 Discontin ued(Error ) prochlorperazine 10 MG tabletIndications:N ausea Take 1 tablet (10 mg total) by mouth 3 (three) times daily as needed. Indications: Nausea 06/21/20 025 Discontin ued(Error ) carvedilol (COREG) 12.5 MG tabletIndications:H ypertension Take 1 tablet (12.5 mg total) by mouth 2 (two) times daily. 60 tablet 3 09/08/19 025 Discontin ued(Error ) pantoprazole EC (PROTONIX) 40 MG tabletIndications:N onerosive Gastroesophagel Reflux Disease Take 1 tablet (40 mg total) by mouth 2 (two) times daily before meals. 30 tablet 3 09/08/19 23 025 Discontin ued(Dose adjustmen t) ferrous sulfate, 65 mg elemental, 325 (65 FE) MG tabletIndications:I calli Deficiency Take 1 tablet (325 mg total) by mouth 3 (three) times daily with meals. Indications: Iron Deficiency off bottle 2 10/07/19 23 025 Discontin ued(Error ) Active Problems Problem Noted Date Diagnosed Date Shock ([facility]) 04/05/2025 Sepsis ([facility]) 04/05/2025 SEAN (acute kidney injury) 12/02/2022 Respiratory failure with hypoxia ([facility]/ C) 09/01/2022 Acute blood loss anemia ([facility]) 09/01/2022 Small bowel perforation ([facility]) 2022 Abnormal EKG 07/09/2020 PVC's (premature ventricular contractions) 07/09 Hypertension 07/09/2020 Hyperlipidemia 07/09/2020 Current smoker 07/09/2020 Diabetes ([facility]) 03/24/2018 Acute duodenal ulcer with perforation ([facility]) 03/19/2018 Resolved Problems Problem Noted Date Diagnosed Date Resolved Date Acute respiratory failure wi th hypoxia ([facility]) 03/24/2018 04/05/2018 Hypernatremia 03/24/2018 04/05/2018 Encounters Date Type Department Care Team Description 04/05/2025 7:11 AM CDT - 04/06/2025 7:32 PM T Hospital Encounter [facility] 4th Floor Medical [facility] [place] [address] Chema Avalos MD Hindi, Zakaria, MD Shahidi, Mehdi, MD Dangol, Gulshan M, MD Discharge Disposition: Home or Self Care (Routine Discharge) 04/05/2025 Travel from Last 3 Months Family History Medical History Relation Comments Heart [...] materials from doctor or pharmacy Never 01/01/2023 [facility] Utilities Answer Date Recorded In the past 12 months has e [email or web address], gas, oil, or water [employer] threatened to shut off services in your home? No 04/05/2025 Humiliation, Afraid, Rape, and Kick questionnair e Answer Date Recorded Within the last year, have y ou been afraid of your partner or ex-partner? No 04/05/2025 Within the last year, have y ou been humiliated or emotionally abused in other ways by your partner or ex-partner? No Within the last year, have y ou been kicked, hit, slapped, or otherwise physically hurt by your partner or ex-partner? No 04/05/2025 Within the last year, have y ou been raped or forced to have any kind of sexual activity by your partner or ex-partner? No 04/05/2025 Social Connection and Isolat ion Panel [NHANES] Answer Date Recorded In a typical week, how many times do you talk on the phone with family, friends, or neighbors? More than three times a week 12/02/2022 How often do you get togethe r with friends or relatives? More than three times a week 12/02/2022 How often do you attend chur ch or alevism services? More than 4 times per year 12/02/2022 Do you belong to any clubs o r organizations such as advent groups, unions, fraternal or athletic groups, or [...] care, and heating? Not hard at all 04/05/2025 [facility] [place] of Occupat ional Health - Occupational Stress [...] the money to buy more. Never true 04/05/20 25 Within the past 12 months, t he food you bought just didn't last and you didn't have money to get more. Never true 04/05/2025 PRAPARE - Transportation Answer Date Re corded In the past 12 months, has l ack of transportation kept you from medical appointments or from getting medications? No 03/20 In the past 12 months, has l ack of transportation kept you from meetings, work, or from getting things needed for daily living? No 04/05/2025 Housing Stability Vital Sign Answer Terence e [...] in a [facility] (including now)? No 12/02/2022 Housing Stability Vital Sign Answer Terence e Recorded In the last 12 months, was t here a time when you were not able to pay the mortgage or rent on time? No 04/05/2025 In the past 12 months, how m any times have you moved where you were living? 0 04/05/2025 At any time in the past 12 m [facility], were you homeless or living in a m[facility] (including now)? No 04/05/2025 Comments No Sex and Gender Information Value Date Recorded Sex Assigned at Female 04/05/2025 8:43 AM CDT Legal Sex Female 6:07 PM CDT Gender Identity Not on file Sexual Orientation Not on file Occupation Industry Job Start Date Job End Date Not on file Not on file Not on file Not on file Last Filed Vital Signs Vital Sign Reading Time Taken Comments Blood Pressure 116/46 04/06/2025 4:52 PM CDT Pulse 59 04/06/2025 4:52 PM CDT Temperature 36.7 C (98.1 F) 04/06/2025 4:52 PM CDT Respiratory Rate 19 04/06/2025 2:00 PM CDT Oxygen Saturation 94% 04/06/2025 4:52 PM CDT Inhaled Oxygen Concentration - - Weight 70.6 kg (155 lb 10.3 oz) 04/05/2025 7:23 AM CDT Height 162.6 cm (5' 4) 04/05/2025 7:23 AM CDT Body Mass Index 26.72 04/05/2025 7:23 AM CDT Plan of Treatment Health Maintenance Due Date Last Done Comments Colorectal Cancer Screening Colonoscopy (10 Years) 1955 Kidney Health Evaluation 1955 Lipid Panel 1955 Diabetes: Retinopathy Eye Exam 1971 Hepatitis C 1971 DTaP, Tdap and Td Vaccines ( 1 - Tdap) 01/24/1972 Mammogram Screening 1993 Zoster Vaccines (1 of 2) 2003 Annual Medicare Wellness Visit 2018 Dexa Scan (General) 2018 COVID-19 Vaccine (3 - 2024-2 6 season) 2025 12/21/2020, 11/27/2020 Hemoglobin A1C 08/31/2025 02/28/2025, 12/02/2022, 08/22/2022 RSV Immunization or 60+ Years (1 - 1-dose 75+ series) 01/24/2028 Pneumococcal Vaccine: 50+ Years Completed 05/27/2023, 09/10/2017, 05/24/2014 Meningococcal B Vaccine Aged Out No l [...] upon discharge Lifestyle No Alda Hernandez RN Safety Patient/family will have appropriate support at home upon discharge Lifestyle No Isabella Malhotra RN Medical Devices Implanted Type Area Certified Industrial Hygienist Device Identifier Shelf Expiration Date Model / Serial / Lot Iol Tecnis Simplicity Dcb00 - [id number] Implanted:Qty: 1 on 04/09/2022 by Tamera Lawson MD at [facility] Lens Right: Eye [employer] 08/12/2024 DCB00 / / [id number] Iol [employer] Simplicity Dcb00 - [id number] Implanted:Qty: 1 on 06/04/2022 by Tamera Lawson MD at [facility] Lens Left: Eye [employer] 05/05/2025 DCB00 / / [id number] Procedures Procedure Name Priority Date/Time Associated Diagnosis Comments POCT GLUCOSE - DOCKED DEVICE Routine 04/06/2025 1:44 PM CDT POCT GLUCOSE - DOCKED DEVICE Routine 04/06/2025 9:28 AM CDT POCT GLUCOSE - DOCKED DEVICE Routine 04/06/2025 5:09 AM CDT POCT GLUCOSE - DOCKED DEVICE Routine 04/06/2025 4:30 AM CDT CBC, AUTO, NO DIFF Routine 04/06/2025 4: 30 AM CDT MAGNESIUM Routine 04/06/2025 4:30 AM CDT RENAL FUNCTION PANEL Routine 04/06/2025 4:30 AM CDT POCT GLUCOSE - DOCKED DEVICE Routine 04/06/2025 1:08 AM CDT POCT GLUCOSE - DOCKED DEVICE Routine 04/06/2025 12:29 AM CDT GI PANEL PCR - STOOL Nurse Collected Priority 04/05/2025 9:30 PM CDT CLOSTRIDIUM DIFFICILE Nurse Collected Priority 04/05/2025 9:30 PM CDT POCT GLUCOSE - DOCKED DEVICE Routine 04/05/2025 5:20 PM CDT ECG 12-LEAD Routine 04/05/2025 3:49 PM CDT USE ECHOCARDIOGRAM Today 04/05/2025 1: 08 PM CDT USV CANDI DUPLEX LOW EXT VIELKA Today 04/05/2025 10:08 AM CDT C AURIS,PCR,AXILLA/GROI N,NARES Routine 04/05/2025 8:50 AM CDT CULTURE, BACTERIA, BLOOD TIMED 04/05/2025 8:00 AM CDT CULTURE, BACTERIA, BLOOD TIMED 04/05/2025 8:00 AM CDT HC MRSA AMP Nurse Collected Priority 04/05/2025 8:00 AM CDT TYPE & SCREEN Routine 04/05/2025 8:00 AM CDT HC URINALYSIS AUTO W/MICRO Nurse Collected Priority 04/05/2025 8:00 AM CDT CBC W/DIFF AUTOMATED Routine 04/05/2025 8:00 AM CDT PHOSPHORUS, INORGANIC PHOSPHATE Routine 04/05/2025 8:00 AM CDT LACTIC ACID Routine 04/05/2025 8:00 AM CDT MAGNESIUM Routine 04/05/2025 8:00 AM CDT TROPONIN, QUANT Routine 04/05/2025 8:00 AM CDT COMPREHENSIVE METABOLIC PANEL Routine 04/05/2025 8:00 AM CDT URINE BACTERIA CULTURE Nurse Collected Priority 04/05/2025 7:40 AM CDT XR CHEST PORTABLE STAT 04/05/2025 7:3 2 AM CDT HEMOGLOBIN, GLYCOSYLATED Routine 12/02/2022 2:30 AM CDT from Last 3 Months or Most Recently Relevant to Health Maintenance Results * POCT glucose (04/06/2025 1:44 PM CDT) Only the most recent of7 resultswithin the time period is included. Pathologist [facility] GLUCOSE POC 98 70 - 109 04/06/2025 1:51 PM CDT [facility] 04/06/2025 1:44 PM CDT us Tulio García MD POCT ORDERABLES - DEVICE Fin al Result [facility] [address] [place] [id number], [id number] * (ABNORMAL) RENAL FUNCTION PANEL (04/06/2025 4:30 AM CDT) SODIUM S/P/B 133(L) 136 - 145 MMOL/L 04/06/2025 5:58 AM CDT [facility] POTASSIUM S/P/B 3.4(L) 3.5 - 5.1 MMOL/L 04/06/2025 5:58 AM [facility] CHLORIDE S/P/B 101 97 - 115 MMOL/L 04/06/2025 5:58 AM [facility] CO2 21.9 21.0 - 32.0 MMOL/L 04/06/2025 5:58 AM [facility] GLUCOSE 60(L) 74 - 106 MG/DL 04/06/2025 5:58 AM [facility] BUN 55(H) 7 - 18 MG/DL 04/06/2025 5:58 AM [facility] CREATININE S/P/B 2.49(H) 0.55 - 1.02 MG/DL 04/06/2025 5:58 AM [facility] CALCIUM S/P/B 8.3(L) 8.5 - 10.1 MG/DL 04/06/2025 5:58 AM [facility] ALBUMIN S/P/B 2.7(L) 3.4 - 5.0 G/DL 04/06/2025 5:58 AM [facility] PHOSPHORUS 3.2 2.5 - 4.9 MG/DL 04/06/2025 5:58 AM [facility] ANION GAP 10.1(H) 2.0 - 10.0 MMOL/L 04/06/2025 5:58 AM [facility] OSMOLALITY (CALC) 289 MOSM/KG 025 5:58 AM [facility] Comment:REFERENCE RANGE NOT ESTABLISHED GFR ESTIMATE 20(L) >90 ML/MIN/1. 73 M2 04/06/2025 5:58 AM [facility] GFR NOTES GFR REFERENCE S: 04/06/2025 5:58 AM [facility] Comment: THE ESTIMATED GFR IS CALCULATED USING THE 2020 CKD-EPI EQUATION. THE FOLLOWING CATEGORIES FOR GRADING RENAL FUNCTION ARE RECOMMENDED BY THE INTERNATIONAL SOCIETY OF NEPHROLOGY (KDIGO 2012 CLINICAL PRACTICE GUIDELINE). G1,NORMAL OR HIGH: >89 ml/min/1.73 m2 G2,MILDLY DECREASED: 60-89 ml/min/1.73 m2 G3A,MILDLY TO MODERATELY DECREASED: 45-59 ml/min/1.73 m2 G3B,MODERATELY TO SEVERELY DECREASED: 30-44 ml/min/1.73 m2 G4,SEVERELY DECREASED: 15-29 ml/min/1.73 m2 G5,KIDNEY FAILURE: <15 ml/min/1.73 m2 04/06/2025 4:30 AM CDT Adrian Bautista MD LABORATORY Final Result [facility] [address] [place] [address], [id number] * (ABNORMAL) CBC, AUTO, NO DIFF (04/06/2025 4:30 AM CDT) WBC 7.62 4.00 - 10.80 x10'3/uL 04/06/2025 4:52 AM CDT [facility] RBC 3.80(L) 4.10 - 5.40 x10'6/uL 04/06/2025 4:52 AM CDT [facility] HGB 11.9(L) 12.0 - 16.0 G/DL 04/06/2025 4:52 AM CDT [facility] HCT 35.4(L) 36.0 - 47.0 % 04/06/2025 4:52 AM CDT [facility] MCV 93.2 78.0 - 100.0 FL 04/06/2025 4:52 AM CDT [facility] MCH 31.3(H) 27.0 - 31.0 PG 04/06/2025 4:52 AM CDT [facility] MCHC 33.6 33.0 - 36.0 G/DL 04/06/2025 4:52 AM CDT [facility] RDW 12.2 11.5 - 14.5 % 04/06/2025 4:52 AM CDT [facility] PLT 217 150 - 350 x10'3/uL 04/06/2025 4:52 AM CDT [facility] MPV 10.6(H) 7.4 - 10.4 FL 04/06/2025 4:52 AM CDT [facility] 04/06/2025 4:30 AM CDT us Adrian Bautista MD LABORATORY Final Result Performing Organization Address City/[facility] Co de Phone Number [facility] [address] [place] [address], [place] [phone] * MAGNESIUM (04/06/2025 4:30 AM CDT) Only the most recent of2 resultswithin the time period is included. [facility] MAGNESIUM 1.7 1.6 - 2.6 MG/DL 04/06/2025 5:58 AM CDT [facility] 04/06/2025 4:30 AM CDT us Adrian Bautista MD LABORATORY Final Result Performing Organization Address [facility] de Phone Number [facility] [address] [place] [address], [place] [phone] [id number] * GI PANEL PCR - STOOL (04/05/2025 9:30 PM CDT) [facility] CAMPYLOBACTER PCR (STOOL) NOT DETECTED NOT DETECTED 04/06/2025 1:29 PM CDT [facility] PLESIOMONAS SHIGELLOIDES PCR (STOOL) NOT DETECTED NOT DETECTED 04/06/2025 1:29 PM CDT [facility] SALMONELLA PCR (STOOL) NOT DETECTED NOT DETECTED 04/06/2025 1:29 PM CDT [facility] VIBRIO PCR (STOOL) NOT DETECTED NOT DETECTED 04/06/2025 1:29 PM CDT [facility] VIBRIO CHOLERAE PCR (STOOL) NOT DETECTED NOT DETECTED 04/06/2025 1:29 PM CDT [facility] YERSINIA ENTEROCOLITICA PCR (STOOL) NOT DETECTED NOT DETECTED 04/06/2025 1:29 PM CDT [facility] ENTEROAGGREGATIVE ECOLI PCR (STOOL) NOT DETECTED NOT DETECTED 04/06/2025 1:29 PM CDT [facility] ENTEROPATHOGENIC ECOLI PCR (STOOL) NOT DETECTED NOT DETECTED 04/06/2025 1:29 PM CDT [facility] ENTEROTOXIGENIC ECOLI PCR (STOOL) NOT DETECTED NOT DETECTED 04/06/2025 1:29 PM CDT [facility] SHIGA LIKE TOXIN ECOLI PCR (STOOL) NOT DETECTED NOT DETECTED 04/06/2025 1:29 PM CDT [facility] SHIG/ENTEROINVASIVE ECOLI PCR (STOOL) NOT DETECTED NOT DETECTED 04/06/2025 1:29 PM CDT [facility] CRYPTOSPORIDIUM PCR (STOOL) NOT DETECTED NOT DETECTED 04/06/2025 1:29 PM CDT [facility] CYCLOSPORA CAYETANENSIS PCR (STOOL) NOT DETECTED NOT DETECTED 04/06/2025 1:29 PM CDT [facility] ENTAMOEBA HISTOLYTICA PCR (STOOL) NOT DETECTED NOT DETECTED 04/06/2025 1:29 PM CDT [facility] GIARDIA LAMBLIA PCR (STOOL) NOT DETECTED NOT DETECTED 04/06/2025 1:29 PM CDT [facility] ADENOVIRUS F40/41 PCR (STOOL) NOT DETECTED NOT DETECTED 04/06/2025 1:29 PM CDT [facility] ASTROVIRUS PCR (STOOL) NOT DETECTED NOT DETECTED 04/06/2025 1:29 PM CDT [facility] NOROVIRUS GI/GII PCR (STOOL) NOT DETECTED NOT DETECTED 04/06/2025 1:29 PM CDT [facility] ROTAVIRUS A PCR (STOOL) NOT DETECTED NOT DETECTED 04/06/2025 1:29 PM CDT [facility] SAPOVIRUS PCR (STOOL) NOT DETECTED NOT DETECTED 04/06/2025 1:29 PM CDT [facility] STOOL SPECIMEN / Unknown 04/05/2025 9:30 PM CDT Keith Brower MD MICROBIOLOGY - GENERAL ORDERABLE S Final Result [facility] [address] [place] [address], * CLOSTRIDIUM DIFFICILE (04/05/2025 9:30 PM CDT) [facility] ANTIGEN NEGATIVE NEGATIVE 04/05/2025 11:05 PM CDT [facility] C DIFFICILE TOXIN A&B (STOOL) NEGATIVE NEGATIVE 04/05/2025 11:05 PM CDT [facility] COMMENT GDH NEGATIVE/TOXI N A & B NEGATIVE: NEGATIVE FOR TOXIGENIC C. DIFFICILE. GDH NEGATIVE/TOXI N A & B NEGATIVE: NEGATIVE FOR TOXIGENIC C. 04/05/2025 11:05 PM CDT [facility] STOOL SPECIMEN / Unknown 04/05/2025 9:30 PM CDT Keith Brower MD BODY FLUIDS AND STOOLS ORDERABLE S Final Result Performing Organization Address City/[facility] Co de Phone Number [facility] [address] [place] [address], [id number] * ECG 12 lead (04/05/2025 3:49 PM CDT) 04/05/2025 3:49 PM CDT Narrative [facility] - 04/06/2025 5:57 PM CDT [facility] [address] [place] [address] Test Date: 2025-04-05 Pat Name: BEBA HERNANDEZ Department: 1 Room: 448 Gender: Female Category Director: Ab : 1955 Requested By: ADRIAN BAUTISTA Order Number: [id number] Reading MD: Nya Zaptaa Measurements Intervals [place] Rate: 47 P: 71 AL: 172 QRS: 55 QRSD: 138 T: 49 QT: 527 QTc: 470 Interpretive Statements SINUS BRADYCARDIA RIGHT BUNDLE BRANCH BLOCK Procedure Note Nya Zapata MD - 04/06/2025 [facility] [address] [place] [address] Test Date: 2025-04-05 Pat Name: BEBA HERNANDEZ Department: 1 Room: 448 Gender: Female Category Director: Ab : 1955 Requested By: ADRIAN BAUTISTA Order Number: [id number] Reading MD: Nya Zapata Measurements Intervals [place] Rate: 47 P: 71 AL: 172 QRS: 55 QRSD: 138 T: 49 QT: 527 QTc: 470 Interpretive Statements SINUS BRADYCARDIA RIGHT BUNDLE BRANCH BLOCK us Adrian Bautista MD ECG ORDERABLES Final Result Performing Organization Address City/State/[facility] Co de Phone Number [facility] * USE ECHOCARDIOGRAM (04/05/2025 1:08 PM CDT) Anatomical Region Laterality Modality Cardiac Echocardiogram 04/05/2025 12:4 3 PM CDT Narrative 04/05/2025 3:00 PM CDT Echocardiography Report Pat.Name: AMILCAR BEBA KAY Pat.ID: [id number] .Date: 04/05/2025 Refer.: [id number] NONE PROVIDER EWDPROV EWDPROV Exam Time: 12:43:00 PM Study Type:ECHO WITH CARDIAC DOPPLER COMP Height: 64 in Weight: 150 lb BSA: 1.73 m2 Age: 7 1955,70Y Sex: F BP: 100/68 HR: 50 bpm Sonogrphr: CESIA Small Pat. Stat.:Inpatient Room: [facility] Reason for Study:shock Procedures: 2D, M-mode, Doppler, Color Flow Race: W ++++++++++++++++++++++++++++++++++++ SUMMARY: ++++++++++++++++++++++++++++++++++++ The left ventricular systolic function is normal. The calculated ejection fraction is 74%. Wall motion appears normal in all segments. No evidence of pericardial effusion. No evidence of significant mitral regurgitation. ++++++++++++++++++++++++++++++++++++ FINDINGS: ++++++++++++++++++++++++++++++++++++ LV: The left ventricular size is normal. The left ventricular systolic function is normal. The calculated ejection fraction is 74%. The septal E/e' is normal at < 8. The lateral E/e' is normal at <8. Left ventricular diastolic function is normal. WM: Wall motion appears normal in all segments. RV: The right ventricle size is normal. The right ventricular function is normal. IVS: Intraventricular septum is normal. LA: The left atrial volume is normal ( less than 34 ml/M2). RA: The right atrial size is normal. IAS: Atrial septum is normal. DENISE: No evidence of pericardial effusion. AO: Aorta is normal. PA: Unable to reliably quantitate pulmonary systolic pressure. SVn: Systemic veins are normal. AV: The aortic valve is trileaflet. No evidence of aortic valve stenosis. Trace aortic regurgitation. MV: No evidence of significant mitral regurgitation. No evidence of mitral stenosis. PV: Trace pulmonic regurgitation. No evidence of pulmonic valve stenosis. TV: A trace of tricuspid regurgitation. No evidence of tricuspid valve stenosis. ++++++++++++++++++++++++++++++++++++ MEASUREMENTS: ++++++++++++++++++++++++++++++++++++ DOPPLER LVOT LVOTpkPG 6.5 mmHg LVOTmnPG 2.8 mmHg LVOTpkVel 127 cm/s (70-110)* LVOT SV 90 ml LVOT TVI 24.9 cm AV Forward Flow AV TVI 31.8 cm AV pkPG 12 mmHg AV pkVel 170 cm/s (100-170) Area (TVI) 2.82 cm2 (3-5)* AV mnVel 108 cm/s Area (James) 2.69 cm2 (3-5)* AV mnPG 5.7 mmHg MV Forward Flow MV mnPG 1 mmHg MV pkE 68.9 cm/s (60-130)+ MV pkPG 3 mmHg MV pkA 68.1 cm/s MV E/A 1 PV Forward Flow PV TVI 26 cm PV mnVel 81 cm/s PV pkVel 128 cm/s (60-90)+* PV mnPG 4 mmHg PV pkPG 7 mmHg Lat E' Lat e 11 cm/s Lat E/E' Lat E/e 6.3 Med E' Med e 8.49 cm/s Med E/E' Med E/e 8.1 Aortic Valve Aortic Valve Ar 1.63 Aortic Valve Ve 0.75 AV DI Value 0.8 LYLE (VTI) Index Value 1.63 Lat MA LV Peak Vincent Ti 10.7 cm/s Left Ventricle 1 Left Ventricle Ratio of MV Pea 7.1 Mean Myocardial 9.75 cm/s LV Mass 2D Value 178 g LV Mass [id number] Value 103 g/m2 Med MA LV Peak Vincent Ti 9.46 cm/s Left Ventricle 0.9 Right Ventricle Right Ventricle 17.3 cm/s 2D Left Ventricle LVIDd 2.85 cm (3.6-5.2)* LV EF(Bi-Plane) 74.2 % (55-75) LVIDs 1.77 cm (2.3-3.9)* Relative Wall T 0.406 LVPW LVPWd 1 cm Ventricular Septum IVSd 1 cm Left Atrium LA a-p 3.1 cm (2.8-3.4) Aorta Ao Sin 3.2 cm (2.5-3.3)+ Ao Asc 1.91 cm (zsc -1.5) LVOT LVOT 2.14 cm Ratios IVS Aortic Sinotubular Junction Diameter 1.66 cm/m LV Biplane Major Schofield Erika 4.84 % Major [place] Erika 1.13 % LV Left Ventricle Mass by M-mode LV Mass 178 g Right Ventricle Right Ventricle 3.1 cm Right Ventricle 2.9 cm Major Sch[place]ield 7.4 cm MMODE TA Tricuspid Annul 2.36 cm <Electronic Signature> 04/05/2025 03:00 PM Rishi Almeida M.D. Procedure Note Rishi Almeida MD - 04/05/2025 Echocardiography Report Pat.Name: BEBA HERNANDEZ Pat.ID: [id number] .Date: 04/05/2025 Refer.: [id number] NONE PROVIDER EWDPROV EWDPROV Exam Time: 12:43:00 PM Study Type:ECHO WITH CARDIAC DOPPLER COMP Height: 64 in Weight: 150 lb BSA: 1.73 m2 Age: 7 1955,70Y Sex: F BP: 100/68 HR: 50 bpm Sonogrphr: CESIA Small Pat. Stat.:Inpatient Room: [facility] Reason for Study:shock Procedures: 2D, M-mode, Doppler, Color Flow Race: W ++++++++++++++++++++++++++++++++++++ SUMMARY: ++++++++++++++++++++++++++++++++++++ The left ventricular systolic function is normal. The calculated ejection fraction is 74%. Wall motion appears normal in all segments. No evidence of pericardial effusion. No evidence of significant mitral regurgitation. ++++++++++++++++++++++++++++++++++++ FINDINGS: ++++++++++++++++++++++++++++++++++++ LV: The left ventricular size is normal. The left ventricular systolic function is normal. The calculated ejection fraction is 74%. The septal E/e' is normal at < 8. The lateral E/e' is normal at <8. Left ventricular diastolic function is normal. WM: Wall motion appears normal in all segments. RV: The right ventricle size is normal. The right ventricular function is normal. IVS: Intraventricular septum is normal. LA: The left atrial volume is normal ( less than 34 ml/M2). RA: The right atrial size is normal. IAS: Atrial septum is normal. DENISE: No evidence of pericardial effusion. AO: Aorta is normal. PA: Unable to reliably quantitate pulmonary systolic pressure. SVn: Systemic veins are normal. AV: The aortic valve is trileaflet. No evidence of aortic valve stenosis. Trace aortic regurgitation. MV: No evidence of significant mitral regurgitation. No evidence of mitral stenosis. PV: Trace pulmonic regurgitation. No evidence of pulmonic valve stenosis. TV: A trace of tricuspid regurgitation. No evidence of tricuspid valve stenosis. ++++++++++++++++++++++++++++++++++++ MEASUREMENTS: ++++++++++++++++++++++++++++++++++++ DOPPLER LVOT LVOTpkPG 6.5 mmHg LVOTmnPG 2.8 mmHg LVOTpkVel 127 cm/s (70-110)* LVOT SV 90 ml LVOT TVI 24.9 cm AV Forward Flow AV TVI 31.8 cm AV pkPG 12 mmHg AV pkVel 170 cm/s (100-170) Area (TVI) 2.82 cm2 (3-5)* AV mnVel 108 cm/s Area (James) 2.69 cm2 (3-5)* AV mnPG 5.7 mmHg MV Forward Flow MV mnPG 1 mmHg MV pkE 68.9 cm/s (60-130)+ MV pkPG 3 mmHg MV pkA 68.1 cm/s MV E/A 1 PV Forward Flow PV TVI 26 cm PV mnVel 81 cm/s PV pkVel 128 cm/s (60-90)+* PV mnPG 4 mmHg PV pkPG 7 mmHg Lat E' Lat e 11 cm/s Lat E/E' Lat E/e 6.3 Med E' Med e 8.49 cm/s Med E/E' Med E/e 8.1 Aortic Valve Aortic Valve Ar 1.63 Aortic Valve Ve 0.75 AV DI Value 0.8 LYLE (VTI) Index Value 1.63 Lat MA LV Peak Vincent Ti 10.7 cm/s Left Ventricle 1 Left Ventricle Ratio of MV Pea 7.1 Mean Myocardial 9.75 cm/s LV Mass 2D Value 178 g LV Mass Etklv9U Value 103 g/m2 Med MA LV Peak Vincent Ti 9.46 cm/s Left Ventricle 0.9 Right Ventricle Right Ventricle 17.3 cm/s 2D Left Ventricle LVIDd 2.85 cm (3.6-5.2)* LV EF(Bi-Plane) 74.2 % (55-75) LVIDs 1.77 cm (2.3-3.9)* Relative Wall T 0.406 LVPW LVPWd 1 cm Ventricular Septum IVSd 1 cm Left Atrium LA a-p 3.1 cm (2.8-3.4) Aorta Ao Sin 3.2 cm (2.5-3.3)+ Ao Asc 1.91 cm (zsc -1.5) LVOT LVOT 2.14 cm Ratios IVS Aortic Sinotubular Junction Diameter 1.66 cm/m LV Biplane Major Schofield Erika 4.84 % Major Schofield Erika 1.13 % LV Left Ventricle Mass by M-mode LV Mass 178 g Right Ventricle Right Ventricle 3.1 cm Right Ventricle 2.9 cm Major Schofield 7.4 cm MMODE TA Tricuspid Annul 2.36 cm <Electronic Signature> 04/05/2025 03:00 PM Rishi Almeida M.D. Keith Brower MD ECHO Final Result * USV CANDI DUPLEX LOW EXT VIELKA (04/05/2025 10:08 AM CDT) Anatomical Region Laterality Modality Extremity Ultrasound 04/05/2025 9:23 AM CDT Narrative 04/05/2025 11:43 AM CDT Vascular Report Pat.Name: BEBA HERNANDEZ Pat.ID: [id number] St.Date: 04/05/2025 Refer.MD: KEITH BROWER Exam Time: 9:23:00 AM Study Type:PVI VENOUS DUPLEX SCAN-LEGS BILAT Height: 62 in Age: 7 1955,70Y Sex: F Sonogrphr: Kevin Del Real Elijah Pat. Stat.:Inpatient Room: ICU-B4 ICD - 9: R60.9 Limb Edema CPT - 4: 41268 Venous Duplex LE/UE Reason for Study:Edema Race: W Bilat: No evidence of acute or chronic thrombosis noted in the deep or superficial veins in either lower extremity. <Electronic Signature> 04/05/2025 11:43 AM Rickey Magallanes M.D. Procedure Note Rickey Magallanes MD - 04/05/2025 Vascular Report Pat.Name: BEBA HERNANDEZ Pat.ID: [id number] .Date: 04/05/2025 Refer.MD: KEITH BROWER Exam Time: 9:23:00 AM Study Type:PVI VENOUS DUPLEX SCAN-LEGS BILAT Height: 62 in Age: 7 1955,70Y Sex: F Sonogrphr: Kevin Del Real Elijah Pat. Stat.:Inpatient Room: ICU-B4 ICD - 9: R60.9 Limb Edema CPT - 4: 54932 Venous Duplex LE/UE Reason for Study:Edema Race: W Bilat: No evidence of acute or chronic thrombosis noted in the deep or superficial veins in either lower extremity. <Electronic Signature> 04/05/2025 11:43 AM Rickey Magallanes M.D. Keith Brower MD [facility] Final Result * C AURIS,PCR,AXILLA/GROIN,NARES (04/05/2025 8:50 AM CDT) Pathologist [facility] ROSLYN AURIS (CORY/GROIN) Not Detected Not Detected 04/08/2025 3:46 AM CDT Qian Xiao'er RICHY CARNES Comment: A Not Detected result indicates that Roslyn auris DNA was not present in the surveillance sample above the limit of detection of the assay. This assay is intended for screening of Roslyn auris colonization from external human body sites and should not be used for patient monitoring, therapy decisions, or as a test of cure. This test was developed and its analytical performance characteristics have been determined by [employer] [place], [place]. It has not been cleared or approved by the U.S. Food and Drug Administration. This assay has been validated pursuant to the CLIA regulations and is used for clinical purposes. Test Performed by [facility], [facility] [place], [address] [place] [address] Brayan Dennis M.D., Ph.D., Director of Laboratories , CLIA [id number] 04/05/2025 8:50 AM CDT Adrian Bautista MD LABORATORY Final Result Performing Organization Address City/[facility]/ZIP Co de Phone Number [facility] [address] , [place] [phone] * STAPH SCREENING BY PCR (04/05/2025 8:00 AM CDT) Pathologist [facility] SPECIMEN SOURCE RESPIRATORY, NOSE 04/05/2025 7:40 AM CDT [facility] MRSA BY PCR NASAL METHICILLIN RESISTANT STAPH AUREUS NOT DETECTED METHICILLIN RESISTANT STAPH AUREUS NOT DETECTED 04/05/2025 2:06 PM CDT [facility] NASAL STRUCTURE / Unknown 04/05/2025 8:00 AM CDT Keith Brower MD MICROBIOLOGY - GENERAL ORDERABLE S Final Result [facility] [address] [place] [address], [place] [phone] * TYPE & SCREEN (04/05/2025 8:00 AM CDT) ABO/RH O NEGATIVE 04/05/2025 9:13 AM CDT [facility] ANTIBODY SCREEN NEGATIVE 04/05/2025 9:13 AM CDT [facility] SAMPLE EXPIRATION 04/08/2025,2 359 04/05/2025 8:28 AM CDT [facility] 04/05/2025 8:00 AM CDT us Keith Brower MD BLOOD BANK TEST ORDERABLES Final Result [facility] [address] [place] [address], [id number] * (ABNORMAL) URINALYSIS (04/05/2025 8:00 AM CDT) COLOR (U) LIGHT YELLOW 04/05/2025 8:38 AM CDT [facility] TRANSPARENCY SLIGHTLY CLOUDY 04/05/2025 8:38 AM CDT [facility] SPECIFIC GRAVITY (U) 1.013 1.002 - 1.035 04/05/2025 8:38 AM CDT [facility] U PH 5.0 5 - 8 04/05/2025 8:38 AM CDT [facility] PROTEIN RANDOM (U) 20(A) NEGATIVE 04/05/2025 8:38 AM CDT [facility] GLUCOSE (U) 1000(A) NEGATIVE MG/DL 04/05/2025 8:38 AM CDT [facility] KETONES MG/DL (U) NEGATIVE NEGATIVE 04/05/2025 8:38 AM CDT [facility] BILIRUBIN (U) NEGATIVE NEGATIVE 04/05/2025 8:38 AM CDT [facility] BLOOD (U) 2+(A) NEGATIVE 04/05/2025 8:38 AM CDT [facility] NITRITES NEGATIVE NEGATIVE 04/05/2025 8:38 AM CDT [facility] UROBILINOGEN NORMAL 0 - 1 EU/DL 04/05/2025 8:38 AM CDT [facility] LEUKOCYTES (U) 1+(A) NEGATIVE 04/05/2025 8:38 AM CDT [facility] RBC/HPF 6(H) 0 - 3 /HPF 04/05/2025 8:38 AM CDT [facility] WBC/HPF 30(H) 0 - 6 /HPF 04/05/2025 8:38 AM CDT [facility] BACTERIA (U) PRESENT /HPF 04/05/2025 8:38 AM CDT [facility] SQUAMOUS EPITHELIALS 3 04/05/2025 8:38 AM CDT [facility] WBC CLUMPS PRESENT 04/05/2025 8:38 AM CDT [facility] HYALINE CASTS 34 04/05/2025 8:38 AM CDT [facility] AMORPHOUS SEDIMENT PRESENT 04/05/2025 8:38 AM CDT [facility] URINE SPECIMEN OBTAINED BY CLEAN CATCH PROCEDURE / Unknown 04/05/2025 8:00 AM CDT Keith Brower MD URINE ORDERABLES Final Result [facility] [address] [place] [address], [id number] * (ABNORMAL) COMPREHENSIVE METABOLIC PANEL (04/05/2025 8:00 AM CDT) SODIUM S/P/B 132(L) 136 - 145 MMOL/L 04/05/2025 2:23 PM CDT [facility] POTASSIUM S/P/B 3.5 3.5 - 5.1 MMOL/L 04/05/2025 2:23 PM CDT [facility] CHLORIDE S/P/B 97 97 - 115 MMOL/L 04/05/2025 2:23 PM CDT [facility] CO2 20.8(L) 21.0 - 32.0 MMOL/L 04/05/2025 2:23 PM CDT [facility] GLUCOSE 121(H) 74 - 106 MG/DL 04/05/2025 2:23 PM CDT [facility] BUN 77(H) 7 - 18 MG/DL 04/05/2025 2:23 PM T [facility] CREATININE S/P/B 5.48(H) 0.55 - 1.02 MG/DL 04/05/2025 2:23 PM T [facility] CALCIUM S/P/B 7.6(L) 8.5 - 10.1 MG/DL 04/05/2025 2:23 PM CDT [facility] BILIRUBIN TOTAL S/P/B 0.5 0.2 - 1.0 MG/DL 04/05/2025 2:23 PM T [facility] ALKALINE PHOSPHATASE S/P/B 56 55 - 142 U/L 04/05/2025 2:23 PM [facility] AST 16 15 - 37 U/L 04/05/2025 2:23 PM T [facility] ALT 15 13 - 56 U/L 04/05/2025 2:23 PM T [facility] TOTAL PROTEIN S/P/B 5.8(L) 6.4 - 8.2 G/DL 04/05/2025 2:23 PM [facility] ALBUMIN S/P/B 2.9(L) 3.4 - 5.0 G/DL 04/05/2025 2:23 PM [facility] ANION GAP 14.2(H) 2.0 - 10.0 MMOL/L 04/05/2025 2:23 PM [facility] OSMOLALITY (CALC) 298 MOSM/KG 025 2:23 PM [facility] Comment:REFERENCE RANGE NOT ESTABLISHED GFR ESTIMATE 8(L) >90 ML/MIN/1. 73 M2 04/05/2025 2:23 PM [facility] GFR NOTES GFR REFERENCE S: 04/05/2025 2:23 PM [facility] Comment: THE ESTIMATED GFR IS CALCULATED USING THE 2020 CKD-EPI EQUATION. THE FOLLOWING CATEGORIES FOR GRADING RENAL FUNCTION ARE RECOMMENDED BY THE INTERNATIONAL SOCIETY OF NEPHROLOGY (KDIGO 2012 CLINICAL PRACTICE GUIDELINE). G1,NORMAL OR HIGH: >89 ml/min/1.73 m2 G2,MILDLY DECREASED: 60-89 ml/min/1.73 m2 G3A,MILDLY TO MODERATELY DECREASED: 45-59 ml/min/1.73 m2 G3B,MODERATELY TO SEVERELY DECREASED: 30-44 ml/min/1.73 m2 G4,SEVERELY DECREASED: 15-29 ml/min/1.73 m2 G5,KIDNEY FAILURE: <15 ml/min/1.73 m2 04/05/2025 8:00 AM CDT us Keith Brower MD LABORATORY Final Result Performing Organization Address City/[facility]/ZIP Co de Phone Number [facility] [address] [place] [id number], [phone] * LACTIC ACID - SINGLE (04/05/2025 8:00 AM CDT) LACTIC ACID VENOUS 0.9 0.4 - 2.0 MMOL/L 04/05/2025 8:51 AM CDT [facility] 04/05/2025 8:00 AM CDT us Keith Brower MD LABORATORY Final Result Performing Organization Address [facility] Co de Phone Number [facility] [address] [place] [address], [phone] * CULTURE, BACTERIA BLOOD X2 (04/05/2025 8:00 AM CDT) Only the most recent of2 resultswithin the time period is included. SPEC DESCRIPTION BLOOD 04/05/2025 7:14 AM CDT [facility] SPECIAL REQUESTS NO SPECIAL REQUEST 04/05/2025 7:14 AM CDT [facility] CULTURE RESULT NO GROWTH 5 DAYS 04/10/2025 8:55 AM CDT [facility] BLOOD SPECIMEN OBTAINED FOR BLOOD CULTURE / Unknown 04/05/2025 8:00 AM CDT 04/05/2025 8:48 AM CDT Keith Brower MD MICROBIOLOGY - GENERAL ORDERABLE S Final Result [facility] [address] [place] [address], [phone] * (ABNORMAL) CBC W/DIFF AUTOMATED (04/05/2025 8:00 AM CDT) WBC 13.27(H) 4.00 - 10.80 x10'3/uL 04/05/2025 8:30 AM CDT [facility] RBC 4.22 4.10 - 5.40 x10'6/uL 04/05/2025 8:30 AM CDT [facility] HGB 13.1 12.0 - 16.0 G/DL 04/05/2025 8:30 AM CDT [facility] HCT 38.7 36.0 - 47.0 % 04/05/2025 8:30 AM CDT [facility] MCV 91.7 78.0 - 100.0 FL 04/05/2025 8:30 AM CDT [facility] MCH 31.0 27.0 - 31.0 PG 04/05/2025 8:30 AM CDT [facility] MCHC 33.9 33.0 - 36.0 G/DL 04/05/2025 8:30 AM CDT [facility] RDW 12.4 11.5 - 14.5 % 04/05/2025 8:30 AM CDT [facility] PLT 317 150 - 350 x10'3/uL 04/05/2025 8:30 AM CDT [facility] MPV 10.5(H) 7.4 - 10.4 FL 04/05/2025 8:30 AM CDT [facility] DIFFERENTIAL TYPE AUTOMATED DIFFERENTIAL 04/05/2025 8:30 AM CDT [facility] SEG NEUTROPHILS 69.1 % 8:30 AM CDT [facility] LYMPHOCYTES 21.1 % 04/05/2025 8:30 AM CDT [facility] MONOCYTES 8.7 % 04/05/2025 8:30 AM CDT [facility] EOSINOPHILS 0.2 % 04/05/2025 8:30 AM CDT [facility] BASOPHILS 0.5 % 04/05/2025 8:30 AM CDT [facility] IMMATURE GRANS % 0.4 % 04/05/20 8:30 AM CDT [facility] ABS. NEUTROPHILS 9.17(H) 1.60 - 8.30 x10'3/uL 04/05/2025 8:30 AM CDT [facility] ABS. LYMPHOCYTES 2.80 0.80 - 4.70 x10'3/uL 04/05/2025 8:30 AM CDT [facility] ABS. MONOCYTES 1.16 0.00 - 1.50 x10'3/uL 04/05/2025 8:30 AM CDT [facility] ABS. EOSINOPHILS 0.02 0.00 - 0.40 x10'3/uL 04/05/2025 8:30 AM CDT [facility] ABS. BASOPHILS 0.07 0.00 - 0.20 x10'3/uL 04/05/2025 8:30 AM CDT [facility] ABS. IMMATURE GRANULOCYTES 0.05(H) 0.00 - 0.03 x10'3/uL 04/05/2025 8:30 AM CDT [facility] ABS. NUCLEATED RBC'S 0.00 0.00 - 0.01 x10'3/uL 04/05/2025 8:30 AM CDT [facility] NRBC % 0.0 % 04/05/2025 8:30 AM CDT [facility] 04/05/2025 8:00 AM CDT us Keith Brower MD LABORATORY Final Result Performing Organization Address [facility] Co de Phone Number [facility] [address] [place] [address], [place] [phone] * TROPONIN, QUANT (04/05/2025 8:00 AM CDT) Pathologist [facility] TROPONIN I HIGH SENSITIVITY 43 0 - 53 ng/L 04/05/2025 2:23 PM CDT [facility] 04/05/2025 8:00 AM CDT us Keith Brower MD LABORATORY Final Result Performing Organization Address [facility] de Phone Number [facility] [address] [place] [address], [place] [phone] * (ABNORMAL) PHOSPHORUS, INORGANIC PHOSPHATE (04/05/2025 8:00 AM CDT) Pathologist [facility] PHOSPHORUS 5.3(H) 2.5 - 4.9 MG/DL 04/05/2025 2:23 PM CDT [facility] 04/05/2025 8:00 AM CDT us Keith Brower MD LABORATORY Final Result Performing Organization Address [facility] Co de Phone Number [facility] [address] [place] [address], [place] [phone] * CULTURE, URINE (04/05/2025 7:40 AM CDT) Pathologist [facility] SPEC DESCRIPTION URINE CLEAN CATCH 04/05/2025 7:40 AM CDT [facility] SPECIAL REQUESTS NO SPECIAL REQUEST 04/05/2025 7:40 AM CDT [facility] CULTURE RESULT NO GROWTH (< OR = 1,000 CFU/ML) 04/06/2025 11:58 AM CDT [facility] URINE SPECIMEN OBTAINED BY CLEAN CATCH PROCEDURE / Unknown 04/05/2025 7:40 AM CDT 04/05/2025 8:47 AM CDT us Keith Brower MD MICROBIOLOGY - GENERAL ORDERABLE S Final Result [facility] [address] [place] [address], [id number] * XR CHEST PORTABLE (04/05/2025 7:32 AM CDT) Anatomical Region Laterality Modality Chest Radiographic Jocelyne ging 04/05/2025 8:04 AM CDT Impressions 04/05/2025 8:06 AM CDT IMPRESSION: 1. No acute cardiopulmonary process is identified. Referred By: PROVIDER NONE Interpreted By: Ramiro Gomez MD, 04/05/2025 8:04 AM Narrative 04/05/2025 8:06 AM CDT [address] [address] PROCEDURE: XR CHEST PORTABLE. 04/05/2025 7:28 AM. TECHNIQUE: A single view of the chest (AP or PA) was performed. HISTORY: Shock. COMPARISON: AP chest radiograph, 12/01/2022. FINDINGS: Support Devices: None. Cardiac Silhouette/Mediastinum/Suki: The cardiac, mediastinal, and hilar contours are unchanged in appearance. Lungs/Pleural Spaces: No focal consolidation. The pleural spaces are clear. Chest Wall/Diaphragm/Upper Abdomen: The thoracic musculoskeletal structures and the upper abdomen are unchanged in appearance Procedure Note Ramiro Gomez MD - 04/05/[address] [address] PROCEDURE: XR CHEST PORTABLE. 04/05/2025 7:28 AM. TECHNIQUE: A single view of the chest (AP or PA) was performed. HISTORY: Shock. COMPARISON: AP chest radiograph, 12/01/2022. FINDINGS: Support Devices: None. Cardiac Silhouette/Mediastinum/Suki: The cardiac, mediastinal, and hilarcontours are unchanged in appearance. Lungs/Pleural Spaces: No focal consolidation. The pleural spaces areclear. Chest Wall/Diaphragm/Upper Abdomen: The thoracic musculoskeletalstructures and the upper abdomen are unchanged in appearance IMPRESSION: 1. No acute cardiopulmonary process is identified. Referred By: PROVIDER NONE Interpreted By: Ramiro Gomez MD, 04/05/2025 8:04 AM Keith Brower MD GENERAL IMAGING Final Result from Last 3 Months Insurance [facility] MEDICAID Advance Directives Documents on File Type Date Recorded Patient Drama Therapist Expl anation Power of Chief Creative Officer 07/09/2020 * Full Code (Latest Code Status on File) Date Activated Date Inactivated Comments 04/05/2025 7:13 AM 04/06/2025 9:43 PM * Full Code Date Activated Date Inactivated Comments 12/26/2022 4:14 PM 04/05/2025 7:11 AM * Full Code Date Activated Date Inactivated Comments 12/02/2022 1:54 AM 12/05/2022 6:06 PM * Full Code Date Activated Date Inactivated Comments 11/30/2022 8:08 PM 12/01/2022 4:54 PM * Full Code Date Activated Date Inactivated Comments 09/24/2022 10:24 AM 11/30/2022 8:08 PM Care Teams Net Solutions Architect Relationship Specialty Start Date End Date Pasquale Pro MD [address] [place] [phone] PCP - General INTERNAL MEDICINE 03/19/18 Roland Tatum MD [address] [place] [phone] Consulting Physician CARDIOVASCULAR DISEASE 06/22/20 Suly Galdamez APRN, BUSINESS MACHINE OPERATOR-C [address] [place] [address] [id number] [place] [phone] NURSE PRACTITIONER 06/22/20
--- OUTSIDE RECORDS SUMMARY | 2025-04-11 05:32 | XMS_ITS | Clinical Summary ---
Author Organization [facility] Address [address] [place] [address] Phone Care Team Providers Care Property Loss Insurance Claim Adjuster Name Role Phone Pasquale Pro MD Primary Care Provider [phone] Allergies Active Allergy Reactions Criticality Noted Date [...] needed for Wheezing. Active ergocalciferol (VITAMIN D) 53188 UNIT Capsule Take 50,000 Units by mouth once a week. Active losartan (COZAAR) 100 MG Tablet Take 100 mg by mouth daily. Active ondansetron (ZOFRAN) 4 MG Tablet Take 4 mg by mouth every 8 hours as needed for Nausea - 1st line. Active sulfaSALAzine (AZULFIDINE) 500 MG Tablet Take 1,000 mg by mouth 3 times daily. Give with food Active WFN-Xvyq-XsJiuf -MgHydr-Simeth (First-Mouthwas h BLM) Suspension 5 mL by Swish & Spit route 3 times daily (before meals). 237 mL Active Active Problems Problem Noted Date Diagnosed [...] 4:15 PM CDT Hospital Encounter [facility] [address] [id number] Gino Mendoza MD Small bowel obstruction Discharge Disposition: Discharged to home or Selfcare [...] any time in the past 12 m [facility], were you homeless or living in a [facility] (including now)? Patient declined 02/28/2025 [facility] Utilities Answer Date Recorded In the past 12 months has th e [employer], gas, oil, or water company threatened to [...] of8 resultswithin the time period is included. GLUCOSE,BEDSID E POCT 123(H) 70 - 99 mg/dL 03/02/2025 11:16 AM CDT [facility] Comment:RN Notified Blood 03/02/2025 11:1 5 AM CDT 03/02/2025 11:16 AM CDT us None Provider POINT OF CARE TESTING Final Resu lt [facility] [address] [place] [address] * CT REFERENCE IMAGES FOR IMAGE IMPORT [...] - 12.00 10(3)/mcL 03/02/2025 6:51 AM CDT [facility] RBC 3.63(L) 3.80 - 5.30 10(6)/mcL 03/02/2025 6:51 AM CDT [facility] HEMOGLOBIN (HGB) 11.3(L) 12.0 - 15.8 g/dL 03/02/2025 6:51 AM CDT [facility] HEMATOCRIT (HCT) 36.0 36.0 - 47.0 % 03/02/2025 6:51 AM CDT [facility] MCV 99.2(H) 82.0 - 96.0 fL 03/02/2025 6:51 AM CDT [facility] MCH 31.1 26.0 - 34.0 pg 03/02/2025 6:51 AM CDT [facility] MCHC 31.4 31.0 - 36.0 g/dL 03/02/2025 6:51 AM CDT [facility] PLATELET COUNT 243 140 - 440 10(3)/mcL 03/02/2025 6:51 AM CDT [facility] RDW 12.2 11.8 - 15.5 % 03/02/2025 6:51 AM CDT [facility] MPV 10.2 9.7 - 12.4 fL 03/02/2025 6:51 AM CDT [facility] NEUTROPHILS 71.2 47.0 - 73.0 % 03/02/2025 6:51 AM CDT [facility] LYMPHOCYTES 20.8 18.0 - 42.0 % 03/02/2025 6:51 AM CDT [facility] MONOCYTES 5.9 4.0 - 12.0 % 03/02/2025 6:51 AM CDT [facility] EOSINOPHILS 1.0 0.0 - 5.0 % 03/02/2025 6:51 AM CDT [facility] BASOPHILS 0.8 0.0 - 1.0 % 03/02/2025 6:51 AM CDT [facility] IMMATURE GRANULOCYTE 0.3 0.0 - 0.4 % 03/02/2025 6:51 AM CDT [facility] Comment:Immature Granulocyte s includes Metamyelocytes, Myelocytes, and Promyelocytes. ABSOLUTE NEUTROPHILS 6.59 1.60 - 7.70 10(3)/mcL 03/02/2025 6:51 AM CDT [facility] ABSOLUTE LYMPHOCYTES 1.92 1.30 - 3.20 10(3)/mcL 03/02/2025 6:51 AM CDT [facility] ABSOLUTE MONOCYTES 0.55 0.20 - 1.00 10(3)/[facility] 03/02/2025 6:51 AM CDT [facility] ABSOLUTE EOSINOPHIL 0.09 0.00 - 0.40 10(3)/[facility] 03/02/2025 6:51 AM CDT [facility] ABSOLUTE BASOPHILS 0.07 0.00 - 0.10 10(3)/mcL 03/02/2025 6:51 AM CDT [facility] ABSOLUTE IMMATURE GRANULOCYTE 0.03 0.00 - 0.03 10 (3) mcL. 03/02/2025 6:51 AM CDT [facility] NRBC PER 100 WBC 0 03/02/20 25 6:51 AM CDT [facility] Blood Venipuncture / Unknown 03/02/2025 6:28 AM CDT 03/02/2025 6:43 AM CDT us Ramandeep Núñez RAILROAD OPERATOR, BOTTOM POLISHER HEMATOLOGY ORDERABLES Final Result [facility] [address] [place] [address] * (ABNORMAL) BMP with Ca, Total (03/02/2025 6:28 AM CDT) Only the most recent of2 resultswithin the time period is included. SODIUM 137 136 - 145 mmol/L 03/02/2025 7:26 AM [facility] POTASSIUM 3.8 3.5 - 5.1 mmol/L 03/02/2025 7:26 AM [facility] CHLORIDE 106 98 - 107 mmol/L 03/02/2025 7:26 AM [facility] CO2, VENOUS 24 22 - 30 mmol/L 03/02/2025 7:26 AM [facility] ANION GAP 10.8 <18.0 mmol/L 03/02/2025 7:26 AM [facility] GLUCOSE 114(H) 70 - 99 mg/dL 03/02/2025 7:26 AM [facility] BUN 30(H) 10 - 20 mg/dL 03/02/2025 7:26 AM [facility] CREATININE, BLOOD 0.93 0.60 - 1.00 mg/dL 03/02/2025 7:26 AM [facility] BUN/CREATININE RATIO 32(H) 12 - 20 ratio 03/02/2025 7:26 AM [facility] CALCIUM 7.7(L) 8.7 - 10.5 mg/dL 03/02/2025 7:26 AM [facility] GFR, ESTIMATED >60 >=60 03/02/2025 7:26 AM [facility] Comment: Creatinine Clearance is the preferred criteria for selecting drug dose adjustments in renally impaired patients. The GFR is provided as additional pertinent clinical information. GFR is reported in mL/min/1.73 sq m. Calculation based on the Chronic Kidney Disease Epidemiology Collaboration (CKD- EPI) equation refit without adjustment for race. GFR, EST. >60 >=60 025 7:26 AM [facility] GFR, EST. NONAFRICAN 59(L) >=60 03/02/2025 7:26 AM [facility] Blood Venipuncture / Unknown 03/02/2025 6:28 AM CDT 03/02/2025 6:43 AM CDT Ramandeep Eaton Niya LOWRY, BOTTOM POLISHER CHEMISTRY ORDERABLES Final Result Performing Organization Address [facility] Co de Phone Number [facility] [address] [place] [address] * RHYTHM STRIP (03/02/2025 12:00 AM CDT) Only the most recent of6 resultswithin the time period is included. 03/02/2025 us Provider Scan IMG ECG ORDERABLES Final Result Performing Organization Address [facility] de Phone Number RESULTING AGENCY * (ABNORMAL) TROPONIN I, HIGH SENSITIVITY (HSTRP) (03/01/2025 7:47 AM CDT) Only the most recent of2 resultswithin the time period is included. TROPONIN I, HIGH SENSITIVITY- RECIO 22(H) <=14 ng/L 03/01/2025 8:52 AM CDT [facility] Comment: High-sensitivity troponin I results are reported in ng/L making the result appear to be 1,000 times higher than the contemporary troponin I value which is reported in ng/ml. Results from Recio. Blood Venipuncture / Unknown 03/01/2025 7:47 AM CDT 03/01/2025 7:52 AM CDT Ramandeep Eaton Niya LOWRY, BOTTOM POLISHER CHEMISTRY ORDERABLES Final Result Performing Organization Address [facility] Co de Phone Number [facility] [address] [place] [address] * EKG 12 LEAD (02/28/2025 10:13 PM CDT) Ventricular Rate 60 BPM EXTERNAL EKG Atrial Rate 60 BPM EXTERNAL EKG P-R Interval 182 ms EXTERNAL EKG QRS Duration 126 ms EXTERNAL EKG Q-T Duration 496 ms EXTERNAL EKG QTC CALCULATION 496 ms EXTERNAL EKG P [place] 69 degrees EXTERNAL EKG R [place] 46 degrees EXTERNAL EKG T [place] -38 degrees EXTERNAL EKG 02/28/2025 10:1 3 PM CDT Impressions EXTERNAL EKG - 03/02/2025 11:44 AM CDT Normal sinus rhythm Right bundle branch block T wave abnormality, consider inferior ischemia Abnormal ECG No previous ECGs available Confirmed by ODALYS NAZARIO ([id number]) on 03/02/2025 11:44:07 AM Narrative Procedure Note Odalys Nazario MD - 03/02/2025 IMPRESSION: Normal sinus rhythm Right bundle branch block T wave abnormality, consider inferior ischemia Abnormal ECG No previous ECGs available Confirmed by ODALYS NAZARIO ([id number]) on 03/02/2025 11:44:07 AM Ramandeep Núñez APRN, CNP IMG ECG ORDERABLES Fi nal Result EXTERNAL EKG * Lactic Acid (Lactate) (02/28/2025 9:47 PM CDT) Pathologist [facility] LACTIC ACID 1.1 0.7 - 2.0 mmol/L 02/28/2025 10:06 PM CDT [facility] Blood Venipuncture / Unknown 02/28/2025 9:47 PM CDT 02/28/2025 9:47 PM CDT Ramandeep Núñez APRN, CNP CHEMISTRY ORDERABLES Final Result [facility] [address] [place] [address] * Hemoglobin A1C w/ Estimated Glucose (02/28/2025 8:02 PM CDT) HGB-A1C 5.7 4.0 - 6.0 % 02/28/2025 8:19 PM CDT [facility] Est Average Glucose 116.9 mg/dL 02/28/2025 8:19 PM CDT [facility] Blood Venipuncture / Unknown 02/28/2025 8:02 PM CDT 02/28/2025 8:02 PM CDT Narrative [facility] - 02/28/2025 8:19 PM CDT HEMOGLOBIN A1C: DIABETIC PATIENTS: WELL-CONTROLLED: 6.2 - 7.0 INTERMEDIATE WELL-CONTROLLED: 7.0 - 9.0 POORLY-CONTROLLED: >9.0 Specimens containing greater than 5% of Hemoglobin F may result in lower than expected % HbA1C results. Ramandeep Núñez APRN, CNP CHEMISTRY ORDERABLES Final Result Performing Organization Address City/[facility]/ZIP Co de Phone Number [facility] [address] [place] [address] * (ABNORMAL) PHOSPHORUS (PO4) (02/28/2025 8:01 PM CDT) PHOSPHORUS 5.1(H) 2.5 - 4.5 mg/dL 02/28/2025 8:21 PM CDT [facility] Blood Venipuncture / Unknown 02/28/2025 8:01 PM CDT 02/28/2025 8:01 PM CDT Ramandeep Núñez APRN, CNP CHEMISTRY ORDERABLES Final Result [facility] [address] [place] [address] * MAGNESIUM (MG) (02/28/2025 8:01 PM CDT) MAGNESIUM 1.6 1.6 - 2.6 mg/dL 02/28/2025 8:21 PM CDT [facility] Blood Venipuncture / Unknown 02/28/2025 8:01 PM CDT 02/28/2025 8:01 PM CDT us Ramandeep Eaton Niya RAILROAD OPERATOR, BOTTOM POLISHER CHEMISTRY ORDERABLES Final Result [facility] [address] [place] [address] * (ABNORMAL) CMP (Comprehensive Metabolic Panel) (02/28/2025 8:01 PM CDT) SODIUM 143 136 - 145 mmol/L 02/28/2025 8:21 PM CDT [facility] POTASSIUM 3.7 3.5 - 5.1 mmol/L 02/28/2025 8:21 PM CDT [facility] CHLORIDE 100 98 - 107 mmol/L 02/28/2025 8:21 PM CDT [facility] CO2, VENOUS 26 22 - 30 mmol/L 02/28/2025 8:21 PM CDT [facility] ANION GAP 20.7(H) <18.0 mmol/L 02/28/2025 8:21 PM CDT [facility] GLUCOSE 115(H) 70 - 99 mg/dL 02/28/2025 8:21 PM CDT [facility] BUN 36(H) 10 - 20 mg/dL 02/28/2025 8:21 PM CDT [facility] CREATININE, BLOOD 3.31(H) 0.60 - 1.00 mg/dL 02/28/2025 8:21 PM CDT [facility] BUN/CREATININE RATIO 11(L) 12 - 20 ratio 02/28/2025 8:21 PM CDT [facility] TOTAL PROTEIN 7.1 6.0 - 8.0 g/dL 02/28/2025 8:21 PM CDT [facility] ALBUMIN 4.1 3.5 - 5.0 g/dL 02/28/2025 8:21 PM CDT [facility] A/G RATIO 1.4 1.0 - 2.2 02/28/2025 8:21 PM CDT [facility] CALCIUM 8.4(L) 8.7 - 10.5 mg/dL 02/28/2025 8:21 PM CDT [facility] T BILI 0.3 0.2 - 1.2 mg/dL 02/28/2025 8:21 PM CDT [facility] SGOT (AST) 18 <43 U/L 02/28/2025 8:21 PM CDT [facility] SGPT (ALT) 13 <56 U/L 02/28/2025 8:21 PM CDT [facility] ALKALINE PHOSPHATASE 54 40 - 150 U/L 02/28/2025 8:21 PM CDT [facility] GFR, ESTIMATED 14(L) >=60 02/28/2025 8:21 PM CDT [facility] Comment: Creatinine Clearance is the preferred criteria for selecting drug dose adjustments in renally impaired patients. The GFR is provided as additional pertinent clinical information. GFR is reported in mL/min/1.73 sq m. Calculation based on the Chronic Kidney Disease Epidemiology Collaboration (CKD- EPI) equation refit without adjustment for race. GFR, EST. 17(L) >=60 025 8:21 PM CDT [facility] GFR, EST. NONAFRICAN 14(L) >=60 02/28/2025 8:21 PM CDT [facility] Blood Venipuncture / Unknown 02/28/2025 8:01 PM CDT 02/28/2025 8:01 PM CDT us Ramandeep Núñez RAILROAD OPERATOR, BOTTOM POLISHER CHEMISTRY ORDERABLES Final Result [facility] [address] [place] [address] * EKG SCAN (02/28/2025 12:00 AM CDT) Only the most recent of2 resultswithin the time period is included. 02/28/2025 us Provider Scan IMG ECG ORDERABLES Final Result RESULTING AGENCY from Last 3 Months Insurance MEDICARE C [facility] Advance Directives * Full Code (Latest Code Status on File) Date Activated Date Inactivated Comments 02/28/2025 9:30 PM CPR-Full Treat ment: FULL ARREST: Attempt Resuscitation/CPR wit intubation and mechanical ventilation. PRE-ARREST: Use entire range of life support measures to stabilize the patient. Care Teams Property Loss Insurance Claim Adjuster Relationship Specialty Start Date End Date Pasquale Pro MD [address] [place] [address] PCP - General Internal Medicine 03/02/25
--- NOTE | 2025-04-11 05:39 | ED.GENADULT ---
HPI - General Adult General Chief complaint: Nausea/Vomiting/Diarrhea Stated complaint: nausea Time Seen by Provider: 04/11/25 05:39 Source: patient and EMS Mode of arrival: EMS History of Present Illness HPI narrative: patient came from home by ambulance with the chief complaint lightheadedness, nausea, vomiting, diarrhea for the last 2 weeks, was hospitalized at [facility], ICU, signed against medical advice Six days ago because she did not feel safe was seen by her family physician yesterday waiting for blood workup to be done. History of diabetes hypertension hyperlipidemia perforated ulcer. Patient is telling me that she was diagnosed of C diff last week and finished a course of antibiotic Related Data Home Medications ?Medication ?Instructions ?Recorded ?Confirmed ?Last Taken ?Type atorvastatin 10 mg tablet 10 mg PO DAILY 03/09/21 02/28/25 03/10/23 09:00 History fenofibrate micronized 67 mg 67 mg PO DAILY 03/09/21 02/28/25 03/10/23 09:00 History capsule glimepiride 1 mg tablet 1 mg PO DAILY 03/09/21 02/28/25 03/10/23 09:00 History amlodipine 10 mg tablet 10 mg PO DAILY 11/20/22 02/28/25 03/10/23 09:00 History aspirin 81 mg tablet,delayed 81 mg PO DAILY 11/20/22 02/28/25 03/10/23 09:00 History release carvedilol 12.5 mg tablet 12.5 mg PO BID 11/20/22 02/28/25 03/10/23 18:00 History gabapentin 100 mg capsule 100 mg PO TID 11/20/22 02/28/25 Unknown History pantoprazole 40 mg tablet,delayed 40 mg PO BID 11/20/22 02/28/25 03/10/23 18:00 History release sulfasalazine 500 mg tablet 1 g PO TID 02/05/23 02/28/25 Unknown History ergocalciferol (vitamin D2) 1,250 1,250 mcg PO WEEKLY 02/15/25 02/28/25 02/10/25 06:06 History mcg (50,000 unit) capsule (Vitamin D2) losartan 100 mg tablet 100 mg PO DAILY 02/15/25 02/28/25 Unknown History Allergies Allergy/AdvReac Type Severity Reaction Status Date / Time hydrocodone Allergy Intermediate Vomiting Verified 04/11/25 05:57 Review of Systems Review of Systems: All systems reviewed & are unremarkable except as noted in HPI and below PMFSH Past Medical History Medical History Infrarenal abdominal aortic aneurysm (AAA) without rupture COPD (chronic obstructive pulmonary disease) Tobacco use Breast cancer Fatty liver GERD (gastroesophageal reflux disease) Diarrhea YRIS (iron deficiency anemia) HTN (hypertension) Diabetes mellitus Surgical History Surgical History Hx of tubal ligation Hx of hysterectomy Hx of mastectomy Family History Family History Father Hypertension Mother Hypertension Heart disease Social History Social History Smoking packs per day: 1 Smoking cigarettes per day: 20.0 Years smoked: 40 Smoking pack-years: 40.00 Smoking status: Current every day smoker Tobacco type: cigarettes and e-cigarettes/vaping Smokeless tobacco user: chewing tobacco Second hand tobacco smoke exposure: Yes Alcohol intake: never Substance use: current Substance use type: marijuana Lack of Transportation: No Lack of Food: Never True Current Housing: I Have Housing Concerned About Future Housing: No Difficulty Paying Gas/Electric Bills: No Difficulty Paying for Meds: No Currently Unemployed: No Education: Bachelor's Degree Difficulty w/ Childcare or Family Care: No Living arrangements: with family Gender identity (if verbalized by the patient): Female Spiritual care concerns: No Exam Narrative: General appearance: Well-developed, well-nourished looks ill, holding vomiting bag in hands Skin: pale skin Head: Normocephalic, nontraumatic Eyes: Clear conjunctiva ENT: Oropharynx normal, ears normal, nose normal Neck: Supple, nontender Chest and respiratory: Airway patent, no respiratory distress, no accessory muscle use Heart: Regular rate/rhythm Abdomen: Soft, diffuse abdominal tenderness, no organomegaly, quiet bowel sounds Vascular: Normal peripheral pulses, normal capillary refill. Musculoskeletal: Normal range of motion, nontender back Neurologic: Alert and oriented ?3, ADULT PAROLE OFFICER is normal as tested, no gross motor deficit Course Consultations Consultation #1: DR RICHARDSON, HOSPITALIST AT [facility] ACCEPTED PATIENT TRANSFER REQUESTED TO GIVE PATIENT ZOSYN PRIOR TO DISCHARGE Date: 04/11/25 Time: 08:42 Vital Signs Vital signs: Vital Signs Temperature 36.1 C L 04/11/25 05:28 Pulse Rate 106 H 04/11/25 05:28 Respiratory Rate 16 04/11/25 05:28 Blood Pressure 94/70 L 04/11/25 05:28 Pulse Oximetry 90 04/11/25 05:28 Oxygen Delivery Room Air 04/11/25 05:28 Temperature 36.1 C L 04/11/25 05:28 Pulse Rate 90 04/11/25 07:01 Respiratory Rate 22 H 04/11/25 07:01 Blood Pressure 125/51 L 04/11/25 07:01 Pulse Oximetry 93 04/11/25 07:01 Oxygen Delivery Room Air 04/11/25 07:01 Medical Decision Making MDM Narrative Medical decision making narrative: patient presents with vomiting and diarrhea Vital signs showing blood pressure 94/70, heart rate 106 otherwise within normal limit Physical examination showing ill looking patient, holding vomiting bag in hands, diffuse abdominal tenderness, Differential diagnosis include C diff, gastroenteritis, dehydration, electrolyte imbalance Blood workup today includes CBC, CMP, lactic acid, lipase showed Vital Signs Vital Signs: Vital Signs Temperature 36.1 C L 04/11/25 05:28 Pulse Rate 106 H 04/11/25 05:28 Respiratory Rate 16 04/11/25 05:28 Blood Pressure 94/70 L 04/11/25 05:28 Pulse Oximetry 90 04/11/25 05:28 Oxygen Delivery Room Air 04/11/25 05:28 Temperature 36.1 C L 04/11/25 05:28 Pulse Rate 90 04/11/25 07:01 Respiratory Rate 22 H 04/11/25 07:01 Blood Pressure 125/51 L 04/11/25 07:01 Pulse Oximetry 93 04/11/25 07:01 Oxygen Delivery Room Air 04/11/25 07:01 Lab Data 04/11/25 06:07 04/11/25 06:07 Labs: Lab Results 04/11/25 04/11/25 04/11/25 Range/Units 06:07 06:46 08:24 WBC 23.5 H (4.8-10.8) K/mm3 RBC 5.58 H (4.20-5.40) M/mm3 Hgb 17.2 H (11.7-13.8) g/dL Hct 50.5 H (35.0-42.0) % MCV 90.5 (78.0-102.0) fL MCH 30.8 (27.0-31.0) pg MCHC 34.1 (32-36) g/dL RDW 12.4 (11.6-14.4) % Plt Count 470 H (150-420) K/mm3 MPV 10.5 (9.2-11.8) fl Immature Gran % (Auto) Not Reportable Neut % (Auto) Not Reportable Lymph % (Auto) Not Reportable Cannon % (Auto) Not Reportable Eos % (Auto) Not Reportable Baso % (Auto) Not Reportable Lymph # (Auto) Not Reportable Cannon # (Auto) Not Reportable Eos # (Auto) Not Reportable Baso # (Auto) Not Reportable Abs Immat Gran (auto) Not Reportable Absolute Neuts (auto) Not Reportable Absolute Nucleated RBC Not Reportable Total Counted 100 Neutrophils % (Manual) 88 H (46-73) % Band Neutrophils % 0 (0-6) % Lymphocytes % (Manual) 10 L (18-44) % Monocytes % (Manual) 2 L (3-9) % Nucleated RBC % Not Reportable Abs Neuts (Manual) 20.68 H (1.3-6.7) K/mm3 Abs Lymphs (Manual) 2.35 (1.1-4.5) K/mm3 Abs Monocytes (Manual) 0.47 (0.1-0.90) K/mm3 Platelet Estimate Increased (Adequate) Schistocytes Not Reportable PT 12.6 H (9.50-12.1) Seconds INR 1.2 APTT 23.5 L (23.9-30.70) Sec Sodium 140 (137-145) mmol/L Potassium 4.3 (3.4-5.0) mmol/L Chloride 85 L (98-107) mmol/L Carbon Dioxide 31 H (22-30) mmol/L Anion Gap 24 H (4-12) mmol/L BUN 47 H D (7-17) mg/dL Creatinine 3.38 H (0.7-1.0) mg/dL Estim Creat Clear Calc 12 ml/min Estimated GFR 13 L (59 - ) Glucose 249 H (65-110) mg/dL Calculated Osmolality 310 H (285-295) mOsm/kg Lactic Acid 2.3 H Pending (0.4-2.0) mmol/L Calcium 10.1 (8.4-10.2) mg/dL Total Bilirubin 0.9 (0.2-1.3) mg/dL AST 38 H (14-36) U/L ALT 21 (6-35) U/L Alkaline Phosphatase 72 (38-126) U/L Total Protein 10.9 H (6.3-8.2) g/dL Albumin 5.1 (3.5-5.1) g/dL Lipase 92 (23-300) U/L C. difficile (PCR) Negative (NEGATIVE) Imaging Data Radiologist's impression: Impressions Chest X-Ray 04/11/25 06:15 IMPRESSION: 1. No acute cardiopulmonary findings given portable technique. Abdomen/Pelvis CT 04/11/25 07:45 IMPRESSION: 1. Consistent with SMA syndrome. Namely, gastroduodenal obstruction from narrowed space between SMA and aorta. Discharge Plan Discharge Clinical Impression: SMAS (superior mesenteric artery syndrome), Duodenal obstruction Patient Disposition: Acute Care Hospital Condition: Guarded Prognosis Patient Language: Japanese Prescriptions: No Action atorvastatin 10 mg tablet 10 mg PO DAILY fenofibrate micronized 67 mg capsule 67 mg PO DAILY glimepiride 1 mg tablet 1 mg PO DAILY carvedilol 12.5 mg tablet 12.5 mg PO BID aspirin 81 mg Tablet,Delayed Release (Dr/Ec) 81 mg PO DAILY amlodipine 10 mg tablet 10 mg PO DAILY pantoprazole 40 mg tablet,delayed release (DR/EC) 40 mg PO BID gabapentin 100 mg capsule 100 mg PO TID albuterol sulfate 90 mcg/actuation HFA aerosol inhaler 2 puff inhalation QID PRN (Reason: shortness of breath or wheezing) Qty: 6.7 0RF ergocalciferol (vitamin D2) [Vitamin D2] 1,250 mcg (50,000 unit) capsule 1,250 mcg PO WEEKLY losartan 100 mg tablet 100 mg PO DAILY ondansetron HCl 4 mg tablet 4 mg PO Q8H PRN (Reason: nausea and vomiting) 3 Days Qty: 20 0RF sulfasalazine 500 mg tablet 1 g PO TID Rx Instructions: give with food (meal/snack) Follow-up/Referrals: Pasquale Pro MD [Primary Care Provider, Internal Medicine]
--- OUTSIDE RECORDS SUMMARY | 2025-04-11 05:41 | XMS_ITS | Encounter Summary ---
Author Organization [facility] Address [address] [place] [id number] Care Team Providers Care Melter Supervisor Oxygen Furnace Name Role Phone Pasquale Pro MD Primary Care Provider [phone] Roland Tatum MD Unavailable [phone] Suly Galdamez APRN, NP-C Unavailable Encounter Details Date Type Department Care Team (Late st Contact Info) Description 09/22/2022 Hospital Follow-up Call [facility] Surgical [address] [place] [address] Christopher Farnsworth MD [address] [address] Social History Tobacco Use Types [...] often do you attend chur ch or mandaen services? More than 4 times per year [...] and heating? Not hard at all 08/22/2022 [facility] - Occupational [...] place to sleep or slept in a assisted (including now)? No 08/22/2022 Comments No Sex [...] Coronavirus/COVID-19? No / Unsure 09/22/2022 1:55 PM CLINICAL APPEALS AUDITOR documented as of this encounter Functional Status * RETIRED Are you deaf or do you have serious difficulty hearing Answer Date of Assessment Author Status No 08/22/2022 3:00 AM CLINICAL APPEALS AUDITOR Activ e * RETIRED Are you blind or do you have serious difficulty seeing, even when wearing glasses? Answer Date of Assessment Author Status No 08/22/2022 3:00 AM CLINICAL APPEALS AUDITOR Activ e * Do you have serious difficulty walking or climbing stairs? Answer Date of Assessment Author Status No 08/22/2022 3:00 AM CLINICAL APPEALS AUDITOR Sampson Hartmann RN Active * Do you have difficulty dressing or bathing? Answer Date of Assessment Author Status No 08/22/2022 3:00 AM CLINICAL APPEALS AUDITOR Sampson Hartmann RN Active * Because of [...] infection documented in this encounter Care Teams Melter Supervisor Oxygen Furnace Relationship Specialty Start Date End Date Pasquale Pro MD [address] [place] [id number] PCP - General INTERNAL MEDICINE 03/19/18 Roland Tatum MD [address] [place] [phone] Consulting Physician CARDIOVASCULAR DISEASE 06/22/20 Suly Galdamez APRN, DOT ETCHER-C [address] [facility] [address] [place] [phone] NURSE PRACTITIONER 06/22/20 documented as of this encounter
[2025-04-11 06:13] LABS: Hematocrit 50.5 % (35.0-42.0); Hemoglobin 17.2 g/dL (11.7-13.8); Mean Corpuscular HGB Conc 34.1 g/dL (32-36); Mean Corpuscular Hemoglobin 30.8 pg (27.0-31.0); Mean Corpuscular Volume 90.5 fL (78.0-102.0); Platelet Count Result 470 K/mm3 (150-420); Red Blood Count 5.58 M/mm3 (4.20-5.40); White Blood Count 23.5 K/mm3 (4.8-10.8)
[2025-04-11] MEDS: ONDANSETRON INJ 4 MG/2 ML VIAL IV PUSH ×2 (06:16→08:57)
[2025-04-11] MEDS: SODIUM CHLORIDE 0.9% IV 1,000 ML 999 ML IV CONT ×2 (06:16→06:17)
[2025-04-11 06:27] LABS: INR 1.2; Partial Thromboplastin Time 23.5 Sec (23.9-30.70); Prothrombin Time 12.6 Seconds (9.50-12.1)
[2025-04-11 06:33] LABS: Band Neutrophils Percent 0 % (0-6); Lymphocytes Absolute Manual 2.35 K/mm3 (1.1-4.5); Lymphocytes Percent Manual 10 % (18-44); Monocytes Absolute Manual 0.47 K/mm3 (0.1-0.90); Monocytes Percent Manual 2 % (3-9); Neutrophils Absolute Manual 20.68 K/mm3 (1.3-6.7); Neutrophils Percent Manual 88 % (46-73); Total Cells Counted 100
[2025-04-11 06:39] LABS: Alanine Aminotransferase 21 U/L (6-35); Albumin Level 5.1 g/dL (3.5-5.1); Alkaline Phosphatase 72 U/L (38-126); Anion Gap 24 mmol/L (4-12); Aspartate Amino Transferase 38 U/L (14-36); Bilirubin,Total 0.9 mg/dL (0.2-1.3); Blood Urea Nitrogen 47 mg/dL (7-17); Calcium 10.1 mg/dL (8.4-10.2); Carbon Dioxide 31 mmol/L (22-30); Chloride 85 mmol/L (98-107); Estimated CRCL calculation 12 ml/min; Estimated Glomerular Filt Rate 13; Glucose 249 mg/dL (65-110); Osmolality Calculated 310 mOsm/kg (285-295); Potassium 4.3 mmol/L (3.4-5.0); Sodium 140 mmol/L (137-145); Total Protein 10.9 g/dL (6.3-8.2)
[2025-04-11 06:47] LABS: Lipase 92 U/L (23-300)
--- NOTE | 2025-04-11 06:49 | PC.NURSE ---
pt had episode of stool incontinence. stool light brown and stringy. pt states she was told she completed treatment and no longer had c-diff while she was inpatient at [facility] despite leaving AMA. IVF infusing per order, see MAR. VSS. Pt given several warm blankets as she now states she is cold after IVF infusing. VSS. call light within reach. pt actively vomiting, ERP aware.
--- NOTE | 2025-04-11 07:08 | PC.NURSE ---
pt report given to GAEL Eli for continuation of care on day shift. pt resting on stretcher awaiting results and plan of care. call light within reach.
--- NOTE | 2025-04-11 07:10 | PC.NURSE ---
pt to CT scan via stretcher per cattle trader.
[2025-04-11 07:31] LABS: Toxigenic C. Diff NEGATIVE (NEGATIVE)
[2025-04-11] MEDS: PIPERACILLIN/TAZOBACTAM SOD 2.25 GM in SODIUM CHLORIDE 0.9% IV 50 ML 100 ML IVPB (08:57)
--- NOTE | 2025-04-11 09:30 | PC.NURSE ---
Pt refusing NG tube placement. Pt states that when she was last here that they atttempted multiple times to place one without success. Pt states that she then went to [facility] and they also were unsuccessful. RN educates pt on risks of not having NG placed. Pt continues to refuse at this time. MD Braydon made aware.
== END 2025-04-11 10:38 | disposition short-term general hospital (02) ==
PROVIDERS: Emergency Provider Emergency Medicine; PCP Internal Medicine
DX: K55.1 Chronic vascular disorders of intestine (principal); K31.5 Obstruction of duodenum; E78.5 Hyperlipidemia, unspecified; E11.9 Type 2 diabetes mellitus without complications; I10 Essential (primary) hypertension; Z85.3 Personal history of malignant neoplasm of breast; F17.210 Nicotine dependence, cigarettes, uncomplicated
CPT/HCPCS: 36415; 71045; 74176; 80053; 83605; 83690; 85025; 85610; 85730; 87493; 96361; 96365; 96375; 96376; 99285; J2405; J2543; J7030

== ENCOUNTER 2025-04-27 15:33 | Observation (INO) | payer MEDICARE, SELFPAY ==
[2025-04-27] VITALS (39 sets, daily range): BP systolic 91–133; BP diastolic 49–90; PULSE 65–90; RESP 12–40; TEMP 36.5–36.8; O2SAT 95–100; BMI 24.3
--- NOTE | ~2025-04-27 | XR_ITS ---
EXAMINATION: XR chest 1V portable 04/27/2025 16:58 INDICATION: History of COPD TECHNIQUE:A single AP portable upright frontal image of the chest was obtained. COMPARISON: 11/20/2022 FINDINGS: Heart is not enlarged. No pneumothorax. No pleural effusion. No free air the diaphragm. No focal pulmonary consolidation. IMPRESSION: 1: NO ACUTE CARDIOPULMONARY DISEASE. Reviewed, dictated and finalized at location Q.
--- NOTE | ~2025-04-27 | CT_ITS ---
EXAMINATION: CT brain wo con DATE: 04/27/2025 16:59 INDICATION: Confusion TECHNIQUE: Computed tomography (CT) of the head was performed without intravenous contrast. Sagittal and coronal reconstructions were performed. The mA was adjusted according to patient size. Iterative reconstruction technique was employed. The dose-length product was 605.33 mGy-cm. COMPARISON: Brain MR dated 07/07/2020 FINDINGS: No acute intracranial hemorrhage, acute infarction or abnormal extra axial fluid collection. Small old lacunar infarcts at the bilateral basal ganglia at the anterior limbs of the internal capsules. There is moderate scattered white matter hypoattenuation consistent with chronic small vessel ischemic disease. Symmetric prominence of the sulci consistent with mild age-appropriate diffuse cerebral volume loss. Ventricles are normal and symmetric. No mass/mass effect. Changes of bilateral intraocular lens replacement. The orbits and mastoid air cells are normal. Small amount of bubbly mucus in the dependent aspect of the left sphenoid sinus. Intracranial calcified cerebral atherosclerosis is noted. IMPRESSION: 1. Couple small old lacunar infarcts at the bilateral basal ganglia. No acute intracranial process. 2. Age-related changes including mild diffuse volume loss and moderate scattered white matter hypoattenuation consistent with chronic small vessel ischemic disease. 3. Bubbly mucus in the left sphenoid sinus which could be seen with acute sinusitis. Reviewed, dictated and finalized at location A. IMPRESSION: 1. Couple small old lacunar infarcts at the bilateral basal ganglia. No acute i ntracranial process. 2. Age-related changes including mild diffuse volume loss and moderate scattere d white matter hypoattenuation consistent with chronic small vessel ischemic di sease. 3. Bubbly mucus in the left sphenoid sinus which could be seen with acute sinus itis.
[2025-04-27] MEDS: SODIUM CHLORIDE 0.9% IV 1,000 ML 999 ML IV CONT (15:33)
--- NOTE | 2025-04-27 15:56 | ECG_ITS ---
Test Date: 2025-04-27 16:26:46 Measurements Intervals [place] Rate: 75 P: 0 CT: 0 QRS: 44 QRSD: 120 T: 56 QT: 420 QTc: 472 Interpretive Statements SINUS RHYTHM RIGHT BUNDLE BRANCH BLOCK BASELINE ARTIFACT- I, II, III, AVR, AVL, AVF, V1-V6 ABNORMAL ECG Compared to ECG 04/04/2025 17:43:49 NO SIGNIFICANT CHANGE Electronically Signed On 04-27-2025 18:35:59 CDT by Camilo Foster D.O.
[2025-04-27 16:25] LABS: Hematocrit 28.0 % (35.0-42.0); Hemoglobin 9.0 g/dL (11.7-13.8); Immature Granulocyte Percent A 0.6 % (0.0-0.0); Lymphocytes Absolute Auto 1.87 K/mm3 (1.10-4.50); Mean Corpuscular HGB Conc 32.1 g/dL (32-36); Mean Corpuscular Hemoglobin 29.8 pg (27.0-31.0); Mean Corpuscular Volume 92.7 fL (78.0-102.0); Nucleated Red Blood Cells Absolute Auto 0.00 K/mm3 (0.00-0.00); Nucleated Red Blood Cells Perc 0.0 % (0-0.0); Platelet Count Result 299 K/mm3 (150-420); Red Blood Count 3.02 M/mm3 (4.20-5.40); White Blood Count 6.4 K/mm3 (4.8-10.8)
[2025-04-27 16:39] LABS: Alanine Aminotransferase 12 U/L (6-35); Albumin Level 3.3 g/dL (3.5-5.1); Alkaline Phosphatase 64 U/L (38-126); Anion Gap 9 mmol/L (4-12); Aspartate Amino Transferase 18 U/L (14-36); Bilirubin,Total 0.3 mg/dL (0.2-1.3); Blood Urea Nitrogen 15 mg/dL (7-17); Calcium 6.9 mg/dL (8.4-10.2); Carbon Dioxide 22 mmol/L (22-30); Chloride 105 mmol/L (98-107); Estimated CRCL calculation 41 ml/min; Estimated Glomerular Filt Rate 58; Glucose 87 mg/dL (65-110); Osmolality Calculated 281 mOsm/kg (285-295); Potassium 3.5 mmol/L (3.4-5.0); Sodium 136 mmol/L (137-145); Total Protein 5.9 g/dL (6.3-8.2)
[2025-04-27 16:50] LABS: NT Pro B Type Natriuretic Pept 357 pg/mL (19.9-100); Troponin I < 0.012 ng/mL (0.000-0.034)
[2025-04-27] MEDS: CALCIUM GLUC 1,000 MG/NS 50 ML 1,000 MG/50 ML BAG 100 MG IVPB (17:00)
[2025-04-27 17:29] LABS: Appearance Urine Clear (Clear); Glucose Urine UA Negative (Negative); Leukocyte Esterase Ur Negative LEU/UL (Negative); Nitrate Urine Negative (Negative); Specific Grav Ur 1.015 (1.010-1.020)
[2025-04-27 17:30] LABS: Add Urine Microscopic? NO
--- NOTE | 2025-04-27 18:39 | ED.AMS ---
HPI - Altered Mental Status General Chief Complaint: Altered Mental Status Stated Complaint: altered mental state Time Seen by Provider: 04/27/25 15:37 Source: patient, family and EMS Mode of arrival: EMS Limitations: physical limitation History of Present Illness HPI narrative: this is a 70-year-old female presents via EMS from with weakness and decreased appetite. Patient was discharged last Thursday from [facility] after she was admitted and treated for upper GI bleed and had a NG tube placed. Patient states that she is having some discomfort with swallowing and a decreased appetite but has been weak over the past few days after discharge. Patient according to family is mildly confused but is alert and responds to questions. There is no chest pain or shortness of breath no abdominal pain no nausea vomiting no evidence of GI bleed no diarrhea constipation no fever chills. Patient has a history of diabetes GERD and hyperlipidemia. MD complaint: confusion Onset (ago): week(s) Timing confirmed by: family member Severity: moderate Consistency of symptoms: waxing and waning Related Data Home Medications ?Medication ?Instructions ?Recorded ?Confirmed ?Last Taken ?Type atorvastatin 10 mg tablet 10 mg PO DAILY 03/09/21 02/28/25 03/10/23 09:00 History fenofibrate micronized 67 mg 67 mg PO DAILY 03/09/21 02/28/25 03/10/23 09:00 History capsule glimepiride 1 mg tablet 1 mg PO DAILY 03/09/21 02/28/25 03/10/23 09:00 History amlodipine 10 mg tablet 10 mg PO DAILY 11/20/22 02/28/25 03/10/23 09:00 History aspirin 81 mg tablet,delayed 81 mg PO DAILY 11/20/22 02/28/25 03/10/23 09:00 History release carvedilol 12.5 mg tablet 12.5 mg PO BID 11/20/22 02/28/25 03/10/23 18:00 History gabapentin 100 mg capsule 100 mg PO TID 11/20/22 02/28/25 Unknown History pantoprazole 40 mg tablet,delayed 40 mg PO BID 11/20/22 02/28/25 03/10/23 18:00 History release sulfasalazine 500 mg tablet 1 g PO TID 02/05/23 02/28/25 Unknown History ergocalciferol (vitamin D2) 1,250 1,250 mcg PO WEEKLY 02/15/25 02/28/25 02/10/25 06:06 History mcg (50,000 unit) capsule (Vitamin D2) losartan 100 mg tablet 100 mg PO DAILY 02/15/25 02/28/25 Unknown History Allergies Allergy/AdvReac Type Severity Reaction Status Date / Time hydrocodone Allergy Intermediate Vomiting Verified 04/27/25 15:35 Review of Systems Review of Systems: All systems reviewed & are unremarkable except as noted in HPI and below PMFSH Past Medical History Medical History Infrarenal abdominal aortic aneurysm (AAA) without rupture COPD (chronic obstructive pulmonary disease) Tobacco use Breast cancer Fatty liver GERD (gastroesophageal reflux disease) Diarrhea YRIS (iron deficiency anemia) HTN (hypertension) Diabetes mellitus Surgical History Surgical History Hx of tubal ligation Hx of hysterectomy Hx of mastectomy Family History Family History Father Hypertension Mother Hypertension Heart disease Social History Social History Smoking packs per day: 1 Smoking cigarettes per day: 20.0 Years smoked: 40 Smoking pack-years: 40.00 Smoking status: Current every day smoker Tobacco type: cigarettes and e-cigarettes/vaping Smokeless tobacco user: chewing tobacco Second hand tobacco smoke exposure: Yes Alcohol intake: never Substance use: current Substance use type: marijuana Lack of Transportation: No Lack of Food: Never True Current Housing: I Have Housing Concerned About Future Housing: No Difficulty Paying Gas/Electric Bills: No Difficulty Paying for Meds: No Currently Unemployed: No Education: Bachelor's Degree Difficulty w/ Childcare or Family Care: No Living arrangements: with family Gender identity (if verbalized by the patient): Female Spiritual care concerns: No Exam Const: General: no acute distress and ill appearing Nutritional Appearance: well nourished Limitations: altered mental status and physical limitations Eyes: Conjunctivae: conjunctivae normal Pupils: Equal, round and reactive pupils present EOM: EOMs intact bilaterally Neck: Neck: normal visual inspection, no lymphadenopathy and no meningeal signs Chest: Chest palpation & inspection: normal inspection of the chest Resp: Effort & Inspection: normal respiratory effort Auscultation: clear to auscultation bilaterally Cardio: Rate: regular rate Rhythm: regular rhythm GI: GI Palp: Yes Soft to palpation Auscultation: normal bowel sounds Back/Spine/Pelvis: Back: no CVA tenderness Skin: General skin exam: normal color Rashes: no rashes Wounds: no wounds Neuro: General: patient oriented x3, moves all extremities and no meningeal signs Cranial nerves: Yes Nystagmus not present Speech: normal speech Extrem: General: normal to inspection, no clubbing, cyanosis or edema and no pedal edema Course Course Emergency Course: medical decision making narrative: The patient was evaluated by myself in the emergency department. History was obtained from family patient and EMS. Physical exam performed and witnessed by nurse Madeline. External records reviewed at this time. Patient had CT scan of the brain which showed no acute abnormalities Chest x-ray with no acute cardiopulmonary abnormalities white count was normal H&H stable improved since her last hospital stay at [facility] for upper GI bleed. Patient had a diminished magnesium and calcium level, and IV calcium and magnesium were given to the patient pay. Repeat assessment Patient doing well on repeat exam with no acute distress. Patient and family agree with discussion after shared medical decision making agree with admission to the hospital. All questions answered to the patient/ family satisfaction. Vital Signs Vital signs: Vital Signs Temperature 36.7 C 04/27/25 15:33 Pulse Rate 82 04/27/25 15:33 Respiratory Rate 20 04/27/25 15:33 Blood Pressure 133/60 04/27/25 15:33 Pulse Oximetry 100 04/27/25 15:33 Oxygen Delivery Room Air 04/27/25 15:33 Temperature 36.7 C 04/27/25 15:33 Pulse Rate 74 04/27/25 18:30 Respiratory Rate 18 04/27/25 16:01 Blood Pressure 104/90 04/27/25 16:01 Pulse Oximetry 100 04/27/25 16:01 Oxygen Delivery Room Air 04/27/25 15:33 MDM - Altered Mental Status Lab Data 04/27/25 16:19 04/27/25 16:19 Labs: Lab Results 04/27/25 04/27/25 04/27/25 Range/Units 16:19 17:22 18:28 WBC 6.4 (4.8-10.8) K/mm3 RBC 3.02 L (4.20-5.40) M/mm3 Hgb 9.0 L (11.7-13.8) g/dL Hct 28.0 L (35.0-42.0) % MCV 92.7 (78.0-102.0) fL MCH 29.8 (27.0-31.0) pg MCHC 32.1 (32-36) g/dL RDW 14.9 H (11.6-14.4) % Plt Count 299 (150-420) K/mm3 MPV 9.0 L (9.2-11.8) fl Immature Gran % (Auto) 0.6 H (0.0-0.0) % Neut % (Auto) 61.5 (50.0-70.0) % Lymph % (Auto) 29.3 (18.0-42.0) % [place] % (Auto) 7.5 (2.0-11.0) % Eos % (Auto) 0.3 L (1.0-6.0) % Baso % (Auto) 0.8 (0.0-1.0) % Lymph # (Auto) 1.87 (1.10-4.50) K/mm3 [place] # (Auto) 0.48 (0.10-0.90) K/mm3 Eos # (Auto) 0.02 (0.02-0.50) K/mm3 Baso # (Auto) 0.05 (0.00-0.10) K/mm3 Abs Immat Gran (auto) 0.04 H (0.00-0.00) K/mm3 Absolute Neuts (auto) 3.92 (1.70-7.20) K/mm3 Absolute Nucleated RBC 0.00 (0.00-0.00) K/mm3 Nucleated RBC % 0.0 (0-0.0) % Sodium 136 L (137-145) mmol/L Potassium 3.5 (3.4-5.0) mmol/L Chloride 105 (98-107) mmol/L Carbon Dioxide 22 (22-30) mmol/L Anion Gap 9 (4-12) mmol/L BUN 15 D (7-17) mg/dL Creatinine 0.95 (0.7-1.0) mg/dL Estim Creat Clear Calc 41 ml/min Estimated GFR 58 L (59 - ) Glucose 87 (65-110) mg/dL Calculated Osmolality 281 L (285-295) mOsm/kg Lactic Acid 1.1 (0.4-2.0) mmol/L Calcium 6.9 L (8.4-10.2) mg/dL Magnesium Pending Total Bilirubin 0.3 (0.2-1.3) mg/dL AST 18 (14-36) U/L ALT 12 (6-35) U/L Alkaline Phosphatase 64 (38-126) U/L Troponin I < 0.012 (0.000-0.034) ng/mL NT-Pro-B Natriuret Pep 357 H (19.9-100) pg/mL Total Protein 5.9 L (6.3-8.2) g/dL Albumin 3.3 L (3.5-5.1) g/dL Urine Color Dark yellow (Yellow) Urine Appearance Clear (Clear) Urine pH 5.5 (5.0-8.0) Ur Specific [place] 1.015 (1.010-1.020) Urine Protein Negative (Negative) Urine Glucose (UA) Negative (Negative) Urine Ketones Negative (Negative) Ur Blood (Man) Negative (Negative) Urine Nitrate Negative (Negative) Urine Bilirubin 1+ H (Negative) Urine Urobilinogen 0.2 (0.2-1.0) mg/dL Leukocyte Esterase Rfl Negative (Negative) FLORENCIO/UL Urine RBC 0-2 (0-2) /hpf Urine WBC 0-3 (0-3) /hpf Ur Squamous Epith Cells Rare (Few) /hpf Urine Bacteria Trace (None) /hpf Critical Care Time Critical Care Time Critical Care Time: No Discharge Plan Discharge Clinical Impression: Hypocalcemia, Hypomagnesemia, Weakness Patient Disposition: Acute Care Hospital Condition: Guarded Prognosis Patient Language: Icelandic Prescriptions: No Action atorvastatin 10 mg tablet 10 mg PO DAILY fenofibrate micronized 67 mg capsule 67 mg PO DAILY glimepiride 1 mg tablet 1 mg PO DAILY carvedilol 12.5 mg tablet 12.5 mg PO BID aspirin 81 mg Tablet,Delayed Release (Dr/Ec) 81 mg PO DAILY amlodipine 10 mg tablet 10 mg PO DAILY pantoprazole 40 mg tablet,delayed release (DR/EC) 40 mg PO BID gabapentin 100 mg capsule 100 mg PO TID albuterol sulfate 90 mcg/actuation HFA aerosol inhaler 2 puff inhalation QID PRN (Reason: shortness of breath or wheezing) Qty: 6.7 0RF ergocalciferol (vitamin D2) [Vitamin D2] 1,250 mcg (50,000 unit) capsule 1,250 mcg PO WEEKLY losartan 100 mg tablet 100 mg PO DAILY ondansetron HCl 4 mg tablet 4 mg PO Q8H PRN (Reason: nausea and vomiting) 3 Days Qty: 20 0RF sulfasalazine 500 mg tablet 1 g PO TID Rx Instructions: give with food (meal/snack) Follow-up/Referrals: Pasquale Pro MD [Primary Care Provider, Internal Medicine] Time of Disposition: 18:52
[2025-04-27 18:44] LABS: Magnesium 0.4 mg/dL (1.6-2.3)
[2025-04-27] MEDS: MAGNESIUM SULF 4 GM/WATER100ML 4 GM/100 ML BAG IVPB (19:09)
[2025-04-27] MEDS: GABAPENTIN 100 MG CAPSULE PO (19:10)
[2025-04-27] MEDS: NICOTINE (*PBKC) 21 MG PATCH 1 PATCH TRANSDERM (19:10)
[2025-04-27] MEDS: PANTOPRAZOLE 40 MG TABLET PO (19:10)
--- NOTE | 2025-04-27 20:02 | ADMGEN ---
This patient, Beba Hernandez, was admitted to 2nd Floor Room 209-1. Patient/family oriented to hospital policies and general routines including ID bracelet, bed and alarms, visiting hours, pain management, procedures, bathroom and other care routines, personal items, smoking policy, room service/diet, and visiting hours. Information on how to activate the Rapid Response Team has been discussed. Patient/Family are encouraged to report perceived risks to care and to ask questions if they do not understand what they are told or what they should do.
[2025-04-28 05:42] LABS: Hematocrit 26.9 % (35.0-42.0); Hemoglobin 8.5 g/dL (11.7-13.8); Immature Granulocyte Percent A 0.5 % (0.0-0.0); Lymphocytes Absolute Auto 1.83 K/mm3 (1.10-4.50); Mean Corpuscular HGB Conc 31.6 g/dL (32-36); Mean Corpuscular Hemoglobin 29.5 pg (27.0-31.0); Mean Corpuscular Volume 93.4 fL (78.0-102.0); Nucleated Red Blood Cells Absolute Auto 0.00 K/mm3 (0.00-0.00); Nucleated Red Blood Cells Perc 0.0 % (0-0.0); Platelet Count Result 327 K/mm3 (150-420); Red Blood Count 2.88 M/mm3 (4.20-5.40); White Blood Count 6.1 K/mm3 (4.8-10.8)
[2025-04-28 06:00] VITALS: BP 108/68; PULSE 65; RESP 16; TEMP 36.7; O2SAT 98
[2025-04-28 06:02] LABS: Alanine Aminotransferase 11 U/L (6-35); Albumin Level 3.0 g/dL (3.5-5.1); Alkaline Phosphatase 65 U/L (38-126); Anion Gap 8 mmol/L (4-12); Aspartate Amino Transferase 23 U/L (14-36); Bilirubin,Total 0.4 mg/dL (0.2-1.3); Blood Urea Nitrogen 12 mg/dL (7-17); Calcium 7.3 mg/dL (8.4-10.2); Carbon Dioxide 21 mmol/L (22-30); Chloride 105 mmol/L (98-107); Estimated CRCL calculation 51 ml/min; Estimated Glomerular Filt Rate > 60; Glucose 83 mg/dL (65-110); Magnesium 1.7 mg/dL (1.6-2.3); Osmolality Calculated 276 mOsm/kg (285-295); Potassium 3.6 mmol/L (3.4-5.0); Sodium 134 mmol/L (137-145); Total Protein 5.6 g/dL (6.3-8.2)
[2025-04-28 08:00] VITALS: BP 107/56; PULSE 71; RESP 16; TEMP 36.6; O2SAT 98
[2025-04-28] MEDS: NICOTINE (*PBKC) 21 MG PATCH 1 PATCH TRANSDERM (09:03)
[2025-04-28] MEDS: GABAPENTIN 100 MG CAPSULE PO (09:04)
[2025-04-28] MEDS: SUCRALFATE 1 GM TABLET PO (09:04)
[2025-04-28] MEDS: GLIMEPIRIDE 1 MG TABLET PO (09:04)
[2025-04-28] MEDS: ATORVASTATIN 10 MG TABLET PO (09:04)
[2025-04-28] MEDS: PANTOPRAZOLE 40 MG TABLET PO (09:04)
--- NOTE | 2025-04-28 09:49 | P.SS_ITS ---
Same Day Admit/Disch: HPI History of Present Illness Chief complaint: Confusion/weakness Narrative: Beba Hernnadez is a 70 year old female who presented to the emergency department with complaints confusion and generalized weakness. patient has a past medical history GERD, diabetes, GI bleed, HLD, and HTN. Per patient she was recently discharged from [facility] after an upper GI bleed from ulceration that was cauterized. patient reports she has had a poor appetite since hospitalization but is using supplemental protein shakes at this time. patient was brought in by family due to some concerns of her increased weakness and confusion. patient at that time denied any chest pain, shortness a breath, abdominal pain, nausea vomiting. In the ED: patient's CT chest with no acute cardiopulmonary findings, CT head with no acute intracranial findings exit possible acute sinusitis however patient with no symptoms. laboratory findings did show hypocalcemia 6.9 and hypo magnesium at 0.4. in the emergency department patient received IV magnesium in IV calcium reporting complete improvement to symptoms was alert and oriented x4 answering all questions appropriately. [facility] Past Medical History Medical History Infrarenal abdominal aortic aneurysm (AAA) without rupture COPD (chronic obstructive pulmonary disease) Tobacco use Breast cancer Fatty liver GERD (gastroesophageal reflux disease) Diarrhea YRIS (iron deficiency anemia) HTN (hypertension) Diabetes mellitus Surgical History Surgical History Hx of tubal ligation Hx of hysterectomy Hx of mastectomy Family History Family History Father Hypertension Mother Hypertension Heart disease Social History Social History Smoking packs per day: 1 Smoking cigarettes per day: 20.0 Years smoked: 51 Smoking pack-years: 51.00 Smoking status: Current every day smoker Tobacco type: cigarettes Smokeless tobacco user: chewing tobacco Second hand tobacco smoke exposure: Yes Alcohol intake: former Substance use: former Substance use type: marijuana Lack of Transportation: No Lack of Food: Never True Current Housing: I Have Housing Concerned About Future Housing: No Difficulty Paying Gas/Electric Bills: No Difficulty Paying for Meds: No Currently Unemployed: No Education: Associate Degree Difficulty w/ Childcare or Family Care: No Living arrangements: with family Gender identity (if verbalized by the patient): Female Spiritual care concerns: No Same Day Admit/Disch: Med Pre-admit Medications Home Medications ?Medication ?Instructions ?Recorded ?Confirmed ?Type atorvastatin 10 mg tablet 10 mg PO DAILY 03/09/21 1004/13 History glimepiride 1 mg tablet 1 mg PO DAILY 03/09/2104/27 History gabapentin 100 mg capsule 100 mg PO TID 11/20/2204/27 History pantoprazole 40 mg tablet,delayed 40 mg PO DAILY 11/2004/27/25 History release sulfasalazine 500 mg tablet 1 g PO QID 02/05/23 History loperamide 2 mg capsule 2 mg PO QID PRN loose stool 04/27/25 04/27/25 History sucralfate 1 gram tablet 1 g PO BIDAC 04/27/25 History magnesium oxide 400 mg PO DAILY #30 caps 05/13 Rx Review of Systems Review of Systems All systems reviewed & are unremarkable except as noted in HPI and below Exam Const: General: comfortable and no acute distress HENMT: Mouth: Yes moist mucous membranes Eyes: General: appearance normal, both eyes and all related structures Sclera: sclerae normal Pupils: Equal, round and reactive pupils present Neck: Neck: supple and no JVD Resp: Effort & Inspection: normal respiratory effort Auscultation: clear to auscultation bilaterally Cardio: Rate: regular rate Rhythm: regular rhythm GI: GI Palp: Yes Soft to palpation Auscultation: normal bowel sounds Skin: General skin exam: normal color and no rashes or lesions noted Wounds: no wounds Neuro: General: gait normal Speech: normal speech Motor exam (neuro): 5/5 motor strength present throughout Sensory Exam: normal sensation Extrem: General: normal to inspection Psych: Mental Status: mental status grossly normal Affect: normal affect DS: Data Data Completed and Pending Labs on day of discharge: Labs from last 24 hours 04/28/25 04/27/25 04/27/25 05:24 18:28 17:22 WBC 6.1 RBC 2.88 L Hgb 8.5 L Hct 26.9 L MCV 93.4 MCH 29.5 MCHC 31.6 L RDW 15.0 H Plt Count 327 MPV 9.5 Immature Gran % (Auto) 0.5 H Neut % (Auto) 59.3 Lymph % (Auto) 30.2 [place] % (Auto) 7.8 Eos % (Auto) 1.2 Baso % (Auto) 1.0 Lymph # (Auto) 1.83 [place] # (Auto) 0.47 Eos # (Auto) 0.07 Baso # (Auto) 0.06 Abs Immat Gran (auto) 0.03 H Absolute Neuts (auto) 3.60 Absolute Nucleated RBC 0.00 Nucleated RBC % 0.0 Sodium 134 L Potassium 3.6 Chloride 105 Carbon Dioxide 21 L Anion Gap 8 BUN 12 Creatinine 0.75 Estim Creat Clear Calc 51 Estimated GFR > 60 Glucose 83 Calculated Osmolality 276 L Lactic Acid Calcium 7.3 L Magnesium 1.7 0.4 L Total Bilirubin 0.4 AST 23 ALT 11 Alkaline Phosphatase 65 Troponin I NT-Pro-B Natriuret Pep Total Protein 5.6 L Albumin 3.0 L Urine Color Dark yellow Urine Appearance Clear Urine pH 5.5 Ur Specific [place] 1.015 Urine Protein Negative Urine Glucose (UA) Negative Urine Ketones Negative Ur Blood (Man) Negative Urine Nitrate Negative Urine Bilirubin 1+ H Urine Urobilinogen 0.2 Leukocyte Esterase Rfl Negative Urine RBC 0-2 Urine WBC 0-3 Ur Squamous Epith Cells Rare Urine Bacteria Trace 04/27/25 16:19 WBC 6.4 RBC 3.02 L Hgb 9.0 L Hct 28.0 L MCV 92.7 MCH 29.8 MCHC 32.1 RDW 14.9 H Plt Count 299 MPV 9.0 L Immature Gran % (Auto) 0.6 H Neut % (Auto) 61.5 Lymph % (Auto) 29.3 [place] % (Auto) 7.5 Eos % (Auto) 0.3 L Baso % (Auto) 0.8 Lymph # (Auto) 1.87 [place] # (Auto) 0.48 Eos # (Auto) 0.02 Baso # (Auto) 0.05 Abs Immat Gran (auto) 0.04 H Absolute Neuts (auto) 3.92 Absolute Nucleated RBC 0.00 Nucleated RBC % 0.0 Sodium 136 L Potassium 3.5 Chloride 105 Carbon Dioxide 22 Anion Gap 9 BUN 15 D Creatinine 0.95 Estim Creat Clear Calc 41 Estimated GFR 58 L Glucose 87 Calculated Osmolality 281 L Lactic Acid 1.1 Calcium 6.9 L Magnesium Total Bilirubin 0.3 AST 18 ALT 12 Alkaline Phosphatase 64 Troponin I < 0.012 NT-Pro-B Natriuret Pep 357 H Total Protein 5.9 L Albumin 3.3 L Urine Color Urine Appearance Urine pH Ur Specific [place] Urine Protein Urine Glucose (UA) Urine Ketones Ur Blood (Man) Urine Nitrate Urine Bilirubin Urine Urobilinogen Leukocyte Esterase Rfl Urine RBC Urine WBC Ur Squamous Epith Cells Urine Bacteria Imaging Radiologist's impression: EXAMINATION: CT brain wo con DATE: 04/27/2025 16:59 INDICATION: Confusion TECHNIQUE: Computed tomography (CT) of the head was performed without intravenous contrast. Sagittal and coronal reconstructions were performed. The mA was adjusted according to patient size. Iterative reconstruction technique was employed. The dose-length product was 605.33 mGy-cm. COMPARISON: Brain MR dated 07/07/2020 FINDINGS: No acute intracranial hemorrhage, acute infarction or abnormal extra axial fluid collection. Small old lacunar infarcts at the bilateral basal ganglia at the anterior limbs of the internal capsules. There is moderate scattered white matter hypoattenuation consistent with chronic small vessel ischemic disease. Symmetric prominence of the sulci consistent with mild age-appropriate diffuse cerebral volume loss. Ventricles are normal and symmetric. No mass/mass effect. Changes of bilateral intraocular lens replacement. The orbits and mastoid air cells are normal. Small amount of bubbly mucus in the dependent aspect of the left sphenoid sinus. Intracranial calcified cerebral atherosclerosis is noted. IMPRESSION: 1. Couple small old lacunar infarcts at the bilateral basal ganglia. No acute intracranial process. 2. Age-related changes including mild diffuse volume loss and moderate scattered white matter hypoattenuation consistent with chronic small vessel ischemic disease. 3. Bubbly mucus in the left sphenoid sinus which could be seen with acute sinusitis. EXAMINATION: XR chest 1V portable 04/27/2025 16:58 INDICATION: History of COPD TECHNIQUE:A single AP portable upright frontal image of the chest was obtained. COMPARISON: 11/20/2022 FINDINGS: Heart is not enlarged. No pneumothorax. No pleural effusion. No free air the diaphragm. No focal pulmonary consolidation. IMPRESSION: 1: NO ACUTE CARDIOPULMONARY DISEASE. DS: Summary Hospital Course Reason for hospitalization: hypo magnesium/ hypercalcemia/ dehydration Hospital Course: Beba Hernandez is a 70 year old female who presented to the emergency department with complaints confusion and generalized weakness. patient has a past medical history GERD, diabetes, GI bleed, HLD, and HTN. Per patient she was recently discharged from [facility] after an upper GI bleed from ulceration that was cauterized. patient reports she has had a poor appetite since hospitalization but is using supplemental protein shakes at this time. patient was brought in by family due to some concerns of her increased weakness and confusion. patient at that time denied any chest pain, shortness a breath, abdominal pain, nausea vomiting. In the ED: patient's CT chest with no acute cardiopulmonary findings, CT head with no acute intracranial findings. laboratory findings did show hypocalcemia 6.9 and hypo magnesium at 0.4. in the emergency department patient received IV magnesium in IV calcium reporting complete improvement to symptoms was alert and oriented x4 answering all questions appropriately. Hospital Course: patient was admitted to the medical unit for overnight observation and follow- up labs in the a.m. and followed up with patient on an assessment she was alert oriented x 4, answering all questions appropriately and felt like she was back to her baseline wanting to return home. her magnesium had improved to 1.7 calcemia to 7.4. encourage patient to continue with supplemental protein shakes and provided a prescription for magnesium oxide daily. Patient was discharged home recommended follow-up with her primary care physician and follow up labs in 2 weeks. Status at Discharge Functional status at discharge: independent ambulation Overall status at discharge: patient is back to baseline Time Spent with Patient Time attestation: Total time spent providing and/or coordinating discharge services: Time spent: Greater than 30 minutes DS: Admitting Diagnosis Discharge Date 04/28/2025 Admitting Diagnosis hypo magnesium/ hypocalcemia DS: Discharge Diagnosis Discharge Diagnosis (1) Hypocalcemia: Code(s): E83.51 - Hypocalcemia Status: Acute (2) Hypomagnesemia: Code(s): E83.42 - Hypomagnesemia Status: Acute (3) HTN (hypertension): Code(s): I10 - Essential (primary) hypertension Status: Acute (4) Diabetes mellitus: Code(s): E11.9 - Type 2 diabetes mellitus without complications Status: Acute (5) GERD (gastroesophageal reflux disease): Code(s): K21.9 - Gastro-esophageal reflux disease without esophagitis Status: Acute (6) Acute dehydration: Code(s): E86.0 - Dehydration Status: Acute (7) Tobacco use: Code(s): Z72.0 - Tobacco use Status: Acute Discharge Plan Discharge Attending physician on discharge: Pardeep Draper Consulting providers: Lore Collazo Discharging Clinician: Lore Collazo Anticipated Discharge Date/Time: 04/28/25 09:44 Patient Disposition: Home Activity: may shower and as tolerated Diet: as tolerated and regular Discharge Instructions: 1). hypomagnesium * I have prescribed oral magnesium tablets daily * encourage oral hydration and supplemental protein shakes * follow up with primary care physician as scheduled * follow-up CMP order provided How can you care for yourself at home? ? Keep track of any new symptoms or changes in your symptoms. ? Rest until you feel better. ? Be safe with medicines. Take your medicines exactly as prescribed. Call your doctor if you think you are having a problem with your medicine. ? Do not drive after taking a prescription pain medicine. ? Ensure to follow-up with primary care physician as indicated and provide updated medication list provided to you at discharge. When should you call for help? Call 911 anytime you think you may need emergency care. For example, call if: ? You passed out (lost consciousness). Call your doctor now or seek immediate medical care if: ? You have new symptoms like fever, difficulty breathing, Chest pain, vomiting, or rash. ? You have new or different pain. ? You are confused and are having trouble thinking clearly. ? Your symptoms are getting worse. Watch closely for changes in your health, and be sure to contact your doctor if: ? You do not get better as expected. Patient Instructions: Antibiotic Form, Hypocalcemia (DC), Hypomagnesemia (DC) Patient Language: Citizen Of [place] Stand Alone Forms: General Discharge Information Follow-up/Referrals: Pasquale Pro MD [Primary Care Provider, Internal Medicine] - 2 weeks Discharge Medications: New magnesium oxide 400 mg magnesium capsule 400 mg PO DAILY Qty: 30 0RF Continued atorvastatin 10 mg tablet 10 mg PO DAILY glimepiride 1 mg tablet 1 mg PO DAILY pantoprazole 40 mg tablet,delayed release (DR/EC) 40 mg PO DAILY gabapentin 100 mg capsule 100 mg PO TID loperamide 2 mg capsule 2 mg PO QID PRN (Reason: loose stool) sucralfate 1 gram tablet 1 g PO BIDAC sulfasalazine 500 mg tablet 1 g PO QID Rx Instructions: give with food (meal/snack) Other Ambulatory Orders: Comprehensive Metabolic Panel (Routine) Timeframe: 1 Week Location: Determined by Patient Ordered By: Lore Collazo Date of admission: 04/27/25 18:52 Primary Care Provider: Pasquale Pro Admitting Provider: Pardeep Draper Attending physician on admission: Pardeep Draper Condition: Stable Quality VTE Prophylaxis VTE prophylaxis: mechanical ordered -Patient's previous records reviewed on admission -ER notes reviewed in detail on admission -discussed all findings and current treatment plan with patient/Family/POA -Consultations reviewed for recommendations -Patient's disposition for safe discharge discussed with pillowcase cleaner -radiology imaging, EKG and test results I have personally reviewed and interpreted unless otherwise specified Dictation performed by [employer] direct speech recognition software, therefore non linear editor variants and typographical errors may occur. Hospitalist MIPS Advance Care Plan I have confirmed that the patient's Advanced Care Plan is present, code status is documented, or surrogate decision maker is listed in patient medical record.: Yes Medication Reconciliation I have utilized all available resources to obtain, update and review the patients current medications (includes all prescriptions, OTC, herbals, cannabis, and nutritional supplements).: Yes The patient is not eligible for med reconciliation; the patient is in a emergent medical situation where delaying treatment would jeopardize the patients health.: No Heart Failure (Exclusion) Patient has history of Heart Transplant or Left Ventricular Assistive Device?: No IF YES, STOP HERE Heart Failure (Qualifier) Patient has current or prior documentation of LVEF less than or equal to 40%, or mod/servere depressed LVSF?: No IF NO, STOP HERE
--- NOTE | 2025-04-28 11:35 | PC.NURSE ---
At 11:00 patient discharged to home escorted by family member out building to family vehicle. All discharge instruction given with verbal understanding. Call back to facility at 1130 indicated patient lost red wallet while here. Garbage and linens check and placed in new bags one item at a time. No red wallet found. ED called, they inform it was not there, family made aware that wallet not found.
== END 2025-04-28 11:00 | disposition home or self-care (01) ==
LOC: CHSED 18:52 → CHS2ND 19:07
PROVIDERS: Admitting Provider Internal Medicine; Emergency Provider Emergency Medicine; PCP Internal Medicine; Visit Provider Internal Medicine
DX: E83.51 Hypocalcemia (principal); E83.42 Hypomagnesemia; E86.0 Dehydration; R53.1 Weakness; E11.9 Type 2 diabetes mellitus without complications; E78.5 Hyperlipidemia, unspecified; K21.9 Gastro-esophageal reflux disease without esophagitis; I10 Essential (primary) hypertension; J44.9 Chronic obstructive pulmonary disease, unspecified; Z79.84 Long term (current) use of oral hypoglycemic drugs; Z79.82 Long term (current) use of aspirin; I71.43 Infrarenal abdominal aortic aneurysm, without rupture; F17.210 Nicotine dependence, cigarettes, uncomplicated; F17.220 Nicotine dependence, chewing tobacco, uncomplicated
CPT/HCPCS: 36415; 70450; 71045; 80053; 81003; 83605; 83735; 83880; 84484; 85025; 87040; 93005; 96361; 96365; 96366; 96367; 99285; A9270; G0378; J0612; J3475; J7030

== ENCOUNTER 2025-05-01 11:36 | Emergency (ER) | payer MEDICARE, SELFPAY ==
--- NOTE | ~2025-05-01 | XR_ITS ---
EXAMINATION: XR chest 2V, 05/01/2025 11:45 CDT HISTORY: weakness COMPARISON: No comparisons available. Technique: 2 views obtained. Findings: The lungs are clear, no effusion. No pneumothorax. Heart is normal size. Mediastinal and hilar contours are within normal limits. Bony thorax no acute abnormality. Impression: No acute cardiopulmonary abnormality. Reviewed, dictated and finalized at location P. Impression: No acute cardiopulmonary abnormality.
--- NOTE | ~2025-05-01 | CT_ITS ---
EXAMINATION: CT brain wo con DATE: 05/01/2025 12:09 INDICATION: Weakness TECHNIQUE: Computed tomography (CT) of the head was performed without intravenous contrast. Sagittal and coronal reconstructions were performed. The mA was adjusted according to patient size. Iterative reconstruction technique was employed. The dose-length product was 605.33 mGy-cm. COMPARISON: head CT dated 04/27/2025 FINDINGS: Small old lacunar infarcts at the anterior limbs of the right and left internal capsules. No acute intracranial hemorrhage, acute infarction or abnormal extra axial fluid collection. There is moderate scattered white matter hypoattenuation consistent with chronic small vessel ischemic disease. Symmetric prominence of the sulci and ventricles consistent with mild age-appropriate diffuse cerebral volume loss. Ventricles are normal and symmetric. No mass/mass effect. Intracranial calcified cerebral atherosclerosis is noted. The orbits and mastoid air cells are normal. Mild mucosal thickening the left sphenoid sinus. Intracranial calcified cerebral atherosclerosis is noted. IMPRESSION: 1. Couple unchanged small old lacunar infarcts at the bilateral basal ganglia. No acute intracranial process. 2. Age-related changes including mild diffuse volume loss and moderate scattered white matter hypoattenuation consistent with chronic small vessel ischemic disease. Reviewed, dictated and finalized at location A. IMPRESSION: 1. Couple unchanged small old lacunar infarcts at the bilateral basal ganglia. No acute intracranial process. 2. Age-related changes including mild diffuse volume loss and moderate scattere d white matter hypoattenuation consistent with chronic small vessel ischemic di sease.
--- NOTE | ~2025-05-01 | CT_ITS ---
EXAMINATION: CT abdomen pelvis wo con DATE: 05/01/2025 13:20 INDICATION: Diarrhea TECHNIQUE: Computed tomography (CT) of the abdomen and pelvis was performed with 100 mL Omnipaque-350 intravenous contrast. Automated exposure control and iterative reconstruction technique were employed. The dose-length product was 436.01 mGy-cm. COMPARISON: CT dated 04/11/2025 and 10/07/2022 FINDINGS: Lung bases are clear. Heart size is normal. No pericardial or pleural effusion. Unchanged 1.2 cm subcapsular hepatic cyst. Several small splenic calcifications consistent with old granulomatous disease. Gallbladder, pancreas, bilateral adrenal glands and kidneys are normal. Fusiform infrarenal abdominal aortic aneurysm measuring 3.7 x 3.7 cm. Prior bowel surgery with distal duodenojejunal anastomosis in the left upper quadrant. Again seen is dilation of the duodenum proximal to a focal narrowing where the third portion duodenum passes between the aorta and the superior mesenteric artery suggestive of SMA syndrome. More distal bowel is normal in caliber with no obstruction. Normal appendix. Chronic small metallic density along the sigmoid colon, potentially inspissated barium within a diverticulum. Fluid throughout the colon consistent with nonspecific diarrhea. Decompressed bladder is unremarkable. The uterus is not identified and has likely been surgically resected. No free intraperitoneal gas or fluid. No pathologically enlarged abdominal or pelvic lymphadenopathy. Moderate to severe lower thoracic and upper lumbar spondylosis. IMPRESSION: 1. Fluid throughout the colon consistent with nonspecific diarrhea. No other acute intra-abdominal/pelvic process. 2. Mild dilation the duodenum proximal to focal narrowing with the third portion of duodenum appears compressed between the aorta and the superior mesenteric artery as can be seen with SMA syndrome. 3. 3.7 cm fusiform infrarenal abdominal aortic aneurysm. Reviewed, dictated and finalized at location A. IMPRESSION: 1. Fluid throughout the colon consistent with nonspecific diarrhea. No other ac imani intra-abdominal/pelvic process. 2. Mild dilation the duodenum proximal to focal narrowing with the third portio n of duodenum appears compressed between the aorta and the superior mesenteric artery as can be seen with SMA syndrome. 3. 3.7 cm fusiform infrarenal abdominal aortic aneurysm.
[2025-05-01 11:36] VITALS: BP 90/56; PULSE 105; RESP 20; TEMP 36.6; O2SAT 95
--- NOTE | 2025-05-01 11:39 | ED.WEAKNESS ---
HPI - Weakness General Chief complaint: Nausea/Vomiting/Diarrhea Stated complaint: vomiting, diarrhea Time Seen by Provider: 05/01/25 11:39 Source: patient and family Mode of arrival: EMS Limitations: clinical condition History of Present Illness HPI Narrative: Patient is a 70-year-old female that just left [facility] for generalized weakness and they made some cardiology medication adjustments. Patient is here for similar symptoms of her chronic diarrhea, general weakness and not feeling well. Patient has vague symptoms. She chronically has nausea vomiting and diarrhea with known SMA syndrome. She also has a known AAA. MD Complaint: generalized weakness Onset (ago): week(s) (3-4) Duration: constant Location: generalized Migration: none Severity: moderate Severity scale (1-10): 5 Quality: other (No pain) Relieving factors: none Exacerbating factors: none Context: recent illness and history of similar Associated symptoms: nausea/vomiting (With associated diarrhea chronically) Related Data Home Medications ?Medication ?Instructions ?Recorded ?Confirmed ?Last Taken ?Type atorvastatin 10 mg tablet 10 mg PO DAILY 03/09/21 04/27/25 03/10/23 09:00 History glimepiride 1 mg tablet 1 mg PO DAILY 03/09/21 04/27/25 03/10/23 09:00 History gabapentin 100 mg capsule 100 mg PO TID 11/20/22 04/27/25 Unknown History pantoprazole 40 mg tablet,delayed 40 mg PO DAILY 11/20/22 04/27/25 03/10/23 18:00 History release sulfasalazine 500 mg tablet 1 g PO QID 02/05/23 04/27/25 Unknown History loperamide 2 mg capsule 2 mg PO QID PRN loose stool 04/27/25 04/27/25 Unknown History sucralfate 1 gram tablet 1 g PO BIDAC 04/27/25 04/27/25 Unknown History Allergies Allergy/AdvReac Type Severity Reaction Status Date / Time hydrocodone Allergy Intermediate Vomiting Verified 05/01/25 11:43 Review of Systems Review of Systems: All systems reviewed & are unremarkable except as noted in HPI and below Constitutional: Constitutional: Reports no additional constitutional complaints Eyes: Eyes: Reports no additional eye complaints ENT: Reports system reviewed and no additional complaints, except as documented Cardiovascular: Cardiovascular: Reports no additional cardiovascular complaints Respiratory: Respiratory: Reports no additional respiratory complaints Gastrointestinal: Gastrointestinal: Reports no additional gastrointestinal complaints Genitourinary: Genitourinary: Reports no additional female genitourinary complaints Musculoskeletal: Musculoskeletal: Reports no additional musculoskeletal complaints Integumentary/Breasts: Skin/Breast: Reports system reviewed and no additional complaints, except as docu Neurologic: Reports system reviewed and no additional complaints, except as documented Psychiatric: Psychiatric: Reports no additional psychiatric complaints Endocrine: Endocrine: Reports no additional endocrine complaints Hematologic/Lymphatic: Hematologic/Lymphatic: Reports no additional hematologic/lymphatic complaints Allergic/Immunologic: Allergic/Immunologic: Reports no additional allergic/immunologic complaints PMFSH Past Medical History Medical History Infrarenal abdominal aortic aneurysm (AAA) without rupture COPD (chronic obstructive pulmonary disease) Tobacco use Breast cancer Fatty liver GERD (gastroesophageal reflux disease) Diarrhea YRIS (iron deficiency anemia) HTN (hypertension) Diabetes mellitus Surgical History Surgical History Hx of tubal ligation Hx of hysterectomy Hx of mastectomy Family History Family History Father Hypertension Mother Hypertension Heart disease Social History Social History Smoking packs per day: 1 Smoking cigarettes per day: 20.0 Years smoked: 51 Smoking pack-years: 51.00 Smoking status: Current every day smoker Tobacco type: cigarettes Smokeless tobacco user: chewing tobacco Second hand tobacco smoke exposure: Yes Alcohol intake: former Substance use: former Substance use type: marijuana Lack of Transportation: No Lack of Food: Never True Current Housing: I Have Housing Concerned About Future Housing: No Difficulty Paying Gas/Electric Bills: No Difficulty Paying for Meds: No Currently Unemployed: No Education: Associate Degree Difficulty w/ Childcare or Family Care: No Living arrangements: with family Gender identity (if verbalized by the patient): Female Spiritual care concerns: No Exam Const: General: no acute distress Nutritional Appearance: well nourished Orientation/consciousness: patient oriented x3 Limitations: no limitations HENMT: Head: normal to inspection Ears: external ears normal Face/Nose/Sinus: Normal external nose present Eyes: Conjunctivae: conjunctivae normal Pupils: Equal, round and reactive pupils present EOM: EOMs intact bilaterally Neck: Neck: normal visual inspection Chest: Chest palpation & inspection: normal inspection of the chest Resp: Effort & Inspection: normal respiratory effort and not labored Auscultation: clear to auscultation bilaterally and no crackles Cardio: Rate: regular rate Rhythm: regular rhythm Heart sounds: no murmurs GI: Inspection: non-distended GI Palp: Yes Soft to palpation and No Tenderness to palpation present (GI) Auscultation: normal bowel sounds : General: Yes bladder normal to palpation Back/Spine/Pelvis: Back: no CVA tenderness Skin: General skin exam: normal color Rashes: no rashes Wounds: no wounds Neuro: General: patient oriented x3, moves all extremities, no meningeal signs, no focal motor deficits and CN's II-XI intact bilaterally Extrem: General: normal to inspection, no clubbing, cyanosis or edema and no pedal edema Psych: Mental Status: mental status grossly normal Affect: normal affect Attitude: cooperative Course Vital Signs Vital signs: Vital Signs Temperature 36.6 C 05/01/25 11:36 Pulse Rate 105 H 05/01/25 11:36 Respiratory Rate 20 05/01/25 11:36 Blood Pressure 90/56 L 05/01/25 11:36 Pulse Oximetry 95 05/01/25 11:36 Oxygen Delivery Room Air 05/01/25 11:36 Temperature 36.6 C 05/01/25 11:36 Pulse Rate 87 05/01/25 13:36 Respiratory Rate 19 05/01/25 13:36 Blood Pressure 93/55 L 05/01/25 13:36 Pulse Oximetry 96 05/01/25 13:36 Oxygen Delivery Room Air 05/01/25 11:45 MDM - Weakness MDM Narrative Medical decision making narrative: Patient is a 70-year-old female with recent hospitalization for similar symptoms having generalized weakness. We will do a thorough workup at this time. Patient will need to transfer to higher level medical care for Cardiology at this time. Patient has chronic SMA syndrome without repair desire by the surgeons. Also the aneurysm is known to the family. Will transfer patient to see Cardiology for non-STEMI. She was recently in [facility] and they removed some of her medications of cardiology per the family. Lab Data Attestation: I reviewed the patient's lab results. 05/01/25 12:14 10/13/25 12:14 Labs: Lab Results 05/01/25 05/01/25 05/01/25 Range/Units 11:48 12:13 12:14 WBC 13.5 H (4.8-10.8) K/mm3 RBC 3.72 L (4.20-5.40) M/mm3 Hgb 11.0 L (11.7-13.8) g/dL Hct 34.9 L (35.0-42.0) % MCV 93.8 (78.0-102.0) fL MCH 29.6 (27.0-31.0) pg MCHC 31.5 L (32-36) g/dL RDW 15.0 H (11.6-14.4) % Plt Count 390 (150-420) K/mm3 MPV 9.2 (9.2-11.8) fl Immature Gran % (Auto) 1.0 H (0.0-0.0) % Neut % (Auto) 89.0 H (50.0-70.0) % Lymph % (Auto) 5.3 L (18.0-42.0) % [place] % (Auto) 3.8 (2.0-11.0) % Eos % (Auto) 0.4 L (1.0-6.0) % Baso % (Auto) 0.5 (0.0-1.0) % Lymph # (Auto) 0.71 L (1.10-4.50) K/mm3 [place] # (Auto) 0.52 (0.10-0.90) K/mm3 Eos # (Auto) 0.06 (0.02-0.50) K/mm3 Baso # (Auto) 0.07 (0.00-0.10) K/mm3 Abs Immat Gran (auto) 0.13 H (0.00-0.00) K/mm3 Absolute Neuts (auto) 12.02 H (1.70-7.20) K/mm3 Absolute Nucleated RBC 0.00 (0.00-0.00) K/mm3 Nucleated RBC % 0.0 (0-0.0) % Sodium 143 (137-145) mmol/L Potassium 3.5 (3.4-5.0) mmol/L Chloride 98 (98-107) mmol/L Carbon Dioxide 32 H (22-30) mmol/L Anion Gap 13 H (4-12) mmol/L BUN 18 H (7-17) mg/dL Creatinine 2.40 H (0.7-1.0) mg/dL Estim Creat Clear Calc 17 ml/min Estimated GFR 20 L (59 - ) Glucose 190 H (65-110) mg/dL Calculated Osmolality 302 H (285-295) mOsm/kg Lactic Acid 2.8 H (0.4-2.0) mmol/L Calcium 9.6 (8.4-10.2) mg/dL Total Bilirubin 0.3 (0.2-1.3) mg/dL AST 28 (14-36) U/L ALT 21 (6-35) U/L Alkaline Phosphatase 87 (38-126) U/L Troponin I 0.115 H* (0.000-0.034) ng/mL NT-Pro-B Natriuret Pep 2680 H (19.9-100) pg/mL Total Protein 7.8 (6.3-8.2) g/dL Albumin 4.1 (3.5-5.1) g/dL Influenza A (RT-PCR) Negative (Negative) Influenza B (RT-PCR) Negative (Negative) RSV (RT-PCR) Negative (Negative) SARS-CoV-2 RNA (RT-PCR) Negative (Negative) 05/01/25 05/01/25 Range/Units 14:33 14:34 WBC (4.8-10.8) K/mm3 RBC (4.20-5.40) M/mm3 Hgb (11.7-13.8) g/dL Hct (35.0-42.0) % MCV (78.0-102.0) fL MCH (27.0-31.0) pg MCHC (32-36) g/dL RDW (11.6-14.4) % Plt Count (150-420) K/mm3 MPV (9.2-11.8) fl Immature Gran % (Auto) (0.0-0.0) % Neut % (Auto) (50.0-70.0) % Lymph % (Auto) (18.0-42.0) % [place] % (Auto) (2.0-11.0) % Eos % (Auto) (1.0-6.0) % Baso % (Auto) (0.0-1.0) % Lymph # (Auto) (1.10-4.50) K/mm3 [place] # (Auto) (0.10-0.90) K/mm3 Eos # (Auto) (0.02-0.50) K/mm3 Baso # (Auto) (0.00-0.10) K/mm3 Abs Immat Gran (auto) (0.00-0.00) K/mm3 Absolute Neuts (auto) (1.70-7.20) K/mm3 Absolute Nucleated RBC (0.00-0.00) K/mm3 Nucleated RBC % (0-0.0) % Sodium (137-145) mmol/L Potassium (3.4-5.0) mmol/L Chloride (98-107) mmol/L Carbon Dioxide (22-30) mmol/L Anion Gap (4-12) mmol/L BUN (7-17) mg/dL Creatinine (0.7-1.0) mg/dL Estim Creat Clear Calc ml/min Estimated GFR (59 - ) Glucose (65-110) mg/dL Calculated Osmolality (285-295) mOsm/kg Lactic Acid 1.2 (0.4-2.0) mmol/L Calcium (8.4-10.2) mg/dL Total Bilirubin (0.2-1.3) mg/dL AST (14-36) U/L ALT (6-35) U/L Alkaline Phosphatase (38-126) U/L Troponin I 0.150 H* D (0.000-0.034) ng/mL NT-Pro-B Natriuret Pep (19.9-100) pg/mL Total Protein (6.3-8.2) g/dL Albumin (3.5-5.1) g/dL Influenza A (RT-PCR) (Negative) Influenza B (RT-PCR) (Negative) RSV (RT-PCR) (Negative) SARS-CoV-2 RNA (RT-PCR) (Negative) Imaging Data Attestation: I personally reviewed and interpreted this imaging study as follows: Radiologist's impression: CT scan of the head shows IMPRESSION: 1. Couple unchanged small old lacunar infarcts at the bilateral basal ganglia. No acute intracranial process. 2. Age-related changes including mild diffuse volume loss and moderate scattered white matter hypoattenuation consistent with chronic small vessel ischemic disease. CT scan of the abdomen and pelvis shows IMPRESSION: 1. Fluid throughout the colon consistent with nonspecific diarrhea. No other acute intra-abdominal/pelvic process. 2. Mild dilation the duodenum proximal to focal narrowing with the third portion of duodenum appears compressed between the aorta and the superior mesenteric artery as can be seen with SMA syndrome. 3. 3.7 cm fusiform infrarenal abdominal aortic aneurysm. ECG Data EKG #1: Attestation: I personally reviewed and interpreted this ECG as follows: ECG completion date: 05/01/25 ECG completion time: 14:02 EKG Interpretation: normal rate, sinus rhythm, no ectopy, non-specific ST changes, widened QRS, RBBB, normal QT and NL axis Discharge Plan Discharge Clinical Impression: Acute non-ST elevation myocardial infarction (NSTEMI), Acute hypotension, Weakness, SEAN (acute kidney injury), SMAS (superior mesenteric artery syndrome) CHF exacerbation Qualifiers: Heart failure type: unspecified Qualified Code(s): I50.9 - Heart failure, unspecified Abdominal aortic aneurysm Qualifiers: Abdominal aorta location: unspecified Presence of rupture: without rupture Qualified Code(s): I71.40 - Abdominal aortic aneurysm, without rupture, unspecified Patient Disposition: Acute Care Hospital Condition: Stable Patient Language: Hong Konger Prescriptions: No Action atorvastatin 10 mg tablet 10 mg PO DAILY glimepiride 1 mg tablet 1 mg PO DAILY pantoprazole 40 mg tablet,delayed release (DR/EC) 40 mg PO DAILY gabapentin 100 mg capsule 100 mg PO TID loperamide 2 mg capsule 2 mg PO QID PRN (Reason: loose stool) sucralfate 1 gram tablet 1 g PO BIDAC magnesium oxide 400 mg magnesium capsule 400 mg PO DAILY Qty: 30 0RF sulfasalazine 500 mg tablet 1 g PO QID Rx Instructions: give with food (meal/snack) Follow-up/Referrals: Pasquale Pro MD [Primary Care Provider, Internal Medicine] Time of Disposition: 15:12
--- NOTE | 2025-05-01 11:41 | ECG_ITS ---
Test Date: 2025-05-01 12:18:16 Measurements Intervals Berkley Rate: 87 P: 92 FL: 193 QRS: 70 QRSD: 132 T: 79 QT: 379 QTc: 458 Interpretive Statements SINUS RHYTHM RIGHT BUNDLE BRANCH BLOCK BASELINE ARTIFACT- I, II, III, AVR, AVL, AVF, V1-V6 ABNORMAL ECG Compared to ECG 04/27/2025 16:26:46 No significant changes Electronically Signed On 05-01-2025 15:54:00 CDT by Camilo Foster D.O.
--- NOTE | 2025-05-01 11:51 | PC.NURSE ---
covid culture sent to lab
[2025-05-01 12:21] LABS: Hematocrit 34.9 % (35.0-42.0); Hemoglobin 11.0 g/dL (11.7-13.8); Immature Granulocyte Percent A 1.0 % (0.0-0.0); Lymphocytes Absolute Auto 0.71 K/mm3 (1.10-4.50); Mean Corpuscular HGB Conc 31.5 g/dL (32-36); Mean Corpuscular Hemoglobin 29.6 pg (27.0-31.0); Mean Corpuscular Volume 93.8 fL (78.0-102.0); Nucleated Red Blood Cells Absolute Auto 0.00 K/mm3 (0.00-0.00); Nucleated Red Blood Cells Perc 0.0 % (0-0.0); Platelet Count Result 390 K/mm3 (150-420); Red Blood Count 3.72 M/mm3 (4.20-5.40); White Blood Count 13.5 K/mm3 (4.8-10.8)
[2025-05-01 12:28] LABS: Influenza A QL RT-PCR Negative (Negative); Influenza B QL RT-PCR Negative (Negative); RSV RNA, RT-PCR Negative (Negative); SARS-CoV-2 RNA PCR Negative (Negative)
[2025-05-01 12:34] LABS: Alanine Aminotransferase 21 U/L (6-35); Albumin Level 4.1 g/dL (3.5-5.1); Alkaline Phosphatase 87 U/L (38-126); Anion Gap 13 mmol/L (4-12); Aspartate Amino Transferase 28 U/L (14-36); Bilirubin,Total 0.3 mg/dL (0.2-1.3); Blood Urea Nitrogen 18 mg/dL (7-17); Calcium 9.6 mg/dL (8.4-10.2); Carbon Dioxide 32 mmol/L (22-30); Chloride 98 mmol/L (98-107); Estimated CRCL calculation 17 ml/min; Estimated Glomerular Filt Rate 20; Glucose 190 mg/dL (65-110); Osmolality Calculated 302 mOsm/kg (285-295); Potassium 3.5 mmol/L (3.4-5.0); Sodium 143 mmol/L (137-145); Total Protein 7.8 g/dL (6.3-8.2)
--- NOTE | 2025-05-01 12:40 | PC.NURSE ---
ERP requested to continue NS bolus from EMS.
[2025-05-01 12:43] LABS: NT Pro B Type Natriuretic Pept 2680 pg/mL (19.9-100)
[2025-05-01 12:49] LABS: Troponin I 0.115 ng/mL (0.000-0.034)
--- OUTSIDE RECORDS SUMMARY | 2025-05-01 12:55 | XMS_ITS | Encounter Summary ---
Author Organization [facility] Address [address] [place] [id number] Care Team Providers Care Distribution Sales Representative Name Role Phone Pasquale Pro MD Primary Care Provider [phone] Roland Tatum MD Unavailable [phone] Suly Galdamez APRN, NP-C Unavailable Encounter Details Date Type Department Care Team (Late st Contact Info) Description 09/22/2022 Hospital Follow-up Call [facility] Surgical [address] [place] [address] Christopher Farnsworth MD [address] [address] Social History Tobacco Use Types [...] or ex-partner? No 08/22/2022 Social Connection and Isolation Panel Answer Date Recorded In a typical week, [...] any clubs o r organizations such as amish groups, unions, fraternal or athletic groups, or [...] and heating? Not hard at all 08/22/2022 [facility] - Occupational [...] place to sleep or slept in a group home (including now)? No 08/22/2022 Comments No [...] Coronavirus/COVID-19? 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
--- OUTSIDE RECORDS SUMMARY | 2025-05-01 12:56 | XMS_ITS | Clinical Summary ---
Author Organization [facility] Address [facility] [place] [address] Care Team Providers Care Account Planner Name Role Phone Pasquale Pro MD Primary Care Provider [phone] Roland Tatum MD Unavailable [phone] Suly Galdamez APRN, NP-C Unavailable Allergies Active Allergy Reactions Criticality Noted Date Comments Hydrocodone Vomiting 03/19/2018 Metoprolol Hives 03/19/2018 Medications atorvastatin 10 MG tabletIndications:H yperlipidemia Take 1 tablet (10 mg total) by mouth daily. Indications: High Amount of Fats in the Blood 06/21/20 Active glimepiride 1 MG tabletIndications:D iabetes Mellitus Take 1 tablet (1 mg total) by mouth daily. Indications: Diabetes 06/21/20 20 Active gabapentin (NEURONTIN) 100 MG capsuleIndications: Neuropathic Pain Take 1 capsule (100 mg total) by mouth 3 (three) times daily. 270 capsule 09/08/19 23 Active sulfaSALAzine (AZULFIDINE) 500 MG tabletIndications:D iarrhea Take 2 tablets (1,000 mg total) by mouth 4 (four) times daily. Indications: Diarrhea 12/12/19 23 Active pantoprazole EC (PROTONIX) 40 MG tablet Take 1 tablet (40 mg total) by mouth daily. 30 tablet 04/21/20 25 Active sucralfate (CARAFATE) 1 G tablet Take 1 tablet (1 g total) by mouth 2 (two) times daily before meals. 120 tablet 04/21/20 25 Active loperamide (IMODIUM A-D) 2 MG capsule Take 1 capsule (2 mg total) by mouth 4 (four) times daily as needed for Diarrhea. 30 capsule 04/21/20 25 025 Active ALPRAZolam 0.25 MG tabletIndications:A nxiety Take 1 tablet (0.25 mg total) by mouth every 6 (six) hours as needed for Anxiety. Indications: Feeling Anxious 02/13/20 18 025 Discontin ued(Error ) fenofibrate micronized 67 MG Cap capsuleIndications: Hyperlipidemia Take 1 capsule (67 mg total) by mouth daily. Indications: High Amount of Fats in the Blood 09/25/19 Discontin ued(Stop Taking at Discharge ) prochlorperazine 10 MG tabletIndications:N ausea Take 1 tablet (10 mg total) by mouth 3 (three) times daily as needed. Indications: Nausea 06/21/20 025 Discontin ued(Error ) aspirin EC (ECOTRIN) 81 MG tabletIndications:A spirin Therapy Take 1 tablet (81 mg total) by mouth daily. Indications: Treatment with Aspirin 09/25/19 025 Discontin ued(Stop Taking at Discharge ) Multiple Vitamins-Minerals (CENTRUM ADULTS OR)Indications:supp lement Take 1 tablet by mouth daily. Indications: supplement 09/25/19 025 Discontin ued(Stop Taking at Discharge ) amLODIPine (NORVASC) 10 MG tabletIndications:H ypertension Take 1 tablet (10 mg total) by mouth daily. 30 tablet 3 09/09/19 23 025 Discontin ued(Stop Taking at Discharge ) carvedilol (COREG) 12.5 MG tabletIndications:H ypertension Take 1 tablet (12.5 mg total) by mouth 2 (two) times daily. 60 tablet 3 09/08/19 23 025 Discontin ued(Error ) pantoprazole EC (PROTONIX) 40 MG tabletIndications:N onerosive Gastroesophagel Reflux Disease Take 1 tablet (40 mg total) by mouth 2 (two) times daily before meals. 30 tablet 3 09/08/19 23 Discontin ued(Dose adjustmen t) ferrous sulfate, 65 mg elemental, 325 (65 FE) MG tabletIndications:I calli Deficiency Take 1 tablet (325 mg total) by mouth 3 (three) times daily with meals. Indications: Iron Deficiency off bottle 2 10/07/19 Discontin ued(Error ) vitamin D3, cholecalciferol, 1.25 mg capsuleIndications: supplement Take 1 capsule (1.25 mg total) by mouth once a week. Indications: supplement 12/26/19 Discontin ued(Stop Taking at Discharge ) carvedilol (COREG) 25 MG tablet Take 1 tablet (25 mg total) by mouth 2 (two) times daily. 02/14/20 025 Discontin ued(Stop Taking at Discharge ) losartan (COZAAR) 100 MG tablet Take 1 tablet (100 mg total) by mouth daily. Discontin ued(Stop Taking at Discharge ) ondansetron (ZOFRAN) 4 MG tablet Take 1 tablet (4 mg total) by mouth every 8 (eight) hours as needed for Nausea. Discontin ued(Stop Taking at Discharge ) vancomycin (VANCOCIN) 125 MG capsule Take 1 capsule (125 mg total) by mouth every other day. 03/10/20 Discontin ued(Stop Taking at Discharge ) pantoprazole EC (PROTONIX) 40 MG tablet Take 1 tablet (40 mg total) by mouth 2 (two) times daily. Discontin ued(Stop Taking at Discharge ) Active Problems Problem Noted Date Diagnosed Date SMAS (superior mesenteric artery syndrome) 04/11 Superior mesenteric artery syndrome 04/11/2025 Shock 04/05/2025 Sepsis 04/05/2025 SEAN (acute kidney injury) 12/02/2022 Respiratory failure with hypoxia 09/01/2022 Acute blood loss anemia (ABLA) 09/01/2022 Small bowel perforation 08/23/2022 Abnormal EKG 07/09/2020 PVC's (premature ventricular contractions) 07/09 Hypertension 07/09/2020 Hyperlipidemia 07/09/2020 Current smoker 07/09/2020 Diabetes 03/24/2018 Acute duodenal ulcer with perforation 03/19/2018 Resolved Problems Problem Noted Date Diagnosed Date Resolved Date Acute respiratory failure with hypoxia 03/24/2018 04/05/2018 Hypernatremia 03/24/2018 04/05/2018 Encounters Date Type Department Care Team Description 04/14/2025 2:25 PM CDT - 04/14/2025 3:40 PM CDT Surgery [facility] Endo/GI [address] [place] [address] Supa Villanueva MD EGD WITH CONTROL BLEEDING 04/12/2025 Travel 04/11/2025 11:41 AM CDT - 04/21/2025 12:06 PM CDT Hospital Encounter [facility] [address] [place] [address] Ramon Snell MD Kallan, Abubaker, MD Mok, Huram, MD Hindi, Zakaria, MD Dangol, Tulio Eaton MD Discharge Disposition: Home or Self Care (Routine Discharge) 04/05/2025 7:11 AM CDT - 04/06/2025 7:32 PM CDT Hospital Encounter [facility] 4th Floor Medical [address] [place] [address] Chema Avalos MD Hindi, Zakaria, MD Shahidi, Mehdi, MD Dangol, Tulio Eaton MD Discharge Disposition: Left Against Medical Advice 04/05/2025 Travel from Last 3 Months Immunizations Immunization Administration Dates Next Due Fluzone (IIV3, Trivalent, 0.5 ML Prefilled Syrin ge) 04/18/2025() Family History Medical History Relation Comments Heart [...] materials from doctor or pharmacy Never 01/01/2023 [id number] Health Literacy Answer Date Recor ded How often do you need to hav e someone help you when you read instructions, pamphlets, or other written material from your doctor or pharmacy? Never 04/11/2025 [facility] Utilities Answer Date Recorded In the past 12 months has e [employer], gas, oil, or water [employer] threatened to shut off services in your home? No 04/11/2025 Humiliation, Afraid, Rape, and Kick questionnair e Answer Date Recorded Within the last year, have y ou been afraid of your partner or ex-partner? No 04/11/2025 Within the last year, have y ou been humiliated or emotionally abused in other ways by your partner or ex-partner? No Within the last year, have y ou been kicked, hit, slapped, or otherwise physically hurt by your partner or ex-partner? No 04/11/2025 Within the last year, have y ou been raped or forced to have any kind of sexual activity by your partner or ex-partner? No 04/11/2025 Social Connection and Isolation Panel Answer Date Recorded In a typical week, how many times do you talk on the phone with family, friends, or neighbors? More than three times a week 04/11/2025 How often do you get togethe r with friends or relatives? More than three times a week 04/11/2025 How often do you attend chur ch or sikh services? More than 4 times per year 04/11/2025 Do you belong to any clubs o r organizations such as buddhist groups, unions, fraternal or athletic groups, or school groups? Yes 04/11/2025 How often do you attend meet ings of the clubs or organizations you belong to? More than 4 times per year 04/11/2025 Are you , , di vorced, , never , or living with a partner? 04/11/2025 AUDIT-C Answer Date Recorded Q1: How often do you have a drink containing alcohol? Never 04/11/2025 Q2: How many drinks containi ng alcohol do you have on a typical day when you are drinking? Patient does not drink Q3: How often do you have si x or more drinks on one occasion? Never 04/11/2025 Overall Financial Resource Strain (CARDIA) Answe r Date Recorded How hard is it for you to pa y for the very basics like food, housing, medical care, and heating? Not hard at all 04/11/2025 [facility] [place] [facility] Occup[facility] - Occupational Stress Questionnaire Answer Date Recorded Do you feel stress - tense, restless, nervous, or anxious, or unable to sleep at night because your mind is troubled all the time - these days? Not at all 04/11/2025 Hunger Vital Sign Answer Date Recorded Within the past 12 months, y ou worried that your food would run out before you got the money to buy more. Never true 04/11/20 25 Within the past 12 months, t he food you bought just didn't last and you didn't have money to get more. Never true 04/11/2025 PRAPARE - Transportation Answer Date Re corded In the past 12 months, has l ack of transportation kept you from medical appointments or from getting medications? No 03/21 In the past 12 months, has l ack of transportation kept you from meetings, work, or from getting things needed for daily living? No 04/11/2025 Housing Stability Vital Sign Answer Terence e [...] slept in a longterm (including now)? No 12/02/2022 Housing Stability Vital Sign Answer Terence e Recorded In the last 12 months, was t here a time when you were not able to pay the mortgage or rent on time? No 04/11/2025 In the past 12 months, how m any times have you moved where you were living? 0 04/11/2025 At any time in the past 12 m [facility], were you homeless or living in a longterm (including now)? No 04/11/2025 Comments No Sex and Gender Information Value [...] Sign Reading Time Taken Comments Blood Pressure 110/38 04/21/2025 8:50 AM CDT Pulse 93 04/21/2025 8:50 AM CDT Temperature 36.7 C (98.1 F) 04/21/2025 8:50 AM CDT Respiratory Rate 18 04/20/2025 8:21 PM CDT Oxygen Saturation 96% 04/21/2025 8:50 AM CDT Inhaled Oxygen Concentration - - Weight 67.1 kg (147 lb 14.9 oz) 04/21/2025 4:20 AM CDT Height 162.6 cm (5' 4.02) 04/11/2025 5:00 PM CD T Body Mass Index 25.38 04/11/2025 5:00 PM CDT Plan of Treatment Health Maintenance Due Date Last Done Comments Colorectal Cancer Screening Colonoscopy (10 Years) 1953 Kidney Health Evaluation 1953 Lipid Panel 1953 Diabetes: Retinopathy Eye Exam 1971 Hepatitis C 1971 DTaP, Tdap and Td Vaccines (1 - Tdap) 01/24/1972 Mammogram Screening 1993 Zoster Vaccines (1 of 2) 2003 Annual Medicare Wellness Visit 2018 Dexa Scan (General) 2018 COVID-19 Vaccine (3 - season) 2025 12/21/2020, 11/27/2020 Influenza Adult (#1) 2025 04/12/2024, 05/27/2023, 04/29/2022, Additional history exists Hemoglobin A1C 10/09/2025 04/11/2025, 02/17, 12/02/2022, Additional history exists RSV Immunization or 60+ Years (1 - 1-dose 75+ series) 01/24/2028 Pneumococcal Vaccine: 50+ Years Completed 05/27/2023, 09/10/2017, 05/24/2014 Meningococcal B Vaccine Aged Out No l onger eligible based on patient's age to complete this topic Meningococcal Vaccine Aged Out No esau lai eligible based on patient's age to complete this topic RSV Immunizations Under 20 Months Aged Out No longer eligible based on patient's age to complete this topic Goals Goal Patient Goal Type Associated Problems Recent Progress Patient-Stated? Author Safety Patient/family will have appropriate support at home upon discharge Lifestyle No Alda Hernandez RN Safety Patient/family will have appropriate support at home upon discharge Lifestyle No Isabella Malhotra RN Medical Devices Implanted Type Area Lead Level Designer Device Identifier Shelf Expiration Date Model / Serial / Lot Iol Tecnis Simplicity Dcb00 - [id number] Implanted:Qty: 1 on 04/09/2022 by Tamera Lawson MD at [facility] Lens Right: Eye [employer] 08/12/2024 DCB00 / / [id number] Iol [employer] Simplicity Dcb00 - [id number] Implanted:Qty: 1 on 06/04/2022 by Tamera Lawson MD at [facility] Lens Left: Eye [employer] 05/05/2025 DCB00 / / [id number] Procedures Procedure Name Priority Date/Time Associated Diagnosis Comments CBC W/DIFF AUTOMATED Routine 04/21/2025 11:28 AM CDT MAGNESIUM Routine 04/21/2025 11:28 AM CDT RENAL FUNCTION PANEL Routine 04/21/2025 11:28 AM CDT POCT GLUCOSE - DOCKED DEVICE Routine 04/21/2025 5:50 AM CDT POCT GLUCOSE - DOCKED DEVICE Routine 04/21/2025 12:01 AM CDT MAGNESIUM Routine 04/20/2025 8:49 PM CDT BASIC METABOLIC PANEL Routine 04/20/2025 8:49 PM CDT POCT GLUCOSE - DOCKED DEVICE Routine 04/20/2025 4:11 PM CDT POCT GLUCOSE - DOCKED DEVICE Routine 04/20/2025 11:26 AM CDT HEMOGLOBIN AND HEMATOCRIT TIMED 04/20/2025 5:49 AM CDT MAGNESIUM Routine 04/20/2025 5:49 AM CDT RENAL FUNCTION PANEL Routine 04/20/2025 5:49 AM CDT POCT GLUCOSE - DOCKED DEVICE Routine 04/20/2025 5:27 AM CDT POCT GLUCOSE - DOCKED DEVICE Routine 04/19/2025 11:50 PM CDT HEMOGLOBIN AND HEMATOCRIT TIMED 04/19/2025 11:09 PM CDT HEMOGLOBIN AND HEMATOCRIT TIMED 04/19/2025 5:08 PM CDT POCT GLUCOSE - DOCKED DEVICE Routine 04/19/2025 4:40 PM CDT POCT GLUCOSE - DOCKED DEVICE Routine 04/19/2025 11:52 AM CDT HEMOGLOBIN AND HEMATOCRIT TIMED 04/19/2025 11:19 AM CDT POCT GLUCOSE - DOCKED DEVICE Routine 04/19/2025 6:12 AM CDT CBC W/DIFF AUTOMATED Routine 04/19/2025 5:45 AM CDT MAGNESIUM Routine 04/19/2025 5:45 AM CDT RENAL FUNCTION PANEL Routine 04/19/2025 5:45 AM CDT POCT GLUCOSE - DOCKED DEVICE Routine 04/18/2025 11:53 PM CDT HEMOGLOBIN AND HEMATOCRIT TIMED 04/18/2025 11:25 PM CDT POCT GLUCOSE - DOCKED DEVICE Routine 04/18/2025 6:05 PM CDT HEMOGLOBIN AND HEMATOCRIT TIMED 04/18/2025 5:19 PM CDT POCT GLUCOSE - DOCKED DEVICE Routine 04/18/2025 4:06 PM CDT XR UGI Today 04/18/2025 3:[address] ABD WO CON Today 04/18/2025 3:17 PM CDT HEMOGLOBIN AND HEMATOCRIT TIMED 04/18/2025 11:46 AM CDT POCT GLUCOSE - DOCKED DEVICE Routine 04/18/2025 11:20 AM CDT POCT GLUCOSE - DOCKED DEVICE Routine 04/18/2025 5:31 AM CDT PREALBUMIN Routine 04/18/2025 5:28 AM CDT TRIGLYCERIDES Routine 04/18/2025 5:28 AM CDT CBC W/DIFF AUTOMATED Routine 04/18/2025 5:28 AM CDT MAGNESIUM Routine 04/18/2025 5:28 AM CDT RENAL FUNCTION PANEL Routine 04/18/2025 5:28 AM CDT POCT GLUCOSE - DOCKED DEVICE Routine 04/17/2025 11:58 PM CDT HEMOGLOBIN AND HEMATOCRIT STAT 04/17/2025 11:19 PM CDT POCT GLUCOSE - DOCKED DEVICE Routine 04/17/2025 6:15 PM CDT HEMOGLOBIN AND HEMATOCRIT TIMED 04/17/2025 3:35 PM CDT USV VAST TEAM PICC INSERT >5YR Today 04/17/2025 1:42 PM CDT POCT GLUCOSE - DOCKED DEVICE Routine 04/17/2025 11:49 AM CDT HEMOGLOBIN AND HEMATOCRIT TIMED 04/17/2025 8:35 AM CDT POCT GLUCOSE - DOCKED DEVICE Routine 04/17/2025 5:40 AM CDT CBC W/DIFF AUTOMATED Routine 04/17/2025 4:10 AM CDT HEMOGLOBIN AND HEMATOCRIT TIMED 04/17/2025 4:10 AM CDT MAGNESIUM Routine 04/17/2025 4:10 AM CDT RENAL FUNCTION PANEL Routine 04/17/2025 4:10 AM CDT POCT GLUCOSE - DOCKED DEVICE Routine 04/17/2025 4:09 AM CDT POCT GLUCOSE - DOCKED DEVICE Routine 04/17/2025 12:22 AM CDT HEMOGLOBIN AND HEMATOCRIT TIMED 04/16/2025 10:00 PM CDT POCT GLUCOSE - DOCKED DEVICE Routine 04/16/2025 5:56 PM CDT XR CHEST PORTABLE STAT 04/16/2025 3:5 7 PM CDT HEMOGLOBIN AND HEMATOCRIT TIMED 04/16/2025 3:12 PM CDT POCT GLUCOSE - DOCKED DEVICE Routine 04/16/2025 11:55 AM CDT HEMOGLOBIN AND HEMATOCRIT TIMED 04/16/2025 10:00 AM CDT POCT GLUCOSE - DOCKED DEVICE Routine 04/16/2025 5:59 AM CDT HEMOGLOBIN AND HEMATOCRIT TIMED 04/16/2025 4:26 AM CDT MAGNESIUM Routine 04/16/2025 4:26 AM CDT RENAL FUNCTION PANEL Routine 04/16/2025 4:26 AM CDT POCT GLUCOSE - DOCKED DEVICE Routine 04/15/2025 11:42 PM CDT HEMOGLOBIN AND HEMATOCRIT TIMED 04/15/2025 6:17 PM CDT POCT GLUCOSE - DOCKED DEVICE Routine 04/15/2025 6:12 PM CDT HEMOGLOBIN AND HEMATOCRIT TIMED 04/15/2025 12:15 PM CDT POCT GLUCOSE - DOCKED DEVICE Routine 04/15/2025 12:10 PM CDT POCT GLUCOSE - DOCKED DEVICE Routine 04/15/2025 6:14 AM CDT HEMOGLOBIN AND HEMATOCRIT TIMED 04/15/2025 3:29 AM CDT MAGNESIUM Routine 04/15/2025 3:29 AM CDT RENAL FUNCTION PANEL Routine 04/15/2025 3:29 AM CDT HEMOGLOBIN AND HEMATOCRIT TIMED 04/15/2025 12:45 AM CDT POCT GLUCOSE - DOCKED DEVICE Routine 04/15/2025 12:40 AM CDT HEMOGLOBIN AND HEMATOCRIT TIMED 04/14/2025 11:42 PM CDT POCT GLUCOSE - DOCKED DEVICE Routine 04/14/2025 8:20 PM CDT EGD Routine 04/14/2025 8:16 PM CDT POCT ACUTE ARTERIAL PANEL Routine 04/14/2025 6:13 PM CDT HEMOGLOBIN AND HEMATOCRIT TIMED 04/14/2025 5:42 PM CDT XR CHEST PORTABLE KIMBERLY 04/14/2025 4:5 0 PM CDT ENDOSCOPY (SCAN ORDER) 04/14/2025 2:46 PM CDT UPPER GI ENDOSCOPY,CTRL BLEED 04/14/2025 2:25 PM CDT Acute blood loss anemia (ABLA) POCT GLUCOSE - DOCKED DEVICE Routine 04/14/2025 11:33 AM CDT HEMOGLOBIN AND HEMATOCRIT TIMED 04/14/2025 10:30 AM CDT XR ABD KUB Today 04/14/2025 10:12 AM CDT POCT GLUCOSE - DOCKED DEVICE Routine 04/14/2025 5:39 AM CDT HEMOGLOBIN AND HEMATOCRIT TIMED 04/14/2025 5:39 AM CDT MAGNESIUM Routine 04/14/2025 5:39 AM CDT RENAL FUNCTION PANEL Routine 04/14/2025 5:39 AM CDT CBC W/DIFF AUTOMATED TIMED 04/14/2025 2:01 AM CDT XR CHEST PORTABLE STAT 04/14/2025 12: 07 AM CDT POCT GLUCOSE - DOCKED DEVICE Routine 04/13/2025 11:43 PM CDT CBC W/DIFF AUTOMATED STAT 04/13/2025 10:10 PM CDT CTA ABD+PEL STAT 04/13/2025 8:56 PM CDT INSERT ARTERIAL LINE Routine 04/13/2025 8:08 PM CDT CENTRAL LINE Routine 04/13/2025 8:07 PM CDT POCT GLUCOSE - DOCKED DEVICE Routine 04/13/2025 6:30 PM CDT PHOSPHORUS, INORGANIC PHOSPHATE Routine 04/13/2025 6:00 PM CDT LACTIC ACID Routine 04/13/2025 6:00 PM CDT MAGNESIUM Routine 04/13/2025 6:00 PM CDT TROPONIN, QUANT Routine 04/13/2025 6:00 PM CDT COMPREHENSIVE METABOLIC PANEL Routine 04/13/2025 6:00 PM CDT PARTIAL THROMBOPLASTIN TIME,PTT Routine 04/13/2025 6:00 PM CDT PROTHROMBIN TIME, VENOUS Routine 04/13/2025 6:00 PM CDT CBC W/DIFF AUTOMATED Routine 04/13/2025 6:00 PM CDT TRANSFUSE RED BLOOD CELLS Routine 04/13/2025 5:52 PM CDT TRANSFUSE RED BLOOD CELLS Routine 04/13/2025 5:52 PM CDT TYPE & SCREEN Routine 04/13/2025 4:48 PM CDT POCT GLUCOSE - DOCKED DEVICE Routine 04/13/2025 4:40 PM CDT HEMOGLOBIN AND HEMATOCRIT STAT 04/13/2025 4:20 PM CDT POCT GLUCOSE - DOCKED DEVICE Routine 04/13/2025 11:48 AM CDT POCT GLUCOSE - DOCKED DEVICE Routine 04/13/2025 6:09 AM CDT CBC, AUTO, NO DIFF Routine 04/13/2025 1: 46 AM CDT BASIC METABOLIC PANEL Routine 04/13/2025 1:46 AM CDT POCT GLUCOSE - DOCKED DEVICE Routine 04/13/2025 12:56 AM CDT POCT GLUCOSE - DOCKED DEVICE Routine 04/12/2025 8:55 PM CDT POCT GLUCOSE - DOCKED DEVICE Routine 04/12/2025 12:22 PM CDT POCT GLUCOSE - DOCKED DEVICE Routine 04/12/2025 6:28 AM CDT URINE BACTERIA CULTURE Nurse Collected Priority 04/12/2025 4:41 AM CDT HC URINALYSIS AUTO W/MICRO Nurse Collected Priority 04/12/2025 4:41 AM CDT VANCOMYCIN Routine 04/12/2025 2:43 AM CDT BASIC METABOLIC PANEL Routine 04/12/2025 2:43 AM CDT CBC W/DIFF AUTOMATED Routine 04/12/2025 2:43 AM CDT POCT GLUCOSE - DOCKED DEVICE Routine 04/12/2025 12:45 AM CDT XR CHEST PORTABLE STAT 04/11/2025 11: 56 PM CDT POCT GLUCOSE - DOCKED DEVICE Routine 04/11/2025 4:45 PM CDT XR CHEST PORTABLE Routine 04/11/2025 3:1 9 PM CDT LACTIC ACID Routine 04/11/2025 2:22 PM CDT XR CHEST PORTABLE STAT 04/11/2025 12: 48 PM CDT HEMOGLOBIN, GLYCOSYLATED STAT 04/11/2025 12:43 PM CDT MAGNESIUM STAT 04/11/2025 12:43 PM CDT COMPREHENSIVE METABOLIC PANEL Routine 04/11/2025 12:43 PM CDT PROTHROMBIN TIME, VENOUS Routine 04/11/2025 12:43 PM CDT CBC W/DIFF AUTOMATED Routine 04/11/2025 12:43 PM CDT CULTURE, BACTERIA, BLOOD Routine 04/11/2025 12:42 PM CDT CULTURE, BACTERIA, BLOOD Routine 04/11/2025 12:42 PM CDT ECG 12-LEAD Routine 04/11/2025 12:27 PM CDT POCT GLUCOSE - DOCKED DEVICE Routine 04/11/2025 11:53 AM CDT POCT GLUCOSE - DOCKED DEVICE [...] PORTABLE STAT 04/05/2025 7:3 2 AM CDT from Last 3 Months Results * (ABNORMAL) RENAL FUNCTION PANEL (04/21/2025 11:28 AM CDT) Only the most recent of9 resultswithin the time period is included. SODIUM S/P/B 136 136 - 145 MMOL/L 04/21/2025 12:23 PM CDT [facility] POTASSIUM S/P/B 4.3 3.5 - 5.1 MMOL/L 04/21/2025 12:23 PM CDT [facility] CHLORIDE S/P/B 108 97 - 115 MMOL/L 04/21/2025 12:23 PM CDT [facility] CO2 22.4 21.0 - 32.0 MMOL/L 04/21/2025 12:23 PM CDT [facility] GLUCOSE 101 74 - 106 MG/DL 04/21/2025 12:23 PM CDT [facility] BUN 22(H) 7 - 18 MG/DL 04/21/2025 12:23 PM CDT [facility] CREATININE S/P/B 0.69 0.55 - 1.02 MG/DL 04/21/2025 12:23 PM CDT [facility] CALCIUM S/P/B 8.4(L) 8.5 - 10.1 MG/DL 04/21/2025 12:23 PM CDT [facility] ALBUMIN S/P/B 2.3(L) 3.4 - 5.0 G/DL 04/21/2025 12:23 PM CDT [facility] PHOSPHORUS 2.8 2.5 - 4.9 MG/DL 04/21/2025 12:23 PM CDT [facility] ANION GAP 5.6 2.0 - 10.0 MMOL/L 04/21/2025 12:23 PM CDT [facility] OSMOLALITY (CALC) 285 MOSM/KG 025 12:23 PM CDT [facility] Comment:REFERENCE RANGE NOT ESTABLISHED GFR ESTIMATE >90 >90 ML/MIN/1. 73 M2 04/21/2025 12:23 PM CDT [facility] GFR NOTES GFR REFERENCE S: 04/21/2025 12:23 PM T [facility] Comment: THE ESTIMATED GFR IS CALCULATED [...] ml/min/1.73 m2 G5,KIDNEY FAILURE: <15 ml/min/1.73 m2 04/21/2025 11:2 8 AM CDT us Keith Brower MD LABORATORY Final Result [facility] [address] [place] [address], [id number] * (ABNORMAL) CBC W/DIFF AUTOMATED (04/21/2025 11:28 AM CDT) Only the most recent of10 resultswithin the time period is included. WBC 7.92 4.00 - 10.80 x10'3/uL 04/21/2025 11:53 AM CDT [facility] RBC 2.69(L) 4.10 - 5.40 x10'6/uL 04/21/2025 11:53 AM CDT [facility] HGB 8.2(L) 12.0 - 16.0 G/DL 04/21/2025 11:53 AM CDT [facility] HCT 25.3(L) 36.0 - 47.0 % 04/21/2025 11:53 AM CDT [facility] MCV 94.1 78.0 - 100.0 FL 04/21/2025 11:53 AM CDT [facility] MCH 30.5 27.0 - 31.0 PG 04/21/2025 11:53 AM CDT [facility] MCHC 32.4(L) 33.0 - 36.0 G/DL 04/21/2025 11:53 AM CDT [facility] RDW 14.4 11.5 - 14.5 % 04/21/2025 11:53 AM CDT [facility] PLT 241 150 - 350 x10'3/uL 04/21/2025 11:53 AM CDT [facility] MPV 10.6(H) 7.4 - 10.4 FL 04/21/2025 11:53 AM CDT [facility] DIFFERENTIAL TYPE AUTOMATED DIFFERENTIAL 04/21/2025 11:53 AM CDT [facility] SEG NEUTROPHILS 55.2 % 11:53 AM CDT [facility] LYMPHOCYTES 27.7 % 04/21/2025 11:53 AM CDT [facility] MONOCYTES 9.5 % 04/21/2025 11:53 AM CDT [facility] EOSINOPHILS 3.5 % 04/21/2025 11:53 AM CDT [facility] BASOPHILS 0.9 % 04/21/2025 11:53 AM CDT [facility] IMMATURE GRANS % 2.9 % 04/21/20 11:53 AM CDT [facility] ABS. NEUTROPHILS 4.40 1.60 - 8.30 x10'3/uL 04/21/2025 11:53 AM CDT [facility] ABS. LYMPHOCYTES 2.19 0.80 - 4.70 x10'3/uL 04/21/2025 11:53 AM CDT [facility] ABS. MONOCYTES 0.75 0.00 - 1.50 x10'3/uL 04/21/2025 11:53 AM CDT [facility] ABS. EOSINOPHILS 0.28 0.00 - 0.40 x10'3/uL 04/21/2025 11:53 AM CDT [facility] ABS. BASOPHILS 0.07 0.00 - 0.20 x10'3/uL 04/21/2025 11:53 AM CDT [facility] ABS. IMMATURE GRANULOCYTES 0.23(H) 0.00 - 0.03 x10'3/uL 04/21/2025 11:53 AM CDT [facility] NUCLEATED RBC'S 0.02(H) 0.00 - 0.01 x10'3/uL 04/21/2025 11:53 AM CDT [facility] NRBC % 0.3 % 04/21/2025 11:53 AM CDT [facility] 04/21/2025 11:2 8 AM CDT us Tulio García MD LABORATORY Final Result [facility] [address] [place] [address], [id number] * (ABNORMAL) MAGNESIUM (04/21/2025 11:28 AM CDT) Only the most recent of13 resultswithin the time period is included. MAGNESIUM 1.4(L) 1.6 - 2.6 MG/DL 04/21/2025 12:23 PM CDT [facility] 04/21/2025 11:2 8 AM CDT Keith Brower MD LABORATORY Final Result Performing Organization Address [facility] Co de Phone Number [facility] [address] [place] [address], [id number] * (ABNORMAL) POCT glucose (04/21/2025 5:50 AM CDT) Only the most recent of50 resultswithin the time period is included. GLUCOSE POC 188(H) 70 - 109 04/21/2025 6:08 AM CDT [facility] 04/21/2025 5:50 AM CDT Tulio García MD POCT ORDERABLES - DEVICE Fin al Result Performing Organization Address [facility] de Phone Number [facility] [address] [place] [address], [id number] * (ABNORMAL) BASIC METABOLIC PANEL (04/20/2025 8:49 PM CDT) Only the most recent of3 resultswithin the time period is included. SODIUM S/P/B 137 136 - 145 MMOL/L 04/20/2025 9:27 PM CDT [facility] POTASSIUM S/P/B 4.1 3.5 - 5.1 MMOL/L 04/20/2025 9:27 PM CDT [facility] CHLORIDE S/P/B 108 97 - 115 MMOL/L 04/20/2025 9:27 PM CDT [facility] CO2 24.7 21.0 - 32.0 MMOL/L 04/20/2025 9:27 PM CDT [facility] GLUCOSE 116(H) 74 - 106 MG/DL 04/20/2025 9:27 PM CDT [facility] BUN 21(H) 7 - 18 MG/DL 04/20/2025 9:27 PM CDT [facility] CREATININE S/P/B 0.73 0.55 - 1.02 MG/DL 04/20/2025 9:27 PM CDT [facility] CALCIUM S/P/B 8.5 8.5 - 10.1 MG/DL 04/20/2025 9:27 PM CDT [facility] ANION GAP 4.3 2.0 - 10.0 MMOL/L 04/20/2025 9:27 PM CDT [facility] OSMOLALITY (CALC) 288 MOSM/KG 025 9:27 PM T [facility] Comment:REFERENCE RANGE NOT ESTABLISHED GFR ESTIMATE 87(L) >90 ML/MIN/1. 73 M2 04/20/2025 9:27 PM CDT [facility] GFR NOTES GFR REFERENCE S: 04/20/2025 9:27 PM CDT [facility] Comment: THE ESTIMATED GFR IS CALCULATED [...] ml/min/1.73 m2 G5,KIDNEY FAILURE: <15 ml/min/1.73 m2 04/20/2025 8:49 PM CDT us Tulio García MD LABORATORY Final Result [facility] [address] [place] [address], [place] [phone] * (ABNORMAL) HEMOGLOBIN AND HEMATOCRIT (04/20/2025 5:49 AM CDT) Only the most recent of24 resultswithin the time period is included. HGB 8.4(L) 12.0 - 16.0 G/DL 04/20/2025 6:14 AM CDT [facility] HCT 26.1(L) 36.0 - 47.0 % 04/20/2025 6:14 AM CDT [facility] 04/20/2025 5:49 AM CDT Tulio García MD LABORATORY Final Result Performing Organization Address City/State/[facility] Co de Phone Number [facility] [address] [place] [id number], [place] [phone] * XR UGI (04/18/2025 3:50 PM CDT) Anatomical Region Laterality Modality Abdomen Fluoroscopy 04/18/2025 4:27 PM CDT Impressions 04/18/2025 5:06 PM CDT IMPRESSION: 1) Abnormal study with evidence of significant dilatation of the proximal duodenum with very slow progression of contrast through the duodenum to the ligament of Treitz. There is a very narrow space between the proximal SMA and an abdominal aortic aneurysm. There is significant extrinsic mass effect on the duodenum as it passes between the proximal SMA and the AAA causing partial mechanical obstruction. A small amount of contrast does pass into nondilated distal duodenum and proximal jejunum. 2. Interval decrease in diffuse gastric wall and mucosal fold thickening compared to previous study. 3. AAA has maximum transverse diameter of 3.8 x 3.5 cm. Ordered By: RO SANABRIA Interpreted By: Ro Sanabria MD, 04/18/2025 4:27 PM Narrative 04/18/2025 5:06 PM CDT [facility] [address] [place], [place] [address] Examination: CT ABD WO CON, XR UGI Exam time: 04/18/2025 3:17 PM Clinical history: History of chronic duodenal ulcers with previous perforation, previous Trev patch in 2018, previous small bowel resection for bleeding ulcer second 2022, evaluate for obstruction. Comparison: CT abdomen/pelvis 04/13/2025 Technique: The study was begun as an upper GI under fluoroscopy, however this was significantly limited due to limited ability of patient to cooperate. After limited fluoroscopic images were obtained, the patient was transported to CT and axial CT images were obtained from xiphoid process to iliac crests without intravenous contrast using low-dose CT technique. Sagittal and coronal reconstruction. Total fluoroscopic time: 3.2 minute Total fluoroscopic dose: 25 mg Findings: Upper GI: The study was begun with dilute Gastrografin contrast injected via existing NG tube. Although injection was done relatively slowly, there were persistent episodes of contrast refluxing up the esophagus. For this reason this study was switched to very dilute single contrast barium to mitigate the potential for Gastrografin aspiration. Contrast was initially pooled in the gastric fundus. The patient was then positioned [id number] and there is evidence of gastric emptying and filling of the duodenum. There is diffuse mucosal irregularity and thickening in the stomach which is nonspecific. There is prolonged stasis of contrast in a dilated proximal duodenum. Despite prolonged time and attempts to maneuver the patient to posterior oblique and lateral projections we were unable to maneuver contrast passed midline from right to left suggesting obstruction.. There is no evidence of contrast extravasation to suggest leakage. Because of the limited nature of the study it was decided to obtain CT images of the abdomen for better evaluation. CT ABDOMEN: Visualized portions of the lung bases demonstrate no acute abnormality. No significant pleural effusion. NG tube extends to stomach. There is evidence of diffuse gastric wall/mucosal thickening which appears somewhat less prominent than noted on the previous study. There is again filling of a dilated proximal duodenum. The proximal duodenum measures up to 5.5 cm in maximum diameter to the right of midline. There is a very narrow space between the proximal SMA and abdominal aortic aneurysm which measures up to 3.8 cm anterior posterior and 3.5 cm left to right. There appears to be significant external mass effect on the duodenum as it passes between the abdominal aortic aneurysm and the proximal SMA resulting in proximal obstruction/dilatation. A small amount of contrast does extend into nondilated distal duodenum and to the proximal jejunum with evidence of previous small bowel anastomosis in the left upper quadrant. There is no evidence of bowel contrast extravasation to suggest leakage. The liver is normal in size. Small liver cyst unchanged. No significant focal intrahepatic lesion. The gallbladder appears partially contracted. No evidence of cholelithiasis. The spleen, pancreas, and the adrenal glands are unremarkable. No evidence of hydronephrosis. No acute inflammatory change, abscess nor ascites. Procedure Note Ro Sanabria MD - 04/18/2025 [facility] [address] [place], [place] [address] Examination: CT ABD WO CON, XR UGI Exam time: 04/18/2025 3:17 PM Clinical history: History of chronic duodenal ulcers with previousperforation, previous Trev patch in 2018, previous small bowel resectionfor bleeding ulcer second 2022, evaluate for obstruction. Comparison: CT abdomen/pelvis 04/13/2025 Technique: The study was begun as an upper GI under fluoroscopy, howeverthis was significantly limited due to limited ability of patient tocooperate. After limited fluoroscopic images were obtained, the patientwas transported to CT and axial CT images were obtained from xiphoidprocess to iliac crests without intravenous contrast using low-dose CTtechnique. Sagittal and coronal reconstruction. Total fluoroscopic time: 3.2 minute Total fluoroscopic dose: 25 mg Findings: Upper GI: The study was begun with dilute Gastrografin contrast injectedvia existing NG tube. Although injection was done relatively slowly, therewere persistent episodes of contrast refluxing up the esophagus. For thisreason this study was switched to very dilute single contrast barium tomitigate the potential for Gastrografin aspiration. Contrast was initially pooled in the gastric fundus. The patient was thenpositioned [id number] and there is evidence of gastric emptying andfilling of the duodenum. There is diffuse mucosal irregularity andthickening in the stomach which is nonspecific. There is prolonged stasis of contrast in a dilated proximal duodenum.Despite prolonged time and attempts to maneuver the patient to posterioroblique and lateral projections we were unable to maneuver contrast passedmidline from right to left suggesting obstruction.. There is no evidenceof contrast extravasation to suggest leakage. Because of the limitednature of the study it was decided to obtain CT images of the abdomen forbetter evaluation. CT ABDOMEN: Visualized portions of the lung bases demonstrate no acuteabnormality. No significant pleural effusion. NG tube extends to stomach.There is evidence of diffuse gastric wall/mucosal thickening which appearssomewhat less prominent than noted on the previous study. There is again filling of a dilated proximal duodenum. The proximalduodenum measures up to 5.5 cm in maximum diameter to the right ofmidline. There is a very narrow space between the proximal SMA andabdominal aortic aneurysm which measures up to 3.8 cm anterior posteriorand 3.5 cm left to right. There appears to be significant external masseffect on the duodenum as it passes between the abdominal aortic aneurysmand the proximal SMA resulting in proximal obstruction/dilatation. A smallamount of contrast does extend into nondilated distal duodenum and to theproximal jejunum with evidence of previous small bowel anastomosis in theleft upper quadrant. There is no evidence of bowel contrast extravasationto suggest leakage. The liver is normal in size. Small liver cyst unchanged. No significantfocal intrahepatic lesion. The gallbladder appears partially contracted.No evidence of cholelithiasis. The spleen, pancreas, and the adrenal glands are unremarkable. No evidenceof hydronephrosis. No acute inflammatory change, abscess nor ascites. IMPRESSION: 1) Abnormal study with evidence of significant dilatation of the proximalduodenum with very slow progression of contrast through the duodenum tothe ligament of Treitz. There is a very narrow space between the proximalSMA and an abdominal aortic aneurysm. There is significant extrinsic masseffect on the duodenum as it passes between the proximal SMA and the AAAcausing partial mechanical obstruction. A small amount of contrast doespass into nondilated distal duodenum and proximal jejunum. 2. Interval decrease in diffuse gastric wall and mucosal fold thickeningcompared to previous study. 3. AAA has maximum transverse diameter of 3.8 x 3.5 cm. Ordered By: RO SANABRIA Interpreted By: Ro Sanabria MD, 04/18/2025 4:27 PM Rosmery Yeager MD FLUOROSCOPY Final Result * CT ABD WO CON (04/18/2025 3:17 PM CDT) Anatomical Region Laterality Modality Abdomen Computed Tomogra phy 04/18/2025 4:27 PM CDT Impressions 04/18/2025 5:06 PM CDT IMPRESSION: 1) Abnormal study with evidence of significant dilatation of the proximal duodenum with very slow progression of contrast through the duodenum to the ligament of Treitz. There is a very narrow space between the proximal SMA and an abdominal aortic aneurysm. There is significant extrinsic mass effect on the duodenum as it passes between the proximal SMA and the AAA causing partial mechanical obstruction. A small amount of contrast does pass into nondilated distal duodenum and proximal jejunum. 2. Interval decrease in diffuse gastric wall and mucosal fold thickening compared to previous study. 3. AAA has maximum transverse diameter of 3.8 x 3.5 cm. Ordered By: RO SANABRIA Interpreted By: Ro Sanabria MD, 04/18/2025 4:27 PM Narrative 04/18/2025 5:06 PM CDT [place] [address] Examination: CT ABD WO CON, XR UGI Exam time: 04/18/2025 3:17 PM Clinical history: History of chronic duodenal ulcers with previous perforation, previous Trev patch in 2018, previous small bowel resection for bleeding ulcer second 2022, evaluate for obstruction. Comparison: CT abdomen/pelvis 04/13/2025 Technique: The study was begun as an upper GI under fluoroscopy, however this was significantly limited due to limited ability of patient to cooperate. After limited fluoroscopic images were obtained, the patient was transported to CT and axial CT images were obtained from xiphoid process to iliac crests without intravenous contrast using low-dose CT technique. Sagittal and coronal reconstruction. Total fluoroscopic time: 3.2 minute Total fluoroscopic dose: 25 mg Findings: Upper GI: The study was begun with dilute Gastrografin contrast injected via existing NG tube. Although injection was done relatively slowly, there were persistent episodes of contrast refluxing up the esophagus. For this reason this study was switched to very dilute single contrast barium to mitigate the potential for Gastrografin aspiration. Contrast was initially pooled in the gastric fundus. The patient was then positioned [id number] and there is evidence of gastric emptying and filling of the duodenum. There is diffuse mucosal irregularity and thickening in the stomach which is nonspecific. There is prolonged stasis of contrast in a dilated proximal duodenum. Despite prolonged time and attempts to maneuver the patient to posterior oblique and lateral projections we were unable to maneuver contrast passed midline from right to left suggesting obstruction.. There is no evidence of contrast extravasation to suggest leakage. Because of the limited nature of the study it was decided to obtain CT images of the abdomen for better evaluation. CT ABDOMEN: Visualized portions of the lung bases demonstrate no acute abnormality. No significant pleural effusion. NG tube extends to stomach. There is evidence of diffuse gastric wall/mucosal thickening which appears somewhat less prominent than noted on the previous study. There is again filling of a dilated proximal duodenum. The proximal duodenum measures up to 5.5 cm in maximum diameter to the right of midline. There is a very narrow space between the proximal SMA and abdominal aortic aneurysm which measures up to 3.8 cm anterior posterior and 3.5 cm left to right. There appears to be significant external mass effect on the duodenum as it passes between the abdominal aortic aneurysm and the proximal SMA resulting in proximal obstruction/dilatation. A small amount of contrast does extend into nondilated distal duodenum and to the proximal jejunum with evidence of previous small bowel anastomosis in the left upper quadrant. There is no evidence of bowel contrast extravasation to suggest leakage. The liver is normal in size. Small liver cyst unchanged. No significant focal intrahepatic lesion. The gallbladder appears partially contracted. No evidence of cholelithiasis. The spleen, pancreas, and the adrenal glands are unremarkable. No evidence of hydronephrosis. No acute inflammatory change, abscess nor ascites. Procedure Note Ro Sanabria MD - 04/18/[address] [address] Examination: CT ABD WO CON, XR UGI Exam time: 04/18/2025 3:17 PM Clinical history: History of chronic duodenal ulcers with previousperforation, previous Trev patch in 2018, previous small bowel resectionfor bleeding ulcer second 2022, evaluate for obstruction. Comparison: CT abdomen/pelvis 04/13/2025 Technique: The study was begun as an upper GI under fluoroscopy, howeverthis was significantly limited due to limited ability of patient tocooperate. After limited fluoroscopic images were obtained, the patientwas transported to CT and axial CT images were obtained from xiphoidprocess to iliac crests without intravenous contrast using low-dose CTtechnique. Sagittal and coronal reconstruction. Total fluoroscopic time: 3.2 minute Total fluoroscopic dose: 25 mg Findings: Upper GI: The study was begun with dilute Gastrografin contrast injectedvia existing NG tube. Although injection was done relatively slowly, therewere persistent episodes of contrast refluxing up the esophagus. For thisreason this study was switched to very dilute single contrast barium tomitigate the potential for Gastrografin aspiration. Contrast was initially pooled in the gastric fundus. The patient was thenpositioned [id number] and there is evidence of gastric emptying andfilling of the duodenum. There is diffuse mucosal irregularity andthickening in the stomach which is nonspecific. There is prolonged stasis of contrast in a dilated proximal duodenum.Despite prolonged time and attempts to maneuver the patient to posterioroblique and lateral projections we were unable to maneuver contrast passedmidline from right to left suggesting obstruction.. There is no evidenceof contrast extravasation to suggest leakage. Because of the limitednature of the study it was decided to obtain CT images of the abdomen forbetter evaluation. CT ABDOMEN: Visualized portions of the lung bases demonstrate no acuteabnormality. No significant pleural effusion. NG tube extends to stomach.There is evidence of diffuse gastric wall/mucosal thickening which appearssomewhat less prominent than noted on the previous study. There is again filling of a dilated proximal duodenum. The proximalduodenum measures up to 5.5 cm in maximum diameter to the right ofmidline. There is a very narrow space between the proximal SMA andabdominal aortic aneurysm which measures up to 3.8 cm anterior posteriorand 3.5 cm left to right. There appears to be significant external masseffect on the duodenum as it passes between the abdominal aortic aneurysmand the proximal SMA resulting in proximal obstruction/dilatation. A smallamount of contrast does extend into nondilated distal duodenum and to theproximal jejunum with evidence of previous small bowel anastomosis in theleft upper quadrant. There is no evidence of bowel contrast extravasationto suggest leakage. The liver is normal in size. Small liver cyst unchanged. No significantfocal intrahepatic lesion. The gallbladder appears partially contracted.No evidence of cholelithiasis. The spleen, pancreas, and the adrenal glands are unremarkable. No evidenceof hydronephrosis. No acute inflammatory change, abscess nor ascites. IMPRESSION: 1) Abnormal study with evidence of significant dilatation of the proximalduodenum with very slow progression of contrast through the duodenum tothe ligament of Treitz. There is a very narrow space between the proximalSMA and an abdominal aortic aneurysm. There is significant extrinsic masseffect on the duodenum as it passes between the proximal SMA and the AAAcausing partial mechanical obstruction. A small amount of contrast doespass into nondilated distal duodenum and proximal jejunum. 2. Interval decrease in diffuse gastric wall and mucosal fold thickeningcompared to previous study. 3. AAA has maximum transverse diameter of 3.8 x 3.5 cm. Ordered By: RO SANABRIA Interpreted By: Ro Sanabria MD, 04/18/2025 4:27 PM Ro Sanabria MD CT Final Resu lt * (ABNORMAL) PREALBUMIN (04/18/2025 5:28 AM CDT) PREALBUMIN 14.0(L) 20.0 - 40.0 MG/DL 04/18/2025 6:29 AM CDT [facility] 04/18/2025 5:28 AM CDT us Adrian Bautista MD LABORATORY Final Result [facility] [address] [place] [address], [id number] * TRIGLYCERIDES (04/18/2025 5:28 AM CDT) TRIGLYCERIDES 187 MG/DL 04/18/2025 6:08 AM CDT [facility] Comment:150-199 BORDERLINE H IGH 04/18/2025 5:28 AM CDT us Adrian Bautista MD LABORATORY Final Result [facility] [address] [place] [address], [id number] * USV VAST TEAM PICC INSERT >5YR (04/17/2025 1:42 PM CDT) Anatomical Region Laterality Modality NA Vascular Ultraso und 04/17/2025 12:5 7 PM CDT Narrative 04/17/2025 12:57 PM CDT This report does not contain a radiologist's interpretation. Please review associated procedure and/or operative report. Procedure Note Cooper Espinoza MD - 04/17/2025 This report does not contain a radiologist's interpretation. Please review associated procedure and/or operative report. Adrian Bautista MD [facility] Final Result * XR CHEST PORTABLE (04/16/2025 3:57 PM CDT) Only the most recent of7 resultswithin the time period is included. Anatomical Region Laterality Modality Chest Radiographic Jocelyne ging 04/16/2025 4:47 PM CDT Impressions 04/16/2025 5:31 PM CDT IMPRESSION: 1. Nasogastric tube side port noted around the gastroesophageal junction. Consider advancement by 3 to 4 cm to ensure side port placement in the stomach. 2. Otherwise, stable chest radiograph. Dictated By: Meek Bell MD on 04/16/2025 4:47 PM The attending radiologist has reviewed the image(s) and agrees with the content of this report. Ordered By: ADRIAN BAUTISTA Interpreted By: Meek Bell MD, 04/16/2025 4:47 PM Narrative 04/16/2025 5:31 PM CDT [facility] [address] [place], [place] [address] Examination: XR CHEST PORTABLE Exam time: 04/16/2025 3:52 PM Clinical history: Assess lines and tubes. Comparison: 04/14/2025 chest radiograph Technique: AP portable upright radiograph of the chest Findings: Orogastric tube is seen with projecting around the location of the gastroesophageal junction. Cardiac monitoring wires are noted external to the patient. Normal heart size. Atherosclerotic calcifications at the aortic arch. Normal distribution of pulmonary vasculature. No focal parenchymal lung consolidation, pleural effusion, or pneumothorax. No acute osseous findings. Procedure Note Gt Luo MD - 04/16/2025 [facility] [address] [place], [place] [address] Examination: XR CHEST PORTABLE Exam time: 04/16/2025 3:52 PM Clinical history: Assess lines and tubes. Comparison: 04/14/2025 chest radiograph Technique: AP portable upright radiograph of the chest Findings: Orogastric tube is seen with projecting around the location of thegastroesophageal junction. Cardiac monitoring wires are noted external tothe patient. Normal heart size. Atherosclerotic calcifications at theaortic arch. Normal distribution of pulmonary vasculature. No focalparenchymal lung consolidation, pleural effusion, or pneumothorax. Noacute osseous findings. IMPRESSION: 1. Nasogastric tube side port noted around the gastroesophageal junction.Consider advancement by 3 to 4 cm to ensure side port placement in thestomach. 2. Otherwise, stable chest radiograph. Dictated By: Meek Bell MD on 04/16/2025 4:47 PM The attending radiologist has reviewed the image(s) and agrees with thecontent of this report. Ordered By: ADRIAN BAUTISTA Interpreted By: Meek Bell MD, 04/16/2025 4:47 PM Adrian Bautista MD [facility] Final Result * (ABNORMAL) POCT ACUTE ARTERIAL PANEL (04/14/2025 6:13 PM CDT) SODIUM WHOLE BLOOD 150(H) 138 - 146 mmol/L 04/15/2025 4:59 AM CDT [facility] POTASSIUM WHOLE BLOOD 3.9 3.5 - 4.9 mmol/L 04/15/2025 4:59 AM CDT [facility] CA IONIZED WH BLOOD 1.28 1.12 - 1.32 mmol/L 04/15/2025 4:59 AM CDT [facility] POC PH ARTERIAL 7.366 7.35 - 7.45 04/15/2025 4:59 AM CDT [facility] POC PCO2 ARTERIAL 37.7 35.0 - 45.0 MMHG 04/15/2025 4:59 AM CDT [facility] POC PO2 ARTERIAL 77(L) 80 - 105 MMHG 04/15/2025 4:59 AM CDT [facility] POC HCO3 ARTERIAL 21.6(L) 22 - 26 MMOL/L 04/15/2025 4:59 AM CDT [facility] POC TCO2 ARTERIAL 23 23 - 27 MMOL/L 04/15/2025 4:59 AM CDT [facility] POC BASE DEFICIT ARTERIAL 4(H) 0 - 2 MMOL/L 04/15/2025 4:59 AM CDT [facility] POC HEMATOCRIT 31(L) 38 - 51 % 04/15/2025 4:59 AM CDT [facility] TIME TEST WAS PERFORMED: 18104/15/2025 4:59 AM CDT [facility] 04/14/2025 6:13 PM CDT Adrian Bautista MD POCT ORDERABLES - DEVICE Final Result [facility] [address] [place] [address], [id number] * ENDOSCOPY (SCAN ORDER) (04/14/2025 2:46 PM CDT) Supa Villanueva MD SCANNING Final Result * XR ABD KUB (04/14/2025 10:12 AM CDT) Anatomical Region Laterality Modality Abdomen Radiographic Jocelyne ging 04/14/2025 10:4 0 AM CDT Impressions 04/14/2025 10:42 AM CDT IMPRESSION: Nonspecific bowel gas pattern with no gaseous bowel distention nor definitive evidence of bowel obstruction. Linear infiltrate or atelectasis retrocardiac left lung base. Ordered By: ADRIAN BAUTISTA Interpreted By: Mart Joyce MD, 04/14/2025 10:40 AM Narrative 04/14/2025 10:42 AM CDT [facility] [address] [place], [place] [address] 04/14/2025, 10:05 AM. HISTORY: Abdominal distention. EXAM: KUB utilizing 2 images per one view. Correlation to imaging 08/22/[address] imaging 04/13/2025. FINDINGS: Endogastric tube is present with the tube turning upon itself in the gastric fundus and the tip near the gastric cardia. Small amount of gas in the stomach and scattered in nondistended bowel loops in a nonspecific pattern. No bowel distention nor evidence of bowel obstruction. Some contrast is present in the urinary bladder. No enlargement of the liver spleen. The renal outlines or not well seen. Minimal scoliosis. No gross bone destruction. The lung bases are clear of active infiltrates. Linear infiltrate or atelectasis medially right lung base. The left lung base is clear. Mild left ventricular configuration to a normal-sized heart. Procedure Note Mart Joyce MD - 04/14/2025 [facility] [address] [place], [place] [address] 04/14/2025, 10:05 AM. HISTORY: Abdominal distention. EXAM: KUB utilizing 2 images per one view. Correlation to imaging 08/22/2022nd to CT imaging 04/13/2025. FINDINGS: Endogastric tube is present with the tube turning upon itself inthe gastric fundus and the tip near the gastric cardia. Small amount ofgas in the stomach and scattered in nondistended bowel loops in anonspecific pattern. No bowel distention nor evidence of bowelobstruction. Some contrast is present in the urinary bladder. No enlargement of the liver spleen. The renal outlines or not well seen.Minimal scoliosis. No gross bone destruction. The lung bases are clear of active infiltrates. Linear infiltrate oratelectasis medially right lung base. The left lung base is clear. Mildleft ventricular configuration to a normal-sized heart. IMPRESSION: Nonspecific bowel gas pattern with no gaseous bowel distention nordefinitive evidence of bowel obstruction. Linear infiltrate or atelectasisretrocardiac left lung base. Ordered By: ADRIAN BAUTISTA Interpreted By: Mart Joyce MD, 04/14/2025 10:40 AM Adrian Bautista MD GENERAL IMAGING Final Result * CTA ABD+PEL (04/13/2025 8:56 PM CDT) Anatomical Region Laterality Modality Abdomen, Pelvis Computed Tomogra phy 04/13/2025 9:27 PM CDT Impressions 04/13/2025 9:42 PM CDT IMPRESSION: 1. No CT evidence for active GI bleed. 2. Marked dilation of the duodenum up to 6.4 cm in diameter with relative change in caliber by the end of the duodenum at the small bowel anastomosis. 3. Right upper quadrant inflammatory changes are indeterminate for being related to the gallbladder or duodenum. Favor duodenum. 4. Enteric tube side-port is just below the gastroesophageal junction. Consider advancing 5 cm for more optimal positioning. 5. Trace bilateral pleural effusions. 6. Infrarenal aortic aneurysm with mural thrombus. 7. Additional chronic findings as above. Referred By: PROVIDER NON-STAFF Interpreted By: Rigoberto Menchaca MD, 04/13/2025 9:27 PM Narrative 04/13/2025 9:42 PM CDT [address] [address] INDICATION: GI bleed COMPARISON: CT abdomen and pelvis 12/01/2022 TECHNIQUE: Volumetric multidetector CT images of the abdomen and pelvis were obtained before and after the administration of IV contrast. Multiple planes were reconstructed for examination. 3-D MIP reconstructions of the abdomen and pelvis vasculature were performed and reviewed. CT dose reduction techniques were utilized. FINDINGS: VASCULATURE: Atherosclerosis particularly affecting the infrarenal abdominal aorta and its branches. There is fusiform aneurysmal dilation of the infrarenal aorta measuring 3.7 x 3.6 cm with mural thrombus. There is no hemodynamically significant stenosis. The celiac trunk and SMA are patent. The JOCELYNE is not opacified, likely excluded by the thrombosed aneurysm. The renal arteries are opacified. CHEST: The visualized lower chest demonstrates trace bilateral pleural effusions with adjacent atelectasis. Mild emphysema. The heart is normal in size. ABDOMEN: Small right liver cyst. Mild pericholecystic fat stranding. No radiopaque gallstones. The pancreas, spleen, and adrenal glands are unremarkable. Small left renal cyst. Enteric tube terminates in the proximal stomach with side port just below the gastroesophageal junction. Marked dilation of the duodenum up to 6.4 cm in diameter. The distal duodenum is relatively decompressed with small bowel anastomosis noted in the left upper quadrant. Small density in the rectum is present in all [address] evidence for active GI bleed. There is no free air or free fluid within the peritoneal cavity. No mesenteric or retroperitoneal lymphadenopathy. PELVIS: The bladder is unremarkable for the degree of distention. There is no free fluid in the pelvis. Hysterectomy. BONES: There are no acute osseous abnormalities. Procedure Note Rigoberto Menchaca, DO - 04/13/[address] [address] INDICATION: GI bleed COMPARISON: CT abdomen and pelvis 12/01/2022 TECHNIQUE: Volumetric multidetector CT images of the abdomen and pelviswere obtained before and after the administration of IV contrast. Multipleplanes were reconstructed for examination. 3-D MIP reconstructions of theabdomen and pelvis vasculature were performed and reviewed. CT dosereduction techniques were utilized. FINDINGS: VASCULATURE: Atherosclerosis particularly affecting the infrarenal abdominal aorta andits branches. There is fusiform aneurysmal dilation of the infrarenalaorta measuring 3.7 x 3.6 cm with mural thrombus. There is nohemodynamically significant stenosis. The celiac trunk and SMA arepatent. The JOCELYNE is not opacified, likely excluded by the thrombosedaneurysm. The renal arteries are opacified. CHEST: The visualized lower chest demonstrates trace bilateral pleural effusionswith adjacent atelectasis. Mild emphysema. The heart is normal insize. ABDOMEN: Small right liver cyst. Mild pericholecystic fat stranding. Noradiopaque gallstones. The pancreas, spleen, and adrenal glands areunremarkable. Small left renal cyst. Enteric tube terminates in theproximal stomach with side port just below the gastroesophageal junction.Marked dilation of the duodenum up to 6.4 cm in diameter. The distalduodenum is relatively decompressed with small bowel anastomosis noted inthe left upper quadrant. Small density in the rectum is present in all 3phases. No convincing CT evidence for active GI bleed. There is no freeair or free fluid within the peritoneal cavity. No mesenteric orretroperitoneal lymphadenopathy. PELVIS: The bladder is unremarkable for the degree of distention. There is no freefluid in the pelvis. Hysterectomy. BONES: There are no acute osseous abnormalities. IMPRESSION: 1. No CT evidence for active GI bleed. 2. Marked dilation of the duodenum up to 6.4 cm in diameter with relativechange in caliber by the end of the duodenum at the small bowelanastomosis. 3. Right upper quadrant inflammatory changes are indeterminate for beingrelated to the gallbladder or duodenum. Favor duodenum. 4. Enteric tube side-port is just below the gastroesophageal junction.Consider advancing 5 cm for more optimal positioning. 5. Trace bilateral pleural effusions. 6. Infrarenal aortic aneurysm with mural thrombus. 7. Additional chronic findings as above. Referred By: PROVIDER NON-STAFF Interpreted By: Rigoberto Menchaca MD, 04/13/2025 9:27 PM us Rosendo Martinez MD CT Final Result * Insert arterial line (04/13/2025 8:08 PM CDT) Narrative Procedure Note Keith Brower MD - 04/13/2025 8:08 PM CDT Procedure Note - Arterial Line Placement Date of Procedure: 04/13/2025 Time: 8:08 PM Attending: Ashlie Diagnosis: Hemorrhagic shock Indications: BP monitoring/+-freq ABGs Type of Catheter Inserted: arterial line Ultrasound guided: Yes Insertion Site and Route: L femoral artery Catheter Insertion Complications: none TIME OUT NOTE: A pre-procedure verification was performed. The correct patient, correctprocedure and correct site were verified prior to the initiation of thisprocedure, and all active participants were in agreement. Brief Description of procedure: Under sterile conditions, the skin in thearea listed above was preped and draped. The artery was accessedpercutaneously and a wire was placed through the catheter. A indwellingcatheter was placed via Seldinger technique and sutured in placed. Thecatheter was connected to the monitor and then covered with a steriletransparent dressing. Attending: Keith Brower MD us Keith Brower MD IV THERAPY ORDERABLES Final Resu lt * CENTRAL LINE (04/13/2025 8:07 PM CDT) Narrative Procedure Note Keith Brower MD - 04/13/2025 8:07 PM CDT Procedure Note - Central Venous Line Placement Date of Procedure: 04/13/2025 Time: 8:07 PM Attending: Ashlie Diagnosis: Hemorrhagic shock Indications for the Procedure: IV access Acuity: Urgent Type of Catheter Inserted: Triple lumen Site of Insertion: L femoral Catheter Inserted Via: Seldinger technic Attempts made at other sites? No Local Anethesia: Lidocaine 1 % CXR Results: pending Complications: None TIME OUT NOTE: A pre-procedure verification was performed. The correct patient, correctprocedure and correct site were verified prior to the initiation of thisprocedure, and all active participants were in agreement. Brief Description of Procedure: Under sterile conditions the skin above the L femoral vein was prepped anddraped with a sterile drape. Local anesthesia was applied to the skin andsubcutaneous tissues. The vein was percutaneously accessed and a guidewire was then passed easily into the vein. The catheter was inserted viaSeldinger technique. . The catheter was sutured into place and coveredwith a transparent occlusive dressing. Attending: Keith Brower MD Billing Provider: Please check the appropriate boxes below (Note: Entriesare not valid unless this note is signed/co-signed by an attendingphysician: [x] Billable Service Provided [x] Non-Teaching Encounter us Keith Brower MD PROCEDURE/MINOR SURGICAL ORDERAB LES Final Result * TRANSFUSE RED BLOOD CELLS (04/13/2025 7:41 PM CDT) Only the most recent of2 resultswithin the time period is included. us Rosendo Martinez MD NURSING TREATMENT ORDERABLES - BLOOD ADMIN Final Result * THROMBOPLASTIN TIME PARTIAL,PTT (04/13/2025 6:00 PM CDT) PTT 26.3 25.1 - 36.5 SEC 04/13/2025 6:59 PM CDT [facility] 04/13/2025 6:00 PM CDT us Keith Brower MD LABORATORY Final Result Performing Organization Address [facility] Co de Phone Number [facility] [address] [place] [address], [place] [phone] * (ABNORMAL) PROTHROMBIN TIME, VENOUS (04/13/2025 6:00 PM CDT) Only the most recent of2 resultswithin the time period is included. PROTIME 19.5(H) 9.4 - 12.5 SEC 04/13/2025 6:57 PM CDT [facility] INR 1.7(H) 0.8 - 1.1 04/13/2025 6:57 PM CDT [facility] 04/13/2025 6:00 PM CDT us Keith Brower MD LABORATORY Final Result Performing Organization Address [facility] Co de Phone Number [facility] [address] [place] [address], [phone] * (ABNORMAL) COMPREHENSIVE METABOLIC PANEL (04/13/2025 6:00 PM CDT) Only the most recent of3 resultswithin the time period is included. SODIUM S/P/B 143 136 - 145 MMOL/L 04/13/2025 7:08 PM CDT [facility] POTASSIUM S/P/B 4.0 3.5 - 5.1 MMOL/L 04/13/2025 7:08 PM CDT [facility] CHLORIDE S/P/B 114 97 - 115 MMOL/L 04/13/2025 7:08 PM CDT [facility] CO2 18.5(L) 21.0 - 32.0 MMOL/L 04/13/2025 7:08 PM T [facility] GLUCOSE 153(H) 74 - 106 MG/DL 04/13/2025 7:08 PM T [facility] BUN 42(H) 7 - 18 MG/DL 04/13/2025 7:08 PM T [facility] CREATININE S/P/B 0.96 0.55 - 1.02 MG/DL 04/13/2025 7:08 PM CDT [facility] CALCIUM S/P/B 7.9(L) 8.5 - 10.1 MG/DL 04/13/2025 7:08 PM CDT [facility] BILIRUBIN TOTAL S/P/B 0.4 0.2 - 1.0 MG/DL 04/13/2025 7:08 PM CDT [facility] ALKALINE PHOSPHATASE S/P/B 57 55 - 142 U/L 04/13/2025 7:08 PM T [facility] AST 12(L) 15 - 37 U/L 04/13/2025 7:08 PM T [facility] ALT 10(L) 13 - 56 U/L 04/13/2025 7:08 PM CDT [facility] TOTAL PROTEIN S/P/B 4.5(L) 6.4 - 8.2 G/DL 04/13/2025 7:08 PM CDT [facility] ALBUMIN S/P/B 2.0(L) 3.4 - 5.0 G/DL 04/13/2025 7:08 PM CDT [facility] ANION GAP 10.5(H) 2.0 - 10.0 MMOL/L 04/13/2025 7:08 PM CDT [facility] OSMOLALITY (CALC) 310 MOSM/KG 025 7:08 PM CDT [facility] Comment:REFERENCE RANGE NOT ESTABLISHED GFR ESTIMATE 63(L) >90 ML/MIN/1. 73 M2 04/13/2025 7:08 PM CDT [facility] GFR NOTES GFR REFERENCE S: 04/13/2025 7:08 PM CDT [facility] Comment: THE ESTIMATED GFR IS CALCULATED [...] ml/min/1.73 m2 G5,KIDNEY FAILURE: <15 ml/min/1.73 m2 04/13/2025 6:00 PM CDT Keith Brower MD LABORATORY Final Result [facility] [address] [place] [address], [phone] * LACTIC ACID - SINGLE (04/13/2025 6:00 PM CDT) Only the most recent of3 resultswithin the time period is included. LACTIC ACID VENOUS 1.4 0.4 - 2.0 MMOL/L 04/13/2025 6:52 PM CDT [facility] 04/13/2025 6:00 PM CDT us Keith Brower MD LABORATORY Final Result Performing Organization Address [facility] de Phone Number [facility] [address] [place] [address], [place] [phone] * TROPONIN, QUANT (04/13/2025 6:00 PM CDT) Only the most recent of2 resultswithin the time period is included. TROPONIN I HIGH SENSITIVITY 10 0 - 53 ng/L 04/13/2025 7:08 PM CDT [facility] 04/13/2025 6:00 PM CDT us Keith Brower MD LABORATORY Final Result Performing Organization Address [facility] Phone Number [facility] [address] [place] [address], [place] [phone] * PHOSPHORUS, INORGANIC PHOSPHATE (04/13/2025 6:00 PM CDT) Only the most recent of2 resultswithin the time period is included. PHOSPHORUS 3.1 2.5 - 4.9 MG/DL 04/13/2025 7:08 PM CDT [facility] 04/13/2025 6:00 PM CDT us Keith Brower MD LABORATORY Final Result Performing Organization Address [facility] de Phone Number [facility] [address] [place] [address], [place] [phone] * TYPE & SCREEN (04/13/2025 4:48 PM CDT) Only the most recent of2 resultswithin the time period is included. UNITS ORDERED 5 04/13/2025 5:21 PM CDT [facility] ABO/RH O NEGATIVE 04/13/2025 5:38 PM CDT [facility] ANTIBODY SCREEN NEGATIVE 5:38 PM CDT [facility] SAMPLE EXPIRATION 04/16/2025,2359 04/13/2025 4:54 PM CDT [facility] BLOOD UNIT NUMBER [id number] 04/13/2025 5:41 PM CDT [facility] PRODUCT: PC LEUKOPOOR 04/13/2025 5:41 PM CDT [facility] UNIT DIVISION 00 04/13/2025 5:41 PM CDT [facility] BLOOD UNIT STATUS TRANSFUSED,FINAL 04/14/2025 7:33 AM CDT [facility] ISSUE DATE/TIME [id number] 7:33 AM CDT [facility] PRODUCT CODE [id number] 04/14/2025 7:33 AM CDT [facility] ABO/RH Unit O NEG 04/14/2025 7:33 AM CDT [facility] ABO/RH UNIT ISBT CODE 9500 04/14/2025 7:33 AM CDT [facility] BLOOD UNIT EXPIRATION DATE [id number] 04/14/2025 7:33 AM CDT [facility] TRANSFUSION STATUS OK TO TRANSFUSE 04/13/2025 5:41 PM CDT [facility] CROSSMATCH COMPATIBLE-EXM 04/13/2025 5:41 PM CDT [facility] BLOOD UNIT NUMBER [id number] 04/13/2025 5:41 PM CDT [facility] PRODUCT: PC LEUKOPOOR 04/13/2025 5:41 PM CDT [facility] UNIT DIVISION 00 04/13/2025 5:41 PM CDT [facility] BLOOD UNIT STATUS TRANSFUSED,FINAL 04/14/2025 7:33 AM CDT [facility] ISSUE DATE/TIME [id number] 025 7:33 AM CDT [facility] PRODUCT CODE [id number] 04/14/2025 7:33 AM CDT [facility] ABO/RH Unit O NEG 04/14/2025 7:33 AM CDT [facility] ABO/RH UNIT ISBT CODE 9500 04/14/2025 7:33 AM CDT [facility] BLOOD UNIT EXPIRATION DATE [id number] 04/14/2025 7:33 AM CDT [facility] TRANSFUSION STATUS OK TO TRANSFUSE 04/13/2025 5:41 PM CDT [facility] CROSSMATCH COMPATIBLE-EXM 04/13/2025 5:41 PM CDT [facility] 04/13/2025 4:48 PM CDT Rosendo Martinez MD BLOOD BANK TEST ORDERABLES Fi nal Result [facility] [address] [place] [address], [phone] * (ABNORMAL) CBC, AUTO, NO DIFF (04/13/2025 1:46 AM CDT) Only the most recent of2 resultswithin the time period is included. WBC 14.53(H) 4.00 - 10.80 x10'3/uL 04/13/2025 2:05 AM CDT [facility] RBC 3.72(L) 4.10 - 5.40 x10'6/uL 04/13/2025 2:05 AM CDT [facility] HGB 11.6(L) 12.0 - 16.0 G/DL 04/13/2025 2:05 AM CDT [facility] HCT 35.7(L) 36.0 - 47.0 % 04/13/2025 2:05 AM CDT [facility] MCV 96.0 78.0 - 100.0 FL 04/13/2025 2:05 AM CDT [facility] MCH 31.2(H) 27.0 - 31.0 PG 04/13/2025 2:05 AM CDT [facility] MCHC 32.5(L) 33.0 - 36.0 G/DL 04/13/2025 2:05 AM CDT [facility] RDW 12.6 11.5 - 14.5 % 04/13/2025 2:05 AM CDT [facility] PLT 250 150 - 350 x10'3/uL 04/13/2025 2:05 AM CDT [facility] MPV 11.0(H) 7.4 - 10.4 FL 04/13/2025 2:05 AM CDT [facility] 04/13/2025 1:46 AM CDT us Rosendo Martinez MD LABORATORY Final Result [facility] [address] [place] [address], [id number] * (ABNORMAL) URINALYSIS (04/12/2025 4:41 AM CDT) Only the most recent of2 resultswithin the time period is included. COLOR (U) YELLOW 04/12/2025 4:57 AM CDT [facility] TRANSPARENCY CLEAR 04/12/2025 4:57 AM CDT [facility] SPECIFIC GRAVITY (U) 1.021 1.002 - 1.035 04/12/2025 4:57 AM CDT [facility] U PH 5.0 5 - 8 04/12/2025 4:57 AM CDT [facility] PROTEIN RANDOM (U) NEGATIVE NEGATIVE 04/12/2025 4:57 AM CDT [facility] GLUCOSE (U) 300(A) NEGATIVE MG/DL 04/12/2025 4:57 AM CDT [facility] KETONES MG/DL (U) TRACE(A) NEGATIVE 04/12/2025 4:57 AM CDT [facility] BILIRUBIN (U) NEGATIVE NEGATIVE 04/12/2025 4:57 AM CDT [facility] BLOOD (U) NEGATIVE NEGATIVE 04/12/2025 4:57 AM CDT [facility] NITRITES NEGATIVE NEGATIVE 04/12/2025 4:57 AM CDT [facility] UROBILINOGEN NORMAL 0 - 1 EU/DL 04/12/2025 4:57 AM CDT [facility] LEUKOCYTES (U) NEGATIVE NEGATIVE 04/12/2025 4:57 AM CDT [facility] RBC/HPF 2 0 - 3 /HPF 04/12/2025 4:57 AM CDT [facility] WBC/HPF 4 0 - 6 /HPF 04/12/2025 4:57 AM CDT [facility] BACTERIA (U) NONE /HPF 04/12/2025 4:57 AM CDT [facility] SQUAMOUS EPITHELIALS 1 04/12/2025 4:57 AM CDT [facility] URINE SPECIMEN OBTAINED BY CLEAN CATCH PROCEDURE / Unknown 04/12/2025 4:41 AM CDT Tiffany Law [facility]- URINE ORDERABLES Final Result [facility] [address] [place] [address], [phone] * CULTURE URINE (04/12/2025 4:41 AM CDT) Only the most recent of2 resultswithin the time period is included. SPEC DESCRIPTION URINE CLEAN CATCH 04/12/2025 4:41 AM CDT [facility] SPECIAL REQUESTS NO SPECIAL REQUEST 04/12/2025 4:41 AM CDT [facility] CULTURE RESULT NO GROWTH (< OR = 1,000 CFU/ML) 04/13/2025 12:01 PM CDT [facility] URINE SPECIMEN OBTAINED BY CLEAN CATCH PROCEDURE / Unknown 04/12/2025 4:41 AM CDT 04/12/2025 10:10 AM CDT Tiffany Law [facility]- MICROBIOLOGY - GENERAL ORDERABLES Final Result Performing Organization Address [facility] de Phone Number [facility] [address] [place] [address], [phone] * Vancomycin Random Level (04/12/2025 2:43 AM CDT) VANCOMYCIN RANDOM 22.6 MCG/ML 04/12/2025 3:59 AM CDT [facility] Comment:REFERENCE RANGE NOT ESTABLISHED 04/12/2025 2:43 AM CDT Rosendo Martinez MD LABORATORY Final Result Performing Organization Address [facility] de Phone Number [facility] [address] [place] [address], [place] [phone] * HEMOGLOBIN, GLYCATED (04/11/2025 12:43 PM CDT) HGB A1C 5.6 <5.7 % 04/11/2025 1:43 PM CDT [facility] ESTIMATED AVG GLUCOSE 114 74 - 114 MG/DL 04/11/2025 1:43 PM CDT [facility] 04/11/2025 12:4 3 PM CDT Tiffany VAUGHN- LABORATORY Final R esult Performing Organization Address [facility] Co de Phone Number [facility] [address] [place] [address], [phone] * CULTURE, BACTERIA, BLOOD (04/11/2025 12:42 PM CDT) Only the most recent of4 resultswithin the time period is included. SPEC DESCRIPTION BLOOD 04/11/2025 12:30 PM CDT [facility] SPECIAL REQUESTS NO SPECIAL REQUEST 04/11/2025 12:30 PM CDT [facility] CULTURE RESULT NO GROWTH 5 DAYS 04/16/2025 1:23 PM CDT [facility] BLOOD SPECIMEN OBTAINED FOR BLOOD CULTURE / Unknown 04/11/2025 12:42 PM CDT 04/11/2025 1:11 PM CDT Tiffany Law [facility]- MICROBIOLOGY - GENERAL ORDERABLES Final Result [facility] [address] [place] [address], [place] [phone] * ECG 12 lead (04/11/2025 12:27 PM CDT) Only the most recent of2 resultswithin the time period is included. 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1955 Requested By: ROSENDO MARTINEZ Order Number: [id number] Reading MD: Lopez Vick Measurements Intervals [place] Rate: 69 P: 40 MA: 176 QRS: 46 QRSD: 122 T: 20 QT: 427 QTc: 458 Interpretive Statements SINUS RHYTHM RIGHT BUNDLE BRANCH BLOCK [120+ ms QRS DURATION, UPRIGHT V1, 40+ ms S IN I/aVL/V4/V5/V6] Procedure Note Lopez Vick MD - 04/11/2025 [facility] [address] [place] [address] Test Date: 2025-04-11 Pat Name: BEBA HERNANDEZ Department: 1 Room: [facility] 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: Female 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: Leonel : 1955 Requested By: ROSENDO MARTINEZ Order Number: [id number] Reading MD: Lopez Vick Measurements Intervals [place] Rate: 69 P: 40 MA: 176 QRS: 46 QRSD: 122 T: 20 QT: 427 QTc: 458 Interpretive Statements SINUS RHYTHM RIGHT BUNDLE BRANCH BLOCK [120+ ms QRS DURATION, UPRIGHT V1, 40+ ms SIN I/aVL/V4/V5/V6] us Rosendo Martinez MD ECG ORDERABLES Final Result [facility] * GI PANEL PCR - STOOL (04/05/2025 9:30 PM CDT) CAMPYLOBACTER PCR (STOOL) NOT DETECTED NOT DETECTED 04/06/2025 1:29 PM CDT [facility] PLESIOMONAS SHIGELLOIDES PCR (STOOL) NOT DETECTED NOT DETECTED 04/06/2025 1:29 PM CDT [facility] SALMONELLA PCR (STOOL) NOT DETECTED NOT DETECTED 04/06/2025 1:29 PM CDT [facility] VIBRIO PCR (STOOL) NOT DETECTED NOT DETECTED 04/06/2025 1:29 PM CDT [facility] VIBRIO CHOLERAE PCR (STOOL) NOT DETECTED NOT DETECTED 04/06/2025 1:29 PM CDT [facility] YERSINIA ENTEROCOLITICA PCR (STOOL) NOT DETECTED NOT DETECTED 04/06/2025 1:29 PM CDT [facility] ENTEROAGGREGATIVE ECOLI PCR (STOOL) NOT DETECTED NOT DETECTED 04/06/2025 1:29 PM CDT [facility] ENTEROPATHOGENIC ECOLI PCR (STOOL) NOT DETECTED NOT DETECTED 04/06/2025 1:29 PM T [facility] ENTEROTOXIGENIC ECOLI PCR (STOOL) NOT DETECTED NOT DETECTED 04/06/2025 1:29 PM T [facility] SHIGA LIKE TOXIN ECOLI PCR (STOOL) NOT DETECTED NOT DETECTED 04/06/2025 1:29 PM T [facility] SHIG/ENTEROINVASIVE ECOLI PCR (STOOL) NOT DETECTED NOT DETECTED 04/06/2025 1:29 PM T [facility] CRYPTOSPORIDIUM PCR (STOOL) NOT DETECTED NOT DETECTED 04/06/2025 1:29 PM T [facility] CYCLOSPORA CAYETANENSIS PCR (STOOL) NOT DETECTED NOT DETECTED 04/06/2025 1:29 PM CDT [facility] ENTAMOEBA HISTOLYTICA PCR (STOOL) NOT DETECTED NOT DETECTED 04/06/2025 1:29 PM T [facility] GIARDIA LAMBLIA PCR (STOOL) NOT DETECTED NOT DETECTED 04/06/2025 1:29 PM T [facility] ADENOVIRUS F40/41 PCR (STOOL) NOT DETECTED NOT DETECTED 04/06/2025 1:29 PM CDT [facility] ASTROVIRUS PCR (STOOL) NOT DETECTED NOT DETECTED 04/06/2025 1:29 PM T [facility] NOROVIRUS GI/GII PCR (STOOL) NOT DETECTED NOT DETECTED 04/06/2025 1:29 PM T [facility] ROTAVIRUS A PCR (STOOL) NOT DETECTED NOT DETECTED 04/06/2025 1:29 PM T [facility] SAPOVIRUS PCR (STOOL) NOT DETECTED NOT DETECTED 04/06/2025 1:29 PM T [facility] STOOL SPECIMEN / Unknown 04/05/2025 9:30 PM CDT us Keith Brower MD MICROBIOLOGY - GENERAL ORDERABLE S Final Result [facility] [address] [facility] [place] [address], * CLOSTRIDIUM DIFFICILE (04/05/2025 9:30 PM CDT) GDH ANTIGEN NEGATIVE NEGATIVE 04/05/2025 11:05 PM CDT [facility] C DIFFICILE TOXIN A&B (STOOL) NEGATIVE NEGATIVE 04/05/2025 11:05 PM CDT [facility] COMMENT GDH NEGATIVE/TOXI N A & B NEGATIVE: NEGATIVE FOR TOXIGENIC C. DIFFICILE. GDH NEGATIVE/TOXI N A & B NEGATIVE: NEGATIVE FOR TOXIGENIC C. 04/05/2025 11:05 PM CDT [facility] STOOL SPECIMEN / Unknown 04/05/2025 9:30 PM CDT us Keith Brower MD BODY FLUIDS AND STOOLS ORDERABLE S Final Result [facility] [address] [place] [address], [id number] * USE ECHOCARDIOGRAM (04/05/2025 1:08 PM CDT) Anatomical Region Laterality Modality Cardiac Echocardiogram 04/05/2025 12:4 3 PM CDT Narrative 04/05/2025 3:00 PM CDT Echocardiography Report Pat.Name: BEBA HERNANDEZ Pat.ID: [id number] .Date: 04/05/2025 Refer.: [id number] NONE PROVIDER EWDPROV EWDPROV Exam Time: 12:43:00 PM Study Type:ECHO WITH CARDIAC DOPPLER COMP Height: 64 in Weight: 150 lb BSA: 1.73 m2 Age: 7 1955,70Y Sex: F BP: 100/68 HR: 50 bpm Sonogrphr: CESIA Small Pat. Stat.:Inpatient Room: icub Reason for Study:shock Procedures: 2D, M-mode, Doppler, [...] Mass 2D Value 178 g LV Mass [id number] Value 103 g/m2 Med MA LV Peak [...] Junction Diameter 1.66 cm/m LV Biplane Major [place] Erika 4.84 % Major [place] Erika 1.13 % LV Left Ventricle Mass by M-mode LV Mass 178 g Right Ventricle Right Ventricle 3.1 cm Right Ventricle 2.9 cm Major [place] 7.4 cm MMODE TA Tricuspid Annul 2.36 cm <Electronic Signature> 04/05/2025 03:00 PM Rishi Almeida M.D. Procedure Note Rishi Almeida MD - 04/05/2025 Echocardiography Report Pat.Name: BEBA HERNANDEZ Pat.ID: [id number] .Date: 04/05/2025 Refer.: [id number] NONE PROVIDER EWDPROV EWDPROV Exam Time: 12:43:00 PM Study Type:ECHO WITH CARDIAC DOPPLER COMP Height: 64 in Weight: 150 lb BSA: 1.73 m2 Age: 7 1955,70Y Sex: F BP: 100/68 HR: 50 bpm Sonogrphr: CESIA Small Pat. Stat.:Inpatient Room: [facility] Reason for Study:shock Procedures: 2D, [...] Mass 2D Value 178 g LV Mass [id number] Value 103 g/m2 Med MA LV Peak [...] Junction Diameter 1.66 cm/m LV Biplane Major [place] Erika 4.84 % Major [place] Erika 1.13 % LV Left Ventricle Mass by M-mode LV Mass 178 g Right Ventricle Right Ventricle 3.1 cm Right Ventricle 2.9 cm Major [place] 7.4 cm MMODE TA Tricuspid Annul 2.36 cm <Electronic Signature> 04/05/2025 03:00 PM Rishi Almeida M.D. Keith Brower MD ECHO Final Result * USV CANDI DUPLEX LOW EXT VIELKA (04/05/2025 10:08 AM CDT) Anatomical Region Laterality Modality Extremity Ultrasound 04/05/2025 9:23 AM CDT Narrative 04/05/2025 11:43 AM CDT Vascular Report Pat.Name: BEBA HERNANDEZ Pat.ID: [id number] St.Date: 04/05/2025 Refer.MD: KEITH BROWER Exam Time: 9:23:00 AM Study Type:PVI VENOUS DUPLEX SCAN-LEGS BILAT Height: 62 in Age: 7 1955,70Y Sex: F Sonogrphr: Kevin Del Real RVT Pat. Stat.:Inpatient Room: ICU-B4 ICD - 9: R60.9 Limb Edema CPT - 4: 22945 Venous Duplex LE/UE Reason for Study:Edema Race: W Bilat: No evidence of acute or chronic thrombosis noted in the deep or superficial veins in either lower extremity. <Electronic Signature> 04/05/2025 11:43 AM Rickey Magallanes M.D. Procedure Note Rickey Magallanes MD - 04/05/2025 Vascular Report Pat.Name: BEBA HERNANDEZ Pat.ID: [id number] .Date: 04/05/2025 Refer.MD: KEITH BROWER Exam Time: 9:23:00 AM Study Type:PVI VENOUS DUPLEX SCAN-LEGS BILAT Height: 62 in Age: 7 1955,70Y Sex: F Sonogrphr: Kevin Del Real Elijah Pat. Stat.:Inpatient Room: ICU-B4 ICD - 9: R60.9 Limb Edema CPT - 4: 98552 Venous Duplex LE/UE Reason for Study:Edema Race: W Bilat: No evidence of acute or chronic thrombosis noted in the deep or superficial veins in either lower extremity. <Electronic Signature> 04/05/2025 11:43 AM Rickey Magallanes M.D. Keith Brower MD [facility] Final Result * C AURIS,PCR,AXILLA/GROIN,NARES (04/05/2025 8:50 AM CDT) Pathologist [facility] ROSLYN AURIS (CORY/GROIN) Not Detected Not Detected 04/08/2025 3:46 AM CDT SOAK ([employer] tool[employer]) RICHY CARNES Comment: A Not Detected result [...] analytical performance characteristics have been determined [place] It has not been cleared or approved by the U.S. Food and Drug Administration. This assay has been validated pursuant to the CLIA regulations and is used for clinical purposes. Test Performed by [facility], [place], [address] [place] [address] Brayan Dennis M.D., Ph.D., Director of Laboratories , CLIA [id number] 04/05/2025 8:50 AM CDT Adrian Bautista MD LABORATORY Final Result SOAK ([employer]) [address] [address], [place] [phone] * STAPH SCREENING BY PCR (04/05/2025 8:00 AM CDT) SPECIMEN SOURCE RESPIRATORY, NOSE 04/05/2025 7:40 AM CDT [facility] MRSA BY PCR NASAL METHICILLIN RESISTANT STAPH AUREUS NOT DETECTED METHICILLIN RESISTANT STAPH AUREUS NOT DETECTED 04/05/2025 2:06 PM CDT [facility] NASAL STRUCTURE / Unknown 04/05/2025 8:00 AM CDT Keith Brower MD MICROBIOLOGY - GENERAL ORDERABLE S Final Result [facility] [address] [place] [address], [place] [phone] [id number] from Last 3 Months Insurance [facility] MEDICARE MEDICAID Advance Directives Documents on File Type Date Recorded 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 07/09/2020 * Full Code (Latest Code Status on File) Date Activated Date Inactivated Comments 04/13/2025 5:23 PM 04/21/2025 2:11 PM * Full Code Date Activated Date Inactivated Comments 04/11/2025 12:29 PM 04/13/2025 5:23 PM * Full Code Date Activated Date Inactivated Comments 04/05/2025 7:13 AM 04/06/2025 9:43 PM * Full Code Date Activated Date Inactivated Comments 12/26/2022 4:14 PM 04/05/2025 7:11 AM * Full Code Date Activated Date Inactivated Comments 12/02/2022 1:54 AM 12/05/2022 6:06 PM Care Teams Account Planner Relationship Specialty Start Date End Date Pasquale Pro MD [address] [place] [phone] PCP - General INTERNAL MEDICINE 03/19/18 Roland Tatum MD [address] [place] [address] Consulting Physician CARDIOVASCULAR DISEASE 06/22/20 Suly Galdamez APRN, MEDICAL CASE MANAGER-C [address] [facility] [address] [place] [phone] NURSE PRACTITIONER 06/22/20
--- OUTSIDE RECORDS SUMMARY | 2025-05-01 12:56 | XMS_ITS | Clinical Summary ---
Author Organization [facility] Address [address] [place] [address] Phone Care Team Providers Care Tire Mold Tester Name Role Phone Pasquale Pro MD Primary Care Provider [phone] Allergies Active Allergy Reactions Criticality Noted Date [...] needed for Wheezing. Active ergocalciferol (VITAMIN D) 65979 UNIT Capsule Take 50,000 Units by mouth once a week. Active losartan (COZAAR) 100 MG Tablet Take 100 mg by mouth daily. Active ondansetron (ZOFRAN) 4 MG Tablet Take 4 mg by mouth every 8 hours as needed for Nausea - 1st line. Active sulfaSALAzine (AZULFIDINE) 500 MG Tablet Take 1,000 mg by mouth 3 times daily. Give with food Active NON-Osnp-CfKhes -MgHydr-Simeth (First-Mouthwas h BLM) Suspension 5 mL [...] 4:15 PM CDT Hospital Encounter [facility] [address] [address] Gino Mendoza MD Small bowel obstruction Discharge Disposition: Discharged to home or Selfcare 02/28/2025 Travel from Last 3 Months Family History Medical History Relation Name Comments Hypertension Father Heart Disease Mother Hypertension Mother Relation Name Status Comments Father Mother Social History Tobacco Use Types Packs/Day Years Used Date Smoking Tobacco: Every Day Cigarettes 1.2 92.8 Started: 1972 Smokeless Tobacco: Never Alcohol Use [...] any time in the past 12 m [facility], were you homeless or living in a custodial (including now)? Patient declined 02/28/2025 [facility] Utilities Answer Date Recorded In the past 12 months has th e [employer], gas, oil, or water company threatened to [...] - Risk 60-74 years 1-dose series) 2013 Welcome to Medicare (IPPE) G0402 08/20/2024 Influenza Immunization (#1) 2025 092 10/2023, 05/27/2023, 04/29/2022, Additional history exists SARS-COV-2 [...] 99 mg/dL 03/02/2025 11:16 AM CDT [facility] Comment:RN Notified Blood 03/02/2025 11:1 5 AM CDT 03/02/2025 11:16 AM CDT us None Provider POINT OF CARE TESTING Final Resu lt [facility] [address] [place] [address] * CT REFERENCE IMAGES FOR IMAGE IMPORT [...] - 12.00 10(3)/mcL 03/02/2025 6:51 AM CDT [facility] RBC 3.63(L) 3.80 - 5.30 10(6)/mcL 03/02/2025 6:51 AM CDT [facility] HEMOGLOBIN (HGB) 11.3(L) 12.0 - 15.8 g/dL 03/02/2025 6:51 AM CDT [facility] HEMATOCRIT (HCT) 36.0 36.0 - 47.0 % 03/02/2025 6:51 AM CDT [facility] MCV 99.2(H) 82.0 - 96.0 fL 03/02/2025 6:51 AM CDT [facility] MCH 31.1 26.0 - 34.0 pg 03/02/2025 6:51 AM CDT [facility] MCHC 31.4 31.0 - 36.0 g/dL 03/02/2025 6:51 AM CDT [facility] PLATELET COUNT 243 140 - 440 10(3)/mcL 03/02/2025 6:51 AM CDT [facility] RDW 12.2 11.8 - 15.5 % 03/02/2025 6:51 AM CDT [facility] MPV 10.2 9.7 - 12.4 fL 03/02/2025 6:51 AM CDT [facility] NEUTROPHILS 71.2 47.0 - 73.0 % 03/02/2025 6:51 AM CDT [facility] LYMPHOCYTES 20.8 18.0 - 42.0 % 03/02/2025 6:51 AM CDT [facility] MONOCYTES 5.9 4.0 - 12.0 % 03/02/2025 6:51 AM CDT [facility] EOSINOPHILS 1.0 0.0 - 5.0 % 03/02/2025 6:51 AM CDT [facility] BASOPHILS 0.8 0.0 - 1.0 % 03/02/2025 6:51 AM CDT [facility] IMMATURE GRANULOCYTE 0.3 0.0 - 0.4 % 03/02/2025 6:51 AM CDT [facility] Comment:Immature Granulocyte s includes Metamyelocytes, Myelocytes, and Promyelocytes. ABSOLUTE NEUTROPHILS 6.59 1.60 - 7.70 10(3)/mcL 03/02/2025 6:51 AM CDT [facility] ABSOLUTE LYMPHOCYTES 1.92 1.30 - 3.20 10(3)/mcL 03/02/2025 6:51 AM CDT [facility] ABSOLUTE MONOCYTES 0.55 0.20 - 1.00 10(3)/mcL 03/02/2025 6:51 AM CDT [facility] ABSOLUTE EOSINOPHIL 0.09 0.00 - 0.40 10(3)/mcL 03/02/2025 6:51 AM CDT [facility] ABSOLUTE BASOPHILS 0.07 0.00 - 0.10 10(3)/mcL 03/02/2025 6:51 AM CDT [facility] ABSOLUTE IMMATURE GRANULOCYTE 0.03 0.00 - 0.03 10 (3) mcL. 03/02/2025 6:51 AM CDT [facility] NRBC PER 100 WBC 0 03/02/20 6:51 AM CDT [facility] Blood Venipuncture / Unknown 03/02/2025 6:28 AM CDT 03/02/2025 6:43 AM CDT us Ramandeep Núñez RESIDENTIAL BUILDING INSPECTOR, PROFESSIONAL EMPLOYER CONSULTANT HEMATOLOGY ORDERABLES Final Result [facility] [address] [place] [address] * (ABNORMAL) BMP with Ca, Total (03/02/2025 6:28 AM CDT) Only the most recent of2 resultswithin the time period is included. SODIUM 137 136 - 145 mmol/L 03/02/2025 7:26 AM CDT [facility] POTASSIUM 3.8 3.5 - 5.1 mmol/L 03/02/2025 7:26 AM CDT [facility] CHLORIDE 106 98 - 107 mmol/L 03/02/2025 7:26 AM CDT [facility] CO2, VENOUS 24 22 - 30 mmol/L 03/02/2025 7:26 AM CDT [facility] ANION GAP 10.8 <18.0 mmol/L 03/02/2025 7:26 AM CDT [facility] GLUCOSE 114(H) 70 - 99 mg/dL 03/02/2025 7:26 AM CDT [facility] BUN 30(H) 10 - 20 mg/dL 03/02/2025 7:26 AM CDT [facility] CREATININE, BLOOD 0.93 0.60 - 1.00 mg/dL 03/02/2025 7:26 AM T [facility] BUN/CREATININE RATIO 32(H) 12 - 20 ratio 03/02/2025 7:26 AM T [facility] CALCIUM 7.7(L) 8.7 - 10.5 mg/dL 03/02/2025 7:26 AM CDT [facility] GFR, ESTIMATED >60 >=60 03/02/2025 7:26 AM T [facility] Comment: Creatinine Clearance is the preferred criteria for selecting drug dose adjustments in renally impaired patients. The GFR is provided as additional pertinent clinical information. GFR is reported in mL/min/1.73 sq m. Calculation based on the Chronic Kidney Disease Epidemiology Collaboration (CKD- EPI) equation refit without adjustment for race. GFR, EST. >60 >=60 025 7:26 AM CDT [facility] GFR, EST. NONAFRICAN 59(L) >=60 03/02/2025 7:26 AM [facility] Blood Venipuncture / Unknown 03/02/2025 6:28 AM CDT 03/02/2025 6:43 AM CDT Ramandeep Núñez RESIDENTIAL BUILDING INSPECTOR, PROFESSIONAL EMPLOYER CONSULTANT CHEMISTRY ORDERABLES Final Result Performing Organization Address City/[facility] Co de Phone Number [facility] [address] [place] [address] * RHYTHM STRIP (03/02/2025 12:00 AM CDT) Only the most recent of6 resultswithin the time period is included. 03/02/2025 us Provider Scan IMG ECG ORDERABLES Final Result Performing Organization Address [facility] de Phone Number RESULTING AGENCY * (ABNORMAL) TROPONIN I, HIGH SENSITIVITY (HSTRP) (03/01/2025 7:47 AM CDT) Only the most recent of2 resultswithin the time period is included. TROPONIN I, HIGH SENSITIVITY- REC[facility] 22(H) <=14 ng/L 03/01/2025 8:52 AM CDT [facility] Comment: High-sensitivity troponin I results are reported in ng/L making the result appear to be 1,000 times higher than the contemporary troponin I value which is reported in ng/ml. Results from Recio. Blood Venipuncture / Unknown 03/01/2025 7:47 AM CDT 03/01/2025 7:52 AM CDT Ramandeep Núñez RESIDENTIAL BUILDING INSPECTOR, PROFESSIONAL EMPLOYER CONSULTANT CHEMISTRY ORDERABLES Final Result Performing Organization Address [facility] Co de Phone Number [facility] [address] [place] [address] * EKG 12 LEAD (02/28/2025 10:13 PM CDT) Ventricular Rate 60 BPM EXTERNAL EKG Atrial Rate 60 BPM EXTERNAL EKG P-R Interval 182 ms EXTERNAL EKG QRS Duration 126 ms EXTERNAL EKG Q-T Duration 496 ms EXTERNAL EKG QTC CALCULATION 496 ms EXTERNAL EKG P [place] 69 degrees EXTERNAL EKG R [place] 46 degrees EXTERNAL EKG T [place] -38 degrees EXTERNAL EKG 02/28/2025 10:1 3 PM CDT Impressions EXTERNAL EKG - 03/02/2025 11:44 AM CDT Normal sinus rhythm Right bundle branch block T wave abnormality, consider inferior ischemia Abnormal ECG No previous ECGs available Confirmed by ODALYS NAZARIO ([id number]) on 03/02/2025 11:44:07 AM Narrative Procedure Note Odalys Nazario MD - 03/02/2025 IMPRESSION: Normal sinus rhythm Right bundle branch block T wave abnormality, consider inferior ischemia Abnormal ECG No previous ECGs available Confirmed by ODALYS NAZARIO ([id number]) on 03/02/2025 11:44:07 AM Ramandeep Núñez APRN, CNP IMG ECG ORDERABLES Fi nal Result EXTERNAL EKG * Lactic Acid (Lactate) (02/28/2025 9:47 PM CDT) Pathologist [facility] LACTIC ACID 1.1 0.7 - 2.0 mmol/L 02/28/2025 10:06 PM CDT [facility] Blood Venipuncture / Unknown 02/28/2025 9:47 PM CDT 02/28/2025 9:47 PM CDT Ramandeep Núñez APRN, CNP CHEMISTRY ORDERABLES Final Result [facility] [address] [place] [address] * Hemoglobin A1C w/ Estimated Glucose (02/28/2025 8:02 PM CDT) HGB-A1C 5.7 4.0 - 6.0 % 02/28/2025 8:19 PM CDT [facility] Est Average Glucose 116.9 mg/dL 02/28/2025 8:19 PM CDT [facility] Blood Venipuncture / Unknown 02/28/2025 8:02 PM CDT 02/28/2025 8:02 PM CDT Narrative [facility] - 02/28/2025 8:19 PM CDT HEMOGLOBIN A1C: DIABETIC PATIENTS: WELL-CONTROLLED: 6.2 - 7.0 INTERMEDIATE WELL-CONTROLLED: 7.0 - 9.0 POORLY-CONTROLLED: >9.0 Specimens containing greater than 5% of Hemoglobin F may result in lower than expected % HbA1C results. Ramandeep Núñez APRN, CNP CHEMISTRY ORDERABLES Final Result Performing Organization Address City/[facility]/ZIP Co de Phone Number [facility] [address] [place] [address] * (ABNORMAL) PHOSPHORUS (PO4) (02/28/2025 8:01 PM CDT) PHOSPHORUS 5.1(H) 2.5 - 4.5 mg/dL 02/28/2025 8:21 PM CDT [facility] Blood Venipuncture / Unknown 02/28/2025 8:01 PM CDT 02/28/2025 8:01 PM CDT Ramandeep Núñez APRN, CNP CHEMISTRY ORDERABLES Final Result [facility] [address] [place] [address] * MAGNESIUM (MG) (02/28/2025 8:01 PM CDT) MAGNESIUM 1.6 1.6 - 2.6 mg/dL 02/28/2025 8:21 PM CDT [facility] Blood Venipuncture / Unknown 02/28/2025 8:01 PM CDT 02/28/2025 8:01 PM CDT us Ramandeep Núñez APRN, CNP CHEMISTRY ORDERABLES Final Result [facility] [address] [facility] [address] * (ABNORMAL) CMP (Comprehensive Metabolic Panel) (02/28/2025 8:01 PM CDT) SODIUM 143 136 - 145 mmol/L 02/28/2025 8:21 PM CDT [facility] POTASSIUM 3.7 3.5 - 5.1 mmol/L 02/28/2025 8:21 PM CDT [facility] CHLORIDE 100 98 - 107 mmol/L 02/28/2025 8:21 PM CDT [facility] CO2, VENOUS 26 22 - 30 mmol/L 02/28/2025 8:21 PM CDT [facility] ANION GAP 20.7(H) <18.0 mmol/L 02/28/2025 8:21 PM CDT [facility] GLUCOSE 115(H) 70 - 99 mg/dL 02/28/2025 8:21 PM CDT [facility] BUN 36(H) 10 - 20 mg/dL 02/28/2025 8:21 PM CDT [facility] CREATININE, BLOOD 3.31(H) 0.60 - 1.00 mg/dL 02/28/2025 8:21 PM CDT [facility] BUN/CREATININE RATIO 11(L) 12 - 20 ratio 02/28/2025 8:21 PM CDT [facility] TOTAL PROTEIN 7.1 6.0 - 8.0 g/dL 02/28/2025 8:21 PM CDT [facility] ALBUMIN 4.1 3.5 - 5.0 g/dL 02/28/2025 8:21 PM CDT [facility] A/G RATIO 1.4 1.0 - 2.2 02/28/2025 8:21 PM CDT [facility] CALCIUM 8.4(L) 8.7 - 10.5 mg/dL 02/28/2025 8:21 PM CDT [facility] T BILI 0.3 0.2 - 1.2 mg/dL 02/28/2025 8:21 PM CDT [facility] SGOT (AST) 18 <43 U/L 02/28/2025 8:21 PM CDT [facility] SGPT (ALT) 13 <56 U/L 02/28/2025 8:21 PM CDT [facility] ALKALINE PHOSPHATASE 54 40 - 150 U/L 02/28/2025 8:21 PM CDT [facility] GFR, ESTIMATED 14(L) >=60 02/28/2025 8:21 PM CDT [facility] Comment: Creatinine Clearance is the preferred criteria for selecting drug dose adjustments in renally impaired patients. The GFR is provided as additional pertinent clinical information. GFR is reported in mL/min/1.73 sq m. Calculation based on the Chronic Kidney Disease Epidemiology Collaboration (CKD- EPI) equation refit without adjustment for race. GFR, EST. 17(L) >=60 025 8:21 PM CDT [facility] GFR, EST. NONAFRICAN 14(L) >=60 02/28/2025 8:21 PM CDT [facility] Blood Venipuncture / Unknown 02/28/2025 8:01 PM CDT 02/28/2025 8:01 PM CDT us Ramandeep Núñez RESIDENTIAL BUILDING INSPECTOR, PROFESSIONAL EMPLOYER CONSULTANT CHEMISTRY ORDERABLES Final Result [facility] [address] [place] [address] * EKG SCAN (02/28/2025 12:00 AM CDT) Only the most recent of2 resultswithin the time period is included. 02/28/2025 us Provider Scan IMG ECG ORDERABLES Final Result RESULTING AGENCY from Last 3 Months Insurance [facility] Directives * Full Code (Latest Code Status on File) Date Activated Date Inactivated Comments 02/28/2025 9:30 PM CPR-Full Treat ment: FULL ARREST: Attempt Resuscitation/CPR wit intubation and mechanical ventilation. PRE-ARREST: Use entire range of life support measures to stabilize the patient. Care Teams Tire Mold Tester Relationship Specialty Start Date End Date Pasquale Pro MD [address] [place] [address] PCP - General Internal Medicine 03/02/25
--- NOTE | 2025-05-01 13:07 | PC.NURSE ---
PCT attempted straight cath with no urine return. ERP aware.
--- NOTE | 2025-05-01 13:25 | PC.NURSE ---
straight cath done but no urine could be obtained at 13:08
[2025-05-01 13:36] VITALS: BP 93/55; PULSE 87; RESP 19; O2SAT 96
[2025-05-01 15:06] LABS: Troponin I 0.150 ng/mL (0.000-0.034)
--- NOTE | 2025-05-01 15:15 | PC.NURSE ---
Called [facility] to admit Pt. Life Enrichment Assistant states no IMU beds available currently and states that they already have one Pt boarding for IMU in [facility]. He will call back when a bed is available. Pt aware and states ok to contact [facility].
[2025-05-01 16:13] VITALS: BP 95/64; PULSE 83; RESP 16; O2SAT 99
--- NOTE | 2025-05-01 16:49 | PC.NURSE ---
Per ERP, hold heparin until coags are resulted.
[2025-05-01 16:53] LABS: INR 1.1; Partial Thromboplastin Time 23.1 Sec (23.9-30.70); Prothrombin Time 11.8 Seconds (9.50-12.1)
[2025-05-01] MEDS: HEPARIN SOD/D5W 100 UNITS/ML 25,000 UNITS/250 ML BAG 7 UNITS IV CONT (17:18)
[2025-05-01] MEDS: ASPIRIN 325 MG ENTERIC TABLET PO (17:20)
[2025-05-01 19:01] VITALS: BP 89/60; PULSE 83; RESP 17; O2SAT 96
--- NOTE | 2025-05-04 12:20 | PC.NURSE ---
PRELIMINARY BLOOD CULTURE REPORT; NO GROWTH IN 24 HOURS.
--- NOTE | 2025-05-05 12:51 | PC.NURSE ---
PRELIMINARY BLOOD CULTURE REPORT; NO GROWTH IN 48 HOURS
--- NOTE | 2025-05-08 13:29 | PC.NURSE ---
FINAL BLOOD CULTURE REPORT; NO GROWTH IN 5 DAYS
== END 2025-05-01 19:29 | disposition short-term general hospital (02) ==
PROVIDERS: Emergency Provider Emergency Medicine; PCP Internal Medicine
DX: I21.4 Non-ST elevation (NSTEMI) myocardial infarction (principal); I11.0 Hypertensive heart disease with heart failure; I50.9 Heart failure, unspecified; K55.1 Chronic vascular disorders of intestine; I71.40 Abdominal aortic aneurysm, without rupture, unspecified; I95.9 Hypotension, unspecified; R53.1 Weakness; N17.9 Acute kidney failure, unspecified; E11.9 Type 2 diabetes mellitus without complications; J44.9 Chronic obstructive pulmonary disease, unspecified; F17.210 Nicotine dependence, cigarettes, uncomplicated; Z85.3 Personal history of malignant neoplasm of breast; Z20.822 Contact with and (suspected) exposure to COVID-19
CPT/HCPCS: 36415; 70450; 71046; 74176; 80053; 83605; 83880; 84484; 85025; 85610; 85730; 87040; 87637; 93005; 96365; 96366; 99285; A9270; J1644

== ENCOUNTER 2025-06-01 13:09 | Outpatient (CLI) | payer MEDICARE, SELFPAY ==
[2025-06-01] MEDS: IRON SUCROSE COMPLEX 300 MG in SODIUM CHLORIDE 0.9% IV 235 ML 125 MG IVPB (13:30)
[2025-06-01 13:45] VITALS: BP 134/76; PULSE 80; RESP 14; TEMP 36.5; O2SAT 98; BMI 24.4
--- OUTSIDE RECORDS SUMMARY | 2025-06-01 13:50 | XMS_ITS | Clinical Summary ---
Author Organization [facility] Address [address] [place] [address] Phone Care Team Providers Care Land Manager Name Role Phone Pasquale Pro MD Primary Care Provider [phone] Allergies Active Allergy Reactions Criticality Noted Date [...] needed for Wheezing. Active ergocalciferol (VITAMIN D) 80742 UNIT Capsule Take 50,000 Units by mouth once a week. Active losartan (COZAAR) 100 MG Tablet Take 100 mg by mouth daily. Active ondansetron (ZOFRAN) 4 MG Tablet Take 4 mg by mouth every 8 hours as needed for Nausea - 1st line. Active sulfaSALAzine (AZULFIDINE) 500 MG Tablet Take 1,000 mg by mouth 3 times daily. Give with food Active WSF-Qaqc-IsWuqx -MgHydr-Simeth (First-Mouthwas h BLM) Suspension 5 mL [...] PM CDT Hospital Encounter [facility] [address] [address] Gino Mendoza MD Small bowel obstruction Discharge Disposition: Discharged to home or Selfcare from Last 3 Months Family History Medical History Relation Name Comments Hypertension Father Heart Disease Mother Hypertension Mother Relation Name Status Comments Father Mother Social History Tobacco Use Types Packs/Day Years Used Date Smoking Tobacco: Every Day Cigarettes 1.2 92.9 Started: 1972 Smokeless Tobacco: Never Alcohol Use [...] any time in the past 12 m [facility], were you homeless or living in a [facility] (including now)? Patient declined 02/28/[address] [facility] Utilities Answer Date Recorded In the past 12 months has th e [employer], gas, oil, or water company threatened to [...] Occult Blood 1998 Lung Cancer Screening 2003 Respiratory Syncytial Virus (RSV) Immunization (Adult) (1 - Risk 50-74 years 1-dose series) 2003 Zoster Immunization (1 of 2) 2003 Welcome to Medicare (IPPE) G0402 08/20/2024 Influenza Immunization (#1) 2025 092 10/2023, 05/27/2023, 04/29/2022, Additional history exists SARS-COV-2 Immunization ( season) 2025 12/21/2020, 11/27/2020 Diabetes: Hemoglobin A1c 08/31/2025 02/28/2025, 0512/2022 Diabetes: Nephropathy Screening 02/28/2026 02/28/2025 Pneumococcal Immunization [...] CDT RHYTHM STRIP 03/01/2025 12:00 AM CDT HEMOGLOBIN A1C W/ ESTIMATED GLUCOSE Routine 02/28/2025 8:02 PM CDT CMP (COMPREHENSIVE METABOLIC PANEL) Routine 02/28/2025 8:01 PM CDT from Last 3 Months or Most Recently Relevant to Health Maintenance Results * (ABNORMAL) POCT Glucose (03/02/2025 11:15 AM CDT) Only the most recent of7 resultswithin the time period is included. [facility] STEPHANIE Cantrell POCT 123(H) 70 - 99 mg/dL 03/02/2025 11:16 AM CDT [facility] Comment:RN Notified Blood 03/02/2025 11:1 5 AM CDT 03/02/2025 11:16 AM CDT us None Provider POINT OF CARE TESTING Final Resu lt [facility] [place] [address] * CT REFERENCE IMAGES FOR IMAGE IMPORT [...] - 42.0 % 03/02/2025 6:51 AM CDT [facility] MONOCYTES 5.9 4.0 - 12.0 % 03/02/2025 6:51 AM CDT [facility] EOSINOPHILS 1.0 0.0 - 5.0 % 03/02/2025 6:51 AM CDT [facility] BASOPHILS 0.8 0.0 - 1.0 % 03/02/2025 6:51 AM CDT [facility] IMMATURE GRANULOCYTE 0.3 0.0 - 0.4 % 03/02/2025 6:51 AM CDT [facility] Comment:Immature Granulocyte s includes Metamyelocytes, Myelocytes, and Promyelocytes. ABSOLUTE NEUTROPHILS 6.59 1.60 - 7.70 10(3)/mcL 03/02/2025 6:51 AM CDT [facility] ABSOLUTE LYMPHOCYTES 1.92 1.30 - 3.20 10(3)/mcL 03/02/2025 6:51 AM CDT [facility] ABSOLUTE MONOCYTES 0.55 0.20 - 1.00 10(3)/mcL 03/02/2025 6:51 AM CDT [facility] ABSOLUTE EOSINOPHIL 0.09 0.00 - 0.40 10(3)/mcL 03/02/2025 6:51 AM CDT [facility] ABSOLUTE BASOPHILS 0.07 0.00 - 0.10 10(3)/mcL 03/02/2025 6:51 AM CDT [facility] ABSOLUTE IMMATURE GRANULOCYTE 0.03 0.00 - 0.03 10 (3) mcL. 03/02/2025 6:51 AM CDT [facility] NRBC PER 100 WBC 0 03/02/20 6:51 AM CDT [facility] Blood Venipuncture / Unknown 03/02/2025 6:28 AM CDT 03/02/2025 6:43 AM CDT us Ramandeep Núñez COMPUTATIONAL GENETICIST, LICENSED EMBALMER HEMATOLOGY ORDERABLES Final Result [facility] [address] [place] [address] * (ABNORMAL) BMP with Ca, Total (03/02/2025 6:28 AM CDT) Only the most recent of2 resultswithin the time period is included. SODIUM 137 136 - 145 mmol/L 03/02/2025 7:26 AM CDT [facility] POTASSIUM 3.8 3.5 - 5.1 mmol/L 03/02/2025 7:26 AM CDT [facility] CHLORIDE 106 98 - 107 mmol/L 03/02/2025 7:26 AM CDT [facility] CO2, VENOUS 24 22 - 30 mmol/L 03/02/2025 7:26 AM CDT [facility] ANION GAP 10.8 <18.0 mmol/L 03/02/2025 7:26 AM CDT [facility] GLUCOSE 114(H) 70 - 99 mg/dL 03/02/2025 7:26 AM CDT [facility] BUN 30(H) 10 - 20 mg/dL 03/02/2025 7:26 AM CDT [facility] CREATININE, BLOOD 0.93 0.60 - 1.00 mg/dL 03/02/2025 7:26 AM CDT [facility] BUN/CREATININE RATIO 32(H) 12 - 20 ratio 03/02/2025 7:26 AM CDT [facility] CALCIUM 7.7(L) 8.7 - 10.5 mg/dL 03/02/2025 7:26 AM CDT [facility] GFR, ESTIMATED >60 >=60 03/02/2025 7:26 AM CDT [facility] Comment: Creatinine Clearance is the [...] 03/02/2025 6:43 AM CDT us Ramandeep Núñez APRN, MARINA CHEMISTRY ORDERABLES Final Result Performing Organization Address City/[facility]/ZIP Co de Phone Number [facility] [address] [place] [address] * RHYTHM STRIP (03/02/2025 12:00 AM CDT) Only the most recent of5 resultswithin the time period is included. 03/02/2025 us Provider Scan IMG ECG ORDERABLES Final Result RESULTING AGENCY * (ABNORMAL) TROPONIN I, HIGH SENSITIVITY (HSTRP) (03/01/2025 7:47 AM CDT) TROPONIN I, HIGH SENSITIVITY- [facility] 22(H) <=14 ng/L 03/01/2025 8:52 AM CDT [facility] Comment: High-sensitivity troponin I results are reported in ng/L making the result appear to be 1,000 times higher than the contemporary troponin I value which is reported in ng/ml. Results from [facility]. Blood Venipuncture / Unknown 03/01/2025 7:47 AM CDT 03/01/2025 7:52 AM CDT Ramandeep M Niya LOWRY, MARINA CHEMISTRY ORDERABLES Final Result Performing Organization Address City/[facility]/ZIP Co de Phone Number [facility] [address] [place] [address] * Hemoglobin A1C w/ Estimated Glucose (02/28/2025 8:02 PM CDT) HGB-A1C 5.7 4.0 - 6.0 % 02/28/2025 8:19 PM CDT [facility] Est Average Glucose 116.9 mg/dL 02/28/2025 8:19 PM CDT [facility] Blood Venipuncture / Unknown 02/28/2025 8:02 PM CDT 02/28/2025 8:02 PM CDT Narrative [facility] - 02/28/2025 8:19 PM CDT HEMOGLOBIN A1C: DIABETIC PATIENTS: WELL-CONTROLLED: 6.2 - 7.0 INTERMEDIATE WELL-CONTROLLED: 7.0 - 9.0 POORLY-CONTROLLED: >9.0 Specimens containing greater than 5% of Hemoglobin F may result in lower than expected % HbA1C results. Ramandeep Núñze APRN, MARINA CHEMISTRY ORDERABLES Final Result Performing Organization Address City/[facility]/ZIP Co de Phone Number [facility] [address] [place] [address] * (ABNORMAL) CMP (Comprehensive Metabolic Panel) (02/28/2025 8:01 PM CDT) SODIUM 143 136 - 145 mmol/L 02/28/2025 8:21 PM CDT [facility] POTASSIUM 3.7 3.5 - 5.1 mmol/L 02/28/2025 8:21 PM T [facility] CHLORIDE 100 98 - 107 mmol/L 02/28/2025 8:21 PM T [facility] CO2, VENOUS 26 22 - 30 mmol/L 02/28/2025 8:21 PM T [facility] ANION GAP 20.7(H) <18.0 mmol/L 02/28/2025 8:21 PM CDT [facility] GLUCOSE 115(H) 70 - 99 mg/dL 02/28/2025 8:21 PM T [facility] BUN 36(H) 10 - 20 mg/dL 02/28/2025 8:21 PM T [facility] CREATININE, BLOOD 3.31(H) 0.60 - 1.00 mg/dL 02/28/2025 8:21 PM T [facility] BUN/CREATININE RATIO 11(L) 12 - 20 ratio 02/28/2025 8:21 PM [facility] TOTAL PROTEIN 7.1 6.0 - 8.0 g/dL 02/28/2025 8:21 PM T [facility] ALBUMIN 4.1 3.5 - 5.0 g/dL 02/28/2025 8:21 PM [facility] A/G RATIO 1.4 1.0 - 2.2 02/28/2025 8:21 PM T [facility] CALCIUM 8.4(L) 8.7 - 10.5 mg/dL 02/28/2025 8:21 PM T [facility] T BILI 0.3 0.2 - 1.2 mg/dL 02/28/2025 8:21 PM T [facility] SGOT (AST) 18 <43 U/L 02/28/2025 8:21 PM T [facility] SGPT (ALT) 13 <56 U/L 02/28/2025 8:21 PM CDT [facility] ALKALINE PHOSPHATASE 54 40 - 150 U/L 02/28/2025 8:21 PM CDT [facility] GFR, ESTIMATED 14(L) >=60 02/28/2025 8:21 PM CDT [facility] Comment: Creatinine Clearance is the preferred criteria for selecting drug dose adjustments in renally impaired patients. The GFR is provided as additional pertinent clinical information. GFR is reported in mL/min/1.73 sq m. Calculation based on the Chronic Kidney Disease Epidemiology Collaboration (CKD- EPI) equation refit without adjustment for race. GFR, EST. 17(L) >=60 025 8:21 PM CDT [facility] GFR, EST. NONAFRICAN 14(L) >=60 02/28/2025 8:21 PM CDT [facility] Blood Venipuncture / Unknown 02/28/2025 8:01 PM CDT 02/28/2025 8:01 PM CDT Ramandeep Núñez APRN, MARINA CHEMISTRY ORDERABLES Final Result [facility] [address] [place] [address] from Last 3 Months or Most Recently Relevant to Health Maintenance Insurance [facility] Advance Directives * Full Code (Latest Code Status on File) Date Activated Date Inactivated Comments 02/28/2025 9:30 PM CPR-Full Treat ment: FULL ARREST: Attempt Resuscitation/CPR wit intubation and mechanical ventilation. PRE-ARREST: Use entire range of life support measures to stabilize the patient. Care Teams Land Manager Relationship Specialty Start Date End Date Pasquale Pro MD [address] [place] [address] PCP - General Internal Medicine 03/02/25
[2025-06-01 15:45] VITALS: BP 140/79; PULSE 76
--- NOTE | 2025-06-01 15:49 | PC.NURSE ---
Tolerated #1 of 2 Venofer infusions well. See MAR/ Patient care notes.
== END 2025-06-01 13:10 | disposition home or self-care (01) ==
PROVIDERS: PCP Internal Medicine; Visit Provider Internal Medicine
DX: D50.9 Iron deficiency anemia, unspecified (principal)
CPT/HCPCS: 96365; 96366; J1756; J7050

== ENCOUNTER 2025-06-22 13:04 | Outpatient (CLI) | payer MEDICARE, SELFPAY ==
[2025-06-22 13:50] VITALS: BP 125/78; PULSE 80; RESP 16; TEMP 36.6; O2SAT 98
[2025-06-22] MEDS: IRON SUCROSE COMPLEX 300 MG in SODIUM CHLORIDE 0.9% IV 235 ML 125 MG IVPB (14:00)
[2025-06-22 14:37] VITALS: BMI 24.4
[2025-06-22 16:09] VITALS: BP 125/74; PULSE 68; RESP 16; O2SAT 97
--- NOTE | 2025-06-22 16:10 | PC.NURSE ---
Patient tolerated Venofer #2 of 2 infusion well. SEE MAR/patient care notes.
== END 2025-06-22 13:05 | disposition home or self-care (01) ==
LOC: CHSLAB 13:05 → CHSTREATRM 13:23
PROVIDERS: PCP Internal Medicine; Visit Provider Internal Medicine
DX: D50.9 Iron deficiency anemia, unspecified (principal)
CPT/HCPCS: 96365; 96366; J1756; J7050

== ENCOUNTER 2025-07-17 22:32 | Emergency (ER) | payer MEDICARE, SELFPAY ==
[2025-07-17] VITALS (7 sets, daily range): BP systolic 80–104; BP diastolic 43–72; PULSE 87–104; RESP 16–22; TEMP 36.6; O2SAT 95–100
--- NOTE | ~2025-07-17 | XR_ITS ---
EXAMINATION: XR chest 1V portable 07/18/2025 01:40 INDICATION: Vomiting PROCEDURE: AP portable chest COMPARISON: Comparison to multiple prior studies sequentially, with oldest reviewed study dated 02/28/2025. FINDINGS: The lungs are clear. The cardiomediastinal silhouette is within normal limits. There are no pleural effusions. There is no pneumothorax suspected. IMPRESSION: 1: NO ACUTE CARDIOPULMONARY DISEASE. Reviewed, dictated and finalized at location O. LRY ENGRAVER
--- NOTE | ~2025-07-17 | CT_ITS ---
CT ABDOMEN AND PELVIS WITHOUT CONTRAST Clinical History: Gastroenteritis Comparison: 05/01/2025 Technique: Unenhanced axial images lung bases to symphysis pubis Coronal, sagittal reformats CT images acquired with automatic exposure control for dose reduction DLP: 606 mGy-cm Findings: Without intravenous contrast, sensitivity for detecting visceral parenchymal abnormalities decreased. Lung bases: Clear. Visualized heart and pericardium: Unremarkable. Liver: Small cyst segment IVb. Gallbladder: Unremarkable. Spleen: Unremarkable. Pancreas: Unremarkable. Adrenal glands: Unremarkable. Kidneys: Right kidney- No hydronephrosis. No renal stones. Left kidney- No hydronephrosis. No renal stones. Duplicated collecting system. Distal esophagus/stomach: Gastric wall thickening. Small bowel loops: Normal caliber and wall thickness. Diffuse fluid contents. Suture line mid abdomen. Duodenal attenuation by SMA. Colon: Normal caliber and wall thickness. Appendix not seen. Nodes: No enlarged nodes. Peritoneum: No ascites. No free intraperitoneal air. Urinary bladder: Unremarkable. Uterus: Absent. Adnexa: No masses. Bones: No acute bony abnormality. Soft tissues: Unremarkable. Unopacified abdominal aorta: Fusiform AAA at 3.4 cm. Atherosclerotic disease. IMPRESSION: 1. Gastritis. Malignancy not excluded. 2. SMA syndrome not excluded. 3. Nonspecific diarrheal state, without bowel wall thickening. Reviewed, dictated and finalized at location R. Y LEVEL
--- NOTE | 2025-07-17 22:38 | ED.GENADULT ---
HPI - General Adult General Chief complaint: Nausea/Vomiting/Diarrhea <Letha Bryson MD - Last Filed: 07/18/25 06:36> Stated complaint: rectal bleeding, nausea/vomiting <Letha Bryson MD - Last Filed: 07/18/25 06:36> Time Seen by Provider: 07/17/25 22:37 <Letha Bryson MD - Last Filed: 07/18/25 06:36> Source: patient and EMS <Letha Bryson MD - Last Filed: 07/18/25 06:36> Mode of arrival: EMS <Letha Bryson MD - Last Filed: 07/18/25 06:36> Limitations: no limitations <Letha Bryson MD - Last Filed: 07/18/25 06:36> History of Present Illness HPI narrative: 70 years old white female came from home by ambulance complaining of a lot of vomiting and diarrhea started 2 days ago gradually getting better. Today roughly 3 episodes of diarrhea and roughly 2 episodes of vomiting. Patient denies sick contact. Patient report her diarrhea mixed with fresh red bright blood. She denies any fever or chills or abdominal pain. History of stomach ulcers with perforation, diabetes hypertension hyperlipidemia COPD diarrhea <Letha Bryson MD - Last Filed: 07/18/25 06:36> Related Data Home medications: Home Medications ?Medication ?Instructions ?Recorded ?Confirmed ?Last Taken ?Type atorvastatin 10 mg tablet 10 mg PO DAILY 03/09/21 06/22/25 03/10/23 09:00 History glimepiride 1 mg tablet 1 mg PO DAILY 03/09/21 06/22/25 03/10/23 09:00 History gabapentin 100 mg capsule 100 mg PO TID 11/20/22 06/22/25 Unknown History pantoprazole 40 mg tablet,delayed 40 mg PO DAILY 11/20/22 06/22/25 03/10/23 18:00 History release sulfasalazine 500 mg tablet 1 g PO QID 02/05/23 06/22/25 Unknown History loperamide 2 mg capsule 2 mg PO QID PRN loose stool 04/27/25 06/22/25 Unknown History sucralfate 1 gram tablet 1 g PO BIDAC 04/27/25 06/22/25 Unknown History losartan 50 mg tablet 50 mg PO DAILY 06/01/25 06/22/25 Unknown History <Letha Bryson MD - Last Filed: 07/18/25 06:36> Allergies/adverse reactions: Allergies Allergy/AdvReac Type Severity Reaction Status Date / Time hydrocodone Allergy Intermediate Vomiting Verified 07/17/25 22:50 <Letha Bryson MD - Last Filed: 07/18/25 06:36> Review of Systems Review of Systems: All systems reviewed & are unremarkable except as noted in HPI and below <Letha Bryson MD - Last Filed: 07/18/25 06:36> [facility] Past Medical History Medical History: Medical History Infrarenal abdominal aortic aneurysm (AAA) without rupture COPD (chronic obstructive pulmonary disease) Tobacco use Breast cancer Fatty liver GERD (gastroesophageal reflux disease) Diarrhea YRIS (iron deficiency anemia) HTN (hypertension) Diabetes mellitus <Letha Bryson MD - Last Filed: 07/18/25 06:36> Surgical History Surgical History: Surgical History Hx of tubal ligation Hx of hysterectomy Hx of mastectomy <Letha Bryson MD - Last Filed: 07/18/25 06:36> Family History Family History: Family History Father Hypertension Mother Hypertension Heart disease <Letha Bryson MD - Last Filed: 07/18/25 06:36> Social History Social History: Social History Smoking packs per day: 1 Smoking cigarettes per day: 20.0 Years smoked: 51 Smoking pack-years: 51.00 Smoking status: Current every day smoker Tobacco type: cigarettes Smokeless tobacco user: chewing tobacco Second hand tobacco smoke exposure: Yes Alcohol intake: former Substance use: former Substance use type: marijuana Lack of Transportation: No Lack of Food: Never True Current Housing: I Have Housing Concerned About Future Housing: No Difficulty Paying Gas/Electric Bills: No Difficulty Paying for Meds: No Currently Unemployed: No Education: Associate Degree Difficulty w/ Childcare or Family Care: No Living arrangements: with family Gender identity (if verbalized by the patient): Female Spiritual care concerns: No <Letha Bryson MD - Last Filed: 07/18/25 06:36> Exam Narrative: General appearance: Well-developed, well-nourished Skin: Normal color Head: Normocephalic, nontraumatic Eyes: Clear conjunctiva ENT: Dry oral cavity Neck: Supple, nontender Chest and respiratory: Airway patent, no respiratory distress, no accessory muscle use Heart: Regular rate/rhythm Abdomen: Soft, nontender, no organomegaly, quiet bowel sounds Vascular: Normal peripheral pulses, normal capillary refill. Musculoskeletal: Normal range of motion, nontender back Neurologic: Alert and oriented ?3, TABLE[employer]CH[employer] is normal as tested, no gross motor deficit <Letha Bryson MD - Last Filed: 07/18/25 06:36> Course Reevaluation(s) Reevaluation #1: I assumed care of this patient at shift change with pending disposition , was informed that she has been accepted to [facility] under Dr. Stafford. Pt had no urine out put since yesterday even after 3 lts on NS , bladder scan was done showed about 400 plus urine , Kennedy cath was placed , UA is infected ,IV Rocephin 2 gms given , her Blood sugar were low will continue with D5W , RPT labs were ordered She remained stable and will be transfered. <Mickey Hester MD - Last Filed: 07/18/25 12:24> Vital Signs Vital signs: Vital Signs Temperature 36.6 C 07/17/25 22:32 Pulse Rate 103 H 07/17/25 22:32 Respiratory Rate 20 07/17/25 22:32 Blood Pressure 104/71 07/17/25 22:32 Pulse Oximetry 100 07/17/25 22:32 Oxygen Delivery Room Air 07/17/25 22:32 Temperature 36.6 C 07/17/25 22:32 Pulse Rate 65 07/18/25 12:01 Respiratory Rate 18 07/18/25 12:01 Blood Pressure 90/42 L 07/18/25 12:00 Pulse Oximetry 96 07/18/25 12:01 Oxygen Delivery Room Air 07/17/25 22:32 <Letha Bryson MD - Last Filed: 07/18/25 06:36> Vital Signs Temperature 36.6 C 07/17/25 22:32 Pulse Rate 103 H 07/17/25 22:32 Respiratory Rate 20 07/17/25 22:32 Blood Pressure 104/71 07/17/25 22:32 Pulse Oximetry 100 07/17/25 22:32 Oxygen Delivery Room Air 07/17/25 22:32 Temperature 36.6 C 07/17/25 22:32 Pulse Rate 65 07/18/25 12:01 Respiratory Rate 18 07/18/25 12:01 Blood Pressure 90/42 L 07/18/25 12:00 Pulse Oximetry 96 07/18/25 12:01 Oxygen Delivery Room Air 07/17/25 22:32 <Mickey Hester MD - Last Filed: 07/18/25 12:24> [facility] Narrative Medical decision making narrative: Patient presents with nausea vomiting and diarrhea gradually getting better. Patient concern about the possibility of fresh red blood in the diarrhea. Vital signs showing heart rate of 103 otherwise within normal limit Physical examination showing ill looking patient, pale, dry oral cavity Differential diagnosis electrolyte imbalance, dehydration, gastroenteritis, anemia Blood workup today includes CBC, CMP showed WBC 22, hemoglobin 15.5, BUN 50, creatinine 5.3, Patient tested negative for COVID flu RSV Urinalysis showed Patient care turned over to Dr. Pope at shift change, awaiting UA, imaging, disposition. Patient been resting quietly in the emergency room without any issues or problems. <Letha Bryson MD - Last Filed: 07/18/25 06:36> Differential Diagnosis Differential Diagnosis: As above <Letha Bryson MD - Last Filed: 07/18/25 06:36> Medical Records I have reviewed the following patient records and this information was taken into consideration when formulating the assessment and plan.: previous labs, previous ER visits, previous hospitalizations and previous clinic visits <Letha Bryson MD - Last Filed: 07/18/25 06:36> Lab Data [facility] Lab Attestation statement: I personally reviewed the patient's lab results. <Letha Bryson MD - Last Filed: 07/18/25 06:36> Result diagrams: 07/18/25 09:32 07/18/25 09:32 <Letha Bryson MD - Last Filed: 07/18/25 06:36> Labs: Lab Results 07/17/25 07/17/25 07/18/25 Range/Units 23:07 23:35 01:44 WBC 22.0 H 18.2 H (4.8-10.8) K/mm3 RBC 5.69 H 4.62 (4.20-5.40) M/mm3 Hgb 15.5 H 12.5 (11.7-13.8) g/dL Hct 48.5 H 40.8 (35.0-42.0) % MCV 85.2 88.3 (78.0-102.0) fL MCH 27.2 27.1 (27.0-31.0) pg MCHC 32.0 30.6 L (32-36) g/dL RDW 20.2 H 19.6 H (11.6-14.4) % Plt Count 388 291 (150-420) K/mm3 MPV 9.7 9.8 (9.2-11.8) fl Immature Gran % (Auto) Not Reportable 0.4 H Neut % (Auto) Not Reportable 84.8 H Lymph % (Auto) Not Reportable 8.3 L Alcorn % (Auto) Not Reportable 6.3 Eos % (Auto) Not Reportable 0.0 L Baso % (Auto) Not Reportable 0.2 Lymph # (Auto) Not Reportable 1.51 Alcorn # (Auto) Not Reportable 1.15 H Eos # (Auto) Not Reportable 0.00 L Baso # (Auto) Not Reportable 0.04 Abs Immat Gran (auto) Not Reportable 0.07 H Absolute Neuts (auto) Not Reportable 15.40 H Absolute Nucleated RBC Not Reportable 0.00 Neutrophils % (Manual) 92 H (46-73) % Band Neutrophils % 0 (0-6) % Lymphocytes % (Manual) 4 L (18-44) % Monocytes % (Manual) 4 (3-9) % Eosinophils % (Manual) 0 L (1-6) % Basophils % (Manual) 0 (0-1) % Nucleated RBC % Not Reportable 0.0 Abs Neuts (Manual) 20.24 H (1.3-6.7) K/mm3 Abs Lymphs (Manual) 0.88 L (1.1-4.5) K/mm3 Abs Monocytes (Manual) 0.88 (0.1-0.90) K/mm3 Absolute Eos (Manual) 0.00 L (0.02-0.50) K/mm3 Abs Basophils (Manual) 0.00 (0-0.1) K/mm3 Platelet Estimate Adequate (Adequate) Schistocytes Not Reportable Sodium 139 141 (137-145) mmol/L Potassium 3.9 4.4 (3.4-5.0) mmol/L Chloride 98 109 H (98-107) mmol/L Carbon Dioxide 16 L 16 L (22-30) mmol/L Anion Gap 25 H 16 H (4-12) mmol/L BUN 50 H D 48 H (7-17) mg/dL Creatinine 5.37 H 4.40 H (0.7-1.0) mg/dL Estim Creat Clear Calc 8 9 ml/min Estimated GFR 8 L 10 L (59 - ) Glucose 135 H 56 L* (65-110) mg/dL POC Capillary Glucose (65-105) mg/dl Calculated Osmolality 303 H 302 H (285-295) mOsm/kg Lactic Acid 1.4 (0.7-2.0) mmol/L Calcium 9.4 7.6 L (8.4-10.2) mg/dL Total Bilirubin 0.3 (0.2-1.3) mg/dL AST 32 (14-36) U/L ALT 32 (6-35) U/L Alkaline Phosphatase 84 (38-126) U/L C-Reactive Protein 2.9 H (<1.0) mg/dL Total Protein 8.7 H (6.3-8.2) g/dL Albumin 5.1 (3.5-5.1) g/dL Urine Color (Yellow) Urine Appearance (Clear) Urine pH (5.0-8.0) Ur Specific [place] (1.010-1.020) Urine Protein (Negative) Urine Glucose (UA) (Negative) Urine Ketones (Negative) Ur Blood (Man) (Negative) Urine Nitrate (Negative) Urine Bilirubin (Negative) Urine Urobilinogen (0.2-1.0) mg/dL Leukocyte Esterase Rfl (Negative) FLORENCIO/UL Urine RBC (0-2) /hpf Urine WBC (0-3) /hpf Stool Occult Blood Negative (Negative) Influenza A (RT-PCR) Negative (Negative) Influenza B (RT-PCR) Negative (Negative) RSV (RT-PCR) Negative (Negative) SARS-CoV-2 RNA (RT-PCR) Negative (Negative) 07/18/25 07/18/25 07/18/25 Range/Units 02:56 08:40 09:32 WBC 14.7 H (4.8-10.8) K/mm3 RBC 4.16 L (4.20-5.40) M/mm3 Hgb 11.2 L (11.7-13.8) g/dL Hct 36.4 (35.0-42.0) % MCV 87.5 (78.0-102.0) fL MCH 26.9 L (27.0-31.0) pg MCHC 30.8 L (32-36) g/dL RDW 19.5 H (11.6-14.4) % Plt Count 257 (150-420) K/mm3 MPV 9.7 (9.2-11.8) fl Immature Gran % (Auto) 0.4 H Neut % (Auto) 80.2 H Lymph % (Auto) 12.0 L [place]corn % (Auto) 7.0 Eos % (Auto) 0.1 L Baso % (Auto) 0.3 Lymph # (Auto) 1.76 Alcorn # (Auto) 1.03 H Eos # (Auto) 0.01 L Baso # (Auto) 0.05 Abs Immat Gran (auto) 0.06 H Absolute Neuts (auto) 11.78 H Absolute Nucleated RBC 0.00 Neutrophils % (Manual) (46-73) % Band Neutrophils % (0-6) % Lymphocytes % (Manual) (18-44) % Monocytes % (Manual) (3-9) % Eosinophils % (Manual) (1-6) % Basophils % (Manual) (0-1) % Nucleated RBC % 0.0 Abs Neuts (Manual) (1.3-6.7) K/mm3 Abs Lymphs (Manual) (1.1-4.5) K/mm3 Abs Monocytes (Manual) (0.1-0.90) K/mm3 Absolute Eos (Manual) (0.02-0.50) K/mm3 Abs Basophils (Manual) (0-0.1) K/mm3 Platelet Estimate (Adequate) Schistocytes Sodium 140 (137-145) mmol/L Potassium 4.5 (3.4-5.0) mmol/L Chloride 109 H (98-107) mmol/L Carbon Dioxide 16 L (22-30) mmol/L Anion Gap 15 H (4-12) mmol/L BUN 49 H (7-17) mg/dL Creatinine 4.05 H (0.7-1.0) mg/dL Estim Creat Clear Calc 10 ml/min Estimated GFR 11 L (59 - ) Glucose 60 L (65-110) mg/dL POC Capillary Glucose 186 H (65-105) mg/dl Calculated Osmolality 301 H (285-295) mOsm/kg Lactic Acid (0.7-2.0) mmol/L Calcium 7.5 L (8.4-10.2) mg/dL Total Bilirubin (0.2-1.3) mg/dL AST (14-36) U/L ALT (6-35) U/L Alkaline Phosphatase (38-126) U/L C-Reactive Protein (<1.0) mg/dL Total Protein (6.3-8.2) g/dL Albumin (3.5-5.1) g/dL Urine Color Light yellow (Yellow) Urine Appearance Clear (Clear) Urine pH 5.0 (5.0-8.0) Ur Specific [place] >= 1.030 H (1.010-1.020) Urine Protein 3+ H (Negative) Urine Glucose (UA) 1+ H (Negative) Urine Ketones Negative (Negative) Ur Blood (Man) 1+ H (Negative) Urine Nitrate Positive H (Negative) Urine Bilirubin Negative (Negative) Urine Urobilinogen 0.2 (0.2-1.0) mg/dL Leukocyte Esterase Rfl Trace H (Negative) FLORENCIO/UL Urine RBC 11-20 H (0-2) /hpf Urine WBC 51-75 H (0-3) /hpf Stool Occult Blood (Negative) Influenza A (RT-PCR) (Negative) Influenza B (RT-PCR) (Negative) RSV (RT-PCR) (Negative) SARS-CoV-2 RNA (RT-PCR) (Negative) 07/18/25 07/18/25 Range/Units 09:58 10:30 WBC (4.8-10.8) K/mm3 RBC (4.20-5.40) M/mm3 Hgb (11.7-13.8) g/dL Hct (35.0-42.0) % MCV (78.0-102.0) fL MCH (27.0-31.0) pg MCHC (32-36) g/dL RDW (11.6-14.4) % Plt Count (150-420) K/mm3 MPV (9.2-11.8) fl Immature Gran % (Auto) Neut % (Auto) Lymph % (Auto) [place] % (Auto) Eos % (Auto) Baso % (Auto) Lymph # (Auto) [place] # (Auto) Eos # (Auto) Baso # (Auto) Abs Immat Gran (auto) Absolute Neuts (auto) Absolute Nucleated RBC Neutrophils % (Manual) (46-73) % Band Neutrophils % (0-6) % Lymphocytes % (Manual) (18-44) % Monocytes % (Manual) (3-9) % Eosinophils % (Manual) (1-6) % Basophils % (Manual) (0-1) % Nucleated RBC % Abs Neuts (Manual) (1.3-6.7) K/mm3 Abs Lymphs (Manual) (1.1-4.5) K/mm3 Abs Monocytes (Manual) (0.1-0.90) K/mm3 Absolute Eos (Manual) (0.02-0.50) K/mm3 Abs Basophils (Manual) (0-0.1) K/mm3 Platelet Estimate (Adequate) Schistocytes Sodium (137-145) mmol/L Potassium (3.4-5.0) mmol/L Chloride (98-107) mmol/L Carbon Dioxide (22-30) mmol/L Anion Gap (4-12) mmol/L BUN (7-17) mg/dL Creatinine (0.7-1.0) mg/dL Estim Creat Clear Calc ml/min Estimated GFR (59 - ) Glucose (65-110) mg/dL POC Capillary Glucose 61 L 77 (65-105) mg/dl Calculated Osmolality (285-295) mOsm/kg Lactic Acid (0.7-2.0) mmol/L Calcium (8.4-10.2) mg/dL Total Bilirubin (0.2-1.3) mg/dL AST (14-36) U/L ALT (6-35) U/L Alkaline Phosphatase (38-126) U/L C-Reactive Protein (<1.0) mg/dL Total Protein (6.3-8.2) g/dL Albumin (3.5-5.1) g/dL Urine Color (Yellow) Urine Appearance (Clear) Urine pH (5.0-8.0) Ur Specific [place] (1.010-1.020) Urine Protein (Negative) Urine Glucose (UA) (Negative) Urine Ketones (Negative) Ur Blood (Man) (Negative) Urine Nitrate (Negative) Urine Bilirubin (Negative) Urine Urobilinogen (0.2-1.0) mg/dL Leukocyte Esterase Rfl (Negative) FLORENCIO/UL Urine RBC (0-2) /hpf Urine WBC (0-3) /hpf Stool Occult Blood (Negative) Influenza A (RT-PCR) (Negative) Influenza B (RT-PCR) (Negative) RSV (RT-PCR) (Negative) SARS-CoV-2 RNA (RT-PCR) (Negative) <Letha Bryson MD - Last Filed: 07/18/25 06:36> Lab Results 07/17/25 07/17/25 07/18/25 Range/Units 23:07 23:35 01:44 WBC 22.0 H 18.2 H (4.8-10.8) K/mm3 RBC 5.69 H 4.62 (4.20-5.40) M/mm3 Hgb 15.5 H 12.5 (11.7-13.8) g/dL Hct 48.5 H 40.8 (35.0-42.0) % MCV 85.2 88.3 (78.0-102.0) fL MCH 27.2 27.1 (27.0-31.0) pg MCHC 32.0 30.6 L (32-36) g/dL RDW 20.2 H 19.6 H (11.6-14.4) % Plt Count 388 291 (150-420) K/mm3 MPV 9.7 9.8 (9.2-11.8) fl Immature Gran % (Auto) Not Reportable 0.4 H Neut % (Auto) Not Reportable 84.8 H Lymph % (Auto) Not Reportable 8.3 L [place] % (Auto) Not Reportable 6.3 Eos % (Auto) Not Reportable 0.0 L Baso % (Auto) Not Reportable 0.2 Lymph # (Auto) Not Reportable 1.51 [place] # (Auto) Not Reportable 1.15 H Eos # (Auto) Not Reportable 0.00 L Baso # (Auto) Not Reportable 0.04 Abs Immat Gran (auto) Not Reportable 0.07 H Absolute Neuts (auto) Not Reportable 15.40 H Absolute Nucleated RBC Not Reportable 0.00 Neutrophils % (Manual) 92 H (46-73) % Band Neutrophils % 0 (0-6) % Lymphocytes % (Manual) 4 L (18-44) % Monocytes % (Manual) 4 (3-9) % Eosinophils % (Manual) 0 L (1-6) % Basophils % (Manual) 0 (0-1) % Nucleated RBC % Not Reportable 0.0 Abs Neuts (Manual) 20.24 H (1.3-6.7) K/mm3 Abs Lymphs (Manual) 0.88 L (1.1-4.5) K/mm3 Abs Monocytes (Manual) 0.88 (0.1-0.90) K/mm3 Absolute Eos (Manual) 0.00 L (0.02-0.50) K/mm3 Abs Basophils (Manual) 0.00 (0-0.1) K/mm3 Platelet Estimate Adequate (Adequate) Schistocytes Not Reportable Sodium 139 141 (137-145) mmol/L Potassium 3.9 4.4 (3.4-5.0) mmol/L Chloride 98 109 H (98-107) mmol/L Carbon Dioxide 16 L 16 L (22-30) mmol/L Anion Gap 25 H 16 H (4-12) mmol/L BUN 50 H D 48 H (7-17) mg/dL Creatinine 5.37 H 4.40 H (0.7-1.0) mg/dL Estim Creat Clear Calc 8 9 ml/min Estimated GFR 8 L 10 L (59 - ) Glucose 135 H 56 L* (65-110) mg/dL POC Capillary Glucose (65-105) mg/dl Calculated Osmolality 303 H 302 H (285-295) mOsm/kg Lactic Acid 1.4 (0.7-2.0) mmol/L Calcium 9.4 7.6 L (8.4-10.2) mg/dL Total Bilirubin 0.3 (0.2-1.3) mg/dL AST 32 (14-36) U/L ALT 32 (6-35) U/L Alkaline Phosphatase 84 (38-126) U/L C-Reactive Protein 2.9 H (<1.0) mg/dL Total Protein 8.7 H (6.3-8.2) g/dL Albumin 5.1 (3.5-5.1) g/dL Urine Color (Yellow) Urine Appearance (Clear) Urine pH (5.0-8.0) Ur Specific [place] (1.010-1.020) Urine Protein (Negative) Urine Glucose (UA) (Negative) Urine Ketones (Negative) Ur Blood (Man) (Negative) Urine Nitrate (Negative) Urine Bilirubin (Negative) Urine Urobilinogen (0.2-1.0) mg/dL Leukocyte Esterase Rfl (Negative) FLORENCIO/UL Urine RBC (0-2) /hpf Urine WBC (0-3) /hpf Stool Occult Blood Negative (Negative) Influenza A (RT-PCR) Negative (Negative) Influenza B (RT-PCR) Negative (Negative) RSV (RT-PCR) Negative (Negative) SARS-CoV-2 RNA (RT-PCR) Negative (Negative) 07/18/25 07/18/25 07/18/25 Range/Units 02:56 08:40 09:32 WBC 14.7 H (4.8-10.8) K/mm3 RBC 4.16 L (4.20-5.40) M/mm3 Hgb 11.2 L (11.7-13.8) g/dL Hct 36.4 (35.0-42.0) % MCV 87.5 (78.0-102.0) fL MCH 26.9 L (27.0-31.0) pg MCHC 30.8 L (32-36) g/dL RDW 19.5 H (11.6-14.4) % Plt Count 257 (150-420) K/mm3 MPV 9.7 (9.2-11.8) fl Immature Gran % (Auto) 0.4 H Neut % (Auto) 80.2 H Lymph % (Auto) 12.0 L [place] % (Auto) 7.0 Eos % (Auto) 0.1 L Baso % (Auto) 0.3 Lymph # (Auto) 1.76 [place] # (Auto) 1.03 H Eos # (Auto) 0.01 L Baso # (Auto) 0.05 Abs Immat Gran (auto) 0.06 H Absolute Neuts (auto) 11.78 H Absolute Nucleated RBC 0.00 Neutrophils % (Manual) (46-73) % Band Neutrophils % (0-6) % Lymphocytes % (Manual) (18-44) % Monocytes % (Manual) (3-9) % Eosinophils % (Manual) (1-6) % Basophils % (Manual) (0-1) % Nucleated RBC % 0.0 Abs Neuts (Manual) (1.3-6.7) K/mm3 Abs Lymphs (Manual) (1.1-4.5) K/mm3 Abs Monocytes (Manual) (0.1-0.90) K/mm3 Absolute Eos (Manual) (0.02-0.50) K/mm3 Abs Basophils (Manual) (0-0.1) K/mm3 Platelet Estimate (Adequate) Schistocytes Sodium 140 (137-145) mmol/L Potassium 4.5 (3.4-5.0) mmol/L Chloride 109 H (98-107) mmol/L Carbon Dioxide 16 L (22-30) mmol/L Anion Gap 15 H (4-12) mmol/L BUN 49 H (7-17) mg/dL Creatinine 4.05 H (0.7-1.0) mg/dL Estim Creat Clear Calc 10 ml/min Estimated GFR 11 L (59 - ) Glucose 60 L (65-110) mg/dL POC Capillary Glucose 186 H (65-105) mg/dl Calculated Osmolality 301 H (285-295) mOsm/kg Lactic Acid (0.7-2.0) mmol/L Calcium 7.5 L (8.4-10.2) mg/dL Total Bilirubin (0.2-1.3) mg/dL AST (14-36) U/L ALT (6-35) U/L Alkaline Phosphatase (38-126) U/L C-Reactive Protein (<1.0) mg/dL Total Protein (6.3-8.2) g/dL Albumin (3.5-5.1) g/dL Urine Color Light yellow (Yellow) Urine Appearance Clear (Clear) Urine pH 5.0 (5.0-8.0) Ur Specific [place] >= 1.030 H (1.010-1.020) Urine Protein 3+ H (Negative) Urine Glucose (UA) 1+ H (Negative) Urine Ketones Negative (Negative) Ur Blood (Man) 1+ H (Negative) Urine Nitrate Positive H (Negative) Urine Bilirubin Negative (Negative) Urine Urobilinogen 0.2 (0.2-1.0) mg/dL Leukocyte Esterase Rfl Trace H (Negative) FLORENCIO/UL Urine RBC 11-20 H (0-2) /hpf Urine WBC 51-75 H (0-3) /hpf Stool Occult Blood (Negative) Influenza A (RT-PCR) (Negative) Influenza B (RT-PCR) (Negative) RSV (RT-PCR) (Negative) SARS-CoV-2 RNA (RT-PCR) (Negative) 07/18/25 07/18/25 Range/Units 09:58 10:30 WBC (4.8-10.8) K/mm3 RBC (4.20-5.40) M/mm3 Hgb (11.7-13.8) g/dL Hct (35.0-42.0) % MCV (78.0-102.0) fL MCH (27.0-31.0) pg MCHC (32-36) g/dL RDW (11.6-14.4) % Plt Count (150-420) K/mm3 MPV (9.2-11.8) fl Immature Gran % (Auto) Neut % (Auto) Lymph % (Auto) [place] % (Auto) Eos % (Auto) Baso % (Auto) Lymph # (Auto) [place] # (Auto) Eos # (Auto) Baso # (Auto) Abs Immat Gran (auto) Absolute Neuts (auto) Absolute Nucleated RBC Neutrophils % (Manual) (46-73) % Band Neutrophils % (0-6) % Lymphocytes % (Manual) (18-44) % Monocytes % (Manual) (3-9) % Eosinophils % (Manual) (1-6) % Basophils % (Manual) (0-1) % Nucleated RBC % Abs Neuts (Manual) (1.3-6.7) K/mm3 Abs Lymphs (Manual) (1.1-4.5) K/mm3 Abs Monocytes (Manual) (0.1-0.90) K/mm3 Absolute Eos (Manual) (0.02-0.50) K/mm3 Abs Basophils (Manual) (0-0.1) K/mm3 Platelet Estimate (Adequate) Schistocytes Sodium (137-145) mmol/L Potassium (3.4-5.0) mmol/L Chloride (98-107) mmol/L Carbon Dioxide (22-30) mmol/L Anion Gap (4-12) mmol/L BUN (7-17) mg/dL Creatinine (0.7-1.0) mg/dL Estim Creat Clear Calc ml/min Estimated GFR (59 - ) Glucose (65-110) mg/dL POC Capillary Glucose 61 L 77 (65-105) mg/dl Calculated Osmolality (285-295) mOsm/kg Lactic Acid (0.7-2.0) mmol/L Calcium (8.4-10.2) mg/dL Total Bilirubin (0.2-1.3) mg/dL AST (14-36) U/L ALT (6-35) U/L Alkaline Phosphatase (38-126) U/L C-Reactive Protein (<1.0) mg/dL Total Protein (6.3-8.2) g/dL Albumin (3.5-5.1) g/dL Urine Color (Yellow) Urine Appearance (Clear) Urine pH (5.0-8.0) Ur Specific [place] (1.010-1.020) Urine Protein (Negative) Urine Glucose (UA) (Negative) Urine Ketones (Negative) Ur Blood (Man) (Negative) Urine Nitrate (Negative) Urine Bilirubin (Negative) Urine Urobilinogen (0.2-1.0) mg/dL Leukocyte Esterase Rfl (Negative) FLORENCIO/UL Urine RBC (0-2) /hpf Urine WBC (0-3) /hpf Stool Occult Blood (Negative) Influenza A (RT-PCR) (Negative) Influenza B (RT-PCR) (Negative) RSV (RT-PCR) (Negative) SARS-CoV-2 RNA (RT-PCR) (Negative) <Mickey Hester MD - Last Filed: 07/18/25 12:24> Imaging Data Radiologist's impression: ITS Impressions Chest X-Ray 07/18/25 06:51 IMPRESSION: 1: NO ACUTE CARDIOPULMONARY DISEASE. Abdomen/Pelvis CT 07/18/25 07:13 IMPRESSION: 1. Gastritis. Malignancy not excluded. 2. SMA syndrome not excluded. 3. Nonspecific diarrheal state, without bowel wall thickening. <Letha Bryson MD - Last Filed: 07/18/25 06:36> ITS Impressions Chest X-Ray 07/18/25 06:51 IMPRESSION: 1: NO ACUTE CARDIOPULMONARY DISEASE. Abdomen/Pelvis CT 07/18/25 07:13 IMPRESSION: 1. Gastritis. Malignancy not excluded. 2. SMA syndrome not excluded. 3. Nonspecific diarrheal state, without bowel wall thickening. <Mickey Hester MD - Last Filed: 07/18/25 12:24> Critical Care Time Critical Care Time Time Type: Intermittent <Letha Bryson MD - Last Filed: 07/18/25 06:36> Initial evaluation, discuss w/ involved parties, attempting to gather old records: 10 minutes <Letha Bryson MD - Last Filed: 07/18/25 06:36> Documenting medical record: 5 minutes <Letha Bryson MD - Last Filed: 07/18/25 06:36> Review of results (EKG's, labs, imaging): 5 minutes <Letha Bryson MD - Last Filed: 07/18/25 06:36> Serial repeat bedside evaluation: 10 minutes <Letha Bryson MD - Last Filed: 07/18/25 06:36> Discussing case with multiple memebers of the care team and consultants: 5 minutes <Letha Bryson MD - Last Filed: 07/18/25 06:36> Total Critical Care Time: 35 <Letha Bryson MD - Last Filed: 07/18/25 06:36> 35 <Mickey Hester MD - Last Filed: 07/18/25 12:24> Discharge Plan Discharge Clinical Impression: SEAN (acute kidney injury), Gastroenteritis, Acute UTI, Acute urinary retention <Letha Bryson MD - Last Filed: 07/18/25 06:36> Patient Disposition: Acute Care Hospital <Letha Bryson MD - Last Filed: 07/18/25 06:36> Condition: Guarded Prognosis <Letha Bryson MD - Last Filed: 07/18/25 06:36> Patient Language: Lebanese <Letha Bryson MD - Last Filed: 07/18/25 06:36> Prescriptions: No Action atorvastatin 10 mg tablet 10 mg PO DAILY glimepiride 1 mg tablet 1 mg PO DAILY pantoprazole 40 mg tablet,delayed release (DR/EC) 40 mg PO DAILY gabapentin 100 mg capsule 100 mg PO TID loperamide 2 mg capsule 2 mg PO QID PRN (Reason: loose stool) sucralfate 1 gram tablet 1 g PO BIDAC magnesium oxide 400 mg magnesium capsule 400 mg PO DAILY Qty: 30 0RF losartan 50 mg tablet 50 mg PO DAILY sulfasalazine 500 mg tablet 1 g PO QID Rx Instructions: give with food (meal/snack) <Letha Bryson MD - Last Filed: 07/18/25 06:36> Follow-up/Referrals: Pasquale rPo MD [Primary Care Provider, Internal Medicine] <Letha Bryson MD - Last Filed: 07/18/25 06:36> Time of Disposition: 12:24 <Letha Bryson MD - Last Filed: 07/18/25 06:36> 12:24 <Mickey Hester MD - Last Filed: 07/18/25 12:24>
--- OUTSIDE RECORDS SUMMARY | 2025-07-17 22:48 | XMS_ITS | Data Portability ---
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 Upper GI bleeding due to duodenal ulcers, status post endoscopic therapy (injection and bipolar cautery) - Initiate/ensure double-dose proton pump inhibitor (PPI) twice daily now; confirm current PPI with primary care and update prescription to pharmacy ([facility], [place], [place]) - Schedule follow-up EGD in two months from the last scope to confirm healing and absence of residual lesions - Strict avoidance of NSAIDs (ibuprofen, naproxen, Aleve, Advil); acetaminophen (Tylenol) acceptable for pain - If ulcers not healed on follow-up, consider alternative medical regimens; surgical options only if medically refractory 2. History of perforated duodenal ulcer (2018) - Continue acid-reduction therapy; after healing, consider maintenance PPI once daily long-term - Reinforce ulcer risk mitigation and medication review to avoid ulcerogenic agents 3. Anemia secondary to recent GI bleeding - Coordinate with PCP to obtain recent labs. (noted prior Hgb 8.1, Hct 25.7, MCV 92.8; AST 12, ALT 11; GFR 53 from April 2025) and arrange follow-up hemoglobin/hemato crit monitoring as needed 4. Vascular history (SMA-related syndrome) - Ensure ongoing follow-up with store operations manager; clarify prior findings and current management plan 5. Medication reconciliation and care coordination - Obtain/confirm complete medication list from PCP; update records accordingly - Communicate plan to PCP and ensure lab and imaging/EGD scheduling are in place [email or web address] Not available 05/23/2025 16:22:43 Plan of Treatment Reminders Order Date Submit Date Provider Last Modified By Organization Details Last Modified Time Details Appointments None record ed. Lab None record ed. Referral None record ed. Procedures None record ed. Surgeries None record ed. Imaging None record ed. Medication Orders None record ed. Patient TargetsNo targets recorded. Patient InstructionsNo instructions recorded. Reason for Referral None Reported. Results Created Date Observation Date Name Description Value Unit Range Abnormal Flag Note LastModifiedBy Organization Detail LastModifiedTime 06/29/20 25 06/30/2025 [facility] path report [facility] Dep[facility] tment of Labor atory Medic ine [address] [facility] [place] [address] Telep douglas: , exten kristina [phone] Patho logy Repor t Surgi tapan Patho logy Repor t Name: ROSA ELENA CHUA Speci men #: [id number] Age: [birth year] (Age: 70) Locat ion: [facility] DO Sex: F Proce dure Date: 06/29 Hospi [facility] #: [id number] Date Recei yohana: 06/29 Date Repor ephraim: 06/30 Provi jade: KELLY Hobbs MD [facility] e: Gastr ic biops ies Clini tapan Histo ry: Acute GI hemor rhage and duode num pepti c ulcer . FINAL DIAGN OSIS: Stoma ch, endos copic biops y: - No diagn ostic histo logic abnor malit y. - No Helic obact er pylor i organ isms ident ified . Gross Descr iptio n: Recei yohana in forma jose eduardo, label ed with a patie nt label and as lise kristin biops ies are 2 piece s of pink- del rio tissu e each 0.3 cm. The speci men is entir maximino submi tted in casse tte 1. Gross exami natio n (when appli cable ), inter preta tion, and sign out were perfo rmed at [facility], [address] [facility], [place] [address] . Lucero Goodwin d Out BHAVIN Hobbs MD Not Available [place] Only - [facility] [address] [place], [address], 06/30/2025 11:28:58 Result Notes None recorded. Problems Name Problem SNOMED Code Status Onset Date Resolution Date Notes Provider Name and Address Organization Details Recorded Time Anemia 779852840 Active 2024 Porter Amaya PA-C [address] [place] [address], [phone], [facility] 5 16:22:56 Acute gastrointestin al hemorrhage 31712632 Active 2024 Porter Amaya PA-C [address] [place] [address], [address], [facility] 5 16:23:01 Acute duodenal ulcer 293214606 Active 2024 Porter Amaya PA-C [address] [place] [address], [address], [facility] 5 16:23:05 Superior mesenteric artery syndrome 653817827 Active 2024 Porter Amaya PA-C [address] [place] [address], [phone], [facility] 5 16:23:20 Problem Notes None recorded. Procedures Surgical History Date Name Laterality Status Provider Name and Address Organization Details Recorded Time 09/08 esophagogastroduodenoscop y completed [facility] 5 12:27:39 Imaging Results None recorded. Procedure Notes None recorded. Medical Equipment None Reported. Allergies Allergen ID Allergen Name Allergen Category Reaction Reaction Severity Criticality Documentation Date Start Date Code Code System Note Provider Name and Address Organization Details Recorded Time 819803 hydrocodo ne Not available nausea Not available Not available 08/17/20232014 5489 RxNorm React ion: Nause a; Vomit ing; Comme nt: React ion Date: 09 Nov 2013 ; Not Available [facility] 4 23:21:31 Vitals Date Recorded Body height Body mass index (BMI) Body weight Heart rate Oxygen saturation Provider Name and Address Organization Details Last Updated DateTime 05/23/2025 162.56 cm 24.7 kg/m2 08334.3 g 108 /min 96 % [facility] 5 15:35:45 Social History None recorded. Functional Status None recorded. Mental Status None recorded. Family History Nothing Reported. Medical History No medical history recorded. Gynecological HistoryNo gynecological history recorded. Obstetrics History GPAL:G 0 P 0 0 0 0 Immunizations Vaccine Type Date Status Note Provider Nam e and Address Organization Details Recorded Time pneumococcal polysaccharide PPV23 4 completed Not Available [facility] 05/23/2025 15:03:56 Influenza, split virus, quadrivalent, preservative 4 completed Not Available [facility] 05/23/2025 15:03:56 Influenza, split virus, trivalent, preservative 5 completed Not Available [facility] 05/23/2025 15:03:56 Influenza, split virus, quadrivalent, preservative 6 completed Not Available [facility] 05/23/2025 15:03:56 Influenza, split virus, quadrivalent, PF 7 completed Not Available [facility] 05/23/2025 15:03:56 Pneumococcal conjugate PCV 13 8 completed Not Available [facility] 05/23/2025 15:03:56 Influenza, split virus, quadrivalent, PF 8 completed Not Available [facility] 05/23/2025 15:03:56 Influenza, split virus, quadrivalent, PF 9 completed Not Available [facility] 05/23/2025 15:03:56 Influenza, split virus, quadrivalent, PF 0 completed Not Available [facility] 05/23/2025 15:03:56 COVID-19, mRNA, LNP-S, PF, 30 mcg/0.3 mL dose 1 completed Not Available [facility] 05/23/2025 15:03:56 COVID-19, mRNA, LNP-S, PF, 30 mcg/0.3 mL dose 1 completed Not Available [facility] 05/23/2025 15:03:56 Influenza, split virus, quadrivalent, preservative 2 completed Not Available [facility] 05/23/2025 15:03:56 pneumococcal polysaccharide PPV23 3 completed Not Available [facility] 05/23/2025 15:03:56 Influenza, split virus, quadrivalent, PF 3 completed Not Available [facility] 05/23/2025 15:03:56 Influenza, split virus, trivalent, PF 4 completed Not Available [facility] 05/23/2025 15:03:56 Past Encounters Encounter ID Performer Location Encounter Start Date Encounter Closed Date Diagnosis/Indication Diagnosis SNOMED-CT Code Diagnosis ICD10 Code Diagnosis IMO Codes Diagnosis Note [id number] Porter Amaya PA-C [address] [facility] ([place]) [address] [place] [address] 05/23/2025 15:01:15 05/23/2025 16:24:14 Anemia 080574951 D64.9 3989191522 Acute gastrointestinal hemorrhage 72520332 K92.2 475710 Acute duodenal ulcer 196 461561 K26.3 17294 Superior m esenteric artery syndrome 703548877 K55.1 43648 Health Concerns Section Related Observation LastModified by Organization Detai ls LastModified Time None Recorded Concern Status LastModified by Organization Details LastModified Time None Recorded Advance Directives Directive None Recorded Payers Insurance Date Sequence Insurance Name Policy Number Policy Costello Covered Member ID Costello Member ID Guarantor Name 06/30/2025 2 [place] [employer] Beba Hernandez [id number] Beba Gina Hernandez 07/03/2025 1 [facility] (MEDICARE REPLACEMENT/A DVANTAGE - HMO) [id number] Beba Hernandez [id number] Beba Gina Hernandez 04/12/2025 1 *SELF PAY* kimmy Hernandez Notes Date Note Type Note Provider Name and Address Organization Details Recorded Time 05/23/2025 text/yecenia Yoder is a 70-year-old female presents for post-hospital follow-up after upper gastrointestinal bleeding. She has a prior history of perforated duodenal ulcer requiring surgery in 2018. In March 2025 she was admitted with a large amount of bright red blood per emesis/upper GI source and required transfusion of 2 units of PRBCs. During the hospitalization, Dr. Villanueva performed an upper endoscopy which demonstrated multiple duodenal ulcers (largest 1.0-1.2 cm), including one with a visible vessel; the ulcers were injected and treated with bipolar cautery. Since discharge, she reports feeling better and has had no further episodes of bleeding. She does not use NSAIDs and asked whether acetaminophen is acceptable (was advised yes). She takes a probiotic, which she feels is helping her bowel regularity. There is discussion of a history of superior mesenteric artery (SMA) syndrome/vascular disease identified during prior abdominal surgery; she is not currently on anticoagulation and plans vascular follow-up. She recently completed blood work but is unsure of her current medication list. Pharmacy: [facility], [place], [place]. Porter Amaya PA-C [address] [place] [address], [phone], [facility] 05/23/2025 16:24:10 OBGyn Episode No OBEpisode recorded.
--- OUTSIDE RECORDS SUMMARY | 2025-07-17 22:48 | XMS_ITS | Clinical Summary ---
Author Organization [facility] Address [address] [place] [address] Care Team Providers Care Tabulating Supervisor Name Role Phone Pasquale Pro MD Primary Care Provider [phone] Roland Tatum MD Unavailable [phone] Suly Galdamez APRN, ELDERLY SITTER-C Unavailable Allergies Active Allergy Reactions Criticality Noted Date Comments Hydrocodone Vomiting 03/19/2018 Metoprolol Hives 03/19/2018 Medications atorvastatin 10 MG tabletIndications:H yperlipidemia Take 1 tablet (10 mg total) by mouth daily. Indications: High Amount of Fats in the Blood 0 Active glimepiride 1 MG tabletIndications:D iabetes Mellitus Take 1 tablet (1 mg total) by mouth daily. Indications: Diabetes 0 Active gabapentin (NEURONTIN) 100 MG capsuleIndications: Neuropathic Pain Take 1 capsule (100 mg total) by mouth 3 (three) times daily. 270 capsule 3 Active sulfaSALAzine (AZULFIDINE) 500 MG tabletIndications:D iarrhea Take 2 tablets (1,000 mg total) by mouth 4 (four) times daily. Indications: Diarrhea 3 Active pantoprazole EC (PROTONIX) 40 MG tablet Take 1 tablet (40 mg total) by mouth daily. 30 tablet 5 Active sucralfate (CARAFATE) 1 G tablet Take 1 tablet (1 g total) by mouth 2 (two) times daily before meals. 120 tablet Active loperamide (IMODIUM) 2 MG capsule FOUR TIMES DAILY as needed for loose stool Active Magnesium Oxide -Mg Supplement 400 MG Cap DAILY Active ondansetron (ZOFRAN-ODT) 4 MG disintegrating tablet Active Active Problems Problem Noted Date Diagnosed Date NSTEMI (non-ST elevated myocardial infarction) 1 SMAS (superior mesenteric artery syndrome) 04/11 Superior [...] Encounters Date Type Department Care Team Description 07/12/2025 Orders Only [facility] [address] [place] [address] Britni Martin MD 06/29/2025 10:25 AM BUTADIENE CONVERTER UTILITY OPERATOR Anesthesia Event [facility] [address] [place] [address] Molly Jimenez MD Bracco, Kendra A, RN 06/29/2025 9:30 AM BUTADIENE CONVERTER UTILITY OPERATOR - 06/29/2025 10:00 AM BUTADIENE CONVERTER UTILITY OPERATOR Surgery [facility] [address] [place] [address] Supa Villanueva MD EGD WITH BIOPSY 06/29/2025 7:56 AM BUTADIENE CONVERTER UTILITY OPERATOR - 06/29/2025 11:55 AM BUTADIENE CONVERTER UTILITY OPERATOR Hospital Encounter [facility] [address] [place] [address] Supa Villanueva MD Discharge Disposition: Home or Self Care (Routine Discharge) 05/22/2025 Telephone [facility] [address] [place] [address] Rishi Almeida MD Called To Cancel Office Appt.; Reschedule 05/08/2025 Hospital Follow-up Call [facility] [address] [place] [address] Karon Bishop RN 05/03/2025 Telephone [facility] [address] [place] [address] Jean Pierre Lowry APRN Follow Up Call 05/01/2025 8:51 PM CDT - 05/04/2025 11:57 AM CDT Hospital Encounter [facility] [address] [place] [address] Chris Albert MD Hamayoun, Usman, MD Discharge Disposition: Home or Self Care (Routine Discharge) 05/01/2025 Travel 04/11/2025 11:41 AM CDT - 04/21/2025 12:06 PM CDT Hospital Encounter [facility] [address] [place] [address] Ramon Snell MD Kallan, Abubaker, MD Mok, Huram, MD Hindi, Zakaria, MD Dangol, Gulshan M, MD Discharge Disposition: Home or Self Care (Routine Discharge) from Last 3 Months Immunizations Immunization Administration [...] from your doctor or pharmacy? Never 04/11/2025 [facility] Utilities Answer Date Recorded In the past 12 months has [facility] [employer], gas, oil, or water [employer] threatened to shut off services in your [...] week 04/11/2025 How often do you attend [facility] or [facility] services? More than 4 times per year 04/11/2025 Do you belong to any clubs o r organizations such as sikh groups, unions, fraternal or athletic groups, or [...] and heating? Not hard at all 04/11/2025 [facility] [place] of Occupat ional Health - Occupational Stress [...] slept in a residential (including now)? No 12/02/2022 Housing Stability Vital Sign Answer Terence e Recorded In the last 12 months, was t here a time when you were not able to pay the mortgage or rent on time? No 04/11/2025 In the past 12 months, how m any times have you moved where you were living? 0 04/11/2025 At any time in the past 12 m [facility], were you homeless or living in a residential (including now)? No 04/11/2025 Humiliation, Afraid, Rape, and Kick questionnair e Answer Date Recorded Within the last year, have y ou been afraid of your partner or ex-partner? No 05/01/2025 Within the last year, have y ou been humiliated or emotionally abused in other ways by your partner or ex-partner? No Within the last year, have y ou been kicked, hit, slapped, or otherwise physically hurt by your partner or ex-partner? No 05/01/2025 Within the last year, have y ou been raped or forced to have any kind of sexual activity by your partner or ex-partner? No 05/01/2025 Overall Financial Resource Strain (CARDIA) Answe r Date Recorded How hard is it for you to pa y for the very basics like food, housing, medical care, and heating? Not hard at all 05/01/2025 Hunger Vital Sign Answer Date Recorded Within the past 12 months, y ou worried that your food would run out before you got the money to buy more. Never true 05/01/20 25 Within the past 12 months, t he food you bought just didn't last and you didn't have money to get more. Never true 05/01/2025 PRAPARE - Transportation Answer Date Re corded In the past 12 months, has l ack of transportation kept you from medical appointments or from getting medications? No 04/19 In the past 12 months, has l ack of transportation kept you from meetings, work, or from getting things needed for daily living? No 05/01/2025 Housing Stability Vital Sign Answer Terence e Recorded In the last 12 months, was t here a time when you were not able to pay the mortgage or rent on time? No 05/01/2025 In the past 12 months, how m any times have you moved where you were living? 0 05/01/2025 At any time in the past 12 m [facility], were you homeless or living in a residential (including now)? No 05/01/2025 [facility] Utilities Answer Date Recorded In the past 12 months has th e electric, gas, oil, or water company threatened to shut off services in your home? No 05/01/2025 Comments No Sex and Gender Information Value [...] Sign Reading Time Taken Comments Blood Pressure 139/75 06/29/2025 11:20 AM BUTADIENE CONVERTER UTILITY OPERATOR Pulse 70 06/29/2025 11:20 AM BUTADIENE CONVERTER UTILITY OPERATOR Temperature 36.1 C (97 F) 06/29/2025 10:47 AM BUTADIENE CONVERTER UTILITY OPERATOR Respiratory Rate 14 06/29/2025 11:20 AM BUTADIENE CONVERTER UTILITY OPERATOR Oxygen Saturation 96% 06/29/2025 11:20 AM BUTADIENE CONVERTER UTILITY OPERATOR Inhaled Oxygen Concentration - - Weight 65.8 kg (145 lb) 06/27/2025 2:35 PM BUTADIENE CONVERTER UTILITY OPERATOR Height 162.6 cm (5' 4) 06/27/2025 2:35 PM BUTADIENE CONVERTER UTILITY OPERATOR Body Mass Index 24.89 06/27/2025 2:35 PM BUTADIENE CONVERTER UTILITY OPERATOR Plan of Treatment Upcoming Encounters Date Type Department Care Team (Late st Contact Info) Description 07/26/2025 1:00 PM BUTADIENE CONVERTER UTILITY OPERATOR Office Visit [facility] [place] [address] Britni Martin MD [address] [place] [address] Health Maintenance Due Date Last Done Comments ASCVD LDL 1955 ASCVD Statin 1955 Colorectal Cancer Screening Colonoscopy (10 Years) 1955 Kidney Health Evaluation 1955 Lipid Panel 1955 Diabetes: Retinopathy Eye Exam 1971 Hepatitis C 1971 DTaP, Tdap and Td Vaccines (1 - Tdap) 01/24/1972 Mammogram Screening 1993 Zoster Vaccines (1 of 2) 2003 RSV Immunization or 60+ Years (1 - Risk 60-74 years 1-dose series) 2013 Annual Medicare Wellness Visit 2018 Dexa Scan (General) 2018 COVID-19 Vaccine (3 - season) 2025 12/21/2020, 11/27/2020 Influenza Adult (#1) 2025 04/12/2024, 05/27/2023, 04/29/2022, Additional history exists Hemoglobin A1C 10/09/2025 04/11/2025, 02/17, 12/02/2022, Additional history exists Pneumococcal Vaccine: 50+ Years Completed 05/27/2023, 09/10/2017, 05/24/2014 Hepatitis A Vaccines Aged Out No long er eligible based on patient's age to complete this topic Meningococcal B Vaccine Aged Out No l [...] home upon discharge Lifestyle No Alda Hernandez, RN Safety Patient/family will have appropriate support at home upon discharge Lifestyle No Isabella Malhotra RN Medical Devices Implanted Type Area Tire Spotter Device Identifier Shelf Expiration Date Model / Serial / Lot Iol Tecnis Simplicity Dcb00 - [id number] Implanted:Qty: 1 on 04/09/2022 by Tamera Lawson MD at [facility] Lens Right: Eye [employer] 08/12/2024 DCB00 / / [id number] Iol [employer]ecnis Simplicity Dcb00 - [id number] Implanted:Qty: 1 on 06/04/2022 by Tamera Lawson MD at [facility] Lens Left: Eye [employer] 05/05/2025 DCB00 / / [id number] Procedures Procedure Name Priority Date/Time Associated Diagnosis Comments UPPER GI ENDOSCOPY,BIOPSY 06/29/2025 10:21 AM BUTADIENE CONVERTER UTILITY OPERATOR Acute gastrointestinal hemorrhage Duodenum, peptic ulcer Case Notes BAY 4 NA ENDOSCOPY (SCAN ORDER) 06/29/2025 10:07 AM BUTADIENE CONVERTER UTILITY OPERATOR EGD Routine 06/29/2025 8:39 AM BUTADIENE CONVERTER UTILITY OPERATOR PATHOLOGY Routine 06/29/2025 12:00 AM BUTADIENE CONVERTER UTILITY OPERATOR POCT GLUCOSE - DOCKED DEVICE Routine 05/04/2025 4:50 AM CDT POCT GLUCOSE - DOCKED DEVICE Routine 05/03/2025 10:06 PM CDT POCT GLUCOSE - DOCKED DEVICE Routine 05/03/2025 3:57 PM CDT POCT GLUCOSE - DOCKED DEVICE Routine 05/03/2025 11:15 AM CDT HC COMPREHENSIVE METABOL PANEL STAT 05/03/2025 9:53 AM CDT HC CBC AUTO W/AUTO DIFF STAT 05/03/2025 9:53 AM CDT POCT GLUCOSE - DOCKED DEVICE Routine 05/03/2025 6:52 AM CDT POCT GLUCOSE - DOCKED DEVICE Routine 05/02/2025 8:02 PM CDT US RETROPERITONEAL COMP Today 05/02/2025 7:32 PM CDT POCT GLUCOSE - DOCKED DEVICE Routine 05/02/2025 4:50 PM CDT USE ECHO LTD Today 05/02/2025 2:38 PM CDT HC URINALYSIS AUTO W/MICRO Nurse Collected Priority 05/02/2025 1:40 PM CDT HC OSMOLALITY URINE Nurse Collected Priority 05/02/2025 1:40 PM CDT HC SODIUM URINE Nurse Collected Priority 05/02/2025 1:40 PM CDT HC UREA URINE Nurse Collected Priority 05/02/2025 1:40 PM CDT HC CREATININE OTH SOURCE Nurse Collected Priority 05/02/2025 1:40 PM CDT POCT GLUCOSE - DOCKED DEVICE Routine 05/02/2025 11:44 AM CDT POCT GLUCOSE - DOCKED DEVICE Routine 05/02/2025 5:30 AM CDT HC MAGNESIUM Routine 05/02/2025 3:35 AM CDT HC COMPREHENSIVE METABOL PANEL Routine 05/02/2025 3:35 AM CDT HC CBC AUTO W/AUTO DIFF Routine 05/02/2025 3:35 AM CDT HC TROPONIN QN TIMED 05/02/2025 3:35 AM CDT HC TROPONIN QN TIMED 05/02/2025 1:21 AM CDT POCT GLUCOSE - DOCKED DEVICE Routine 05/01/2025 11:55 PM CDT HC TROPONIN QN TIMED 05/01/2025 10:12 PM CDT HC LACTATE/LACTIC ACID STAT 05/01/2025 10:10 PM CDT ECG 12-LEAD STAT 05/01/2025 9:54 PM CDT HC CBC AUTO W/AUTO DIFF Routine 04/21/2025 11:28 AM CDT HC MAGNESIUM Routine 04/21/2025 11:28 AM CDT HC RENAL PANEL Routine 04/21/2025 11:28 AM CDT POCT GLUCOSE - DOCKED DEVICE Routine 04/21/2025 5:50 AM CDT POCT GLUCOSE - DOCKED DEVICE Routine 04/21/2025 12:01 AM CDT HC MAGNESIUM Routine 04/20/2025 8:49 PM CDT HC BASIC METABOLIC PANEL Routine 04/20/2025 8:49 PM CDT POCT GLUCOSE - DOCKED DEVICE Routine 04/20/2025 4:11 PM CDT POCT GLUCOSE - DOCKED DEVICE Routine 04/20/2025 11:26 AM CDT HEMOGLOBIN AND HEMATOCRIT TIMED 04/20/2025 5:49 AM CDT HC MAGNESIUM Routine 04/20/2025 5:49 AM CDT HC RENAL PANEL Routine 04/20/2025 5:49 AM CDT POCT [...] DOCKED DEVICE Routine 04/19/2025 6:12 AM CDT HC CBC AUTO W/AUTO DIFF Routine 04/19/2025 5:45 AM CDT HC MAGNESIUM Routine 04/19/2025 5:45 AM CDT HC RENAL PANEL Routine 04/19/2025 5:45 AM CDT POCT [...] DOCKED DEVICE Routine 04/18/2025 5:31 AM CDT HC PREALBUMIN Routine 04/18/2025 5:28 AM CDT HC TRIGLYCERIDES Routine 04/18/2025 5:28 AM CDT HC CBC AUTO W/AUTO DIFF Routine 04/18/2025 5:28 AM CDT HC MAGNESIUM Routine 04/18/2025 5:28 AM CDT HC RENAL PANEL Routine 04/18/2025 5:28 AM CDT POCT [...] DOCKED DEVICE Routine 04/17/2025 5:40 AM CDT HC CBC AUTO W/AUTO DIFF Routine 04/17/2025 4:10 AM CDT HEMOGLOBIN AND HEMATOCRIT TIMED 04/17/2025 4:10 AM CDT HC MAGNESIUM Routine 04/17/2025 4:10 AM CDT HC RENAL PANEL Routine 04/17/2025 4:10 AM CDT POCT GLUCOSE - DOCKED DEVICE Routine 04/17/2025 4:09 AM CDT POCT GLUCOSE - DOCKED DEVICE Routine 04/17/2025 12:22 AM CDT HC GLYCOSYLATED HGB STAT 04/11/2025 12:43 PM CDT from Last 3 Months or Most Recently Relevant to Health Maintenance Results * ENDOSCOPY (SCAN ORDER) (06/29/2025 10:07 AM BUTADIENE CONVERTER UTILITY OPERATOR) us Supa Villanueva MD SCANNING Final Result * Pathology (06/29/2025 12:00 AM BUTADIENE CONVERTER UTILITY OPERATOR) PATHOLOGY [facility] Department of Laboratory Medicine [address] [place] [address] , extension [phone] Pathology Report Surgical Pathology Report Name: BEBA HERNANDEZ Specimen #: [id number] Age: 7 1955 (Age: 70) Location: [facility] Sex: F Procedure Date: 06/29/2025 Hospital #: [id number] Date Received: 06/29/2025 Date Reported: 06/30/2025 Provider: SUPA VILLANUEVA MD Source: Gastric biopsies Clinical History: Acute GI hemorrhage and duodenum peptic ulcer. FINAL DIAGNOSIS: Stomach, endoscopic biopsy: - No diagnostic histologic abnormality. - No Helicobacter pylori organisms identified. Gross Description: Received in formalin, labeled with a patient label and as gastric biopsies are 2 pieces of pink-del rio tissue each 0.3 cm. The specimen is entirely submitted in cassette 1. Gross examination (when applicable), interpretation, and sign out were performed at [facility], [address] [place] [address]. Electronically Signed Out CARMEN CALHOUN MD [facility] BIOPSY GASTRIC BIOPSY SPECIMEN / Unknown 06/29/2025 10:40 AM BUTADIENE CONVERTER UTILITY OPERATOR us Supa Villanueva MD PATHOLOGY/CYTOLOGY ORDERABLES Fi nal Result [facility] [address] [place] [address], [id number] * POCT glucose (05/04/2025 4:50 AM CDT) Only the most recent of30 resultswithin the time period is included. GLUCOSE POC 82 70 - 109 05/04/2025 5:08 AM CDT [facility] 05/04/2025 4:50 AM CDT Roz Fatima MD POCT ORDERABLES - DEVICE Final Result [facility] [address] [place] [address], [place] [phone] [id number] * (ABNORMAL) COMPREHENSIVE METABOLIC PANEL (05/03/2025 9:53 AM CDT) Only the most recent of2 resultswithin the time period is included. SODIUM S/P/B 134(L) 136 - 145 MMOL/L 05/03/2025 10:56 AM CDT [facility] POTASSIUM S/P/B 3.8 3.5 - 5.1 MMOL/L 05/03/2025 10:56 AM CDT [facility] CHLORIDE S/P/B 102 97 - 115 MMOL/L 05/03/2025 10:56 AM CDT [facility] CO2 26.2 21.0 - 32.0 MMOL/L 05/03/2025 10:56 AM CDT [facility] GLUCOSE 133(H) 74 - 106 MG/DL 05/03/2025 10:56 AM CDT [facility] BUN 20(H) 7 - 18 MG/DL 05/03/2025 10:56 AM CDT [facility] CREATININE S/P/B 1.11(H) 0.55 - 1.02 MG/DL 05/03/2025 10:56 AM CDT [facility] CALCIUM S/P/B 7.8(L) 8.5 - 10.1 MG/DL 05/03/2025 10:56 AM CDT [facility] BILIRUBIN TOTAL S/P/B 0.1(L) 0.2 - 1.0 MG/DL 05/03/2025 10:56 AM CDT [facility] ALKALINE PHOSPHATASE S/P/B 67 55 - 142 U/L 05/03/2025 10:56 AM CDT [facility] AST 12(L) 15 - 37 U/L 05/03/2025 10:56 AM CDT [facility] ALT 11(L) 13 - 56 U/L 05/03/2025 10:56 AM CDT [facility] TOTAL PROTEIN S/P/B 5.0(L) 6.4 - 8.2 G/DL 05/03/2025 10:56 AM CDT [facility] ALBUMIN S/P/B 2.3(L) 3.4 - 5.0 G/DL 05/03/2025 10:56 AM CDT [facility] ANION GAP 5.8 2.0 - 10.0 MMOL/L 05/03/2025 10:56 AM CDT [facility] OSMOLALITY (CALC) 283 MOSM/KG 025 10:56 AM T [facility] Comment:REFERENCE RANGE NOT ESTABLISHED GFR ESTIMATE 53(L) >90 ML/MIN/1. 73 M2 05/03/2025 10:56 AM T [facility] GFR NOTES GFR REFERENCE S: 05/03/2025 10:56 AM T [facility] Comment: THE ESTIMATED GFR IS CALCULATED [...] ml/min/1.73 m2 G5,KIDNEY FAILURE: <15 ml/min/1.73 m2 05/03/2025 9:53 AM CDT Roz Fatima MD LABORATORY Final Result [facility] [address] [place] [address], [id number] * (ABNORMAL) CBC W/DIFF AUTOMATED (05/03/2025 9:53 AM CDT) Only the most recent of6 resultswithin the time period is included. WBC 6.02 4.00 - 10.80 x10'3/uL 05/03/2025 10:29 AM CDT [facility] RBC 2.77(L) 4.10 - 5.40 x10'6/uL 05/03/2025 10:29 AM CDT [facility] HGB 8.1(L) 12.0 - 16.0 G/DL 05/03/2025 10:29 AM CDT [facility] HCT 25.7(L) 36.0 - 47.0 % 05/03/2025 10:29 AM CDT [facility] MCV 92.8 78.0 - 100.0 FL 05/03/2025 10:29 AM CDT [facility] MCH 29.2 27.0 - 31.0 PG 05/03/2025 10:29 AM CDT [facility] MCHC 31.5(L) 33.0 - 36.0 G/DL 05/03/2025 10:29 AM CDT [facility] RDW 14.5 11.5 - 14.5 % 05/03/2025 10:29 AM CDT [facility] PLT 249 150 - 350 x10'3/uL 05/03/2025 10:29 AM CDT [facility] MPV 9.3 7.4 - 10.4 FL 05/03/2025 10:29 AM CDT [facility] DIFFERENTIAL TYPE AUTOMATED DIFFERENTIAL 05/03/2025 10:29 AM CDT [facility] SEG NEUTROPHILS 64.4 % 10:29 AM CDT [facility] LYMPHOCYTES 28.2 % 05/03/2025 10:29 AM CDT [facility] MONOCYTES 5.1 % 05/03/2025 10:29 AM CDT [facility] EOSINOPHILS 1.5 % 05/03/2025 10:29 AM CDT [facility] BASOPHILS 0.5 % 05/03/2025 10:29 AM CDT [facility] IMMATURE GRANS % 0.3 % 05/03/20 10:29 AM CDT [facility] ABS. NEUTROPHILS 3.87 1.60 - 8.30 x10'3/uL 05/03/2025 10:29 AM CDT [facility] ABS. LYMPHOCYTES 1.70 0.80 - 4.70 x10'3/uL 05/03/2025 10:29 AM CDT [facility] ABS. MONOCYTES 0.31 0.00 - 1.50 x10'3/uL 05/03/2025 10:29 AM CDT [facility] ABS. EOSINOPHILS 0.09 0.00 - 0.40 x10'3/uL 05/03/2025 10:29 AM CDT [facility] ABS. BASOPHILS 0.03 0.00 - 0.20 x10'3/uL 05/03/2025 10:29 AM CDT [facility] ABS. IMMATURE GRANULOCYTES 0.02 0.00 - 0.03 x10'3/uL 05/03/2025 10:29 AM CDT [facility] ABS. NUCLEATED RBC'S 0.00 0.00 - 0.01 x10'3/uL 05/03/2025 10:29 AM CDT [facility] NRBC % 0.0 % 05/03/2025 10:29 AM CDT [facility] 05/03/2025 9:53 AM CDT Roz Fatima MD LABORATORY Final Result [facility] [address] [place] [address], [id number] * US RETROPERITONEAL COMP (05/02/2025 7:32 PM CDT) Anatomical Region Laterality Modality Abdomen Ultrasound 05/03/2025 9:06 AM CDT Impressions 05/03/2025 9:08 AM CDT Impression: 1. No acute sonographic abnormality involving the kidneys. 2. Bladder not visualized. Ordered By: CAMILLA VO Interpreted By: Natalie Hussein MD, 05/03/2025 9:06 AM Narrative 05/03/2025 9:08 AM CDT [address] [address] Examination: US RETROPERITONEAL COMP Exam Date/Time: 05/02/2025 7:00 PM Clinical Indication: Acute kidney injury Comparison: CT abdomen 04/18/2025 Technique: An ultrasound examination of bilateral kidneys and urinary bladder was performed to assess grayscale and color flow characteristics. Findings: Right kidney: Measures 10.5 cm (L) X 4.2 cm (W) X 4.4 cm (H). Normal echogenicity. Normal cortical perfusion. No the visualized masses, cysts, shadowing stones or hydronephrosis. Left kidney: Measures 12.5 cm (L) X 5 cm (W) X 4.9 cm (H). Normal echogenicity. Normal cortical perfusion. Small 1.4 cm left renal cyst for which no further follow-up is required per consensus guidelines. No visualized solid mass, shadowing stones, or hydronephrosis. Urinary bladder: Not visualized on this exam. Per the technologist, patient has a catheter in place. Procedure Note Natalie Hussein MD - 05/03/[address] [address] Examination: US RETROPERITONEAL COMP Exam Date/Time: 05/02/2025 7:00 PM Clinical Indication: Acute kidney injury Comparison: CT abdomen 04/18/2025 Technique: An ultrasound examination of bilateral kidneys and urinarybladder was performed to assess grayscale and color flow characteristics. Findings: Right kidney: Measures 10.5 cm (L) X 4.2 cm (W) X 4.4 cm (H). Normalechogenicity. Normal cortical perfusion. No the visualized masses,cysts, shadowing stones or hydronephrosis. Left kidney: Measures 12.5 cm (L) X 5 cm (W) X 4.9 cm (H). Normalechogenicity. Normal cortical perfusion. Small 1.4 cm left renal cyst forwhich no further follow-up is required per consensus guidelines. Novisualized solid mass, shadowing stones, or hydronephrosis. Urinary bladder: Not visualized on this exam. Per the technologist,patient has a catheter in place. Impression: 1. No acute sonographic abnormality involving the kidneys. 2. Bladder not visualized. Ordered By: CAMILLA VO Interpreted By: Natalie Hussein MD, 05/03/2025 9:06 AM us Camilla Vo MD ULTRASOUND Final Result * USE [employer] (05/02/2025 2:38 PM CDT) Anatomical Region Laterality Modality Cardiac Echocardiogram 05/02/2025 1:58 PM CDT Narrative 05/02/2025 4:58 PM CDT Echocardiography Report Pat.Name: BEBA HERNANDEZ Pat.ID: [id number] .Date: 05/02/2025 : [id number] ANI Shearer EWDPROV EWDPROV Exam Time: 1:58:00 PM Study Type:ECHO WITH DOPPLER LIMITED Height: 163 cm Weight: 61.2 kg BSA: 1.66 m2 Age: 7 1955,70Y Sex: F BP: 105/55 HR: 60 bpm Sonogrphr: Naye Esparza RDCS Pat. Stat.:Inpatient Room: 2 CPT - 4: [id number] Reason for Study:CHF, LV function check Procedures: 2D, M-mode, Doppler, Color Flow, Portable Race: W ++++++++++++++++++++++++++++++++++++ SUMMARY: ++++++++++++++++++++++++++++++++++++ The calculated ejection fraction is 65%. Wall motion appears normal in all segments. No evidence of pericardial effusion. ++++++++++++++++++++++++++++++++++++ FINDINGS: ++++++++++++++++++++++++++++++++++++ LV: The left ventricular size is normal. The calculated ejection fraction is 65%. WM: Wall motion appears normal in all segments. RV: The right ventricle size is normal. The right ventricular function is normal. DENISE: No evidence of pericardial effusion. PA: Unable to reliably quantitate pulmonary systolic pressure. ++++++++++++++++++++++++++++++++++++ MEASUREMENTS: ++++++++++++++++++++++++++++++++++++ 2D Left Ventricle LVIDd 5 cm (3.6-5.2) LV EF(Bi-Plane) 65.3 % (55-75) LVIDs 3.4 cm (2.3-3.9) Relative Wall T 0.303 LV%fs 32 % (25-46) LV RWT 0.304 % LVPW LVPWd 0.76 cm Ventricular Septum IVSd 1 cm Ratios IVS LV Biplane Major [place] Erika 0.821 % Major [place] Erika 13.6 % LV Left Ventricle Mass by M-mode LV Mass 154 g DOPPLER LV Mass 2D Value 154 g LV Mass [id number] Value 92.8 g/m2 <Electronic Signature> 05/02/2025 04:58 PM Rishi Almeida M.D. Procedure Note Rishi Almeida MD - 05/03/2025 Echocardiography Report Pat.Name: BEBA HERNANDEZ Pat.ID: [id number] .Date: 05/02/2025 : [id number] ANI Shearer EWDPROV EWDPROV Exam Time: 1:58:00 PM Study Type:ECHO WITH DOPPLER LIMITED Height: 163 cm Weight: 61.2 kg BSA: 1.66 m2 Age: 7 1955,70Y Sex: F BP: 105/55 HR: 60 bpm Sonogrphr: Naye Esparza RDCS Pat. Stat.:Inpatient Room: [facility] CPT - 4: [id number] Reason for Study:CHF, LV function check Procedures: 2D, M-mode, Doppler, Color Flow, Portable Race: W ++++++++++++++++++++++++++++++++++++ SUMMARY: ++++++++++++++++++++++++++++++++++++ The calculated ejection fraction is 65%. Wall motion appears normal in all segments. No evidence of pericardial effusion. ++++++++++++++++++++++++++++++++++++ FINDINGS: ++++++++++++++++++++++++++++++++++++ LV: The left ventricular size is normal. The calculated ejection fraction is 65%. WM: Wall motion appears normal in all segments. RV: The right ventricle size is normal. The right ventricular function is normal. DENISE: No evidence of pericardial effusion. PA: Unable to reliably quantitate pulmonary systolic pressure. ++++++++++++++++++++++++++++++++++++ MEASUREMENTS: ++++++++++++++++++++++++++++++++++++ 2D Left Ventricle LVIDd 5 cm (3.6-5.2) LV EF(Bi-Plane) 65.3 % (55-75) LVIDs 3.4 cm (2.3-3.9) Relative Wall T 0.303 LV%fs 32 % (25-46) LV RWT 0.304 % LVPW LVPWd 0.76 cm Ventricular Septum IVSd 1 cm Ratios IVS LV Biplane Major [place] Erika 0.821 % Major [place] Erika 13.6 % LV Left Ventricle Mass by M-mode LV Mass 154 g DOPPLER LV Mass 2D Value 154 g LV Mass Vxlew2Q Value 92.8 g/m2 <Electronic Signature> 05/02/2025 04:58 PM Rishi Almeida M.D. Jean Pierre Lowry APRN ECHO Final Resu lt * SODIUM URINE RANDOM (05/02/2025 1:40 PM CDT) NA RANDOM (U) 34 MMOL/L 05/02/2025 2:56 PM CDT [facility] Comment:REFERENCE RANGE NOT ESTABLISHED URINE SPECIMEN / Unknown 05/02/2025 1:40 PM CDT Roz Fatima MD URINE ORDERABLES Final Result Performing Organization Address [facility] Co de Phone Number [facility] [address] [place] [address], [phone] * UREA NITROGEN URINE RANDOM (05/02/2025 1:40 PM CDT) UREA NITROGEN (U) 181 MG/DL 05/02/2025 2:56 PM CDT [facility] Comment:REFERENCE RANGE NOT ESTABLISHED URINE SPECIMEN / Unknown 05/02/2025 1:40 PM CDT us Roz Fatima MD URINE ORDERABLES Final Result Performing Organization Address [facility] Co de Phone Number [facility] [address] [place] [address], [id number] * CREATININE URINE RANDOM (05/02/2025 1:40 PM CDT) CREATININE (U) 393.0 MG/DL 05/02/2025 2:56 PM CDT [facility] Comment:REFERENCE RANGE NOT ESTABLISHED URINE SPECIMEN / Unknown 05/02/2025 1:40 PM CDT us Roz Fatima MD URINE ORDERABLES Final Result [facility] [address] [place] [address], [place] [phone] * (ABNORMAL) URINALYSIS (05/02/2025 1:40 PM CDT) COLOR (U) YELLOW 05/02/2025 2:15 PM CDT [facility] TRANSPARENCY SLIGHTLY CLOUDY 05/02/2025 2:15 PM CDT [facility] SPECIFIC GRAVITY (U) 1.022 1.002 - 1.035 05/02/2025 2:15 PM CDT [facility] U PH 5.0 5 - 8 05/02/2025 2:15 PM CDT [facility] PROTEIN RANDOM (U) 10(A) NEGATIVE 05/02/2025 2:15 PM CDT [facility] GLUCOSE (U) 150(A) NEGATIVE MG/DL 05/02/2025 2:15 PM CDT [facility] KETONES MG/DL (U) NEGATIVE NEGATIVE 05/02/2025 2:15 PM CDT [facility] BILIRUBIN (U) NEGATIVE NEGATIVE 05/02/2025 2:15 PM CDT [facility] BLOOD (U) NEGATIVE NEGATIVE 05/02/2025 2:15 PM CDT [facility] NITRITES NEGATIVE NEGATIVE 05/02/2025 2:15 PM CDT [facility] UROBILINOGEN NORMAL 0 - 1 EU/DL 05/02/2025 2:15 PM CDT [facility] LEUKOCYTES (U) 2+(A) NEGATIVE 05/02/2025 2:15 PM CDT [facility] RBC/HPF 3 0 - 3 /HPF 05/02/2025 2:15 PM CDT [facility] WBC/HPF 3 0 - 6 /HPF 05/02/2025 2:15 PM CDT [facility] BACTERIA (U) NONE /HPF 05/02/2025 2:15 PM CDT [facility] SQUAMOUS EPITHELIALS 1 05/02/2025 2:15 PM CDT [facility] URINE SPECIMEN OBTAINED BY CLEAN CATCH PROCEDURE / Unknown 05/02/2025 1:40 PM CDT us Roz Fatima MD URINE ORDERABLES Final Result Performing Organization Address [facility] Co de Phone Number [facility] [address] [place] [address], [place] [phone] * OSMOLALITY, URINE (05/02/2025 1:40 PM CDT) [facility] OSMOLALITY (U) 363 50 - 1,200 MOSM/KG 05/02/2025 2:32 PM CDT [facility] URINE SPECIMEN / Unknown 05/02/2025 1:40 PM CDT us Roz Fatima MD URINE ORDERABLES Final Result Performing Organization Address [facility] Co de Phone Number [facility] [address] [place] [address], [id number] * (ABNORMAL) TROPONIN, QUANT (05/02/2025 3:35 AM CDT) Only the most recent of3 resultswithin the time period is included. TROPONIN I HIGH SENSITIVITY 789(H) 0 - 53 ng/L 05/02/2025 4:19 AM CDT [facility] 05/02/2025 3:35 AM CDT Roz Fatima MD LABORATORY Final Result [facility] [address] [place] [address], [place] [phone] * (ABNORMAL) MAGNESIUM (05/02/2025 3:35 AM CDT) Only the most recent of7 resultswithin the time period is included. MAGNESIUM 1.0(L) 1.6 - 2.6 MG/DL 05/02/2025 4:19 AM CDT [facility] 05/02/2025 3:35 AM CDT Britni Diaz MD LABORATORY Final Res ult Performing Organization Address City/[facility]/ZIP Co de Phone Number [facility] [address] [place] [address], [place] [phone] * LACTIC ACID - SINGLE (05/01/2025 10:10 PM CDT) LACTIC ACID VENOUS 1.2 0.4 - 2.0 MMOL/L 05/01/2025 10:47 PM CDT [facility] 05/01/2025 10:1 0 PM CDT Roz Fatima MD LABORATORY Final Result Performing Organization Address City/[facility]/ZIP Co de Phone Number [facility] [address] [place] [address], [place] [phone] * ECG 12 lead (05/01/2025 9:54 PM CDT) ECG QT 431 HS-[facility] ECG QTC 450 HS-ST [facility] 05/01/2025 9:54 PM CDT Narrative [facility] - 05/03/2025 7:03 AM CDT [facility] [address] [place] [address] Test Date: 2025-05-01 Pat Name: BEBA HERNANDEZ Department: 1 Room: 608AA Gender: Female 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: Liborio : 1955 Requested By: ROZ FATIMA Order Number: [id number] Reading MD: Lopez Vick Measurements Intervals [place] Rate: 65 P: 0 WY: 0 QRS: 72 QRSD: 126 T: 77 QT: 431 QTc: 450 Interpretive Statements SINUS RHYTHM RBBB Procedure Note Lopez Vick MD - 05/03/[address] [address] Test Date: 2025-05-01 Pat Name: BEBA HERNANDEZ Department: 1 Room: 608AA Gender: Female Polygraph Examiner: Liborio : 1955 Requested By: ROZ FATIMA Order Number: [id number] Reading MD: Lopez Vick Measurements Intervals [place] Rate: 65 P: 0 WY: 0 QRS: 72 QRSD: 126 T: 77 QT: 431 QTc: 450 Interpretive Statements SINUS RHYTHM RBBB Roz Fatima MD ECG ORDERABLES Final Result [facility] * (ABNORMAL) RENAL FUNCTION PANEL (04/21/2025 11:28 AM CDT) Only the most recent of5 resultswithin the time period is included. SODIUM S/P/B 136 136 - 145 MMOL/L 04/21/2025 12:23 PM CDT [facility] POTASSIUM S/P/B 4.3 3.5 - 5.1 MMOL/L 04/21/2025 12:23 PM T [facility] CHLORIDE S/P/B 108 97 - 115 MMOL/L 04/21/2025 12:23 PM T [facility] CO2 22.4 21.0 - 32.0 MMOL/L 04/21/2025 12:23 PM T [facility] GLUCOSE 101 74 - 106 MG/DL 04/21/2025 12:23 PM T [facility] BUN 22(H) 7 - 18 MG/DL 04/21/2025 12:23 PM T [facility] CREATININE S/P/B 0.69 0.55 - 1.02 MG/DL 04/21/2025 12:23 PM T [facility] CALCIUM S/P/B 8.4(L) 8.5 - 10.1 MG/DL 04/21/2025 12:23 PM T [facility] ALBUMIN S/P/B 2.3(L) 3.4 - 5.0 G/DL 04/21/2025 12:23 PM T [facility] PHOSPHORUS 2.8 2.5 - 4.9 MG/DL 04/21/2025 12:23 PM [facility] ANION GAP 5.6 2.0 - 10.0 MMOL/L 04/21/2025 12:23 PM T [facility] OSMOLALITY (CALC) 285 MOSM/KG 025 12:23 PM [facility] Comment:REFERENCE RANGE NOT ESTABLISHED GFR ESTIMATE >90 >90 ML/MIN/1. 73 M2 04/21/2025 12:23 PM [facility] GFR NOTES GFR REFERENCE S: 04/21/2025 12:23 PM [facility] Comment: THE ESTIMATED GFR IS CALCULATED [...] m2 04/21/2025 11:2 8 AM CDT us Alejandro Lawson MD LABORATORY Final Result [facility] [address] [place] [address], [id number] * (ABNORMAL) BASIC METABOLIC PANEL (04/20/2025 8:49 PM CDT) SODIUM S/P/B 137 136 - 145 MMOL/L 04/20/2025 9:27 PM CDT [facility] POTASSIUM S/P/B 4.1 3.5 - 5.1 MMOL/L 04/20/2025 9:27 PM CDT [facility] CHLORIDE S/P/B 108 97 - 115 MMOL/L 04/20/2025 9:27 PM CDT [facility] CO2 24.7 21.0 - 32.0 MMOL/L 04/20/2025 9:27 PM CDT [facility] GLUCOSE 116(H) 74 - 106 MG/DL 04/20/2025 9:27 PM CDT [facility] BUN 21(H) 7 - 18 MG/DL 04/20/2025 9:27 PM CDT [facility] CREATININE S/P/B 0.73 0.55 - 1.02 MG/DL 04/20/2025 9:27 PM CDT [facility] CALCIUM S/P/B 8.5 8.5 - 10.1 MG/DL 04/20/2025 9:27 PM CDT [facility] ANION GAP 4.3 2.0 - 10.0 MMOL/L 04/20/2025 9:27 PM CDT [facility] OSMOLALITY (CALC) 288 MOSM/KG 025 9:27 PM CDT [facility] Comment:REFERENCE RANGE NOT ESTABLISHED GFR ESTIMATE 87(L) >90 ML/MIN/1. 73 M2 04/20/2025 9:27 PM CDT [facility] GFR NOTES GFR REFERENCE S: 04/20/2025 9:27 PM CDT [facility] Comment: THE ESTIMATED GFR IS CALCULATED [...] <15 ml/min/1.73 m2 04/20/2025 8:49 PM CDT Tulio García MD LABORATORY Final Result [facility] [address] [place] [place] [address], [id number] * (ABNORMAL) HEMOGLOBIN AND HEMATOCRIT (04/20/2025 5:49 AM CDT) Only the most recent of11 resultswithin the time period is included. HGB 8.4(L) 12.0 - 16.0 G/DL 04/20/2025 6:14 AM CDT [facility] HCT 26.1(L) 36.0 - 47.0 % 04/20/2025 6:14 AM CDT [facility] 04/20/2025 5:49 AM CDT Tulio García MD LABORATORY Final Result [facility] [address] [place] [address], [phone] * XR UGI (04/18/2025 3:50 PM CDT) [...] Ordered By: RO SANABRIA Interpreted By: Ro Sanbaria MD, 04/18/2025 4:27 PM Narrative 04/18/2025 5:06 PM CDT [facility] [address] [place], [place] [address] Examination: CT ABD WO CON, XR UGI [...] gastric fundus. The patient was then positioned agwqi-dqqn-tdva and there is evidence of gastric emptying [...] Procedure Note Ro Sanabria MD - 04/18/2025 [facility] [address] [place], [place] [address] Examination: CT ABD WO CON, XR UGI [...] the gastric fundus. The patient was thenpositioned tqlol-ogdo-bifp and there is evidence of gastric emptying [...] 4:27 PM Narrative 04/18/2025 5:06 PM CDT [facility] [address] [place], [place] [address] Examination: CT ABD WO CON, XR UGI [...] gastric fundus. The patient was then positioned qvuox-extd-mttx and there is evidence of gastric emptying [...] Procedure Note Ro Sanabria MD - 04/18/[address] [address] Examination: CT ABD WO CON, XR UGI [...] the gastric fundus. The patient was thenpositioned nddqs-ynso-vcuq and there is evidence of gastric emptying [...] - 40.0 MG/DL 04/18/2025 6:29 AM CDT [facility] 04/18/2025 5:28 AM CDT Yusef Bautista MD LABORATORY Final Result Performing Organization Address City/[facility]/ZIP Co de Phone Number [facility] [address] [place] [address], [phone] * TRIGLYCERIDES (04/18/2025 5:28 AM CDT) TRIGLYCERIDES 187 MG/DL 04/18/2025 6:08 AM CDT [facility] Comment:150-199 BORDERLINE H IGH 04/18/2025 5:28 AM CDT Yusef Bautista MD LABORATORY Final Result Performing Organization Address City/[facility]/ZIP Co de Phone Number [facility] [address] [place] [address], [phone] * USV VAST TEAM PICC INSERT >5YR [...] Please review associated procedure and/or operative report. Yusef Bautista MD [facility] Final Result * HEMOGLOBIN, GLYCATED (04/11/2025 12:43 PM CDT) HGB A1C 5.6 <5.7 % 04/11/2025 1:43 PM CDT [facility] ESTIMATED AVG GLUCOSE 114 74 - 114 MG/DL 04/11/2025 1:43 PM CDT [facility] 04/11/2025 12:4 3 PM CDT Tiffany Law [facility] Final R esult [facility] [address] [place] [address], [phone] from Last 3 Months or Most Recently Relevant to Health Maintenance Insurance [facility] MEDICARE MEDICAID Advance Directives Documents on File Type Date Recorded 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
--- OUTSIDE RECORDS SUMMARY | 2025-07-17 22:48 | XMS_ITS | Encounter Summary ---
Author Organization [facility] Address [address] [place] [address] Care Team Providers Care Rn Family Practice Name Role Phone Pasquale Pro MD Primary Care Provider [phone] Roland Tatum MD Unavailable [phone] Suly Galdamez APRN, LADLE OPERATOR-C Unavailable [phone] Encounter Details Date Type Department Care Team (Late st Contact Info) Description 09/22/2022 Hospital Follow-up Call [facility] [address] [place] [address] Christopher Farnsworth MD [address] [address] Social History Tobacco Use Types [...] often do you attend chur ch or caodaism services? More than 4 times per year 08/22/2022 Do you belong to any clubs o r organizations such as yarsani groups, unions, fraternal or athletic groups, or [...] and heating? Not hard at all 08/22/2022 [facility] of Occupat ional Health - Occupational Stress [...] Coronavirus/COVID-19? No / Unsure 09/22/2022 1:55 PM FIBER TECHNOLOGIST documented as of this encounter Functional Status * RETIRED Are you deaf or do you have serious difficulty hearing Answer Date of Assessment Author Status No 08/22/2022 3:00 AM FIBER TECHNOLOGIST Activ e * RETIRED Are you blind or do you have serious difficulty seeing, even when wearing glasses? Answer Date of Assessment Author Status No 08/22/2022 3:00 AM FIBER TECHNOLOGIST Activ e * Do you have serious difficulty walking or climbing stairs? Answer Date of Assessment Author Status No 08/22/2022 3:00 AM FIBER TECHNOLOGIST Sampson Hartmann RN Active * Do you have difficulty dressing or bathing? Answer Date of Assessment Author Status No 08/22/2022 3:00 AM Sampson Mccabe RN Active * Because of a physical, mental, or emotional condition, do you have difficulty doing errands alone such as visiting a doctor's office or shopping? Answer Date of Assessment Author Status No 08/22/2022 3:00 AM FIBER TECHNOLOGIST Sampson Hartmann RN Active documented as of this encounter Mental Status * Because of a physical, mental, or emotional condition, do you have serious difficulty concentrating, remembering, or making decisions? Answer Entry Date Author Status No 08/22/2022 3:00 AM Sampson Mccabe RN Active documented in this encounter Plan of Treatment Upcoming Encounters Date Type Department Care Team (Late st Contact Info) Description 07/26/2025 1:00 PM FIBER TECHNOLOGIST Office Visit [facility] [place] [phone] Britni Martin MD [address] [place] [address] documented as of this encounter Goals Goal Patient Goal Type Associated Problems Recent Progress Patient-Stated? Author Safety Patient/family will have appropriate support at home upon discharge Lifestyle No Alda Hernandez RN documented as of this encounter Visit Diagnoses Diagnosis Postoperative wound infection- Primary Other postoperative infection documented in this encounter Care Teams Rn Family Practice Relationship Specialty Start Date End Date Pasquale Pro MD [address] [place] [address] PCP - General INTERNAL MEDICINE 03/19/18 Roland Tatum MD [address] [place] [phone] Consulting Physician CARDIOVASCULAR DISEASE 06/22/20 Suly Galdamez APRN, LADLE OPERATOR-C [address] [facility] [address] [place] [phone] NURSE PRACTITIONER 06/22/20 documented as of this encounter
--- OUTSIDE RECORDS SUMMARY | 2025-07-17 22:48 | XMS_ITS | Clinical Summary ---
Author Organization [facility] Address [address] [place] [address] Phone Care Team Providers Care Electric Transfer Operator Name Role Phone Pasquale Pro MD Primary Care Provider [phone] Allergies Active Allergy Reactions Criticality Noted Date [...] needed for Wheezing. Active ergocalciferol (VITAMIN D) 01844 UNIT Capsule Take 50,000 Units by mouth once a week. Active losartan (COZAAR) 100 MG Tablet Take 100 mg by mouth daily. Active ondansetron (ZOFRAN) 4 MG Tablet Take 4 mg by mouth every 8 hours as needed for Nausea - 1st line. Active sulfaSALAzine (AZULFIDINE) 500 MG Tablet Take 1,000 mg by mouth 3 times daily. Give with food Active BWH-Afbq-UgKgai -MgHydr-Simeth (First-Mouthwas h BLM) Suspension 5 mL [...] obstructive pulmonary disease) 06/2025 Tobacco dependence 02/28/2025 Family History Medical History Relation Name Comments Hypertension Father Heart Disease Mother Hypertension Mother Relation Name Status Comments Father Mother Social History Tobacco Use Types Packs/Day Years Used Date Smoking Tobacco: Every Day Cigarettes 1.2 93 Started: 1974 Smokeless Tobacco: Never Alcohol Use [...] any time in the past [address] [facility], were you homeless or living in a correction (including now)? Patient declined 02/28/2025 [facility] Utilities Answer Date Recorded In the past 12 months has th [employer], gas, oil, or water company threatened to [...] (IPPE) [id number] 08/20/2024 Influenza Immunization (#1) 2025 09/2 10/2023, 05/27/2023, 04/29/2022, Additional history exists SARS-COV-2 Immunization ( season) 2025 12/21/2020, 11/27/2020 Diabetes: Hemoglobin A1c 08/31/2025 02/28/2025, 11/17 Diabetes: Nephropathy Screening 02/28/2026 02/28/2025 Pneumococcal Immunization (50+ years) Completed 05/27/2023, 09/10/2017, 05/24/2014 Hepatitis B Immunization Aged Out No longer eligible based on patient's age to complete this topic Human Papillomavirus (HPV) Immunization (No Doses Required) Completed Meningococcal Immunization (ACWY) Aged Out No longer eligible based on patient's age to complete this topic Rotavirus Immunization Aged Out No lo nger eligible based on patient's age to complete this topic Procedures Procedure Name Priority Date/Time Associated Diagnosis Comments HEMOGLOBIN A1C W/ ESTIMATED GLUCOSE Routine 02/28/2025 8:02 PM CDT CMP (COMPREHENSIVE METABOLIC PANEL) Routine 02/28/2025 8:01 PM CDT from Last 3 Months or Most Recently Relevant to Health Maintenance Results * Hemoglobin A1C w/ Estimated Glucose (02/28/2025 8:02 PM CDT) HGB-A1C 5.7 4.0 - 6.0 % 02/28/2025 8:19 PM CDT [facility] Est Average Glucose 116.9 mg/dL 02/28/2025 8:19 PM CDT [facility] Blood Venipuncture / Unknown 02/28/2025 8:02 PM CDT 02/28/2025 8:02 PM CDT Narrative [facility] - 02/28/2025 8:19 PM CDT HEMOGLOBIN A1C: DIABETIC PATIENTS: WELL-CONTROLLED: 6.2 - 7.0 INTERMEDIATE WELL-CONTROLLED: 7.0 - 9.0 POORLY-CONTROLLED: >9.0 Specimens containing greater than 5% of Hemoglobin F may result in lower than expected % HbA1C results. us Ramandeep Núñez APRN, INSPECTOR GOVERNMENT PROPERTY CHEMISTRY ORDERABLES Final Result [facility] [address] [place] [address] * (ABNORMAL) CMP (Comprehensive Metabolic Panel) (02/28/2025 8:01 PM CDT) SODIUM 143 136 - 145 mmol/L 02/28/2025 8:21 PM CDT [facility] POTASSIUM 3.7 3.5 - 5.1 mmol/L 02/28/2025 8:21 PM CDT [facility] CHLORIDE 100 98 - 107 mmol/L 02/28/2025 8:21 PM CDT [facility] CO2, VENOUS 26 22 - 30 mmol/L 02/28/2025 8:21 PM CDT [facility] ANION GAP 20.7(H) <18.0 mmol/L 02/28/2025 8:21 PM CDT [facility] GLUCOSE 115(H) 70 - 99 mg/dL 02/28/2025 8:21 PM CDT [facility] BUN 36(H) 10 - 20 mg/dL 02/28/2025 8:21 PM CDT [facility] CREATININE, BLOOD 3.31(H) 0.60 - 1.00 mg/dL 02/28/2025 8:21 PM CDT [facility] BUN/CREATININE RATIO 11(L) 12 - 20 ratio 02/28/2025 8:21 PM CDT [facility] TOTAL PROTEIN 7.1 6.0 - 8.0 g/dL 02/28/2025 8:21 PM CDT [facility] ALBUMIN 4.1 3.5 - 5.0 g/dL 02/28/2025 8:21 PM CDT [facility] A/G RATIO 1.4 1.0 - 2.2 02/28/2025 8:21 PM CDT [facility] CALCIUM 8.4(L) 8.7 - 10.5 mg/dL 02/28/2025 8:21 PM CDT [facility] T BILI 0.3 0.2 - 1.2 mg/dL 02/28/2025 8:21 PM CDT [facility] SGOT (AST) 18 <43 U/L 02/28/2025 8:21 PM CDT [facility] SGPT (ALT) 13 <56 U/L 02/28/2025 8:21 PM CDT [facility] ALKALINE PHOSPHATASE 54 40 - 150 U/L 02/28/2025 8:21 PM CDT [facility] GFR, ESTIMATED 14(L) >=60 02/28/2025 8:21 PM CDT [facility] Comment: Creatinine Clearance is the preferred criteria for selecting drug dose adjustments in renally impaired patients. The GFR is provided as additional pertinent clinical information. GFR is reported in mL/min/1.73 sq m. Calculation based on the Chronic Kidney Disease Epidemiology Collaboration (CKD- EPI) equation refit without adjustment for race. GFR, EST. 17(L) >=60 025 8:21 PM CDT [facility] GFR, EST. NONAFRICAN 14(L) >=60 02/28/2025 8:21 PM CDT [facility] Blood Venipuncture / Unknown 02/28/2025 8:01 PM CDT 02/28/2025 8:01 PM CDT Ramandeep Núñez APRN, INSPECTOR GOVERNMENT PROPERTY CHEMISTRY ORDERABLES Final Result [facility] [address] [place] [address] from Last 3 Months or Most Recently Relevant to Health Maintenance Insurance [facility] Advance Directives * Full Code (Latest Code Status on File) Date Activated Date Inactivated Comments 02/28/2025 9:30 PM CPR-Full Treat ment: FULL ARREST: Attempt Resuscitation/CPR wit intubation and mechanical ventilation. PRE-ARREST: Use entire range of life support measures to stabilize the patient. Care Teams Electric Transfer Operator Relationship Specialty Start Date End Date Pasquale Pro MD [address] [place] [address] PCP - General Internal Medicine 03/02/25
--- OUTSIDE RECORDS SUMMARY | 2025-07-17 22:48 | XMS_ITS | Continuity of Care Document ---
Author Organization [facility], [facility] ([place] Address [address] [place] [address] Care Team Providers Care Washer Operator Name Role Phone PAOLA ANNA Primary Care Provider Assessment Encounter Date Assessment Date Assessment LastModified by Organization Details LastModified Time 05/23/2025 05/23/2025 1. Upper GI bleeding due to duodenal ulcers, status post endoscopic therapy (injection and bipolar cautery) - Initiate/ensure double-dose proton pump inhibitor (PPI) twice daily now; confirm current PPI with primary care and update prescription to pharmacy ([facility], [place], [place]) - Schedule follow-up EGD in two [...] (SMA-related syndrome) - Ensure ongoing follow-up with rn night; clarify prior findings and current management plan 5. Medication reconciliation and care coordination - Obtain/confirm complete medication list from PCP; update records accordingly - Communicate plan to PCP and ensure lab and imaging/EGD scheduling are in place [email or web address] Not available 05/23/2025 16:22:43 Plan of Treatment [...] instructions recorded. Reason for Referral None Reported. Problems Name Problem SNOMED Code Status Onset Date Resolution Date Notes Provider Name and Address Organization Details Recorded Time Anemia 031220345 Active 2024 Porter Amaya PA-C [address] [facility], [place], [address], [facility] 5 16:22:56 Acute gastrointestin al hemorrhage 59678277 Active 2024 Porter Amaya PA-C [address] [facility], [place], [address], [facility] 5 16:23:01 Acute duodenal ulcer 750419858 Active 2024 Porter Amaya PA-C [address] [facility], [place], [address], [facility] 5 16:23:05 Superior mesenteric artery syndrome 922094155 Active 2024 Porter Amaya PA-C [address] [facility], [place], [address], [facility] 5 16:23:20 Problem Notes None recorded. Procedures Surgical History Date Name Laterality Status Provider Name and Address Organization Details Recorded Time 09/08 esophagogastroduodenoscop y completed [facility] 12:27:39 Imaging Results None recorded. Procedure Notes None recorded. Medical Equipment None Reported. Allergies Allergen ID Allergen Name Allergen Category Reaction Reaction Severity Criticality Documentation Date Start Date Code Code System Note Provider Name and Address Organization Details Recorded Time 445104 hydrocodo ne Not available nausea Not available Not available 08/17/20232014 5489 RxNorm React ion: Nause a; Vomit ing; Comme nt: React ion Date: 09 Nov 2013 ; Not Available [facility] 4 23:21:31 Vitals Date Recorded Body height Body mass index (BMI) Body weight Heart rate Oxygen saturation Provider Name and Address Organization Details Last Updated DateTime 05/23/2025 162.56 cm 24.7 kg/m2 97802.3 g 108 /min 96 % [facility] 5 15:35:45 Social History None recorded. Functional Status None recorded. Mental Status None recorded. Family History Nothing Reported. Medical History No medical history recorded. Gynecological HistoryNo gynecological history recorded. Obstetrics History GPAL:G 0 P 0 0 0 0 Immunizations Vaccine Type Date Status Note Provider Nam e and Address Organization Details Recorded Time pneumococcal polysaccharide PPV23 4 completed Not Available [facility] 05/23/2025 15:03:56 Influenza, split virus, quadrivalent, preservative 4 completed Not Available [facility] 05/23/2025 15:03:56 Influenza, split virus, trivalent, preservative 5 completed Not Available [facility] 05/23/2025 15:03:56 Influenza, split virus, quadrivalent, preservative 6 completed Not Available [facility] 05/23/2025 15:03:56 Influenza, split virus, quadrivalent, PF 7 completed Not Available [facility] 05/23/2025 15:03:56 Pneumococcal conjugate PCV 13 8 completed Not Available [facility] 05/23/2025 15:03:56 Influenza, split virus, quadrivalent, PF 8 completed Not Available [facility] 05/23/2025 15:03:56 Influenza, split virus, quadrivalent, PF 9 completed Not Available [facility] 05/23/2025 15:03:56 Influenza, split virus, quadrivalent, PF 0 completed Not Available [facility] 05/23/2025 15:03:56 COVID-19, mRNA, LNP-S, PF, 30 mcg/0.3 mL dose 1 completed Not Available [facility] 05/23/2025 15:03:56 COVID-19, mRNA, LNP-S, PF, 30 mcg/0.3 mL dose 1 completed Not Available [facility] 05/23/2025 15:03:56 Influenza, split virus, quadrivalent, preservative 2 completed Not Available [facility] 05/23/2025 15:03:56 pneumococcal polysaccharide PPV23 3 completed Not Available [facility] 05/23/2025 15:03:56 Influenza, split virus, quadrivalent, PF 3 completed Not Available [facility] 05/23/2025 15:03:56 Influenza, split virus, trivalent, PF 4 completed Not Available [facility] 05/23/2025 15:03:56 Past Encounters Encounter ID Performer Location Encounter Start Date Encounter Closed Date Diagnosis/Indication Diagnosis SNOMED-CT Code Diagnosis ICD10 Code Diagnosis IMO Codes Diagnosis Note [id number] Porter Amaya PA-C [address] [facility] ([place]) [address] [place] [address] 05/23/2025 15:01:15 05/23/2025 16:24:14 Anemia 213092852 D64.9 2462752875 Acute gastrointestinal hemorrhage 37657452 K92.2 953787 Acute duodenal ulcer 196 628966 K26.3 74264 Superior m esenteric artery syndrome 586758094 K55.1 59667 Health Concerns Section Related Observation LastModified by Organization Detai ls LastModified Time None Recorded Concern Status LastModified by Organization Details LastModified Time None Recorded Payers Encounter Date Sequence Insurance Name Policy Number Policy Costello Covered Member ID Costello Member ID Guarantor Name 05/23/2025 1 [facility] (MEDICARE REPLACEMENT/A DVANTAGE - HMO) [id number] Beba Hernandez [id number] Beba Hernandez 05/23/2025 2 MED[place] DEPARTMENT OF PUBLIC AID Beba Hernandez [id number] Beba Hernandez Notes Date Note Type Note Provider Name and Address Organization Details Recorded Time 05/23/2025 text/html Beba is a 70-year-old female presents for post-hospital [...] unsure of her current medication list. Pharmacy: [facility], [place], [place]. Porter Amaya PA-C [address], [address], [facility] 05/23/2025 16:24:10 OBGyn Episode No OBEpisode recorded.
--- OUTSIDE RECORDS SUMMARY | 2025-07-17 22:48 | XMS_ITS | Encounter Summary ---
Author Organization [facility] Address [address] [place] [address] Care Team Providers Care Accounting Policy Consultant Name Role Phone Pasquale Pro MD Primary Care Provider [phone] Roland Tatum MD Unavailable [phone] Suly Galdamez APRN, PEARL MAKER-C Unavailable Encounter Details Date Type Department Care Team (Late st Contact Info) Description 05/08/2025 Hospital Follow-up Call [facility] [address] [place] [address] Karon Bishop, RN Social History Tobacco Use Types Packs/Day Years [...] from your doctor or pharmacy? Never 04/11/2025 [facility] Utilities Answer Date Recorded In the past 12 months has e [employer], gas, oil, or water company threatened to [...] week 04/11/2025 How often do you attend [facility] or temple services? More than 4 times per year 04/11/2025 Do you belong to any clubs o r organizations such as temple groups, unions, fraternal or athletic groups, or [...] and heating? Not hard at all 04/11/2025 [facility] Occupat ional Health - Occupational Stress [...] in a alf (including now)? No 12/02/2022 Housing Stability Vital Sign Answer Terence e Recorded In the last 12 months, was t here a time when you were not able to pay the mortgage or rent on time? No 04/11/2025 In the past 12 months, how m any times have you moved where you were living? 0 04/11/2025 At any time in the past 12 m [facility], were you homeless or living in a alf (including now)? No 04/11/2025 Humiliation, Afraid, Rape, [...] any time in the past 12 m [facility], were you homeless or living in a alf (including now)? No 05/01/2025 [facility] Utilities Answer Date Recorded In [...] file Not on file Not on file documented as of this encounter Functional Status * Are you deaf or do you have serious difficulty hearing Answer Date of Assessment Author Status No 05/01/2025 9:05 PM Bishop Bejarano RN Active * Are you blind or do you have serious difficulty seeing, even when wearing glasses? Answer Date of Assessment Author Status No 05/01/2025 9:05 PM Bishop Bejarano RN Active * Do you have serious difficulty walking or climbing stairs? Answer Date of Assessment Author Status No 05/01/2025 9:05 PM Bishop Bejarano RN Active * Do you have difficulty dressing or bathing? Answer Date of Assessment Author Status No 05/01/2025 9:05 PM Bishop Bejarano RN Active * Because of a physical, mental, or emotional condition, do you have difficulty doing errands alone such as visiting a doctor's office or shopping? Answer Date of Assessment Author Status No 05/01/2025 9:05 PM Bishop Bejarano RN Active documented as of this encounter Mental Status * Because of a physical, mental, or emotional condition, do you have serious difficulty concentrating, remembering, or making decisions? Answer Entry Date Author Status No 05/01/2025 9:05 PM Bishop Bejarano RN Active documented in this encounter Plan of Treatment Upcoming Encounters Date Type Department Care Team (Late st Contact Info) Description 07/26/2025 1:00 PM HOSIERY MENDER Office Visit [facility] [place] [address] Britni Martin MD [address] [place] [address] documented as of this encounter Goals Goal Patient Goal Type Associated Problems Recent Progress Patient-Stated? Author Safety Patient/family will have appropriate support at home upon discharge Lifestyle No Alda Hernandez, GAEL Safety Patient/family will have appropriate support at home upon discharge Lifestyle No Isabella Malhotra RN documented as of this encounter Visit Diagnoses Not on filedocumented in this encounter Care Teams Accounting Policy Consultant Relationship Specialty Start Date End Date Pasquale Pro MD [address] [place] [address] PCP - General INTERNAL MEDICINE 03/19/18 Roland Tatum MD [address] [place] [address] Consulting Physician CARDIOVASCULAR DISEASE 06/22/20 Suly Galdamez APRN, PEARL MAKER-C [address] [facility] [address] [place] [address] NURSE PRACTITIONER 06/22/20 documented as of this encounter
--- OUTSIDE RECORDS SUMMARY | 2025-07-17 22:48 | XMS_ITS | Encounter Summary ---
Author Organization [facility] Address [address] [place] [address] Care Team Providers Care Licensing Director Name Role Phone Pasquale Pro MD Primary Care Provider [phone] Roland Tatum MD Unavailable Suly Galdamez APRN, [employer] Unavailable Encounter Details Date Type Department Care Team (Late st Contact Info) Description 07/12/2025 Orders Only [facility] [address] [place], [place] [id number] Britni Martin MD [address] [place] [address] Social History Tobacco Use Types Packs/Day Years [...] from your doctor or pharmacy? Never 04/11/2025 [facility] Utilities Answer Date Recorded In [...] week 04/11/2025 How often do you attend [facility] or confucianism services? More than 4 times per year 04/11/2025 Do you belong to any clubs o r organizations such as sikhism groups, unions, fraternal or athletic groups, or [...] and heating? Not hard at all 04/11/2025 [facility] of Occupat ional Health - Occupational Stress [...] slept in a fpc (including now)? No 12/02/2022 Housing Stability Vital Sign Answer Terence e Recorded In the last 12 months, was t here a time when you were not able to pay the mortgage or rent on time? No 04/11/2025 In the past 12 months, how m any times have you moved where you were living? 0 04/11/2025 At any time in the past 12 m [facility], were you homeless or living in a fpc (including now)? No 04/11/2025 Humiliation, Afraid, Rape, [...] any time in the past 12 m [facility], were you homeless or living in a fpc (including now)? No 05/01/2025 [facility] Utilities Answer Date Recorded In [...] Author Status No 05/01/2025 9:05 PM Bishop Bejaarno RN Active documented as of this encounter Mental Status * Because of a physical, mental, or emotional condition, do you have serious difficulty concentrating, remembering, or making decisions? Answer Entry Date Author Status No 05/01/2025 9:05 PM Bishop Bejarano RN Active documented in this encounter Plan of Treatment Upcoming Encounters Date Type Department Care Team (Late st Contact Info) Description 07/26/2025 1:00 PM DIECAST MACHINE OPERATOR Office Visit [facility] [place] [address] Britni Martin MD [address] [place], [place] [address] Scheduled Orders Name Type Priority Associated Diagnoses Orde r Schedule ECG 12 lead EKG-NonRad Routine Abnormal EKG Expected: 07/26/2025, Expires: 08/12/2025 documented as of this encounter Goals Goal Patient Goal Type Associated Problems Recent Progress Patient-Stated? Author Safety Patient/family will have appropriate support at home upon discharge Lifestyle No Alda Hernandez, GAEL Safety Patient/family will have appropriate support at home upon discharge Lifestyle No Isabella Malhotra RN documented as of this encounter Visit Diagnoses Diagnosis Abnormal EKG- Primary Nonspecific abnormal electrocardiogram (ECG) (EKG) documented in this encounter Care Teams Licensing Director Relationship Specialty Start Date End Date Pasquale Pro MD [address] [place] [phone] PCP - General INTERNAL MEDICINE 03/19/18 Roland Tatum MD [address] [place] [address] Consulting Physician CARDIOVASCULAR DISEASE 06/22/20 Suly Galdamez APRN, [employer] [address] [facility] [address] [place] [address] NURSE PRACTITIONER 06/22/20 documented as of this encounter
[2025-07-17] MEDS: SODIUM CHLORIDE 0.9% IV 2,000 ML 999 ML IV CONT (23:11)
[2025-07-17 23:14] LABS: Hematocrit 48.5 % (35.0-42.0); Hemoglobin 15.5 g/dL (11.7-13.8); Mean Corpuscular HGB Conc 32.0 g/dL (32-36); Mean Corpuscular Hemoglobin 27.2 pg (27.0-31.0); Mean Corpuscular Volume 85.2 fL (78.0-102.0); Platelet Count Result 388 K/mm3 (150-420); Red Blood Count 5.69 M/mm3 (4.20-5.40); White Blood Count 22.0 K/mm3 (4.8-10.8)
--- NOTE | 2025-07-17 23:20 | PC.NURSE ---
Pt having loos e diarrhea stools and diaper changed of liquid brown stool.
[2025-07-17 23:29] LABS: Alanine Aminotransferase 32 U/L (6-35); Albumin Level 5.1 g/dL (3.5-5.1); Alkaline Phosphatase 84 U/L (38-126); Anion Gap 25 mmol/L (4-12); Aspartate Amino Transferase 32 U/L (14-36); Bilirubin,Total 0.3 mg/dL (0.2-1.3); Blood Urea Nitrogen 50 mg/dL (7-17); Calcium 9.4 mg/dL (8.4-10.2); Carbon Dioxide 16 mmol/L (22-30); Chloride 98 mmol/L (98-107); Estimated CRCL calculation 8 ml/min; Estimated Glomerular Filt Rate 8; Glucose 135 mg/dL (65-110); Osmolality Calculated 303 mOsm/kg (285-295); Potassium 3.9 mmol/L (3.4-5.0); Sodium 139 mmol/L (137-145); Total Protein 8.7 g/dL (6.3-8.2)
[2025-07-17 23:33] LABS: Band Neutrophils Percent 0 % (0-6); Basophils Absolute Manual 0.00 K/mm3 (0-0.1); Basophils Percent Manual 0 % (0-1); Eosinophils Absolute Manual 0.00 K/mm3 (0.02-0.50); Eosinophils Percent Manual 0 % (1-6); Lymphocytes Absolute Manual 0.88 K/mm3 (1.1-4.5); Lymphocytes Percent Manual 4 % (18-44); Monocytes Absolute Manual 0.88 K/mm3 (0.1-0.90); Monocytes Percent Manual 4 % (3-9); Neutrophils Absolute Manual 20.24 K/mm3 (1.3-6.7); Neutrophils Percent Manual 92 % (46-73)
[2025-07-17] MEDS: ONDANSETRON INJ 4 MG/2 ML VIAL IV PUSH (23:47)
[2025-07-17 23:48] LABS: Influenza A QL RT-PCR Negative (Negative); Influenza B QL RT-PCR Negative (Negative); RSV RNA, RT-PCR Negative (Negative); SARS-CoV-2 RNA PCR Negative (Negative)
[2025-07-18] VITALS (35 sets, daily range): BP systolic 82–110; BP diastolic 41–70; PULSE 65–92; RESP 10–23; TEMP 36.6; O2SAT 89–100
--- NOTE | 2025-07-18 00:02 | PC.NURSE ---
ERP Dr Bryson spoke w/ pt and her family about need for transfer to [facility] for GI and nephrology d/t her lab value results. Pt wanting to try to go to [facility].
--- NOTE | 2025-07-18 00:40 | PC.NURSE ---
Lights dimmed, pt resting w/ call dumas at side, explained POC and waitlist times for hospitals for transfer and that no beds available tonight. Pt stated understanding. IVF infusing as per order, continuing to monitor.
[2025-07-18] MEDS: SODIUM CHLORIDE 0.9% IV 1,000 ML 250 ML IV CONT (00:43)
[2025-07-18] MEDS: MELATONIN 5 MG TABLET PO (01:33)
[2025-07-18 01:51] LABS: Hematocrit 40.8 % (35.0-42.0); Hemoglobin 12.5 g/dL (11.7-13.8); Immature Granulocyte Percent A 0.4 % (0.0-0.0); Lymphocytes Absolute Auto 1.51 K/mm3 (1.10-4.50); Mean Corpuscular HGB Conc 30.6 g/dL (32-36); Mean Corpuscular Hemoglobin 27.1 pg (27.0-31.0); Mean Corpuscular Volume 88.3 fL (78.0-102.0); Nucleated Red Blood Cells Absolute Auto 0.00 K/mm3 (0.00-0.00); Nucleated Red Blood Cells Perc 0.0 % (0-0.0); Platelet Count Result 291 K/mm3 (150-420); Red Blood Count 4.62 M/mm3 (4.20-5.40); White Blood Count 18.2 K/mm3 (4.8-10.8)
[2025-07-18 02:03] LABS: Anion Gap 16 mmol/L (4-12); Blood Urea Nitrogen 48 mg/dL (7-17); CRP 2.9 mg/dL (<1.0); Calcium 7.6 mg/dL (8.4-10.2); Carbon Dioxide 16 mmol/L (22-30); Chloride 109 mmol/L (98-107); Estimated CRCL calculation 9 ml/min; Estimated Glomerular Filt Rate 10; Osmolality Calculated 302 mOsm/kg (285-295); Potassium 4.4 mmol/L (3.4-5.0); Sodium 141 mmol/L (137-145)
[2025-07-18 02:12] LABS: Glucose 56 mg/dL (65-110)
--- NOTE | 2025-07-18 02:15 | PC.NURSE ---
Pt resting w/ TV on, given warm blankets, order obtained for 1 amp D50 to be given d/t blood glucose reading. Pt is alert and states she hasn't eaten in a couple days d/t not feeling well. VSS at this time.
[2025-07-18] MEDS: DEXTROSE 50% 25 GM/50 ML SYRINGE IV PUSH (02:17)
[2025-07-18] MEDS: DEXTROSE 5%/0.9% SOD CHL 1,000 ML 150 ML IV CONT ×2 (02:19→09:01)
--- NOTE | 2025-07-18 04:08 | PC.NURSE ---
Pt sleeping, RR even and nonlabored, IVF continue to infuse, Call dumas at side, continuing to await bed for transfer and acceptance to a facility.
--- NOTE | 2025-07-18 05:49 | PC.NURSE ---
Call back from [facility] for update, still on waitlist as no beds available at [facility]. Pt continues to sleep, VSS, continuing to monitor.
--- NOTE | 2025-07-18 06:47 | PC.NURSE ---
Call back made to [facility] to speak w/ hospitalist at [facility] about CT report results.
[2025-07-18 08:45] LABS: Add Urine Microscopic? YES; Appearance Urine Clear (Clear); Glucose Urine UA 1+ (Negative); Leukocyte Esterase Ur Trace LEU/UL (Negative); Nitrate Urine Positive (Negative); Specific Grav Ur >= 1.030 (1.010-1.020)
--- NOTE | 2025-07-18 09:00 | PC.NURSE ---
Bladder scan revealed 410ml. Straight cath for UA done and after 200ml output the catheter tube clogged with pus and sediment. Informed ERP who ordered a rendon catheter placed. GAEL Celestin placed rendon.
[2025-07-18 09:38] LABS: Hematocrit 36.4 % (35.0-42.0); Hemoglobin 11.2 g/dL (11.7-13.8); Immature Granulocyte Percent A 0.4 % (0.0-0.0); Lymphocytes Absolute Auto 1.76 K/mm3 (1.10-4.50); Mean Corpuscular HGB Conc 30.8 g/dL (32-36); Mean Corpuscular Hemoglobin 26.9 pg (27.0-31.0); Mean Corpuscular Volume 87.5 fL (78.0-102.0); Nucleated Red Blood Cells Absolute Auto 0.00 K/mm3 (0.00-0.00); Nucleated Red Blood Cells Perc 0.0 % (0-0.0); Platelet Count Result 257 K/mm3 (150-420); Red Blood Count 4.16 M/mm3 (4.20-5.40); White Blood Count 14.7 K/mm3 (4.8-10.8)
[2025-07-18 09:49] LABS: Anion Gap 15 mmol/L (4-12); Blood Urea Nitrogen 49 mg/dL (7-17); Calcium 7.5 mg/dL (8.4-10.2); Carbon Dioxide 16 mmol/L (22-30); Chloride 109 mmol/L (98-107); Estimated CRCL calculation 10 ml/min; Estimated Glomerular Filt Rate 11; Glucose 60 mg/dL (65-110); Osmolality Calculated 301 mOsm/kg (285-295); Potassium 4.5 mmol/L (3.4-5.0); Sodium 140 mmol/L (137-145)
[2025-07-18] MEDS: cefTRIAXone 2 GM in SODIUM CHLORIDE 0.9% IV 100 ML 200 ML IVPB (09:54)
--- NOTE | 2025-07-18 10:04 | PC.NURSE ---
d5NS held, no compatible with Rocephin. will restart after administration.
--- NOTE | 2025-07-18 10:12 | PC.NURSE ---
[facility] called for transfer per patient request.
--- NOTE | 2025-07-18 10:39 | PC.NURSE ---
Patients glucose rechecked found to be at 77, patient is asymptomatic, given apple juice and phuc crackers.
--- NOTE | 2025-07-21 14:38 | PC.NURSE ---
FINAL URINE CULTURE REPORT: ORGANISM- ENTEROBACTER CLOACAE COMPLEX; MULTI-DRUG RESISTANT ORGANISM GREATER THAN 100,000 COLONY FORMING UNITS PER ML. PT NOT SENT HOME ON ANTIBIOTICS. MD ANI MADE AWARE. LEVAQUIN 500 MG DAILY X [address] [facility]. PT CONTACTED AND MADE AWARE.
== END 2025-07-18 12:16 | disposition short-term general hospital (02) ==
PROVIDERS: Emergency Medicine; Emergency Provider Family Medicine; PCP Internal Medicine
DX: N17.9 Acute kidney failure, unspecified (principal); K52.9 Noninfective gastroenteritis and colitis, unspecified; N39.0 Urinary tract infection, site not specified; E11.9 Type 2 diabetes mellitus without complications; I10 Essential (primary) hypertension; E78.5 Hyperlipidemia, unspecified; J44.9 Chronic obstructive pulmonary disease, unspecified; Z85.3 Personal history of malignant neoplasm of breast; F17.210 Nicotine dependence, cigarettes, uncomplicated; Z20.822 Contact with and (suspected) exposure to COVID-19
CPT/HCPCS: 36415; 71045; 74176; 80048; 80053; 81001; 82948; 83605; 85025; 86140; 87086; 87186; 87637; 96361; 96365; 96375; 99285; A9270; J0696; J2405; J7030; J7042